=== PATIENT | female | born 1945 | race Caucasian/White ===

== ENCOUNTER 2016-11-28 14:50 | Observation (INO) | payer MEDICARE ==
[2016-11-28] MEDS ORDERED: NovoLOG Insulin SQ PRN (17:20)
[2016-11-28 17:33] LABS: Mean Cell Volume 87.2 fl (78-100); Mean Corpuscular Hemoglobin 27.1 pg (26-32); Mean Platelet Volume 11.1 fl (6-9.5); Platelet Count 237 K/mm3 (150-450); Red Blood Count 4.31 M/mm3 (4.1-5.4); Red Cell Distribution Width 14.8 % (11.5-14.0); White Blood Count 10.6 K/mm3 (4.0-10.5)
[2016-11-28 18:06] LABS: ALBUMIN 3.3 g/dL (3.4-5.0); ALKALINE PHOSPHATASE 119 U/L (46-116); ANION GAP 9.7 MEQ/L (5-15); BLOOD UREA NITROGEN 17 mg/dL (9-20); CHLORIDE 105 mEq/L (98-107); Carbon Dioxide 33.2 mEq/L (21-32); Glucose 281 MG/DL (70-110); Potassium 4.4 mEq/L (3.5-5.1); SGOT/AST 18 U/L (15-37); SGPT/ALT 32 U/L (12-78); SODIUM 144 mEq/L (136-145); TROPONIN 0.031 ng/ml (0.000-0.056); Total Protein 6.5 gm/dL (6.4-8.2)
[2016-11-28] MEDS ORDERED: ADVAIR HFA 45/21 COMMON CANISTER IH SCH (19:00)
--- NOTE | 2016-11-28 19:11 | XRAY ---
Exam: AP upright portable chest film from 1740 hrs. on 11/28/2016. Comparison: AP portable chest film from 09/02/2013. Indication: CHF. Findings: The heart appears slightly enlarged. There is mild nonspecific accentuation of the central perihilar vascular markings. The patient is noted be large. I see no air space infiltrates, pneumothorax, or pleural fluid. Some osteophyte formation is seen within the lower thoracic spine. No acute osseous process is seen. Impression: 1. Mild cardiomegaly without evidence of overt CHF or air space infiltrates.
[2016-11-28] MEDS: Apresoline 25 MG TABLET PO SCH (21:26)
[2016-11-28] MEDS: Pepcid 20 MG PO SCH (21:27)
[2016-11-28] MEDS ORDERED: COREG 12.5 MG PO SCH (22:00)
[2016-11-29] MEDS ORDERED: ADVAIR HFA 45/21 COMMON CANISTER IH SCH (07:00)
[2016-11-29] MEDS ORDERED: Advair Hfa 115/21 Common canister IH SCH (07:00)
--- NOTE | 2016-11-29 07:51 | CONS ---
CONSULT DATE: 11/28/2016 BRIEF HISTORY: This is a 71 year-old female who was seen because of shortness of breath. The patient was seen earlier at [facility] presenting with the same symptoms. She denies any chest pains. Apparently she was admitted this time because of hypoglycemic episode. She has never had myocardial infarction. CARDIAC RISK FACTORS: She has diabetes. Positive for hypertension. She does not smoke. She has hyperlipidemia. CURRENT MEDICATIONS: Albuterol, aspirin, atorvastatin, carvedilol, Cymbalta, famotidine, NovoLog, levothyroxine, Advair, fosinopril, hydralazine, loratadine, simvastatin, Nystatin, oxybutynin. 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 RESPIRATORY: She has occasional cough but no hemoptysis. GI: She has history of hiatal hernia. : Negative for dysuria or hematuria. PERIPHERAL VASCULAR: Negative for DVT or claudication. SKIN: No active dermatological problems. HEMATOLOGY: No history of blood dyscrasia. ENDOCRINE: The patient has history of hypothyroidism. PAST SURGICAL HISTORY: Colon resection and breast biopsy. SOCIAL HISTORY: She is . She denies any significant alcohol intake. PHYSICAL EXAMINATION: Her blood pressure is 180/70 with heart rate of 112, respirations about 14. GENERAL: The patient is an elderly female who is alert and oriented who is hard of hearing. HEENT: Unremarkable. NECK: No significant JVD or carotid bruit. CHEST: The breath sounds are diminished. CARDIAC: Heart tones are distant. The rhythm is regular. There is a grade 2/6 mid systolic murmur. ABDOMEN: Soft with normal bowel sounds. EXTREMITIES: There is trace edema. Palpable distal pulses. EKG - NSR with second degree AV block [place] IMPRESSION: 1) Shortness of breath is probably multifactorial. She has an element of left ventricular diastolic dysfunction. Her blood pressure is somewhat elevated. I hold her carvedilol due to the bradycardia probably induced by the beta josé miguel. continue with hydralazine and fosinopril. 2) Diabetes with hypoglycemic episode.
[2016-11-29] MEDS ORDERED: NON-FORMULARY ITEM (Atorvastatin Calcium 10 MG) PO SCH (10:00)
[2016-11-29] MEDS ORDERED: FLUCELVAX QUAD 2017-2018 SYR IM ONE ×2 (10:00→17:31)
[2016-11-29] MEDS ORDERED: NON-FORMULARY ITEM (Aspirin [Aspirin] 81 MG) PO SCH (10:00)
[2016-11-29] MEDS ORDERED: NON-FORMULARY ITEM (Nystatin/Tcn/Hc/Diphenhydram** [Mary's Magic Mouthwash***] 5 ML) PO SCH (10:00)
[2016-11-29] MEDS ORDERED: FOSINOPRIL SODIUM 40 MG PO SCH (10:00)
[2016-11-29] MEDS: Ditropan 5 MG PO SCH (10:40)
[2016-11-29] MEDS: Cymbalta 30 MG Capsule PO SCH (10:40)
[2016-11-29] MEDS: Pepcid 20 MG PO SCH ×2 (10:40→22:25)
[2016-11-29] MEDS: CLARITIN 10 MG PO SCH (10:40)
[2016-11-29] MEDS: monoPRIL 10 MG PO SCH (10:40)
[2016-11-29] MEDS: Apresoline 25 MG TABLET PO SCH ×3 (10:41→22:25)
[2016-11-29] MEDS: MARY'S MAGIC MOUTHWASH PO SCH ×3 (10:41→22:25)
[2016-11-29] MEDS: Zocor 10MG PO SCH (10:41)
[2016-11-29] MEDS: SYNTHROID 100 MCG PO SCH (10:41)
[2016-11-29] MEDS: ECOTRIN 81 MG PO SCH (10:41)
--- NOTE | 2016-11-29 13:06 | PCM.SSS ---
History of Present Illness - Chief Complaint Chief Complaint: shortness of breath for 1 week History of Present Illness: see history and Physical - Review of Systems Constitutional: No Fever, No Chills Eyes: No Symptoms Ears, Nose, & Throat: No Symptoms Respiratory: Orthopnea, Short Of Breath, Wheezing, No Cough Cardiac: Edema, No Chest Pain, No Syncope Abdominal/Gastrointestinal: No Abdominal Pain, No Nausea, No Vomiting, No Diarrhea Genitourinary Symptoms: No Dysuria Musculoskeletal: No Back Pain, No Neck Pain Skin: No Rash Neurological: No Dizziness, No Focal Weakness, No Sensory Changes Psychological: No Symptoms Endocrine: No Symptoms Hematologic/Lymphatic: No Symptoms Immunological/Allergic: No Symptoms Medications & Allergies Home Medications: Home Medication List Aspirin 81 mg PO DAILY 11/28/16 [History Confirmed 11/29/16] Atorvastatin Calcium [Lipitor] 10 mg PO DAILY 11/28/16 [History Confirmed ] Carvedilol 6.25 mg [Coreg 6.25 MG] 6.25 mg PO BID 11/28/16 [History Confirmed 11/29/16] Duloxetine HCl 30 mg [Cymbalta 30 MG Capsule] 60 mg PO DAILY 11/28/16 [ History Confirmed 11/29/16] Famotidine 20 mg [Pepcid 20 MG] 20 mg PO BID 11/28/16 [History Confirmed 11/29/16] Fluticasone/Salmeterol 45/21 [Advair Hfa 45-21 Mcg Inhaler] 8 gm IH BID [History Confirmed 11/29/16] Fosinopril Sodium 40 mg PO DAILY 11/28/16 [History Confirmed 11/29/16] HydrALAzine HCL 25 MG TAB [Apresoline 25 MG TABLET] 50 mg PO TID 11/28/16 [History Confirmed 11/29/16] Levothyroxine Sodium 100 Mcg [Synthroid 100 Mcg] 100 mcg PO DAILY 11/28/16 [History Confirmed 11/29/16] Loratadine 10 mg [Claritin 10 mg] 10 mg PO DAILY 11/28/16 [History Confirmed 11/29/16] Nystatin/TCN/Hc/Diphenhydram [Eugenia's Magic Mouthwash] 5 ml PO TID 11/28/16 [History Confirmed 11/29/16] Oxybutynin Chloride 5 mg PO DAILY 11/28/16 [History Confirmed 11/29/16] Insuln Asp Prt/Insulin Aspart* [NovoLOG 70/30 Mix] 100 unit SQ BID 11/29/16 [ History Confirmed 11/29/16] Allergies/Adverse Reactions: Allergies Allergy/AdvReac Type Severity Reaction Status Date / Time Sulfa (Sulfonamide Allergy Verified 11/28/16 17:49 Antibiotics) - Past Medical History Past Medical History: Yes Neurological History: No Pertinent History ENT History: Cataracts, Glaucoma Cardiac History: Congestive Heart Failure, Hypertension, Myocardial Infarction ( [place]) Respiratory History: Asthma, Sleep Apnea Endocrine Medical History: Diabetes Type II Musculoskelatal History: Arthritis GI Medical History: Diverticulitis, Diverticulosis, GERD, Hernia History: No Pertinent History Pyscho-Social History: Anxiety, Depression Reproductive Disorders: No Pertinent History - Past Surgical History Past Surgical History: Yes Neuro Surgical History: No Pertinent History Cardiac History: Cardiac Catheterization Respiratory Surgery: No Pertinent History GI Surgical History: No Pertinent History Genitourinary Surgical Hx: No Pertinent History Musculskeletal Surgical Hx: No Pertinent History Female Surgical History: No Pertinent History Other Surgical History: 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, CYST REMOVED FROM BREAST , - Social History Smoking Status: Former smoker Exposure to second hand smoke: No Alcohol: None Drug Use: none - Physical Exam Vital Signs: Vital Signs - 24 hr Temp Pulse Resp BP Pulse Ox 11/29/16 12:00 18 11/29/16 11:19 98.3 F 64 18 195/85 95 11/29/16 08:00 18 11/29/16 07:36 97.7 F 58 L 18 132/72 96 11/29/16 07:14 76 18 93 L 11/29/16 04:00 98.2 F 76 20 162/73 92 L 11/29/16 00:00 97.9 F 56 L 19 149/66 98 11/28/16 21:14 46 L 18 97 11/28/16 20:33 46 L 18 97 11/28/16 20:00 97.7 F 72 19 141/65 97 11/28/16 17:34 83 18 98 11/28/16 17:15 95 11/28/16 17:07 97.8 F 71 16 180/78 92 L 11/28/16 16:43 97.8 F 71 16 180/78 89 L Oxygen-Last 24 hours O2 Percentage 2 Liters = 28% O2 Percentage 2 Liters = 28% O2 Percentage 2 Liters = 28% O2 Percentage 2 Liters = 28% O2 Percentage 2 Liters = 28% O2 Percentage 2 Liters = 28% Oxygen Flowrate (L/min)-RT 2 General Appearance: mild distress, alert Neurologic Exam: alert, oriented x 3, cooperative, normal mood/affect, nml cerebellar function, nml station & gait, sensation nml, No motor deficits Eye Exam: PERRL/EOMI, eyes nml inspection Ears, Nose, Throat Exam: normal ENT inspection, TMs normal, pharynx normal, moist mucous membranes Neck Exam: normal inspection, non-tender, supple, full range of motion Respiratory Exam: normal breath sounds, lungs clear, No respiratory distress Cardiovascular Exam: regular rate/rhythm, normal heart sounds, normal peripheral pulses Gastrointestinal/Abdomen Exam: soft, normal bowel sounds, No tenderness, No mass Back Exam: normal inspection, normal range of motion, No CVA tenderness, No vertebral tenderness Extremity Exam: normal inspection, normal range of motion, pelvis stable Skin Exam: normal color, warm, dry, No rash Lymphatic Exam: No adenopathy Results - Labs Lab/Micro Results: Accuchecks Date 11/29/16 Date 11/29/16 Date 11/28/16 Time 11:30 Time 07:30 Time 21:00 Accucheck Value: 164 Accucheck Value: 108 Accucheck Value: 247 Lab Results-Last 24 Hours 11/28/16 11/28/16 11/28/16 Range/Units 17:25 17:25 17:30 WBC 10.6 H (4.0-10.5) K/mm3 RBC 4.31 (4.1-5.4) M/mm3 Hgb 11.7 L (12.0-16.0) gm/dl Hct 37.6 (35-47) % MCV 87.2 (78-100) fl MCH 27.1 (26-32) pg MCHC 31.1 L (32-36) g/dl RDW 14.8 H (11.5-14.0) % Plt Count 237 (150-450) K/mm3 MPV 11.1 H (6-9.5) fl Sodium 144 (136-145) mEq/L Potassium 4.4 (3.5-5.1) mEq/L Chloride 105 (98-107) mEq/L Carbon Dioxide 33.2 H (21-32) mEq/L Anion Gap 9.7 (5-15) MEQ/L BUN 17 (9-20) mg/dL Creatinine 0.86 (0.55-1.30) mg/dl Estimated GFR > 60 ML/MIN Glucose 281 H (70-110) MG/DL Hemoglobin A1c 8.1 H (4.5-6.2) Calcium 9.2 (8.5-10.1) mg/dL Total Bilirubin 0.40 (0.2-1.0) mg/dL AST 18 (15-37) U/L ALT 32 (12-78) U/L Alkaline Phosphatase 119 H (46-116) U/L Troponin I 0.031 (0.000-0.056) ng/ml NT-Pro-B Natriuret Pep 2323 H (0-125) pg/ml Serum Total Protein 6.5 (6.4-8.2) gm/dL Albumin 3.3 L (3.4-5.0) g/dL Accuchecks Date 11/29/16 Date 11/29/16 Date 11/28/16 Time 11:30 Time 07:30 Time 21:00 Accucheck Value: 164 Accucheck Value: 108 Accucheck Value: 247 - Radiology Impressions Radiology Exams & Impressions: Radiology Procedures Category Date Time Status CHEST 1 VIEW (PORTABLE) Routine Exams 11/28/16 17:30 Completed CHEST 2 VIEWS (PA AND LAT) Routine Exams 11/30/16 06:00 Ordered ECHO W/2D AND DOPPLER [US] Routine Exams 11/29/16 08:00 Taken - Other Procedures and Tests Respiratory Therapy 11/28/16 17:15 Oxygen NASAL CANNULA 2 lpm 11/28/16 21:08 Respiratory MDI BID 11/29/16 12:59 EKG ASORD Assessment/Plan (1) CHF (congestive heart failure), NYHA class III Current Visit: Yes Status: Acute Qualifiers: Congestive heart failure type: combined Congestive heart failure chronicity : chronic Qualified Code(s): I50.42 - Chronic combined systolic (congestive) and diastolic (congestive) heart failure Code(s): I50.9 - HEART FAILURE, UNSPECIFIED (2) Type 2 diabetes mellitus Current Visit: Yes Status: Acute Qualifiers: Diabetes mellitus complication status: with hyperglycemia Diabetes mellitus mcfp insulin use: with mcfp use Qualified Code(s): E11.65 - Type 2 diabetes mellitus with hyperglycemia; 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 (3) Sleep apnea in adult Current Visit: Yes Status: Chronic Code(s): G47.30 - SLEEP APNEA, UNSPECIFIED (4) COPD (chronic obstructive pulmonary disease) Current Visit: Yes Status: Chronic Qualifiers: COPD type: unspecified COPD Qualified Code(s): J44.9 - Chronic obstructive pulmonary disease, unspecified Hospital Summary - Hospital Course Hospital Course: Chief Complaint Diagnosis CHF Allergies Allergy/AdvReac Type Severity Reaction Status Date / Time Sulfa (Sulfonamide Allergy Verified 11/28/16 17:49 Antibiotics) Vital Signs (Last 24 hours) Temp Pulse Resp BP Pulse Ox 11/29/16 12:00 18 11/29/16 11:19 98.3 F 64 18 195/85 95 11/29/16 08:00 18 11/29/16 07:36 97.7 F 58 L 18 132/72 96 11/29/16 07:14 76 18 93 L 11/29/16 04:00 98.2 F 76 20 162/73 92 L 11/29/16 00:00 97.9 F 56 L 19 149/66 98 11/28/16 21:14 46 L 18 97 11/28/16 20:33 46 L 18 97 11/28/16 20:00 97.7 F 72 19 141/65 97 11/28/16 17:34 83 18 98 11/28/16 17:15 95 11/28/16 17:07 97.8 F 71 16 180/78 92 L 11/28/16 16:43 97.8 F 71 16 180/78 89 L Home Medications Medication Instructions Recorded Confirmed Last Taken Type Aspirin 81 mg PO DAILY 11/28/16 11/29/16 11/28/16 History Atorvastatin Calcium [Lipitor] 10 mg PO DAILY 11/28/16 11/29/16 11/28/16 History Carvedilol 6.25 mg [Coreg 6.25 6.25 mg PO BID 11/28/16 11/29/16 11/28/16 History MG] Duloxetine HCl 30 mg [Cymbalta 60 mg PO DAILY 11/28/16 11/29/16 11/28/16 History 30 MG Capsule] Famotidine 20 mg [Pepcid 20 20 mg PO BID 11/28/16 11/29/16 11/28/16 History MG] Fluticasone/Salmeterol 45/21 8 gm IH BID 11/28/16 11/29/16 11/28/16 History [Advair Hfa 45-21 Mcg Inhaler] Fosinopril Sodium 40 mg PO DAILY 11/28/16 11/29/16 11/28/16 History HydrALAzine HCL 25 MG TAB 25 mg PO QID 11/28/16 11/29/16 11/28/16 History [Apresoline 25 MG TABLET] Levothyroxine Sodium 100 Mcg 100 mcg PO DAILY 11/28/16 11/29/16 11/28/16 History [Synthroid 100 Mcg] Loratadine 10 mg [Claritin 10 10 mg PO DAILY 11/28/16 11/29/16 11/28/16 History mg] Nystatin/TCN/Hc/Diphenhydram 5 ml PO TID 11/28/16 11/29/16 11/28/16 History [Eugenia's Magic Mouthwash] Oxybutynin Chloride 5 mg PO DAILY 11/28/16 11/29/16 11/28/16 History Current Medications Generic Name Dose Route Start Last Admin Trade Name Freq PRN Reason Stop Dose Admin Aspirin 81 mg 11/29/16 10:00 11/29/16 10:41 Ecotrin 81 Mg PO 12/29/16 09:59 81 mg DAILY LILA Administration Duloxetine HCl 60 mg 11/29/16 10:00 11/29/16 10:40 Cymbalta 30 Mg Capsule PO 12/29/16 09:59 60 mg DAILY LILA Administration Famotidine 20 mg 11/28/16 22:00 11/29/16 10:40 Pepcid 20 Mg PO 12/28/16 21:59 20 mg BID LILA Administration Fosinopril Sodium 40 mg 11/29/16 10:00 11/29/16 10:40 Monopril 10 Mg PO 12/29/16 09:59 40 mg DAILY LILA Administration Hydralazine HCl 50 mg 11/29/16 15:00 Apresoline 25 Mg Tablet PO 12/29/16 14:59 TID LILA Insulin Aspart 0 unit 11/28/16 17:20 11/28/16 21:27 Novolog Insulin SQ 12/28/16 17:19 2 unit UD PRN Administration HYPERGLYCEMIA Levothyroxine Sodium 100 mcg 11/29/16 10:00 11/29/16 10:41 Synthroid 100 Mcg PO 12/29/16 09:59 100 mcg DAILY LILA Administration Loratadine 10 mg 11/29/16 10:00 11/29/16 10:40 Claritin 10 Mg PO 12/29/16 09:59 10 mg DAILY LILA Administration Oxybutynin Chloride 5 mg 11/29/16 10:00 11/29/16 10:40 Ditropan 5 Mg PO 12/29/16 09:59 5 mg DAILY LLIA Administration Fluticasone/Salmeterol 2 puff 11/29/16 07:00 11/29/16 06:45 Advair Hfa 45/21 Common Canister* IH 12/29/16 06:59 2 puff BIDRT LILA Administration Simvastatin 10 mg 11/29/16 10:00 11/29/16 10:41 Zocor 10mg PO 12/29/16 09:59 10 mg DAILY LILA Administration Discontinued Medications Generic Name Dose Route Start Last Admin Trade Name Freq PRN Reason Stop Dose Admin Carvedilol 12.5 mg 11/28/16 22:00 11/28/16 18:26 Coreg 12.5 Mg PO 12/28/16 21:59 Not Given BID LILA Hydralazine HCl 25 mg 11/28/16 22:00 11/29/16 12:23 Apresoline 25 Mg Tablet PO 12/28/16 21:59 25 mg QID LILA Administration Hydralazine HCl 50 mg 11/29/16 15:00 Apresoline 25 Mg Tablet PO 12/29/16 14:59 TID LILA Influenza Virus Vaccine Quadrival 60 mcg 11/29/16 10:00 Flucelvax Quad [id number] Syr IM 11/29/16 10:01 .ONCE ONE Fluticasone/Salmeterol 2 puff 11/28/16 19:00 11/28/16 22:33 Advair Hfa 45/21 Common Canister* IH 12/28/16 18:59 Not Given BIDRT LILA Fluticasone/Salmeterol 2 puff 11/29/16 07:00 11/28/16 21:10 Advair Hfa 115/21 Common Canister* IH 12/29/16 06:59 2 puff BIDRT LILA Administration Intake & Output (Last 24 hours) 11/27/16 11/28/16 11/29/16 11/30/16 11:59 11:59 11:59 11:59 Intake Total 1300 480 Output Total 302 2 Balance 998 478 Weight 88.025 kg Laboratory Results (Last 24 hours) 11/28/16 11/28/16 11/28/16 17:30 17:25 17:25 WBC 10.6 H RBC 4.31 Hgb 11.7 L Hct 37.6 MCV 87.2 MCH 27.1 MCHC 31.1 L RDW 14.8 H Plt Count 237 MPV 11.1 H Sodium 144 Potassium 4.4 Chloride 105 Carbon Dioxide 33.2 H Anion Gap 9.7 BUN 17 Creatinine 0.86 Estimated GFR > 60 Glucose 281 H Hemoglobin A1c 8.1 H Calcium 9.2 Total Bilirubin 0.40 AST 18 ALT 32 Alkaline Phosphatase 119 H Troponin I 0.031 NT-Pro-B Natriuret Pep 2323 H Serum Total Protein 6.5 Albumin 3.3 L Orders (Last 24 hours) Category Date Time Status Bedrest TOLERATED Activity 11/28/16 17:09 Active ACCUCHECK [Accucheck] ACHS Care 11/28/16 17:16 Active Admission/Status Order ROUTINE Care 11/28/16 16:29 Active IV Care Q6H Care 11/28/16 17:06 Active Implement CHF Pathway ROUTINE Care 11/28/16 17:06 Active Miscellaneous Nursing Order ROUTINE Care 11/28/16 17:20 Active Saline Lock ROUTINE Care 11/28/16 17:06 Active Telemetry CONTINUOUS Care 11/28/16 17:08 Active Weight,Daily 0600 Care 11/28/16 17:06 Active Consult Cardiology ROUTINE Cons 11/28/16 17:25 Active 1800 Calorie ADA Diet 11/29/16 Breakfast Active Low Sodium Diet 11/28/16 Dinner Active Nutritional Consult ROUTINE Diet 11/28/16 17:06 Active CHEST 1 VIEW (PORTABLE) Routine Exams 11/28/16 17:30 Completed CHEST 2 VIEWS (PA AND LAT) Routine Exams 11/30/16 06:00 Ordered ECHO W/2D AND DOPPLER [US] Routine Exams 11/29/16 08:00 Taken CBC Stat Lab 11/28/16 17:25 Completed CMP Stat Lab 11/28/16 17:25 Completed HEMOGLOBIN A1C Routine Lab 11/28/16 17:30 Completed NT PRO BNP Stat Lab 11/28/16 17:25 Completed TROPONIN Stat Lab 11/28/16 17:25 Completed Aspirin EC 81 mg [Ecotrin 81 mg] Med 11/29/16 10:00 Active 81 mg PO DAILY Carvedilol 12.5 mg [Coreg 12.5 mg] Med 11/28/16 22:00 Discontinued 12.5 mg PO BID Duloxetine HCl 30 mg [Cymbalta 30 MG Capsule] Med 11/29/16 10:00 Active 60 mg PO DAILY Famotidine 20 mg [Pepcid 20 MG] Med 11/28/16 22:00 Active 20 mg PO BID Flu Vac Qs 17-18(4Yr Up)Mia/Pf [Flucelvax Quad 2017- Med 11/29/16 10:00 Discontinued 2018 Syr] 60 mcg IM .ONCE ONE Fluticasone/Salmeterol 115/21 [Advair Hfa 115/21 Common Med 11/29/16 07:00 Discontinued canister*] 2 puff IH BIDRT Fluticasone/Salmeterol 45/21 [Advair Hfa 45/21 Common Med 11/28/16 19:00 Discontinued Canister*] 2 puff IH BIDRT Fluticasone/Salmeterol 45/21 [Advair Hfa 45/21 Common Med 11/29/16 07:00 Active Canister*] 2 puff IH BIDRT Fosinopril Sodium 10 mg [monoPRIL 10 MG] Med 11/29/16 10:00 Active 40 mg PO DAILY HydrALAzine HCL 25 MG TAB [Apresoline 25 MG TABLET Med 11/28/16 22:00 Discontinued *] 25 mg PO QID HydrALAzine HCL 25 MG TAB [Apresoline 25 MG TABLET Med 11/29/16 15:00 Active *] 50 mg PO TID HydrALAzine HCL 25 MG TAB [Apresoline 25 MG TABLET Med 11/29/16 15:00 Discontinued *] 50 mg PO TID Insulin Aspart [NovoLOG Insulin] Med 11/28/16 17:20 Active See Dose Instructions SQ UD PRN Levothyroxine Sodium 100 Mcg [Synthroid 100 Mcg] Med 11/29/16 10:00 Active 100 mcg PO DAILY Loratadine 10 mg [Claritin 10 mg] Med 11/29/16 10:00 Active 10 mg PO DAILY Nystatin/TCN/Hc/Diphenhydram [Eugenia's Magic Mouthwash* Med 11/29/16 10:00 Active ] 5 ml PO TID Oxybutynin Chloride 5 mg [Ditropan 5 MG] Med 11/29/16 10:00 Active 5 mg PO DAILY Simvastatin 10 mg [Zocor 10MG] Med 11/29/16 10:00 Active 10 mg PO DAILY EKG ASORD RT 11/29/16 12:59 Active EKG STAT RT 11/28/16 17:20 Completed Oxygen NASAL CANNULA 2 lpm RT 11/28/16 17:15 Active Pulse Oximetry OVERNIGHT RT 11/28/16 17:15 Completed Respiratory MDI BID RT 11/28/16 21:08 Active Respiratory Therapy Consult ROUTINE RT 11/28/16 17:19 Completed Patient Care Notes (Last 24 hours) 11/29/16 11:37 Nursing Note by Anne Penaloza dr office called for elevated BP of 184/90 taken manually. message take by tableau administrator. Initialized on 11/29/16 11:37 - END OF NOTE 11/29/16 10:15 (created 11/29/16 10:35) Case Management Note by Mouna Kern REFERRAL CALLED TO [facility] - SPOKE WITH JEREMY. Initialized on 11/29/16 10:35 - END OF NOTE 11/29/16 10:00 (created 11/29/16 10:32) Case Management Note by Mouna Kern CALL TO SON MILIND, LAY CAREGIVER, TO DISCUSS NEEDS ON DISCHARGE. REPORTS THAT HE AGREES WITH REHAB STAY AT [facility] ON DISCHARGE. REPORTS THAT HE DOESN'T FEEL THAT HIS MOTHER IS STRONG ENOUGH TO CARE FOR HERSELF INDEPENDENTLY AT PRESENT TIME - ESPECIALLY GIVEN THAT SHE HAS BEEN IN HOSPITAL SETTING TWICE WITHIN LAST MONTH. REPORTS THAT HE FEELS THAT PT/OT SHORT TERM STAY WILL BENEFIT HER. DISCUSSED THAT HIS MOTHER HAS PREFERENCE OF [facility] CHO[facility] - AND THAT SHE PREFERS TO STAY IN [place]. SON IS IN AGREEMENT. Initialized on 11/29/16 10:32 - END OF NOTE 11/29/16 09:45 (created 11/29/16 10:15) Case Management Note by Mouna Kern LONG DISCUSSION WITH PT REGARDING NEEDS AT DISCHARGE AND RECENT - HOSPITAL VISIT AT [facility] 10/29/16 - 11/06/16. REPORTS THAT SHE HAS BEEN ON 2L OXYGEN AT HOME SINCE SHE LEFT THERE AND THAT [facility] IS SUPPLYING HER OXYGEN AT HOME. ALSO, REPORTS THAT SHE IS SUPPOSED TO WEAR CPAP AT [facility], BUT THAT SHE HAS NOT BEEN WEARING FOR QUITE SOMETIME. REPORTS THAT DR. Matilda ZEPEDA HAS ORDERED IT FOR HER , AND REPORTS THAT DR. MEDINA IS AWARE SHE IS NOT WEARING AT HOME. REPORTS THAT SHE DOESN'T TOLERATE IT WELL. SHE NORMALLY USES CANE FOR AMBULATION PRN. LIVES ALONE WITH HER PET YARELI, HER DAUGHTER/GRANDDAUGHTER LIVES NEXT DOOR AND VISIT HER OFTEN. SON IS ACTIVELY INVOLVED IN PLAN OF CARE AND WILL TAKE HER TO ALL APPTS. SON HAS ALSO BEEN DESIGNATED LAY CAREGIVER. DISCUSSED REHAB STAY @ [facility] VS HOME WITH [facility] ON DISCHARGE. PT IS OPEN TO SHORT TERM REHAB STAY AT [facility] ON DISCHARGE. REPORTS THAT SHE REQUESTS REFERRAL TO [facility]. WILL CALL REFERRAL. Initialized on 11/29/16 10:15 - END OF NOTE 11/29/16 01:07 Nursing Note by Trina Heath Dr. called earlier in shift requested EKG be done and sent to his phone. called RT and EKG completed and sent to his phone @ [phone]. Initialized on 11/29/16 01:07 - END OF NOTE - Vitals & Intake/Output Vital Signs: Vital Signs Temperature 98.3 F 11/29/16 11:19 Pulse Rate 64 11/29/16 11:19 Respiratory Rate 18 11/29/16 12:00 Blood Pressure 195/85 11/29/16 11:19 O2 Sat by Pulse Oximetry 95 11/29/16 11:19 Oxygen-Last Documented O2 Percentage 2 Liters = 28% Intake & Output: Intake & Output 11/27/16 11/28/16 11/29/16 11/30/16 11:59 11:59 11:59 11:59 Intake Total 1300 480 Output Total 302 2 Balance 998 478 Weight 88.025 kg - Lab Result Diagrams: 11/28/16 17:25 11/28/16 17:25 Lab Results-Last 24 Hrs: Accuchecks Date 11/29/16 Date 11/29/16 Date 11/28/16 Time 11:30 Time 07:30 Time 21:00 Accucheck Value: 164 Accucheck Value: 108 Accucheck Value: 247 Lab Results-Last 24 Hours 11/28/16 11/28/16 11/28/16 Range/Units 17:25 17:25 17:30 WBC 10.6 H (4.0-10.5) K/mm3 RBC 4.31 (4.1-5.4) M/mm3 Hgb 11.7 L (12.0-16.0) gm/dl Hct 37.6 (35-47) % MCV 87.2 (78-100) fl MCH 27.1 (26-32) pg MCHC 31.1 L (32-36) g/dl RDW 14.8 H (11.5-14.0) % Plt Count 237 (150-450) K/mm3 MPV 11.1 H (6-9.5) fl Sodium 144 (136-145) mEq/L Potassium 4.4 (3.5-5.1) mEq/L Chloride 105 (98-107) mEq/L Carbon Dioxide 33.2 H (21-32) mEq/L Anion Gap 9.7 (5-15) MEQ/L BUN 17 (9-20) mg/dL Creatinine 0.86 (0.55-1.30) mg/dl Estimated GFR > 60 ML/MIN Glucose 281 H (70-110) MG/DL Hemoglobin A1c 8.1 H (4.5-6.2) Calcium 9.2 (8.5-10.1) mg/dL Total Bilirubin 0.40 (0.2-1.0) mg/dL AST 18 (15-37) U/L ALT 32 (12-78) U/L Alkaline Phosphatase 119 H (46-116) U/L Troponin I 0.031 (0.000-0.056) ng/ml NT-Pro-B Natriuret Pep 2323 H (0-125) pg/ml Serum Total Protein 6.5 (6.4-8.2) gm/dL Albumin 3.3 L (3.4-5.0) g/dL Micro Results-Entire Visit: Accuchecks Date 11/29/16 Date 11/29/16 Date 11/28/16 Time 11:30 Time 07:30 Time 21:00 Accucheck Value: 164 Accucheck Value: 108 Accucheck Value: 247 - Radiology Exams Ordered Rad Exams-Entire Visit: Radiology Procedures Category Date Time Status CHEST 1 VIEW (PORTABLE) Routine Exams 11/28/16 17:30 Completed CHEST 2 VIEWS (PA AND LAT) Routine Exams 11/30/16 06:00 Ordered ECHO W/2D AND DOPPLER [US] Routine Exams 11/29/16 08:00 Taken - Procedures and Test Procedures and Tests throughout Hospitalization: Therapy Orders & Screens 11/28/16 17:15 Oxygen NASAL CANNULA 2 lpm Comment: Diagnosis: CHF 11/28/16 17:19 Respiratory Therapy Consult ROUTINE Comment: Reason For Exam: Diagnosis: CHF 11/28/16 17:20 EKG STAT Comment: Diagnosis: CHF 11/28/16 21:08 Respiratory MDI BID Comment: ADV Diagnosis: CHF 11/29/16 12:59 EKG ASORD Comment: Diagnosis: CHF - Discharge Discharge Date: 11/29/16 Disposition: Skilled Care @ [facility] Condition: Stable Prescriptions: Continue HydrALAzine HCL 25 MG TAB [Apresoline 25 MG TABLET] 50 mg PO TID Aspirin 81 mg PO DAILY Fluticasone/Salmeterol 45/21 [Advair Hfa 45-21 Mcg Inhaler] 8 gm IH BID Oxybutynin Chloride 5 mg PO DAILY Levothyroxine Sodium 100 Mcg [Synthroid 100 Mcg] 100 mcg PO DAILY Fosinopril Sodium 40 mg PO DAILY Nystatin/TCN/Hc/Diphenhydram [Eugenia's Magic Mouthwash] 5 ml PO TID Famotidine 20 mg [Pepcid 20 MG] 20 mg PO BID Carvedilol 6.25 mg [Coreg 6.25 MG] 6.25 mg PO BID Atorvastatin Calcium [Lipitor] 10 mg PO DAILY Loratadine 10 mg [Claritin 10 mg] 10 mg PO DAILY Duloxetine HCl 30 mg [Cymbalta 30 MG Capsule] 60 mg PO DAILY Insuln Asp Prt/Insulin Aspart* [NovoLOG 70/30 Mix] 100 unit SQ BID Additional Inst[facility]: [facility]: PT/OT EVAL AND TREAT ACCU CHECKS AC/HS CPAP - SUPPOSED TO WEAR AT [facility], BUT HAS NOT BEEN WEARING IT 1800 V[address] ADA, LOW SODIUM DIET MONITOR WEIGHT AND I/O - HX CHF 2L OXYGEN TO KEEP SPO2 > 92% DR. MEDINA TO FOLLOW AT HALFWAY SEE ATTACHED MED LIST FOR CURRENT MED ORDERS Follow up with: MIKAEL MEDINA MD [Primary Care Provider] - 1 Week
[2016-11-29] MEDS ORDERED: Apresoline 25 MG TABLET PO SCH ×2 (15:00)
[2016-11-29] MEDS ORDERED: Apresoline 25 MG TABLET PO ONE (16:49)
[2016-11-29] MEDS ORDERED: Novolin 70/30 SQ SCH (17:15)
[2016-11-29] MEDS: NovoLOG 70/30 Mix SQ SCH (17:39)
[2016-11-30] MEDS ORDERED: Advair Hfa 115/21 Common canister IH SCH (07:00)
[2016-11-30] MEDS: NovoLOG 70/30 Mix SQ SCH (08:58)
[2016-11-30] MEDS: monoPRIL 10 MG PO SCH (10:57)
[2016-11-30] MEDS: Pepcid 20 MG PO SCH (10:57)
[2016-11-30] MEDS: MARY'S MAGIC MOUTHWASH PO SCH (10:57)
[2016-11-30] MEDS: Apresoline 25 MG TABLET PO SCH (10:57)
[2016-11-30] MEDS: Cymbalta 30 MG Capsule PO SCH (10:58)
[2016-11-30] MEDS: ECOTRIN 81 MG PO SCH (10:58)
[2016-11-30] MEDS: CLARITIN 10 MG PO SCH (10:58)
[2016-11-30] MEDS: Ditropan 5 MG PO SCH (10:58)
[2016-11-30] MEDS: Zocor 10MG PO SCH (10:58)
[2016-11-30] MEDS: SYNTHROID 100 MCG PO SCH (10:58)
[2016-11-30 11:28] VITALS: BP 157/67; PULSE 62; O2SAT 97
--- NOTE | 2016-11-30 20:18 | XRAY ---
Indication: CHF. Comparison: November 20, 2016. PA/lateral chest unchanged again demonstrating borderline cardiomegaly without focal infiltrate, consolidation, or large effusion. No new/acute findings. Comment: Preliminary interpretation was made by [facility]. No discrepancy.
--- NOTE | 2016-12-02 11:00 | ECHO ---
Transthoracic echocardiographic examination and color Doppler was done on 11/29/2016. INDICATION: Shortness of breath. IMPRESSION: 1) MILD LEFT VENTRICULAR HYPOKINESIA. EJECTION FRACTION 50%. 2) TRACE MITRAL REGURGITATION. 3) TRACE TRICUSPID REGURGITATION. RIGHT VENTRICULAR SYSTOLIC PRESSURE OF 20 MM OF MERCURY. 4) TRACE PULMONIC INSUFFICIENCY. The left ventricle is visualized and demonstrated mild left ventricular hypokinesia. Ejection fraction around 50%. The left ventricular thickness is normal. The mitral valve is seen and this opens adequately. There is trace mitral regurgitation. Left atrium is normal. The aortic valve opens adequately. The right side chambers are normal. There is trace tricuspid regurgitation. The right ventricular systolic pressure of 20 mm of [place].
== END 2016-11-30 13:25 ==
LOC: MED SURG 16:29
PROVIDERS: ADMIT General Practice; ATTEND General Practice
DX: I50.42 Chronic combined systolic (congestive) and diastolic (congestive) heart failure (principal); E11.65 Type 2 diabetes mellitus with hyperglycemia; Z79.4 Long term (current) use of insulin; G47.30 Sleep apnea, unspecified; J44.9 Chronic obstructive pulmonary disease, unspecified; I10 Essential (primary) hypertension; E78.5 Hyperlipidemia, unspecified; E03.9 Hypothyroidism, unspecified; E11.40 Type 2 diabetes mellitus with diabetic neuropathy, unspecified; E11.22 Type 2 diabetes mellitus with diabetic chronic kidney disease; Z23 Encounter for immunization; M19.90 Unspecified osteoarthritis, unspecified site; F41.8 Other specified anxiety disorders; K21.9 Gastro-esophageal reflux disease without esophagitis; Z79.899 Other long term (current) drug therapy; I25.2 Old myocardial infarction
CPT/HCPCS: 36415; 71010; 71020; 80053; 82962; 83036; 83880; 84484; 85027; 93005; 93268; 93306; 94640; 94760; G0008; G0378; 90682; A9270-GY

== ENCOUNTER 2016-12-01 13:18 | Emergency (ER) | payer MEDICARE ==
--- NOTE | 2016-12-01 13:42 | ERPHSYRPT ---
- History of Present Illness Time Seen by Provider: 12/01/16 13:19 Source: patient Exam Limitations: clinical condition Physician History: PATIENT WITH A HISTORY OF HYPERTENSION, HYPOTHYROIDISM AND TYPE 2 DIABETES WHILE A CARE HOME HAD ONSET OF CONFUSION, BLOOD GLUCOSE WAS 61, CARE HOME ADMINISTERED ORANGE JUICE WITH PEANUT BUTTER, EMS FOUND THE PATIENT ALERT AND APPROPRIATE WITH A BLOOD GLUCOSE OF 189. Timing/Duration: today Severity: moderate Modifying Factors: Improves With: other (CONFUSION) Associated Symptoms: other (CONFUSION) Allergies/Adverse Reactions: Sulfa (Sulfonamide Antibiotics) Allergy (Verified 12/01/16 13:52) Home Medications: Aspirin 81 mg PO DAILY 11/28/16 [History] Atorvastatin Calcium [Lipitor] 10 mg PO DAILY 11/28/16 [History] Carvedilol 6.25 mg [Coreg 6.25 MG] 6.25 mg PO BID 11/28/16 [History] Duloxetine HCl 30 mg [Cymbalta 30 MG Capsule] 60 mg PO DAILY 11/28/16 [ History] Famotidine 20 mg [Pepcid 20 MG] 20 mg PO BID 11/28/16 [History] Fluticasone/Salmeterol 45/21 [Advair Hfa 45-21 Mcg Inhaler] 8 gm IH BID [History] Fosinopril Sodium 40 mg PO DAILY 11/28/16 [History] HydrALAzine HCL 25 MG TAB [Apresoline 25 MG TABLET] 50 mg PO TID 11/28/16 [History] Levothyroxine Sodium 100 Mcg [Synthroid 100 Mcg] 100 mcg PO DAILY 11/28/16 [History] Loratadine 10 mg [Claritin 10 mg] 10 mg PO DAILY 11/28/16 [History] Nystatin/TCN/Hc/Diphenhydram [Eugenia's Magic Mouthwash] 5 ml PO TID 11/28/16 [History] Oxybutynin Chloride 5 mg PO DAILY 11/28/16 [History] Insuln Asp Prt/Insulin Aspart* [NovoLOG 70/30 Mix] 100 unit SQ BID 11/29/16 [ History] Hx Tetanus, Diphtheria Vaccination/Date Given: No Hx Influenza Vaccination/Date Given: No Hx Pneumococcal Vaccination/Date Given: No - Review of Systems Constitutional: No Fever, No Chills Eyes: No Symptoms Ears, Nose, & Throat: No Symptoms Respiratory: No Symptoms, No Cough, No Dyspnea Cardiac: No Symptoms, No Chest Pain, No Edema, No Syncope Abdominal/Gastrointestinal: No Abdominal Pain, No Nausea, No Vomiting, No Diarrhea Genitourinary Symptoms: No Symptoms, No Dysuria Musculoskeletal: No Symptoms, No Back Pain, No Neck Pain Skin: No Rash Neurological: Other (ALERT AND APPROPRIATE), No Dizziness, No Focal Weakness, No Sensory Changes Psychological: No Symptoms Endocrine: No Symptoms All Other Systems: Reviewed and Negative - Past Medical History Pertinent Past Medical History: Yes Neurological History: No Pertinent History ENT History: Cataracts, Glaucoma Cardiac History: Congestive Heart Failure, Hypertension, Myocardial Infarction ( [place]) Respiratory History: Asthma, Sleep Apnea Endocrine Medical History: Diabetes Type II Musculoskeletal History: Arthritis GI Medical History: Diverticulitis, Diverticulosis, GERD, Hernia History: No Pertinent History Psycho-Social History: Anxiety, Depression Female Reproductive Disorders: No Pertinent History - Past Surgical History Past Surgical History: Yes Neuro Surgical History: No Pertinent History Cardiac: Cardiac Catheterization Respiratory: No Pertinent History Gastrointestinal: No Pertinent History Genitourinary: No Pertinent History Musculoskeletal: No Pertinent History Female Surgical History: No Pertinent History Other Surgical History: 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, CYST REMOVED FROM BREAST , - Social History Smoking Status: Former smoker Exposure to second hand smoke: No Drug Use: none Patient Lives Alone: No - Nursing Vital Signs Nursing Vital Signs: Initial Vital Signs Temperature 98.3 F 12/01/16 13:20 Pulse Rate 77 12/01/16 13:20 Respiratory Rate 16 12/01/16 13:20 Blood Pressure 128/49 12/01/16 13:20 O2 Sat by Pulse Oximetry 100 12/01/16 13:20 Pain Scale Pain Intensity 0 - Physical Exam General Appearance: no apparent distress, alert Eye Exam: PERRL/EOMI, eyes nml inspection Ears, Nose, Throat Exam: normal ENT inspection, TMs normal, pharynx normal, moist mucous membranes Neck Exam: normal inspection, non-tender, supple, full range of motion Respiratory Exam: normal breath sounds, lungs clear, No respiratory distress Cardiovascular Exam: regular rate/rhythm, normal heart sounds, normal peripheral pulses Gastrointestinal/Abdomen Exam: soft, normal bowel sounds, No tenderness, No mass Back Exam: normal inspection, normal range of motion, No CVA tenderness, No vertebral tenderness Extremity Exam: normal inspection, normal range of motion, pelvis stable Neurologic Exam: alert, oriented x 3, cooperative, normal mood/affect, nml cerebellar function, nml station & gait, sensation nml, No motor deficits Skin Exam: normal color, warm, dry, No rash Lymphatic Exam: No adenopathy SpO2 Interpretation: normal SpO2: 97 Oxygen Delivery: Room Air - Course EKG Interpreted by Me: RATE, Sinus Rhythm, NORMAL AXIS, 1st degree AV Block Ordered Tests: Active Orders 24 hr Category Date Time Status EKG-ER Only STAT Care 12/01/16 13:32 Active IV Insertion STAT Care 12/01/16 13:32 Active CBC W DIFF Stat Lab 12/01/16 13:45 Completed CMP Stat Lab 12/01/16 13:45 Completed MAGNESIUM Stat Lab 12/01/16 13:45 Completed UA W/ MICROSCOPIC Stat Lab 12/01/16 15:40 Completed Medication Summary Generic Name Dose Route Start Last Admin Trade Name Freq PRN Reason Stop Dose Admin Sodium Chloride 1,000 mls @ 100 mls/hr 12/01/16 13:45 12/01/16 14:06 Sodium Chloride 0.9% 1000 Ml IV 12/31/16 13:44 100 mls/hr .Q10H LILA Administration Lab/Rad Data: Laboratory Result Diagrams 12/01/16 13:45 12/01/16 13:45 Laboratory Results 12/01/16 12/01/16 12/01/16 Range/Units 15:40 13:45 13:45 WBC 13.0 H (4.0-10.5) K/mm3 RBC 4.56 (4.1-5.4) M/mm3 Hgb 12.3 (12.0-16.0) gm/dl Hct 40.7 (35-47) % MCV 89.3 (78-100) fl MCH 27.0 (26-32) pg MCHC 30.2 L (32-36) g/dl RDW 15.1 H (11.5-14.0) % Plt Count 272 (150-450) K/mm3 MPV 11.5 H (6-9.5) fl Gran % 81.5 H (36.0-66.0) % Lymphocytes % 9.9 L (24.0-44.0) % Monocytes % 6.9 (0.0-12.0) % Eosinophils % 1.5 (0.00-5.0) % Basophils % 0.2 (0.0-0.4) % Basophils # 0.03 (0-0.4) Sodium 145 (136-145) mEq/L Potassium 4.5 (3.5-5.1) mEq/L Chloride 106 (98-107) mEq/L Carbon Dioxide 32.8 H (21-32) mEq/L Anion Gap 10.4 (5-15) MEQ/L BUN 18 (9-20) mg/dL Creatinine 1.08 (0.55-1.30) mg/dl Estimated GFR 53 ML/MIN Glucose 291 H (70-110) MG/DL Calcium 8.7 (8.5-10.1) mg/dL Magnesium 1.9 (1.8-2.4) mg/dL Total Bilirubin 0.40 (0.2-1.0) mg/dL AST 18 (15-37) U/L ALT 30 (12-78) U/L Alkaline Phosphatase 116 (46-116) U/L Serum Total Protein 6.4 (6.4-8.2) gm/dL Albumin 3.2 L (3.4-5.0) g/dL Ur Collection Type CATH Urine Color YELLOW (YELLOW) Urine Appearance CLOUDY (CLEAR) Urine pH 5.0 (5-6) Ur Specific [place] 1.020 (1.005-1.025) Urine Protein TRACE (Negative) Urine Ketones NEGATIVE (NEGATIVE) Urine Blood NEGATIVE (0-5) Elver/ul Urine Nitrite NEGATIVE (NEGATIVE) Urine Bilirubin NEGATIVE (NEGATIVE) Urine Urobilinogen NORMAL (0-1) mg/dL Ur Leukocyte Esterase TRACE (NEGATIVE) Urine Microscopic RBC 0-2 (0-2) /HPF Urine Microscopic WBC 0-2 (0-5) /HPF Ur Epithelial Cells MANY (FEW) /HPF Urine Bacteria FEW (NEGATIVE) /HPF Urine Glucose 250 (NEGATIVE) mg/dL Specimen Received 12/01/16 1540 - Progress Progress: improved Counseled pt/family regarding: lab results, diagnosis, need for follow-up - Departure Time of Disposition: 17:00 Departure Disposition: Home Clinical Impression: HYPOGLYCEMIA Condition: Stable Critical Care Time: No Referrals: MIKAEL MEDINA MD [Primary Care Provider] - Additional Instructions: CONTINUE ALL CURRENT MEDICATIONS. CHECK ACCUCHECKS BEFORE MEALS AND AT BEDTIME. CONSULT YOUR PRIMARY CARE PHYSICIAN FOR EVALUATION IN 4-5 DAYS.
[2016-12-01] MEDS ORDERED: Sodium Chloride 0.9% 1000 ML 1,000 ML IV SCH (13:45)
[2016-12-01 14:00] LABS: BASOPHIL % 0.2 % (0.0-0.4); Eosinophil % 1.5 % (0.00-5.0); Granulocytes % 81.5 % (36.0-66.0); Lymphocytes % 9.9 % (24.0-44.0); Mean Cell Volume 89.3 fl (78-100); Mean Platelet Volume 11.5 fl (6-9.5); Monocytes % 6.9 % (0.0-12.0); Platelet Count 272 K/mm3 (150-450); Red Blood Count 4.56 M/mm3 (4.1-5.4); Red Cell Distribution Width 15.1 % (11.5-14.0)
[2016-12-01] MEDS ORDERED: Sodium Chloride 0.9% 1000 ML 1,000 ML ONE (14:04)
[2016-12-01 14:13] LABS: ALBUMIN 3.2 g/dL (3.4-5.0); ANION GAP 10.4 MEQ/L (5-15); BILIRUBIN,TOTAL 0.4 mg/dL (0.2-1.0); Carbon Dioxide 32.8 mEq/L (21-32); MAGNESIUM 1.9 mg/dL (1.8-2.4); Potassium 4.5 mEq/L (3.5-5.1); Total Protein 6.4 gm/dL (6.4-8.2)
[2016-12-01 15:47] LABS: Bilirubin NEGATIVE (NEGATIVE); Blood NEGATIVE Ery/ul (0-5); COMPLETE URINE MICROSCOPIC? YES; Collection Type CATH; Glucose 250 mg/dL (NEGATIVE); Leukocyte Esterase TRACE (NEGATIVE)
[2016-12-01 16:02] LABS: WBC 0-2 /HPF (0-5)
[2016-12-01 16:03] LABS: ADD URINE CULTURE? NO (NO); Bacteria FEW /HPF (NEGATIVE); Epithelial Cells MANY /HPF (FEW)
[2016-12-01 17:37] VITALS: BP 152/66; PULSE 72; O2SAT 96
== END 2016-12-01 17:10 | disposition home or self-care (01) ==
LOC: ED 13:18
DX: E16.2 Hypoglycemia, unspecified (principal); I10 Essential (primary) hypertension; E03.9 Hypothyroidism, unspecified; E11.9 Type 2 diabetes mellitus without complications; R41.0 Disorientation, unspecified; Z79.899 Other long term (current) drug therapy
CPT/HCPCS: 99284; 36000; 96360; 93005; 81000; 36415; 83735; 85025; 80053; P9612

== ENCOUNTER 2016-12-20 07:56 | Emergency (ER) | payer MEDICARE ==
[2016-12-20 08:11] LABS: A-aADO2 41; ARTERIAL BLD GAS O2 SATURATION 98.4 % (95-100); ARTERIAL BLOOD GAS BASE EXCESS 14.1 (-2.0-2.0); ARTERIAL BLOOD GAS FIO2 50 %; ARTERIAL BLOOD GAS PO2 206 mmHg (75-100); ARTERIAL BLOOD GAS pH 7.31 (7.35-7.45)
[2016-12-20 08:12] LABS: ALLEN TEST OK? YES
[2016-12-20 08:28] LABS: Mean Cell Volume 94.9 fl (78-100); Mean Corpuscular Hemoglobin 27.3 pg (26-32); Mean Platelet Volume 11.6 fl (6-9.5); Platelet Count 221 K/mm3 (150-450); Red Blood Count 4.32 M/mm3 (4.1-5.4); Red Cell Distribution Width 14.9 % (11.5-14.0); White Blood Count 16.3 K/mm3 (4.0-10.5)
[2016-12-20 08:45] LABS: INR 1.1 (0.8-3.0); PROTIME 12.2 SECONDS (9.95-12.35)
[2016-12-20 08:48] LABS: PTT 32.7 SECONDS (25.3-37.0)
--- NOTE | 2016-12-20 08:48 | ERPHSYRPT ---
- History of Present Illness Time Seen by Provider: 12/20/16 07:58 Source: EMS (gave oxygen and duoneb en route), group home records Physician History: CC: talking out of her head Hx: 71 y/o patient of Dr Medina from [facility] with hx of DM, COPD. She was fine 2 days ago. Off yesterday. Today can not sit up straight, talking out of her head, not acting her normal. HR 100. BP some high. No fever. No vomiting. Pt unable to give hx. She usually walks in the halls and is alert. Timing/Duration: today, yesterday Severity: moderate Allergies/Adverse Reactions: Sulfa (Sulfonamide Antibiotics) Allergy (Verified 12/01/16 13:52) Home Medications: Aspirin 81 mg PO DAILY 11/28/16 [History] Atorvastatin Calcium [Lipitor] 10 mg PO DAILY 11/28/16 [History] Carvedilol 6.25 mg [Coreg 6.25 MG] 6.25 mg PO BID 11/28/16 [History] Duloxetine HCl 30 mg [Cymbalta 30 MG Capsule] 60 mg PO DAILY 11/28/16 [ History] Famotidine 20 mg [Pepcid 20 MG] 20 mg PO BID 11/28/16 [History] Fluticasone/Salmeterol 45/21 [Advair Hfa 45-21 Mcg Inhaler] 8 gm IH BID [History] Fosinopril Sodium 40 mg PO DAILY 11/28/16 [History] HydrALAzine HCL 25 MG TAB [Apresoline 25 MG TABLET] 50 mg PO TID 11/28/16 [History] Levothyroxine Sodium 100 Mcg [Synthroid 100 Mcg] 100 mcg PO DAILY 11/28/16 [History] Loratadine 10 mg [Claritin 10 mg] 10 mg PO DAILY 11/28/16 [History] Nystatin/TCN/Hc/Diphenhydram [Eugenia's Magic Mouthwash] 5 ml PO TID 11/28/16 [History] Oxybutynin Chloride 5 mg PO DAILY 11/28/16 [History] Insuln Asp Prt/Insulin Aspart* [NovoLOG 70/30 Mix] 100 unit SQ BID 11/29/16 [ History] Albuterol/Ipratropium 3ml Neb* [DUONEB 0.5-3 MG/3 ml Neb] 3 ml IH BID [History] Hx Tetanus, Diphtheria Vaccination/Date Given: No Hx Influenza Vaccination/Date Given: No Hx Pneumococcal Vaccination/Date Given: No - Review of Systems Constitutional: No Fever Abdominal/Gastrointestinal: No Vomiting All Other Systems: Unable due to condition - Past Medical History Pertinent Past Medical History: Yes Neurological History: No Pertinent History ENT History: Cataracts, Glaucoma Cardiac History: Congestive Heart Failure, Hypertension, Myocardial Infarction ( [place]) Respiratory History: Asthma, Sleep Apnea Endocrine Medical History: Diabetes Type II Musculoskeletal History: Arthritis GI Medical History: Diverticulitis, Diverticulosis, GERD, Hernia History: No Pertinent History Psycho-Social History: Anxiety, Depression Female Reproductive Disorders: No Pertinent History - Past Surgical History Past Surgical History: Yes Neuro Surgical History: No Pertinent History Cardiac: Cardiac Catheterization Respiratory: No Pertinent History Gastrointestinal: No Pertinent History Genitourinary: No Pertinent History Musculoskeletal: No Pertinent History Female Surgical History: No Pertinent History Other Surgical History: 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, CYST REMOVED FROM BREAST , - Social History Smoking Status: Former smoker Exposure to second hand smoke: No Drug Use: none Patient Lives Alone: No ([facility]) - Nursing Vital Signs Nursing Vital Signs: Initial Vital Signs Temperature 98.3 F 12/20/16 08:23 Pulse Rate 95 H 12/20/16 08:23 Respiratory Rate 22 12/20/16 08:23 Blood Pressure 176/76 12/20/16 08:23 O2 Sat by Pulse Oximetry 98 12/20/16 08:23 - Physical Exam General Appearance: alert, lethargy Eye Exam: other (PERRL midsized; periorbital edema) Ears, Nose, Throat Exam: moist mucous membranes Neck Exam: supple Respiratory Exam: diminished breath sounds (very) Cardiovascular Exam: regular rate/rhythm Gastrointestinal/Abdomen Exam: soft, distention (mild), No tenderness, No mass, No guarding Extremity Exam: pedal edema (trace) Neurologic Exam: alert, other (follows simple commands barely, responds to pain all 4 extr) Skin Exam: warm, dry SpO2 Interpretation: normal SpO2: 98 Oxygen Delivery: Aerosol Mask - Course Nursing assessment & vital signs reviewed: Yes EKG Interpreted by Me: RATE (94 regular rate with no discernible P waves, not different from prior tracing), NORMAL INTERVALS (QTc 438), Non-specific ST Changes (Poor R wave progression) - Radiology Exams cxr X-ray Interpretation: Teleradiologist Report (mild congestion) Ordered Tests: Active Orders 24 hr Category Date Time Status Inspector Set Up And Lay Out STAT Care 12/20/16 07:58 Active Catheter-Dewey Larson STAT Care 12/20/16 07:58 Active EKG-ER Only STAT Care 12/20/16 07:58 Active IV Insertion STAT Care 12/20/16 07:58 Active Pulse Oximetry (ED) STAT Care 12/20/16 07:58 Active CHEST 1 VIEW (PORTABLE) Stat Exams 12/20/16 07:58 Completed HEAD WITHOUT CONTRAST [CT] Stat Exams 12/20/16 07:59 Completed ARTERIAL BLOOD GASES Stat Lab 12/20/16 Completed BLOOD CULTURE Stat Lab 12/20/16 08:21 Received CBC W DIFF Stat Lab 12/20/16 08:22 Completed CMP Stat Lab 12/20/16 08:22 Completed CULTURE,URINE Stat Lab 12/20/16 07:58 Ordered Lactic Acid Stat Lab 12/20/16 07:58 Completed Manual Differential NC Stat Lab 12/20/16 08:22 Completed NT PRO BNP Stat Lab 12/20/16 08:22 Completed PROTIME WITH INR Stat Lab 12/20/16 08:22 Completed PTT Stat Lab 12/20/16 08:22 Completed TROPONIN Q3H Lab 12/20/16 08:22 Completed TROPONIN Q3H Lab 12/20/16 11:00 Ordered TROPONIN Q3H Lab 12/20/16 14:00 Ordered TROPONIN Q3H Lab 12/20/16 17:00 Ordered TROPONIN Q3H Lab 12/20/16 20:00 Ordered UA Stat Lab 12/20/16 07:58 Completed BiPap/CPAP Assessment STAT RT 12/20/16 08:10 Active Respiratory Nebulizer STAT RT 12/20/16 10:00 Completed Medication Summary Discontinued Medications Generic Name Dose Route Start Last Admin Trade Name Freq PRN Reason Stop Dose Admin Albuterol Sulfate 2.5 mg 12/20/16 10:00 12/20/16 10:11 Proventil 2.5 Mg/3 Ml Neb IH 12/20/16 10:01 2.5 mg STAT ONE Administration Albuterol Sulfate Confirm 12/20/16 10:09 Proventil 2.5 Mg/3 Ml Neb Administered 12/20/16 10:10 Dose 2.5 mg IH .STK-MED ONE Furosemide 40 mg 12/20/16 09:48 12/20/16 09:58 Lasix 40 Mg/4 Ml IV 12/20/16 09:49 40 mg STAT ONE Administration Furosemide Confirm 12/20/16 09:56 Lasix 40 Mg/4 Ml Administered 12/20/16 09:57 Dose 40 mg .ROUTE .STK-MED ONE Ceftriaxone Sodium/Dextrose 1 g in 50 mls @ 100 mls/hr 12/20/16 10:00 10:08 Rocephin 1 Gm-D5w 50 Ml Bag IV 12/20/16 10:29 100 mls/hr STAT STA Administration Ceftriaxone Sodium/Dextrose Confirm 12/20/16 10:05 Rocephin 1 Gm-D5w 50 Ml Bag Administered 12/20/16 10:06 Dose 1 g in 50 mls @ ud IV .STK-MED ONE Methylprednisolone Sodium Succinate 125 mg 12/20/16 10:00 12/20/16 10:08 Solu-Medrol 125 Mg IV 12/20/16 10:01 125 mg STAT ONE Administration Methylprednisolone Sodium Succinate Confirm 12/20/16 10:05 Solu-Medrol 125 Mg Administered 12/20/16 10:06 Dose 125 mg .ROUTE .STK-MED ONE Lab/Rad Data: Laboratory Result Diagrams 12/20/16 08:22 12/20/16 08:22 Laboratory Results 12/20/16 12/20/16 12/20/16 Range/Units Unknown 08:22 08:22 WBC (4.0-10.5) K/mm3 RBC (4.1-5.4) M/mm3 Hgb (12.0-16.0) gm/dl Hct (35-47) % MCV (78-100) fl MCH (26-32) pg MCHC (32-36) g/dl RDW (11.5-14.0) % Plt Count (150-450) K/mm3 MPV (6-9.5) fl Segmented Neutrophils (36.0-66.0) % Band Neutrophils (0.0-2.0) % Lymphocytes (Manual) (24-44) % Monocytes (Manual) (0.0-12.0) % Metamyelocytes % Differential Comment Platelet Estimate (NORMAL) Polychromasia Hypochromasia Anisocytosis INR (0.8-3.0) APTT (25.3-37.0) SECONDS Puncture Site RIGHT RADIAL pCO2 88 H* (35-45) mmHg pO2 206 H* (75-100) mmHg Base Excess 14.1 H (-2.0-2.0) O2 Saturation 95.8 (94-100) g/dF ABG pH 7.31 L (7.35-7.45) ABG HCO3 44.3 H* (22-28) ABG O2 Sat (Measured) 98.4 (95-100) % Matthias Test YES A-a Gradient 41 a/A Ratio 0.83 Hemoglobin 12.8 Carboxyhemoglobin 1.6 (0.0-6.9) % THgb Methemoglobin 1.1 L (1.4-1.5) % Temperature 37.0 C POC O2 Flow Rate 50 % Sodium (136-145) mEq/L Potassium 4.9 (3.5-5.1) mEq/L Chloride (98-107) mEq/L Carbon Dioxide (21-32) mEq/L Anion Gap (5-15) MEQ/L BUN (9-20) mg/dL Creatinine (0.55-1.30) mg/dl Estimated GFR ML/MIN Glucose (70-110) MG/DL Lactic Acid (0.4-2.0) Calcium (8.5-10.1) mg/dL Total Bilirubin (0.2-1.0) mg/dL AST (15-37) U/L ALT (12-78) U/L Alkaline Phosphatase (46-116) U/L Troponin I 0.026 (0.000-0.056) ng/ml NT-Pro-B Natriuret Pep 2515 H (0-125) pg/ml Serum Total Protein (6.4-8.2) gm/dL Albumin (3.4-5.0) g/dL Ur Collection Type Urine Color (YELLOW) Urine Appearance (CLEAR) Urine pH (5-6) Ur Specific [place] (1.005-1.025) Urine Protein (Negative) Urine Ketones (NEGATIVE) Urine Blood (0-5) Elver/ul Urine Nitrite (NEGATIVE) Urine Bilirubin (NEGATIVE) Urine Urobilinogen (0-1) mg/dL Ur Leukocyte Esterase (NEGATIVE) Urine Glucose (NEGATIVE) mg/dL Specimen Received 12/20/16 12/20/16 12/20/16 Range/Units 08:22 08:22 08:22 WBC 16.3 H (4.0-10.5) K/mm3 RBC 4.32 (4.1-5.4) M/mm3 Hgb 11.8 L (12.0-16.0) gm/dl Hct 41.0 (35-47) % MCV 94.9 (78-100) fl MCH 27.3 (26-32) pg MCHC 28.8 L (32-36) g/dl RDW 14.9 H (11.5-14.0) % Plt Count 221 (150-450) K/mm3 MPV 11.6 H (6-9.5) fl Segmented Neutrophils 85 H (36.0-66.0) % Band Neutrophils 2 (0.0-2.0) % Lymphocytes (Manual) 9 L (24-44) % Monocytes (Manual) 2 (0.0-12.0) % Metamyelocytes 2 % Differential Comment ABNORMAL Platelet Estimate NORMAL (NORMAL) Polychromasia 1+ Hypochromasia 1+ Anisocytosis 1+ INR 1.10 (0.8-3.0) APTT 32.7 (25.3-37.0) SECONDS Puncture Site pCO2 (35-45) mmHg pO2 (75-100) mmHg Base Excess (-2.0-2.0) O2 Saturation (94-100) g/dF ABG pH (7.35-7.45) ABG HCO3 (22-28) ABG O2 Sat (Measured) (95-100) % Matthias Test A-a Gradient a/A Ratio Hemoglobin Carboxyhemoglobin (0.0-6.9) % THgb Methemoglobin (1.4-1.5) % Temperature C POC O2 Flow Rate % Sodium 144 (136-145) mEq/L Potassium 4.8 (3.5-5.1) mEq/L Chloride 102 (98-107) mEq/L Carbon Dioxide 39.9 H (21-32) mEq/L Anion Gap 6.6 (5-15) MEQ/L BUN 18 (9-20) mg/dL Creatinine 0.84 (0.55-1.30) mg/dl Estimated GFR > 60 ML/MIN Glucose 144 H (70-110) MG/DL Lactic Acid (0.4-2.0) Calcium 9.4 (8.5-10.1) mg/dL Total Bilirubin 0.60 (0.2-1.0) mg/dL AST 16 (15-37) U/L ALT 17 (12-78) U/L Alkaline Phosphatase 110 (46-116) U/L Troponin I (0.000-0.056) ng/ml NT-Pro-B Natriuret Pep (0-125) pg/ml Serum Total Protein 7.5 (6.4-8.2) gm/dL Albumin 3.7 (3.4-5.0) g/dL Ur Collection Type Urine Color (YELLOW) Urine Appearance (CLEAR) Urine pH (5-6) Ur Specific [place] (1.005-1.025) Urine Protein (Negative) Urine Ketones (NEGATIVE) Urine Blood (0-5) Elver/ul Urine Nitrite (NEGATIVE) Urine Bilirubin (NEGATIVE) Urine Urobilinogen (0-1) mg/dL Ur Leukocyte Esterase (NEGATIVE) Urine Glucose (NEGATIVE) mg/dL Specimen Received 12/20/16 12/20/16 Range/Units 07:58 07:58 WBC (4.0-10.5) K/mm3 RBC (4.1-5.4) M/mm3 Hgb (12.0-16.0) gm/dl Hct (35-47) % MCV (78-100) fl MCH (26-32) pg MCHC (32-36) g/dl RDW (11.5-14.0) % Plt Count (150-450) K/mm3 MPV (6-9.5) fl Segmented Neutrophils (36.0-66.0) % Band Neutrophils (0.0-2.0) % Lymphocytes (Manual) (24-44) % Monocytes (Manual) (0.0-12.0) % Metamyelocytes % Differential Comment Platelet Estimate (NORMAL) Polychromasia Hypochromasia Anisocytosis INR (0.8-3.0) APTT (25.3-37.0) SECONDS Puncture Site pCO2 (35-45) mmHg pO2 (75-100) mmHg Base Excess (-2.0-2.0) O2 Saturation (94-100) g/dF ABG pH (7.35-7.45) ABG HCO3 (22-28) ABG O2 Sat (Measured) (95-100) % Matthias Test A-a Gradient a/A Ratio Hemoglobin Carboxyhemoglobin (0.0-6.9) % THgb Methemoglobin (1.4-1.5) % Temperature C POC O2 Flow Rate % Sodium (136-145) mEq/L Potassium (3.5-5.1) mEq/L Chloride (98-107) mEq/L Carbon Dioxide (21-32) mEq/L Anion Gap (5-15) MEQ/L BUN (9-20) mg/dL Creatinine (0.55-1.30) mg/dl Estimated GFR ML/MIN Glucose (70-110) MG/DL Lactic Acid 0.5 (0.4-2.0) Calcium (8.5-10.1) mg/dL Total Bilirubin (0.2-1.0) mg/dL AST (15-37) U/L ALT (12-78) U/L Alkaline Phosphatase (46-116) U/L Troponin I (0.000-0.056) ng/ml NT-Pro-B Natriuret Pep (0-125) pg/ml Serum Total Protein (6.4-8.2) gm/dL Albumin (3.4-5.0) g/dL Ur Collection Type CATH Urine Color CHAD (YELLOW) Urine Appearance CLEAR (CLEAR) Urine pH 5.0 (5-6) Ur Specific [place] 1.025 (1.005-1.025) Urine Protein 100 (Negative) Urine Ketones NEGATIVE (NEGATIVE) Urine Blood NEGATIVE (0-5) Elver/ul Urine Nitrite NEGATIVE (NEGATIVE) Urine Bilirubin NEGATIVE (NEGATIVE) Urine Urobilinogen NORMAL (0-1) mg/dL Ur Leukocyte Esterase NEGATIVE (NEGATIVE) Urine Glucose TRACE (NEGATIVE) mg/dL Specimen Received 12/20/16 0910 - Progress Progress Note: 12/20/16 08:52 Son apprised of condition and is here at bedside. Pt to CT scan. Placed on bipap for CO2 retention. 12/20/16 10:06 ABG a little worse pH after being on N/C for CT. Bipap replaced. Cultures sent. No sign of sepsis but appears to have respiratory failure. Called Dr Medina who advised transfer to [facility] under Dr Lior Garces. [facility] transfer center called to arrange transfer. She was given rocephin, lasix, nebs, and steroid. Condition gurarded. 12/20/16 10:31 Pt intermittently mumbling. [facility] accepted transfer. Await EMS. Counseled pt/family regarding: lab results, diagnosis, need for follow-up, rad results - Departure Time of Disposition: 10:32 Departure Disposition: Transfer ([facility]) Clinical Impression: CHF (congestive heart failure), NYHA class III Qualifiers: Congestive heart failure type: diastolic Congestive heart failure chronicity: acute on chronic Qualified Code(s): I50.33 - Acute on chronic diastolic ( congestive) heart failure Type 2 diabetes mellitus Qualifiers: Diabetic retinopathy severity: with unspecified retinopathy severity Diabetes mellitus macular edema: macular edema presence unspecified Diabetes mellitus snf insulin use: unspecified snf insulin use status Laterality: unspecified laterality COPD (chronic obstructive pulmonary disease) Qualifiers: COPD type: COPD with acute exacerbation Qualified Code(s): J44.1 - Chronic obstructive pulmonary disease with (acute) exacerbation Acute and chronic respiratory failure Qualifiers: Respiratory failure complication: hypercapnia Qualified Code(s): J96.22 - Acute and chronic respiratory failure with hypercapnia Condition: Serious Critical Care Time: No Referrals: MIKAEL MEDINA MD [Primary Care Provider] - Instructions: Heart Failure, Chronic Obstructive Pulmonary Disease
[2016-12-20 08:53] LABS: ALBUMIN 3.7 g/dL (3.4-5.0); ALKALINE PHOSPHATASE 110 U/L (46-116); ANION GAP 6.6 MEQ/L (5-15); BLOOD UREA NITROGEN 18 mg/dL (9-20); CHLORIDE 102 mEq/L (98-107); Carbon Dioxide 39.9 mEq/L (21-32); Glucose 144 MG/DL (70-110); Potassium 4.8 mEq/L (3.5-5.1); SGOT/AST 16 U/L (15-37); SGPT/ALT 17 U/L (12-78); SODIUM 144 mEq/L (136-145); Total Protein 7.5 gm/dL (6.4-8.2)
[2016-12-20 09:00] LABS: BAND 2 % (0.0-2.0); Metamyelocyte 2 %; Total Cells Counted 100
[2016-12-20 09:01] LABS: ANISOCYTOSIS 1+; Hypochromia 1+; Platelet Estimate NORMAL (NORMAL); Polychromasia 1+
[2016-12-20 09:12] LABS: Bilirubin NEGATIVE (NEGATIVE); Blood NEGATIVE Ery/ul (0-5); COMPLETE URINE MICROSCOPIC? NO; Collection Type CATH; Glucose TRACE mg/dL (NEGATIVE); Leukocyte Esterase NEGATIVE (NEGATIVE)
--- NOTE | 2016-12-20 09:30 | XRAY ---
Indication: Short of breath. Possible sepsis. Comparison: November 30, 2016. Portable chest again demonstrates cardiomegaly with now vascular congestion and mild bibasilar effusions favoring cardiac decompensation. Superimposed pneumonia not complete excluded.
[2016-12-20] MEDS ORDERED: Lasix 40 MG/4 ML IV ONE (09:48)
[2016-12-20] MEDS ORDERED: Lasix 40 MG/4 ML ONE (09:56)
[2016-12-20] MEDS ORDERED: ROCEPHIN 1 Gm-D5w 50 ml Bag** 1 G/50 ML IVPB IV STA (10:00)
[2016-12-20] MEDS ORDERED: solu-MEDROL 125 MG IV ONE (10:00)
[2016-12-20] MEDS ORDERED: PROVENTIL 2.5 MG/3 ML NEB IH ONE ×2 (10:00→10:09)
[2016-12-20] MEDS ORDERED: solu-MEDROL 125 MG ONE (10:05)
[2016-12-20] MEDS ORDERED: ROCEPHIN 1 Gm-D5w 50 ml Bag** 1 G/50 ML IVPB IV ONE (10:05)
--- NOTE | 2016-12-20 10:17 | XRAY ---
Indication: Altered mental status. Multiple contiguous axial images obtained through the head without contrast. Comparison: None Images through the base of the brain slightly degraded by motion artifact even with repeat CT. Ventriculosulcal pattern appears symmetric. No acute intracranial hemorrhage, abnormal extra-axial fluid collection, or mass effect. Fourth ventricle is midline without hydrocephalus. Ramirez-white matter differentiation preserved. Bony calvarium intact. Mild mucosal thickening of both ethmoid sinuses and tiny sphenoid sinus fluid leveling. Mastoid air cells clear. Impression: Motion artifact. No gross acute intracranial abnormalities. Incidental paranasal sinus disease. CT DI 61.67
[2016-12-20 11:20] VITALS: BP 166/76; PULSE 94; O2SAT 100
[2016-12-20 12:02] LABS: A-aADO2 49; ARTERIAL BLD GAS O2 SATURATION 97.6 % (95-100); ARTERIAL BLOOD GAS BASE EXCESS 14.7 (-2.0-2.0); ARTERIAL BLOOD GAS FIO2 36 %; ARTERIAL BLOOD GAS PO2 90 mmHg (75-100); ARTERIAL BLOOD GAS pH 7.29 (7.35-7.45)
[2016-12-20 12:09] LABS: A-aADO2 58; ALLEN TEST OK? YES; ARTERIAL BLD GAS O2 SATURATION 98.5 % (95-100); ARTERIAL BLOOD GAS BASE EXCESS 16.1 (-2.0-2.0); ARTERIAL BLOOD GAS FIO2 40 %; ARTERIAL BLOOD GAS PO2 150 mmHg (75-100); ARTERIAL BLOOD GAS pH 7.45 (7.35-7.45); BIPAP(E) 6; BIPAP(I) 14
== END 2016-12-20 12:00 | disposition short-term general hospital (02) ==
LOC: ED 07:56
DX: I50.33 Acute on chronic diastolic (congestive) heart failure (principal); E11.311 Type 2 diabetes mellitus with unspecified diabetic retinopathy with macular edema; Z79.4 Long term (current) use of insulin; J44.1 Chronic obstructive pulmonary disease with (acute) exacerbation; J96.22 Acute and chronic respiratory failure with hypercapnia
CPT/HCPCS: 93041; 96374; 96365; 99291; 36000; 51702; 99292; 96375; 93005; 87040; 81002; 85610; 85730; 36415; 83880; 85025; 80053; 84484; 87086; 71010; 70450; 94002; 82803; 82375; 36600; 94640; 83605; P9612; J0696; J1940; J2930; A9270-GY

== ENCOUNTER 2017-01-16 09:39 | Observation (INO) | payer MEDICARE ==
[2017-01-16] MEDS ORDERED: ANTIVERT 25 MG PO ONE (09:53)
[2017-01-16] MEDS ORDERED: Sodium Chloride 0.9% 1000 ML 1,000 ML IV STA (09:53)
--- NOTE | 2017-01-16 10:00 | ERPHSYRPT ---
- History of Present Illness Time Seen by Provider: 01/16/17 09:46 Source: patient Exam Limitations: no limitations Patient Subjective Stated Complaint: pt here for nausea and high blood sugar, pt has been having trouble with her sugars for a month or two. pt took insulin at home. 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, +dizzy, no loc, no headache, denies any pain, no hx cva or mi, +hx dm, htn, chf Timing/Duration: today, improved Associated Symptoms: nausea, weakness, No vomiting, No abdominal pain, No shortness of breath, No chest pain, No fever, No syncope Allergies/Adverse Reactions: Sulfa (Sulfonamide Antibiotics) Allergy (Verified 01/16/17 09:50) Home Medications: Aspirin 81 mg PO DAILY 11/28/16 [History] Atorvastatin Calcium [Lipitor] 10 mg PO DAILY 11/28/16 [History] Carvedilol 6.25 mg [Coreg 6.25 MG] 6.25 mg PO BID 11/28/16 [History] Duloxetine HCl 30 mg [Cymbalta 30 MG Capsule] 60 mg PO DAILY 11/28/16 [ History] Famotidine 20 mg [Pepcid 20 MG] 20 mg PO BID 11/28/16 [History] Fluticasone/Salmeterol 45/21 [Advair Hfa 45-21 Mcg Inhaler] 8 gm IH BID [History] Fosinopril Sodium 40 mg PO DAILY 11/28/16 [History] HydrALAzine HCL 25 MG TAB [Apresoline 25 MG TABLET] 50 mg PO TID 11/28/16 [History] Levothyroxine Sodium 100 Mcg [Synthroid 100 Mcg] 100 mcg PO DAILY 11/28/16 [History] Loratadine 10 mg [Claritin 10 mg] 10 mg PO DAILY 11/28/16 [History] Nystatin/TCN/Hc/Diphenhydram [Eugenia's Magic Mouthwash] 5 ml PO TID 11/28/16 [History] Oxybutynin Chloride 5 mg PO DAILY 11/28/16 [History] Insuln Asp Prt/Insulin Aspart* [NovoLOG 70/30 Mix] 100 unit SQ BID 11/29/16 [ History] Albuterol/Ipratropium 3ml Neb* [DUONEB 0.5-3 MG/3 ml Neb] 3 ml IH BID [History] Hx Tetanus, Diphtheria Vaccination/Date Given: No Hx Influenza Vaccination/Date Given: Yes Hx Pneumococcal Vaccination/Date Given: Yes Immunizations Up to Date: Yes - Review of Systems Constitutional: Fatigue, No Fever Eyes: No Symptoms Ears, Nose, & Throat: No Symptoms Respiratory: No Symptoms Cardiac: No Symptoms Abdominal/Gastrointestinal: Nausea, No Abdominal Pain, No Vomiting Genitourinary Symptoms: No Symptoms Musculoskeletal: No Back Pain, No Neck Pain Skin: No Skin Lesions Neurological: Dizziness, No Focal Weakness, No Headache, No Lethargy Psychological: No Symptoms - Past Medical History Pertinent Past Medical History: Yes Neurological History: No Pertinent History ENT History: Cataracts, Glaucoma Cardiac History: Congestive Heart Failure, Hypertension, Myocardial Infarction ( [place]) Respiratory History: Asthma, CHF, Sleep Apnea Endocrine Medical History: Diabetes Type II Musculoskeletal History: Arthritis GI Medical History: Diverticulitis, Diverticulosis, GERD, Hernia History: No Pertinent History Psycho-Social History: Anxiety, Depression Female Reproductive Disorders: No Pertinent History - Past Surgical History Past Surgical History: Yes Neuro Surgical History: No Pertinent History Cardiac: Cardiac Catheterization Respiratory: No Pertinent History Gastrointestinal: No Pertinent History Genitourinary: No Pertinent History Musculoskeletal: No Pertinent History Female Surgical History: No Pertinent History Other Surgical History: 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, CYST REMOVED FROM BREAST , - Social History Smoking Status: Former smoker Exposure to second hand smoke: No Drug Use: none Patient Lives Alone: No - Female History Hx Last Menstrual Period: post - Nursing Vital Signs Nursing Vital Signs: Initial Vital Signs Temperature 98.5 F 01/16/17 09:40 Pulse Rate 80 01/16/17 09:40 Respiratory Rate 22 01/16/17 09:40 Blood Pressure 151/70 01/16/17 09:40 O2 Sat by Pulse Oximetry 95 01/16/17 09:40 Pain Scale Pain Intensity 0 - Physical Exam General Appearance: no apparent distress Eye Exam: PERRL/EOMI Ears, Nose, Throat Exam: dry mucous membranes Neck Exam: normal inspection, non-tender, supple Respiratory Exam: normal breath sounds Cardiovascular Exam: regular rate/rhythm Gastrointestinal/Abdomen Exam: soft, No tenderness Back Exam: normal range of motion Extremity Exam: normal inspection, No pedal edema Neurologic Exam: alert, oriented x 3, cooperative Skin Exam: normal color, warm, dry SpO2 Interpretation: normal SpO2: 95 Oxygen Delivery: Nasal Cannula - Course Nursing assessment & vital signs reviewed: Yes EKG Interpreted by Me: Other (sinus 57, wenkebach, no stemi) - Radiology Exams Chest X-ray Interpretation: Discussed w/ radiologist, Negative - CT Exams Head CT Interpretation: Negative, Discussed w/radiologist Ordered Tests: Active Orders 24 hr Category Date Time Status EKG-ER Only STAT Care 01/16/17 09:53 Active IV Insertion STAT Care 01/16/17 09:53 Active CHEST 1 VIEW (PORTABLE) Stat Exams 01/16/17 09:54 Completed HEAD WITHOUT CONTRAST [CT] Stat Exams 01/16/17 09:54 Completed BNP [NT PRO BNP] Stat Lab 01/16/17 10:10 Completed CBC W DIFF Stat Lab 01/16/17 10:10 Completed CMP Stat Lab 01/16/17 10:10 Completed TROPONIN Q3H Lab 01/16/17 10:10 Completed TROPONIN Q3H Lab 01/16/17 13:00 Ordered TROPONIN Q3H Lab 01/16/17 16:00 Ordered TROPONIN Q3H Lab 01/16/17 19:00 Ordered TROPONIN Q3H Lab 01/16/17 22:00 Ordered UA W/ MICROSCOPIC Stat Lab 01/16/17 09:54 Completed Transfer Order Routine Transfer 01/16/17 Ordered Medication Summary Discontinued Medications Generic Name Dose Route Start Last Admin Trade Name Freq PRN Reason Stop Dose Admin Sodium Chloride 1,000 mls @ 999 mls/hr 01/16/17 09:53 01/16/17 10:10 Sodium Chloride 0.9% 1000 Ml IV 01/16/17 10:53 999 mls/hr .Q1H1M STA Administration Sodium Chloride Confirm 01/16/17 10:05 Sodium Chloride 0.9% 1000 Ml Administered 01/16/17 10:06 Dose 1,000 mls @ ud .ROUTE .STK-MED ONE Meclizine HCl 25 mg 01/16/17 09:53 01/16/17 10:10 Antivert 25 Mg PO 01/16/17 09:54 25 mg STAT ONE Administration Meclizine HCl Confirm 01/16/17 10:05 Antivert 25 Mg Administered 01/16/17 10:06 Dose 25 mg .ROUTE .[facility] Lab/Rad Data: Laboratory Result Diagrams 01/16/17 10:10 01/16/17 10:10 Laboratory Results 01/16/17 01/16/17 01/16/17 Range/Units 10:10 10:10 10:10 WBC (4.0-10.5) K/mm3 RBC (4.1-5.4) M/mm3 Hgb (12.0-16.0) gm/dl Hct (35-47) % MCV (78-100) fl MCH (26-32) pg MCHC (32-36) g/dl RDW (11.5-14.0) % Plt Count (150-450) K/mm3 MPV (6-9.5) fl Gran % (36.0-66.0) % Lymphocytes % (24.0-44.0) % Monocytes % (0.0-12.0) % Eosinophils % (0.00-5.0) % Basophils % (0.0-0.4) % Basophils # (0-0.4) Sodium 142 (136-145) mEq/L Potassium 3.8 (3.5-5.1) mEq/L Chloride 105 (98-107) mEq/L Carbon Dioxide 32.2 H (21-32) mEq/L Anion Gap 8.1 (5-15) MEQ/L BUN 11 (9-20) mg/dL Creatinine 0.83 (0.55-1.30) mg/dl Estimated GFR > 60 ML/MIN Glucose 308 H (70-110) MG/DL Calcium 9.1 (8.5-10.1) mg/dL Total Bilirubin 0.50 (0.2-1.0) mg/dL AST 13 L (15-37) U/L ALT 19 (12-78) U/L Alkaline Phosphatase 83 (46-116) U/L Troponin I 0.039 (0.000-0.056) ng/ml NT-Pro-B Natriuret Pep 1816 H (0-125) pg/ml Serum Total Protein 6.3 L (6.4-8.2) gm/dL Albumin 3.3 L (3.4-5.0) g/dL Ur Collection Type Urine Color (YELLOW) Urine Appearance (CLEAR) Urine pH (5-6) Ur Specific [place] (1.005-1.025) Urine Protein (Negative) Urine Ketones (NEGATIVE) Urine Blood (0-5) Elver/ul Urine Nitrite (NEGATIVE) Urine Bilirubin (NEGATIVE) Urine Urobilinogen (0-1) mg/dL Ur Leukocyte Esterase (NEGATIVE) Urine Microscopic RBC (0-2) /HPF Urine Microscopic WBC (0-5) /HPF Ur Epithelial Cells (FEW) /HPF Urine Bacteria (NEGATIVE) /HPF Urine Mucus (NEGATIVE) /HPF Urine Culture Reflexed (NO) Urine Glucose (NEGATIVE) mg/dL Specimen Received 01/16/17 01/16/17 Range/Units 10:10 09:54 WBC 8.5 (4.0-10.5) K/mm3 RBC 4.11 (4.1-5.4) M/mm3 Hgb 11.2 L (12.0-16.0) gm/dl Hct 36.6 (35-47) % MCV 89.1 (78-100) fl MCH 27.2 (26-32) pg MCHC 30.6 L (32-36) g/dl RDW 13.9 (11.5-14.0) % Plt Count 214 (150-450) K/mm3 MPV 11.9 H (6-9.5) fl Gran % 80.0 H (36.0-66.0) % Lymphocytes % 11.4 L (24.0-44.0) % Monocytes % 6.9 (0.0-12.0) % Eosinophils % 1.3 (0.00-5.0) % Basophils % 0.4 (0.0-0.4) % Basophils # 0.03 (0-0.4) Sodium (136-145) mEq/L Potassium (3.5-5.1) mEq/L Chloride (98-107) mEq/L Carbon Dioxide (21-32) mEq/L Anion Gap (5-15) MEQ/L BUN (9-20) mg/dL Creatinine (0.55-1.30) mg/dl Estimated GFR ML/MIN Glucose (70-110) MG/DL Calcium (8.5-10.1) mg/dL Total Bilirubin (0.2-1.0) mg/dL AST (15-37) U/L ALT (12-78) U/L Alkaline Phosphatase (46-116) U/L Troponin I (0.000-0.056) ng/ml NT-Pro-B Natriuret Pep (0-125) pg/ml Serum Total Protein (6.4-8.2) gm/dL Albumin (3.4-5.0) g/dL Ur Collection Type CATH Urine Color YELLOW (YELLOW) Urine Appearance HAZY (CLEAR) Urine pH 7.0 (5-6) Ur Specific [place] 1.010 (1.005-1.025) Urine Protein 100 (Negative) Urine Ketones NEGATIVE (NEGATIVE) Urine Blood NEGATIVE (0-5) Elver/ul Urine Nitrite NEGATIVE (NEGATIVE) Urine Bilirubin NEGATIVE (NEGATIVE) Urine Urobilinogen NORMAL (0-1) mg/dL Ur Leukocyte Esterase 1+ (NEGATIVE) Urine Microscopic RBC 0-2 (0-2) /HPF Urine Microscopic WBC 2-5 (0-5) /HPF Ur Epithelial Cells FEW (FEW) /HPF Urine Bacteria FEW (NEGATIVE) /HPF Urine Mucus SLIGHT (NEGATIVE) /HPF Urine Culture Reflexed NO (NO) Urine Glucose 500 (NEGATIVE) mg/dL Specimen Received 01-16 1000 - Progress Progress: unchanged Discussed with : Eden Will see patient in: hospital (observation) Counseled pt/family regarding: lab results, diagnosis, rad results - Departure Time of Disposition: 12:50 Departure Disposition: Observation Clinical Impression: Vertigo CHF (congestive heart failure), NYHA class III Qualifiers: Congestive heart failure type: unspecified congestive heart failure type Qualified Code(s): I50.9 - Heart failure, unspecified Type 2 diabetes mellitus Qualifiers: Diabetes mellitus complication status: without complication Diabetes mellitus fdc insulin use: without fdc use Qualified Code(s): E11.9 - Type 2 diabetes mellitus without complications Condition: Stable Critical Care Time: No Referrals: ERIKA BARON [LOCATION] - Instructions: Heart Failure
[2017-01-16] MEDS ORDERED: ANTIVERT 25 MG ONE (10:05)
[2017-01-16] MEDS ORDERED: Sodium Chloride 0.9% 1000 ML 1,000 ML ONE (10:05)
[2017-01-16 10:27] LABS: BASOPHIL % 0.4 % (0.0-0.4); Eosinophil % 1.3 % (0.00-5.0); Lymphocytes % 11.4 % (24.0-44.0); Mean Cell Volume 89.1 fl (78-100); Mean Platelet Volume 11.9 fl (6-9.5); Monocytes % 6.9 % (0.0-12.0); Platelet Count 214 K/mm3 (150-450); Red Blood Count 4.11 M/mm3 (4.1-5.4); Red Cell Distribution Width 13.9 % (11.5-14.0); White Blood Count 8.5 K/mm3 (4.0-10.5)
[2017-01-16 10:29] LABS: Mean Corpuscular Hemoglobin 27.2 pg (26-32)
[2017-01-16 10:38] LABS: ALBUMIN 3.3 g/dL (3.4-5.0); ALKALINE PHOSPHATASE 83 U/L (46-116); ANION GAP 8.1 MEQ/L (5-15); BLOOD UREA NITROGEN 11 mg/dL (9-20); CHLORIDE 105 mEq/L (98-107); Carbon Dioxide 32.2 mEq/L (21-32); Glucose 308 MG/DL (70-110); Potassium 3.8 mEq/L (3.5-5.1); SGOT/AST 13 U/L (15-37); SGPT/ALT 19 U/L (12-78); SODIUM 142 mEq/L (136-145); Total Protein 6.3 gm/dL (6.4-8.2)
--- NOTE | 2017-01-16 11:14 | XRAY ---
Indication: Nausea and dizziness. Multiple contiguous axial images obtained through the head without contrast. Comparison: December 20, 2016. Images through the base of the brain again slightly degraded by motion artifact less than before. Again no acute intracranial hemorrhage, abnormal extra-axial fluid collection, or mass effect. Fourth ventricle is midline without hydrocephalus. Ramirez-white matter differentiation preserved. Bony calvarium intact. Paranasal sinuses and mastoid air cells clear. Impression: Again minimal motion artifact. No gross new/acute intracranial abnormalities. CT DI 66.59
--- NOTE | 2017-01-16 11:18 | XRAY ---
Indication: Dizziness. Comparison: December 20, 2016. Portable chest demonstrates borderline cardiomegaly. Vascularity is normal. No focal infiltrate, consolidation, or large effusion. Bony thorax intact. Impression: Borderline cardiomegaly. Negative for acute pneumonic process or CHF.
[2017-01-16 11:38] LABS: Collection Type CATH
[2017-01-16 11:39] LABS: Bacteria FEW /HPF (NEGATIVE); Bilirubin NEGATIVE (NEGATIVE); Blood NEGATIVE Ery/ul (0-5); COMPLETE URINE MICROSCOPIC? YES; Epithelial Cells FEW /HPF (FEW); Glucose 500 mg/dL (NEGATIVE); Leukocyte Esterase 1+ (NEGATIVE); Mucus SLIGHT /HPF (NEGATIVE)
[2017-01-16 11:50] LABS: ADD URINE CULTURE? NO (NO)
[2017-01-16] MEDS ORDERED: ANTIVERT 25 MG PO PRN (13:52)
[2017-01-16] MEDS ORDERED: Zofran 4 MG/2 ML VIAL IV PRN (13:52)
[2017-01-16] MEDS ORDERED: NovoLIN R SQ PRN (13:52)
[2017-01-16] MEDS ORDERED: TYLENOL 325 MG PO PRN (13:52)
[2017-01-16] MEDS: Sodium Chloride 0.9% 1000 ML 1,000 ML IV SCH (15:38)
--- NOTE | 2017-01-16 16:44 | PCM.HP ---
History of Present Illness - Chief Complaint Chief Complaint: dizziness for 2 days History of Present Illness: is a 71 year old female. - Review of Systems Constitutional: No Fever, No Chills Eyes: No Symptoms Ears, Nose, & Throat: No Symptoms Respiratory: No Cough, No Short Of Breath Cardiac: No Chest Pain, No Edema, No Syncope Abdominal/Gastrointestinal: No Abdominal Pain, No Nausea, No Vomiting, No Diarrhea Genitourinary Symptoms: No Dysuria Musculoskeletal: No Back Pain, No Neck Pain Skin: No Rash Neurological: No Dizziness, No Focal Weakness, No Sensory Changes Psychological: No Symptoms Endocrine: No Symptoms Hematologic/Lymphatic: No Symptoms Immunological/Allergic: No Symptoms Medications & Allergies Home Medications: Home Medication List Aspirin 81 mg PO DAILY 11/28/16 [History Confirmed 01/16/17] Atorvastatin Calcium [Lipitor] 10 mg PO DAILY 11/28/16 [History Confirmed ] Carvedilol 6.25 mg [Coreg 6.25 MG] 6.25 mg PO BID 11/28/16 [History Confirmed 01/16/17] Duloxetine HCl 30 mg [Cymbalta 30 MG Capsule] 60 mg PO DAILY 11/28/16 [ History Confirmed 01/16/17] Famotidine 20 mg [Pepcid 20 MG] 20 mg PO BID 11/28/16 [History Confirmed 01/16/17] Fluticasone/Salmeterol 45/21 [Advair Hfa 45-21 Mcg Inhaler] 8 gm IH BID [History Confirmed 01/16/17] Fosinopril Sodium 40 mg PO DAILY 11/28/16 [History Confirmed 01/16/17] HydrALAzine HCL 25 MG TAB [Apresoline 25 MG TABLET] 50 mg PO TID 11/28/16 [History Confirmed 01/16/17] Levothyroxine Sodium 100 Mcg [Synthroid 100 Mcg] 100 mcg PO DAILY 11/28/16 [History Confirmed 01/16/17] Loratadine 10 mg [Claritin 10 mg] 10 mg PO DAILY 11/28/16 [History Confirmed 01/16/17] Nystatin/TCN/Hc/Diphenhydram [Eugenia's Magic Mouthwash] 5 ml PO TID 11/28/16 [History Confirmed 01/16/17] Oxybutynin Chloride 5 mg PO DAILY 11/28/16 [History Confirmed 01/16/17] Insuln Asp Prt/Insulin Aspart* [NovoLOG 70/30 Mix] 100 unit SQ BID 11/29/16 [ History Confirmed 01/16/17] Albuterol/Ipratropium 3ml Neb* [DUONEB 0.5-3 MG/3 ml Neb] 3 ml IH BID [History Confirmed 01/16/17] Insulin Detemir [Levemir Flextouch] 25 SQ BID 01/16/17 [History] Allergies/Adverse Reactions: Allergies Allergy/AdvReac Type Severity Reaction Status Date / Time Sulfa (Sulfonamide Allergy Verified 01/16/17 09:50 Antibiotics) - Past Medical History Past Medical History: Yes Neurological History: No Pertinent History ENT History: Cataracts, Glaucoma Cardiac History: Congestive Heart Failure, Hypertension Respiratory History: Asthma, CHF, Sleep Apnea Endocrine Medical History: Diabetes Type II Musculoskelatal History: Arthritis GI Medical History: Diverticulitis, Diverticulosis, GERD, Hernia History: No Pertinent History Pyscho-Social History: Anxiety, Depression Reproductive Disorders: No Pertinent History - Female History Hx Last Menstrual Period: post Are you now?: No - Past Surgical History Past Surgical History: Yes Neuro Surgical History: No Pertinent History Cardiac History: Cardiac Catheterization Respiratory Surgery: No Pertinent History GI Surgical History: No Pertinent History Genitourinary Surgical Hx: No Pertinent History Musculskeletal Surgical Hx: No Pertinent History Female Surgical History: No Pertinent History, Other Other Surgical History: 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 D and C - Social History Smoking Status: Former smoker Exposure to second hand smoke: No Alcohol: None Drug Use: none - Physical Exam Vital Signs: Vital Signs - 24 hr Temp Pulse Resp BP Pulse Ox 01/16/17 15:28 99 01/16/17 14:18 97.5 F 62 20 166/71 96 01/16/17 12:52 95 01/16/17 12:04 101 H 14 109/60 100 01/16/17 11:32 54 L 16 130/74 98 01/16/17 10:30 58 L 20 179/61 100 01/16/17 09:40 98.5 F 80 22 151/70 95 Oxygen-Last 24 hours O2 Percentage 3 Liters = 32% O2 Percentage 3 Liters = 32% General Appearance: no apparent distress, alert Neurologic Exam: alert, oriented x 3, cooperative, normal mood/affect, nml cerebellar function, nml station & gait, sensation nml, No motor deficits Eye Exam: PERRL/EOMI, eyes nml inspection Ears, Nose, Throat Exam: normal ENT inspection, TMs normal, pharynx normal, moist mucous membranes Neck Exam: normal inspection, non-tender, supple, full range of motion Respiratory Exam: normal breath sounds, lungs clear, No respiratory distress Cardiovascular Exam: regular rate/rhythm, normal heart sounds, normal peripheral pulses Gastrointestinal/Abdomen Exam: soft, normal bowel sounds, No tenderness, No mass Back Exam: normal inspection, normal range of motion, No CVA tenderness, No vertebral tenderness Extremity Exam: normal inspection, normal range of motion, pelvis stable Skin Exam: normal color, warm, dry, No rash Lymphatic Exam: No adenopathy Results - Labs Lab/Micro Results: Last Vital Signs Temp 97.5 F 01/16/17 14:18 Pulse 62 01/16/17 14:18 Resp 20 01/16/17 14:18 BP 166/71 01/16/17 14:18 Pulse Ox 99 01/16/17 15:28 Allergies Sulfa (Sulfonamide Antibiotics) Allergy (Verified 01/16/17 09:50) Active Medications Acetaminophen (Tylenol 325 Mg) 650 mg PO Q4H PRN PRN PRN Reason: PAIN AND/OR FEVER Stop: 02/15/17 13:51 Sodium Chloride (Sodium Chloride 0.9% 1000 Ml) 1,000 mls @ 100 mls/hr IV .Q10H LILA Stop: 02/15/17 13:51 Last Admin: 01/16/17 15:38 Dose: 100 mls/hr Insulin Human Regular (Novolin R) 0 unit SQ UD PRN PRN Reason: HYPERGLYCEMIA Stop: 02/15/17 13:51 Meclizine HCl (Antivert 25 Mg) 12.5 mg PO QID PRN PRN PRN Reason: DIZZINESS Stop: 02/15/17 13:51 Ondansetron HCl (Zofran 4 Mg/2 Ml Vial) 4 mg IV Q6H PRN PRN PRN Reason: NAUSEA/VOMITING Stop: 02/15/17 13:51 Intake & Output 01/16/17 01/17/17 11:59 11:59 Weight 86.183 kg 82.282 kg Orders 01/16/17 16:40 Miscellaneous Nursing Order ROUTINE Lab Tests 01/16/17 01/16/17 01/16/17 09:54 10:10 10:10 WBC 8.5 RBC 4.11 Hgb 11.2 L Hct 36.6 MCV 89.1 MCH 27.2 MCHC 30.6 L RDW 13.9 Plt Count 214 MPV 11.9 H Gran % 80.0 H Lymphocytes % 11.4 L Monocytes % 6.9 Eosinophils % 1.3 Basophils % 0.4 Basophils # 0.03 Sodium 142 Potassium 3.8 Chloride 105 Carbon Dioxide 32.2 H Anion Gap 8.1 BUN 11 Creatinine 0.83 Estimated GFR > 60 Glucose 308 H Calcium 9.1 Total Bilirubin 0.50 AST 13 L ALT 19 Alkaline Phosphatase 83 Troponin I NT-Pro-B Natriuret Pep Serum Total Protein 6.3 L Albumin 3.3 L Ur Collection Type CATH Urine Color YELLOW Urine Appearance HAZY Urine pH 7.0 Ur Specific [place] 1.010 Urine Protein 100 Urine Ketones NEGATIVE Urine Blood NEGATIVE Urine Nitrite NEGATIVE Urine Bilirubin NEGATIVE Urine Urobilinogen NORMAL Ur Leukocyte Esterase 1+ Urine Microscopic RBC 0-2 Urine Microscopic WBC 2-5 Ur Epithelial Cells FEW Urine Bacteria FEW Urine Mucus SLIGHT Urine Culture Reflexed NO Urine Glucose 500 Specimen Received 01-16 1000 01/16/17 01/16/17 01/16/17 10:10 10:10 12:55 WBC RBC Hgb Hct MCV MCH MCHC RDW Plt Count MPV Gran % Lymphocytes % Monocytes % Eosinophils % Basophils % Basophils # Sodium Potassium Chloride Carbon Dioxide Anion Gap BUN Creatinine Estimated GFR Glucose Calcium Total Bilirubin AST ALT Alkaline Phosphatase Troponin I 0.039 0.035 NT-Pro-B Natriuret Pep 1816 H Serum Total Protein Albumin Ur Collection Type Urine Color Urine Appearance Urine pH Ur Specific [place] Urine Protein Urine Ketones Urine Blood Urine Nitrite Urine Bilirubin Urine Urobilinogen Ur Leukocyte Esterase Urine Microscopic RBC Urine Microscopic WBC Ur Epithelial Cells Urine Bacteria Urine Mucus Urine Culture Reflexed Urine Glucose Specimen Received Assessment/Plan (1) CHF (congestive heart failure), NYHA class III Current Visit: Yes Status: Acute Qualifiers: Congestive heart failure type: unspecified congestive heart failure type Qualified Code(s): I50.9 - Heart failure, unspecified Code(s): I50.9 - HEART FAILURE, UNSPECIFIED (2) Type 2 diabetes mellitus Current Visit: Yes Status: Acute Qualifiers: Diabetes mellitus complication status: with unspecified complications Diabetes mellitus medical terminologist insulin use: without medical terminologist use Qualified Code( s): E11.8 - Type 2 diabetes mellitus with unspecified complications (3) COPD (chronic obstructive pulmonary disease) Current Visit: Yes Status: Chronic Qualifiers: COPD type: unspecified COPD
[2017-01-16] MEDS: Apresoline 25 MG TABLET PO SCH ×2 (18:38→21:48)
[2017-01-16] MEDS: MARY'S MAGIC MOUTHWASH PO SCH ×2 (18:38→21:46)
[2017-01-16] MEDS: NovoLOG 70/30 Mix SQ SCH (18:42)
[2017-01-16] MEDS ORDERED: ADVAIR HFA 45/21 COMMON CANISTER IH SCH (19:00)
[2017-01-16] MEDS: DUONEB 0.5-3 MG/3 ml Neb IH SCH (20:08)
[2017-01-16] MEDS: Pepcid 20 MG PO SCH (21:46)
[2017-01-16] MEDS: Lantus Insulin SQ SCH (21:50)
[2017-01-16] MEDS ORDERED: FLUTICASONE IH SCH (22:00)
[2017-01-16] MEDS ORDERED: NON-FORMULARY ITEM (Nystatin/Tcn/Hc/Diphenhydram** [Mary's Magic Mouthwash***] 5 ML) PO SCH (22:00)
[2017-01-16] MEDS ORDERED: NovoLOG 70/30 Mix SQ SCH (22:00)
[2017-01-16] MEDS ORDERED: SALMETEROL IH SCH (22:00)
[2017-01-17] MEDS: Sodium Chloride 0.9% 1000 ML 1,000 ML IV SCH ×2 (01:44→11:13)
[2017-01-17 05:36] LABS: BASOPHIL % 0.3 % (0.0-0.4); Eosinophil % 2.4 % (0.00-5.0); Granulocytes % 70.8 % (36.0-66.0); Lymphocytes % 18.7 % (24.0-44.0); Mean Cell Volume 90.5 fl (78-100); Mean Platelet Volume 11.6 fl (6-9.5); Monocytes % 7.8 % (0.0-12.0); Platelet Count 220 K/mm3 (150-450); Red Blood Count 4.09 M/mm3 (4.1-5.4); Red Cell Distribution Width 13.8 % (11.5-14.0); White Blood Count 7.5 K/mm3 (4.0-10.5)
[2017-01-17 05:40] LABS: Mean Corpuscular Hemoglobin 27.3 pg (26-32)
[2017-01-17 06:10] LABS: ANION GAP 7.7 MEQ/L (5-15); BLOOD UREA NITROGEN 9 mg/dL (9-20); CHLORIDE 111 mEq/L (98-107); Carbon Dioxide 32.4 mEq/L (21-32); Glucose 96 MG/DL (70-110); Potassium 3.5 mEq/L (3.5-5.1); SODIUM 148 mEq/L (136-145)
[2017-01-17] MEDS ORDERED: Advair Hfa 115/21 Common canister IH SCH (07:00)
[2017-01-17] MEDS: NovoLOG 70/30 Mix SQ SCH (07:27)
[2017-01-17] MEDS: DUONEB 0.5-3 MG/3 ml Neb IH SCH (07:28)
[2017-01-17] MEDS: Apresoline 25 MG TABLET PO SCH (08:53)
[2017-01-17] MEDS: MARY'S MAGIC MOUTHWASH PO SCH (08:54)
[2017-01-17] MEDS: Pepcid 20 MG PO SCH (08:54)
--- NOTE | 2017-01-17 08:56 | PCM.NOTE ---
Date and Time: 01/17/17 0853 Subjective Assessment: still having some dizzy spells, irregular heart rhythm - Review of Systems Constitutional: No Fever, No Chills Eyes: No Symptoms Ears, Nose, & Throat: No Symptoms Respiratory: No Cough, No Short Of Breath Cardiac: No Chest Pain, No Edema, No Syncope Abdominal/Gastrointestinal: No Abdominal Pain, No Nausea, No Vomiting, No Diarrhea Genitourinary Symptoms: No Dysuria Musculoskeletal: No Back Pain, No Neck Pain Skin: No Rash Neurological: No Dizziness, No Focal Weakness, No Sensory Changes Psychological: No Symptoms Endocrine: No Symptoms Hematologic/Lymphatic: No Symptoms Immunological/Allergic: No Symptoms Objective Exam General Appearance: no apparent distress, alert Neurologic Exam: alert, oriented x 3, cooperative, normal mood/affect, nml cerebellar function, sensation nml, No motor deficits Skin Exam: normal color, warm, dry Eye Exam: PERRL, EOMI, eyes nml inspection Ears, Nose, Throat Exam: normal ENT inspection, pharynx normal, moist mucous membranes Neck Exam: normal inspection, non-tender, supple, full range of motion Respiratory Exam: lungs clear, No respiratory distress Cardiovascular Exam: bradycardia Gastrointestinal/Abdomen Exam: soft, No tenderness, No mass Extremity Exam: normal inspection, normal range of motion Back Exam: normal inspection, normal range of motion, No CVA tenderness, No vertebral tenderness Pelvic Exam: deferred Rectal Exam: deferred OBJECTIVE DATA Vital Signs: Vital Signs - 24 hr Temp Pulse Resp BP Pulse Ox 01/17/17 07:30 71 16 98 01/17/17 07:05 98 F 86 20 170/82 98 01/17/17 04:00 98.5 F 51 L 22 138/64 97 01/16/17 23:54 98.5 F 57 L 20 170/80 99 01/16/17 20:32 98.2 F 86 24 168/73 95 01/16/17 20:27 98 01/16/17 20:14 59 L 20 98 01/16/17 17:56 66 20 96 01/16/17 16:00 98.6 F 61 20 162/70 97 01/16/17 15:28 99 01/16/17 14:18 97.5 F 62 20 166/71 96 01/16/17 12:52 95 01/16/17 12:04 101 H 14 109/60 100 01/16/17 11:32 54 L 16 130/74 98 01/16/17 10:30 58 L 20 179/61 100 01/16/17 09:40 98.5 F 80 22 151/70 95 Oxygen-Last 24 hours O2 Percentage 3 Liters = 32% O2 Percentage 3 Liters = 32% O2 Percentage 3 Liters = 32% O2 Percentage 3 Liters = 32% O2 Percentage 3 Liters = 32% O2 Percentage 3 Liters = 32% O2 Percentage 3 Liters = 32% Pain Assessment - Last Documented Pain Intensity 0 Pain Scale Used 0-10 Pain Scale Intake and Output: Intake & Output 01/14/17 01/15/17 01/16/17 01/17/17 11:59 11:59 11:59 11:59 Intake Total 2368 Output Total 1300 Balance 1068 Weight 82.282 kg Lab Results: Accuchecks Date 01/17/17 Date 01/16/17 Date 01/16/17 Time 07:15 Time 22:00 Time 16:30 Accucheck Value: 133 Accucheck Value: 106 Accucheck Value: 315 Lab Results-Last 24 Hours 01/16/17 01/16/17 01/16/17 Range/Units 16:00 19:11 22:06 WBC (4.0-10.5) K/mm3 RBC (4.1-5.4) M/mm3 Hgb (12.0-16.0) gm/dl Hct (35-47) % MCV (78-100) fl MCH (26-32) pg MCHC (32-36) g/dl RDW (11.5-14.0) % Plt Count (150-450) K/mm3 MPV (6-9.5) fl Gran % (36.0-66.0) % Lymphocytes % (24.0-44.0) % Monocytes % (0.0-12.0) % Eosinophils % (0.00-5.0) % Basophils % (0.0-0.4) % Basophils # (0-0.4) Sodium (136-145) mEq/L Potassium (3.5-5.1) mEq/L Chloride (98-107) mEq/L Carbon Dioxide (21-32) mEq/L Anion Gap (5-15) MEQ/L BUN (9-20) mg/dL Creatinine (0.55-1.30) mg/dl Estimated GFR ML/MIN Glucose (70-110) MG/DL Calcium (8.5-10.1) mg/dL Troponin I 0.037 0.030 0.027 (0.000-0.056) ng/ml 01/17/17 01/17/17 Range/Units 05:27 05:27 WBC 7.5 (4.0-10.5) K/mm3 RBC 4.09 L (4.1-5.4) M/mm3 Hgb 11.2 L (12.0-16.0) gm/dl Hct 37.0 (35-47) % MCV 90.5 (78-100) fl MCH 27.3 (26-32) pg MCHC 30.3 L (32-36) g/dl RDW 13.8 (11.5-14.0) % Plt Count 220 (150-450) K/mm3 MPV 11.6 H (6-9.5) fl Gran % 70.8 H (36.0-66.0) % Lymphocytes % 18.7 L (24.0-44.0) % Monocytes % 7.8 (0.0-12.0) % Eosinophils % 2.4 (0.00-5.0) % Basophils % 0.3 (0.0-0.4) % Basophils # 0.02 (0-0.4) Sodium 148 H (136-145) mEq/L Potassium 3.5 (3.5-5.1) mEq/L Chloride 111 H (98-107) mEq/L Carbon Dioxide 32.4 H (21-32) mEq/L Anion Gap 7.7 (5-15) MEQ/L BUN 9 (9-20) mg/dL Creatinine 0.67 (0.55-1.30) mg/dl Estimated GFR > 60 ML/MIN Glucose 96 (70-110) MG/DL Calcium 8.6 (8.5-10.1) mg/dL Troponin I (0.000-0.056) ng/ml Assessment/Plan (1) CHF (congestive heart failure), NYHA class III Current Visit: Yes Status: Acute Qualifiers: Congestive heart failure type: unspecified congestive heart failure type Qualified Code(s): I50.9 - Heart failure, unspecified Code(s): I50.9 - HEART FAILURE, UNSPECIFIED (2) Type 2 diabetes mellitus Current Visit: Yes Status: Acute Qualifiers: Diabetes mellitus complication status: with unspecified complications Diabetes mellitus longterm insulin use: without parts counterman use Qualified Code( s): E11.8 - Type 2 diabetes mellitus with unspecified complications (3) COPD (chronic obstructive pulmonary disease) Current Visit: Yes Status: Chronic Qualifiers: COPD type: unspecified COPD Qualified Code(s): J44.9 - Chronic obstructive pulmonary disease, unspecified (4) Arrhythmia, AV node Current Visit: Yes Status: Acute Assessment & Plan: plan to transfer to [facility] Code(s): I49.8 - OTHER SPECIFIED CARDIAC ARRHYTHMIAS
[2017-01-17] MEDS: Lantus Insulin SQ SCH (08:57)
--- NOTE | 2017-01-17 09:04 | PCM.DCORD ---
- Discharge Discharge Date: 01/17/17 [facility]position: [facility] Condition: Stable Prescriptions: No Action HydrALAzine HCL 25 MG TAB [Apresoline 25 MG TABLET] 50 mg PO TID Aspirin 81 mg PO DAILY Fluticasone/Salmeterol 45/21 [Advair Hfa 45-21 Mcg Inhaler] 8 gm IH BID Oxybutynin Chloride 5 mg PO DAILY Levothyroxine Sodium 100 Mcg [Synthroid 100 Mcg] 100 mcg PO DAILY Fosinopril Sodium 40 mg PO DAILY Nystatin/TCN/Hc/Diphenhydram [Eugenia's Magic Mouthwash] 5 ml PO TID Famotidine 20 mg [Pepcid 20 MG] 20 mg PO BID Carvedilol 6.25 mg [Coreg 6.25 MG] 6.25 mg PO BID Atorvastatin Calcium [Lipitor] 10 mg PO DAILY Loratadine 10 mg [Claritin 10 mg] 10 mg PO DAILY Duloxetine HCl 30 mg [Cymbalta 30 MG Capsule] 60 mg PO DAILY Insuln Asp Prt/Insulin Aspart* [NovoLOG 70/30 Mix] 100 unit SQ BID Albuterol/Ipratropium 3ml Neb* [DUONEB 0.5-3 MG/3 ml Neb] 3 ml IH BID Insulin Detemir [Levemir Flextouch] 25 unit SQ BID Instructions: Heart Failure Follow up with: ERIKA BARON [LOCATION] - MIKAEL MEDINA MD [ACTIVE STAFF] - 1 Week
[2017-01-17 09:57] VITALS: BP 180/75; PULSE 82; O2SAT 97
[2017-01-17] MEDS ORDERED: FOSINOPRIL SODIUM 40 MG PO SCH (10:00)
[2017-01-17] MEDS ORDERED: Zocor 10MG PO SCH (10:00)
[2017-01-17] MEDS ORDERED: monoPRIL 10 MG PO SCH (10:00)
[2017-01-17] MEDS ORDERED: Ditropan 5 MG PO SCH (10:00)
[2017-01-17] MEDS ORDERED: CLARITIN 10 MG PO SCH (10:00)
[2017-01-17] MEDS ORDERED: Cymbalta 30 MG Capsule PO SCH (10:00)
[2017-01-17] MEDS ORDERED: SYNTHROID 100 MCG PO SCH (10:00)
[2017-01-17] MEDS ORDERED: ECOTRIN 81 MG PO SCH (10:00)
[2017-01-17] MEDS ORDERED: INSULIN DETEMIR 25 UNIT SQ SCH (10:00)
[2017-01-17] MEDS ORDERED: NON-FORMULARY ITEM (Atorvastatin Calcium 10 MG) PO SCH (10:00)
[2017-01-17] MEDS ORDERED: NON-FORMULARY ITEM (Aspirin [Aspirin] 81 MG) PO SCH (10:00)
== END 2017-01-17 11:15 | disposition short-term general hospital (02) ==
LOC: ED 09:39 → MED SURG 13:15
PROVIDERS: ADMIT Family Medicine; ATTEND General Practice
DX: I50.9 Heart failure, unspecified (principal); E11.8 Type 2 diabetes mellitus with unspecified complications; Z79.4 Long term (current) use of insulin; J44.9 Chronic obstructive pulmonary disease, unspecified; I49.8 Other specified cardiac arrhythmias; I44.1 Atrioventricular block, second degree; R42 Dizziness and giddiness; Z79.899 Other long term (current) drug therapy
CPT/HCPCS: 36415; 70450; 71010; 80048; 80053; 81000; 82962; 83880; 84484; 85025; 93005; 93268; 94640; 94760; 96360; 96361; 99285; G0378; A9270-GY

== ENCOUNTER 2017-02-06 20:06 | Inpatient (IN) | payer MEDICARE ==
[2017-02-06] MEDS ORDERED: DUONEB 0.5-3 MG/3 ml Neb IH ONE ×2 (20:15→20:24)
--- NOTE | 2017-02-06 20:38 | ERPHSYRPT ---
- History of Present Illness Time Seen by Provider: 02/06/17 20:10 Source: patient Exam Limitations: no limitations Patient Subjective Stated Complaint: pt states she has had increasing weakness and has had shortness of breath with activity. denies sob at rest Triage Nursing Assessment: pt alert and oriented. answers questions approp. pt arrive per ambulance and transfer from ems cot to stretcher with assist of 3. skin pink warm and dry. respirations nonlabored. o2 on at 4l per nc, wears at home at all times. Physician History: Pt started c/o increasing SOB this afternoon, denies productive cough, vomiting , chest pain, severe headaches or otehr complaints. Her blood sugar was elevated at 250 this afternoon, denies recent medication changes, or antibiotics. She has been on O2 nasally all the time, and CPAP at night. Timing/Duration: today Activities at Onset: none Severity of Dyspnea-Max: moderate Severity of Dyspnea-Current: mild Possible Cause: frequent episodes Modifying Factors: Improves With: activity Associated Symptoms: cough, wheezing, No edema, No fever, No calf pain, No leg swelling International travel in last 2 weeks: No Allergies/Adverse Reactions: Sulfa (Sulfonamide Antibiotics) Allergy (Verified 02/06/17 20:31) Home Medications: Aspirin 81 mg PO DAILY 11/28/16 [History] Atorvastatin Calcium [Lipitor] 10 mg PO HS 11/28/16 [History] Carvedilol 6.25 mg [Coreg 6.25 MG] 6.25 mg PO BID 11/28/16 [History] Duloxetine HCl 30 mg [Cymbalta 30 MG Capsule] 60 mg PO HS 11/28/16 [ History] Famotidine 20 mg [Pepcid 20 MG] 20 mg PO BID 11/28/16 [History] Fluticasone/Salmeterol 45/21 [Advair Hfa 45-21 Mcg Inhaler] 8 gm IH BID [History] Fosinopril Sodium 40 mg PO DAILY 11/28/16 [History] HydrALAzine HCL 25 MG TAB [Apresoline 25 MG TABLET] 50 mg PO TID 11/28/16 [History] Levothyroxine Sodium 100 Mcg [Synthroid 100 Mcg] 100 mcg PO DAILY 11/28/16 [History] Loratadine 10 mg [Claritin 10 mg] 10 mg PO DAILY 11/28/16 [History] Nystatin/TCN/Hc/Diphenhydram [Eugenia's Magic Mouthwash] 5 ml PO TID 11/28/16 [History] Oxybutynin Chloride 5 mg PO HS 11/28/16 [History] Albuterol/Ipratropium 3ml Neb* [DUONEB 0.5-3 MG/3 ml Neb] 3 ml IH BID [History] Insulin Detemir [Levemir Flextouch] 25 unit SQ BID 01/16/17 [History] Amlodipine Besylate 10 mg [Norvasc 10 MG] 10 mg PO HS 02/06/17 [History] Docusate Sodium 100 mg [Colace 100 MG] 100 mg PO BID 02/06/17 [History] Furosemide 40 mg [Lasix 40 MG] 40 mg PO DAILY 02/06/17 [History] Insulin Lispro [Humalog] 10 unit SQ TID 02/06/17 [History] Latanoprost [Xalatan] 1 ml OP BID 02/06/17 [History] Hx Tetanus, Diphtheria Vaccination/Date Given: No Hx Influenza Vaccination/Date Given: Yes (2016) Hx Pneumococcal Vaccination/Date Given: Yes (2016) Immunizations Up to Date: Yes - Review of Systems Constitutional: No Symptoms, No Fever Respiratory: Cough, Dyspnea Cardiac: No Symptoms Abdominal/Gastrointestinal: No Symptoms All Other Systems: Reviewed and Negative - Past Medical History Pertinent Past Medical History: Yes Neurological History: No Pertinent History ENT History: Cataracts, Glaucoma Cardiac History: Congestive Heart Failure, Hypertension Respiratory History: Asthma, CHF, Sleep Apnea Endocrine Medical History: Diabetes Type II Musculoskeletal History: Arthritis GI Medical History: Diverticulitis, Diverticulosis, GERD, Hernia History: No Pertinent History Psycho-Social History: Anxiety, Depression Female Reproductive Disorders: No Pertinent History - Past Surgical History Past Surgical History: Yes Neuro Surgical History: No Pertinent History Cardiac: Cardiac Catheterization Respiratory: No Pertinent History Gastrointestinal: No Pertinent History Genitourinary: No Pertinent History Musculoskeletal: No Pertinent History Female Surgical History: No Pertinent History, Other Other Surgical History: 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 D and C - Social History Smoking Status: Never smoker Exposure to second hand smoke: No Drug Use: none Patient Lives Alone: Yes - Nursing Vital Signs Nursing Vital Signs: Initial Vital Signs Temperature 97.8 F 02/06/17 20:08 Pulse Rate 80 02/06/17 20:08 Respiratory Rate 20 02/06/17 20:08 Blood Pressure 178/98 02/06/17 20:08 O2 Sat by Pulse Oximetry 98 02/06/17 20:08 Pain Scale Pain Intensity 0 - Physical Exam General Appearance: no apparent distress Eye Exam: eyes nml inspection Ears, Nose, Throat Exam: normal ENT inspection, normal pharynx Neck Exam: normal inspection, non-tender, supple, No carotid bruit, No JVD Respiratory Exam: crackles/rales (diffuse , over both base), rhonchi (diffuse), No chest tenderness Cardiovascular/Chest Exam: normal heart sounds, irregular, No murmur, No edema, No JVD Abdominal/Gastrointestinal Exam: soft, normal bowel sounds, No tenderness Extremity Exam: non-tender, No no calf tenderness, No no pedal edema Peripheral Pulses Exam: carotid (R): 3+, carotid (L): 3+ Neurologic Exam: alert, oriented x 3, cooperative, doctor of nurse anesthesia II-XII nml as tested, normal mood/affect Skin Exam: normal color, warm, dry, No rash Lymphatic Exam: No adenopathy SpO2 Interpretation: normal SpO2: 98 Oxygen Delivery: Nasal Cannula - Course Nursing assessment & vital signs reviewed: Yes EKG Interpreted by Me: RATE, A-fib, NORMAL AXIS, Non-specific ST Changes - Radiology Exams Chest X-ray Interpretation: Interpreted by me, Other (bilateral pleural effusions, CHF ) Ordered Tests: Active Orders 24 hr Category Date Time Status Seasonal Driver STAT Care 02/06/17 20:17 Active Catheter-Strabane Larson STAT Care 02/06/17 22:22 Active EKG-ER Only STAT Care 02/06/17 20:15 Active IV Insertion STAT Care 02/06/17 20:15 Active Oxygen-ED Only NASAL CANNULA 2 lpm Care 02/06/17 20:15 Active CHEST 1 VIEW (PORTABLE) Stat Exams 02/06/17 20:16 Taken BLOOD CULTURE Stat Lab 02/06/17 20:55 Received CBC W DIFF Stat Lab 02/06/17 20:55 Completed CMP Stat Lab 02/06/17 20:55 Completed Lactic Acid Stat Lab 02/06/17 20:40 Completed MAGNESIUM Stat Lab 02/06/17 20:55 Completed NT PRO BNP Stat Lab 02/06/17 20:55 Completed PROTIME WITH INR Stat Lab 02/06/17 20:55 Completed PTT Stat Lab 02/06/17 20:55 Completed TROPONIN Q3H Lab 02/06/17 20:55 Completed TROPONIN Q3H Lab 02/06/17 23:30 Ordered TROPONIN Q3H Lab 02/07/17 02:30 Ordered TROPONIN Q3H Lab 02/07/17 05:30 Ordered TROPONIN Q3H Lab 02/07/17 08:30 Ordered UA W/RFX UR CULTURE Stat Lab 02/06/17 22:22 Ordered Respiratory Nebulizer STAT RT 02/06/17 20:17 Active Transfer Order Routine Transfer 02/06/17 Ordered Medication Summary Discontinued Medications Generic Name Dose Route Start Last Admin Trade Name Freq PRN Reason Stop Dose Admin Albuterol/Ipratropium 3 ml 02/06/17 20:15 02/06/17 20:26 Duoneb 0.5-3 Mg/3 Ml Neb IH 02/06/17 20:16 3 ml STAT ONE Administration Albuterol/Ipratropium Confirm 02/06/17 20:24 Duoneb 0.5-3 Mg/3 Ml Neb Administered 02/06/17 20:25 Dose 3 ml IH .STK-MED ONE Furosemide 40 mg 02/06/17 21:35 02/06/17 21:42 Lasix 40 Mg/4 Ml IV 02/06/17 21:36 40 mg STAT ONE Administration Furosemide Confirm 02/06/17 21:38 Lasix 40 Mg/4 Ml Administered 02/06/17 21:39 Dose 40 mg .ROUTE .STK-MED ONE Nitroglycerin 1 gm 02/06/17 21:35 02/06/17 21:42 Nitro-Bid 2% Ud Packets TOP 02/06/17 21:36 1 gm STAT ONE Administration Nitroglycerin Confirm 02/06/17 21:38 Nitro-Bid 2% Ud Packets Administered 02/06/17 21:39 Dose 1 gm .ROUTE .STK-MED ONE Lab/Rad Data: Laboratory Result Diagrams 02/06/17 20:55 02/06/17 20:55 Laboratory Results 02/06/17 02/06/17 02/06/17 Range/Units 20:55 20:55 20:55 WBC (4.0-10.5) K/mm3 RBC (4.1-5.4) M/mm3 Hgb (12.0-16.0) gm/dl Hct (35-47) % MCV (78-100) fl MCH (26-32) pg MCHC (32-36) g/dl RDW (11.5-14.0) % Plt Count (150-450) K/mm3 MPV (6-9.5) fl Gran % (36.0-66.0) % Lymphocytes % (24.0-44.0) % Monocytes % (0.0-12.0) % Eosinophils % (0.00-5.0) % Basophils % (0.0-0.4) % Basophils # (0-0.4) INR 1.11 (0.8-3.0) APTT 36.3 (25.3-37.0) SECONDS Sodium 143 (136-145) mEq/L Potassium 4.5 (3.5-5.1) mEq/L Chloride 103 (98-107) mEq/L Carbon Dioxide 35.5 H (21-32) mEq/L Anion Gap 8.6 (5-15) MEQ/L BUN 13 (9-20) mg/dL Creatinine 0.77 (0.55-1.30) mg/dl Estimated GFR > 60 ML/MIN Glucose 266 H (70-110) MG/DL Lactic Acid (0.4-2.0) Calcium 8.9 (8.5-10.1) mg/dL Magnesium 2.1 (1.8-2.4) mg/dL Total Bilirubin 0.40 (0.2-1.0) mg/dL AST 25 (15-37) U/L ALT 29 (12-78) U/L Alkaline Phosphatase 131 H (46-116) U/L Troponin I 0.028 (0.000-0.056) ng/ml NT-Pro-B Natriuret Pep 1782 H (0-125) pg/ml Serum Total Protein 7.1 (6.4-8.2) gm/dL Albumin 3.2 L (3.4-5.0) g/dL 02/06/17 02/06/17 Range/Units 20:55 20:40 WBC 13.8 H (4.0-10.5) K/mm3 RBC 4.11 (4.1-5.4) M/mm3 Hgb 11.1 L (12.0-16.0) gm/dl Hct 37.7 (35-47) % MCV 91.7 (78-100) fl MCH 27.0 (26-32) pg MCHC 29.4 L (32-36) g/dl RDW 13.8 (11.5-14.0) % Plt Count 224 (150-450) K/mm3 MPV 10.7 H (6-9.5) fl Gran % 85.2 H (36.0-66.0) % Lymphocytes % 8.1 L (24.0-44.0) % Monocytes % 5.9 (0.0-12.0) % Eosinophils % 0.7 (0.00-5.0) % Basophils % 0.1 (0.0-0.4) % Basophils # 0.02 (0-0.4) INR (0.8-3.0) APTT (25.3-37.0) SECONDS Sodium (136-145) mEq/L Potassium (3.5-5.1) mEq/L Chloride (98-107) mEq/L Carbon Dioxide (21-32) mEq/L Anion Gap (5-15) MEQ/L BUN (9-20) mg/dL Creatinine (0.55-1.30) mg/dl Estimated GFR ML/MIN Glucose (70-110) MG/DL Lactic Acid 1.3 (0.4-2.0) Calcium (8.5-10.1) mg/dL Magnesium (1.8-2.4) mg/dL Total Bilirubin (0.2-1.0) mg/dL AST (15-37) U/L ALT (12-78) U/L Alkaline Phosphatase (46-116) U/L Troponin I (0.000-0.056) ng/ml NT-Pro-B Natriuret Pep (0-125) pg/ml Serum Total Protein (6.4-8.2) gm/dL Albumin (3.4-5.0) g/dL - Progress Progress: improved Air Movement: fair Progress Note: 02/06/17 22:33 Pt improved, active, not lethargic, able to speak in sentences, afebrile, no distress, or chest pain, comfortable. I called DR Spivey, discussed our findings, he agreed to admit her for observation, informed patient, she agreed. Discussed with .: Ulises Will see patient in: hospital (observation) Counseled pt/family regarding: lab results, diagnosis, rad results - Departure Time of Disposition: 22:34 Departure Disposition: Observation Clinical Impression: CHF (congestive heart failure), NYHA class III Qualifiers: Congestive heart failure type: combined Congestive heart failure chronicity: acute on chronic Qualified Code(s): I50.43 - Acute on chronic combined systolic (congestive) and diastolic (congestive) heart failure Condition: Stable Critical Care Time: Yes Critical Care Time(excluding separately billable procedures): 30-74 minutes Referrals: ZOFIA SPIVEY MD [Primary Care Provider] - Instructions: Heart Failure
[2017-02-06 20:59] LABS: BASOPHIL % 0.1 % (0.0-0.4); Eosinophil % 0.7 % (0.00-5.0); Granulocytes % 85.2 % (36.0-66.0); Lymphocytes % 8.1 % (24.0-44.0); Mean Cell Volume 91.7 fl (78-100); Mean Platelet Volume 10.7 fl (6-9.5); Monocytes % 5.9 % (0.0-12.0); Platelet Count 224 K/mm3 (150-450); Red Blood Count 4.11 M/mm3 (4.1-5.4); Red Cell Distribution Width 13.8 % (11.5-14.0); White Blood Count 13.8 K/mm3 (4.0-10.5)
[2017-02-06 21:28] LABS: INR 1.11 (0.8-3.0); PROTIME 12.4 SECONDS (9.95-12.35)
[2017-02-06 21:31] LABS: PTT 36.3 SECONDS (25.3-37.0)
[2017-02-06] MEDS ORDERED: NITRO-BID 2% UD PACKETS TOP ONE (21:35)
[2017-02-06] MEDS ORDERED: Lasix 40 MG/4 ML IV ONE (21:35)
[2017-02-06] MEDS ORDERED: Lasix 40 MG/4 ML ONE (21:38)
[2017-02-06] MEDS ORDERED: NITRO-BID 2% UD PACKETS ONE (21:38)
[2017-02-06 22:11] LABS: ALBUMIN 3.2 g/dL (3.4-5.0); ALKALINE PHOSPHATASE 131 U/L (46-116); ANION GAP 8.6 MEQ/L (5-15); BLOOD UREA NITROGEN 13 mg/dL (9-20); CHLORIDE 103 mEq/L (98-107); Carbon Dioxide 35.5 mEq/L (21-32); Glucose 266 MG/DL (70-110); MAGNESIUM 2.1 mg/dL (1.8-2.4); Potassium 4.5 mEq/L (3.5-5.1); SGOT/AST 25 U/L (15-37); SGPT/ALT 29 U/L (12-78); SODIUM 143 mEq/L (136-145); Total Protein 7.1 gm/dL (6.4-8.2)
[2017-02-06 22:39] LABS: Bilirubin NEGATIVE (NEGATIVE); Blood 250 Ery/ul (0-5); COMPLETE URINE MICROSCOPIC? YES; Collection Type VOID; Glucose TRACE mg/dL (NEGATIVE); Leukocyte Esterase NEGATIVE (NEGATIVE); WBC 0-2 /HPF (0-5)
[2017-02-06 22:40] LABS: ADD URINE CULTURE? NO (NO); Bacteria FEW /HPF (NEGATIVE); Epithelial Cells MODERATE /HPF (FEW)
[2017-02-07] MEDS: Pepcid 20 MG PO SCH ×3 (02:00→21:08)
[2017-02-07] MEDS: Apresoline 25 MG TABLET PO SCH ×4 (02:00→21:06)
[2017-02-07] MEDS: NORVASC 5 MG PO SCH ×2 (02:01→21:07)
[2017-02-07] MEDS: Coreg 6.25 MG PO SCH ×2 (02:01→09:46)
[2017-02-07] MEDS: Ditropan 5 MG PO SCH ×2 (02:01→21:07)
[2017-02-07] MEDS: Cymbalta 30 MG Capsule PO SCH ×2 (02:01→21:06)
[2017-02-07] MEDS: Colace 100 MG PO SCH ×3 (02:01→21:06)
[2017-02-07] MEDS: Zocor 10MG PO SCH ×2 (02:02→21:08)
[2017-02-07 05:59] LABS: Mean Cell Volume 92.5 fl (78-100); Mean Corpuscular Hemoglobin 26.9 pg (26-32); Mean Platelet Volume 11.5 fl (6-9.5); Platelet Count 230 K/mm3 (150-450); Red Blood Count 3.86 M/mm3 (4.1-5.4); Red Cell Distribution Width 13.7 % (11.5-14.0); White Blood Count 11.9 K/mm3 (4.0-10.5)
[2017-02-07 07:02] LABS: ANION GAP 4.6 MEQ/L (5-15); BLOOD UREA NITROGEN 13 mg/dL (9-20); CHLORIDE 104 mEq/L (98-107); Carbon Dioxide 38.9 mEq/L (21-32); Glucose 233 MG/DL (70-110); Potassium 4.3 mEq/L (3.5-5.1); SODIUM 143 mEq/L (136-145)
--- NOTE | 2017-02-07 09:03 | XRAY ---
Indication: Dyspnea. Comparison: January 16, at 2017. Portable chest again demonstrates borderline cardiomegaly with new small bibasilar atelectasis/effusions favoring cardiac decompensation. Superimposed pneumonia not completely excluded.
[2017-02-07] MEDS ORDERED: Lasix 40 MG/4 ML IV SCH (10:00)
[2017-02-07] MEDS: NovoLOG Insulin SQ PRN ×2 (11:33→21:09)
[2017-02-07] MEDS: ENOXAPARIN SODIUM SQ SCH (15:07)
[2017-02-07] MEDS: ROCEPHIN 1 Gm-D5w 50 ml Bag** 1 G/50 ML IVPB IV SCH (15:07)
[2017-02-07] MEDS: ECOTRIN 81 MG PO SCH (15:08)
[2017-02-07] MEDS: monoPRIL 10 MG PO SCH (15:08)
[2017-02-07] MEDS: SYNTHROID 100 MCG PO SCH (15:08)
[2017-02-07] MEDS: CLARITIN 10 MG PO SCH (15:08)
[2017-02-07] MEDS ORDERED: NON-FORMULARY ITEM (Insulin Lispro 10 UNIT) SQ SCH (16:30)
[2017-02-07] MEDS: NovoLOG Insulin SQ SCH (18:16)
[2017-02-07] MEDS: DUONEB 0.5-3 MG/3 ml Neb IH SCH (19:07)
[2017-02-07] MEDS: Advair Hfa 115/21 Common canister IH SCH (19:08)
[2017-02-07] MEDS: Lantus Insulin SQ SCH (21:07)
[2017-02-07] MEDS: Xalatan OP SCH (21:08)
[2017-02-07] MEDS ORDERED: INSULIN DETEMIR 25 UNIT SQ SCH (22:00)
[2017-02-07] MEDS ORDERED: Zocor 10MG PO SCH (22:00)
[2017-02-08 06:26] LABS: Mean Cell Volume 91.9 fl (78-100); Mean Platelet Volume 11.2 fl (6-9.5); Platelet Count 245 K/mm3 (150-450); Red Blood Count 4.06 M/mm3 (4.1-5.4); Red Cell Distribution Width 13.6 % (11.5-14.0); White Blood Count 12.8 K/mm3 (4.0-10.5)
[2017-02-08 06:42] LABS: ANION GAP 6.6 MEQ/L (5-15); BLOOD UREA NITROGEN 15 mg/dL (9-20); CHLORIDE 101 mEq/L (98-107); Carbon Dioxide 38.9 mEq/L (21-32); Glucose 139 MG/DL (70-110); Potassium 3.9 mEq/L (3.5-5.1); SODIUM 143 mEq/L (136-145)
[2017-02-08] MEDS: DUONEB 0.5-3 MG/3 ml Neb IH SCH ×2 (07:27→19:40)
[2017-02-08] MEDS: Advair Hfa 115/21 Common canister IH SCH ×2 (07:28→19:41)
[2017-02-08] MEDS: NovoLOG Insulin SQ SCH ×3 (08:40→17:05)
[2017-02-08] MEDS ORDERED: NON-FORMULARY ITEM (Aspirin [Aspirin] 81 MG) PO SCH (10:00)
[2017-02-08] MEDS ORDERED: FOSINOPRIL SODIUM 40 MG PO SCH (10:00)
[2017-02-08] MEDS: ECOTRIN 81 MG PO SCH (10:50)
[2017-02-08] MEDS: monoPRIL 10 MG PO SCH (10:50)
[2017-02-08] MEDS: Pepcid 20 MG PO SCH ×2 (10:50→21:58)
[2017-02-08] MEDS: Colace 100 MG PO SCH ×2 (10:50→21:56)
[2017-02-08] MEDS: Lasix 40 MG/4 ML IV SCH (10:50)
[2017-02-08] MEDS: Apresoline 25 MG TABLET PO SCH ×3 (10:50→21:56)
[2017-02-08] MEDS: SYNTHROID 100 MCG PO SCH (10:50)
[2017-02-08] MEDS: CLARITIN 10 MG PO SCH (10:50)
[2017-02-08] MEDS: ROCEPHIN 1 Gm-D5w 50 ml Bag** 1 G/50 ML IVPB IV SCH (10:51)
[2017-02-08] MEDS: Xalatan OP SCH ×2 (10:51→22:36)
[2017-02-08] MEDS: ENOXAPARIN SODIUM SQ SCH (10:51)
[2017-02-08] MEDS: Lantus Insulin SQ SCH ×2 (10:51→22:00)
[2017-02-08] MEDS: NovoLOG Insulin SQ PRN ×2 (12:09→17:05)
[2017-02-08] MEDS: NORVASC 5 MG PO SCH (21:56)
[2017-02-08] MEDS: Zocor 10MG PO SCH (21:57)
[2017-02-08] MEDS: Ditropan 5 MG PO SCH (21:58)
[2017-02-08] MEDS: Cymbalta 30 MG Capsule PO SCH (21:58)
[2017-02-09 05:48] LABS: Mean Cell Volume 91.7 fl (78-100); Mean Corpuscular Hemoglobin 27.2 pg (26-32); Mean Platelet Volume 11.1 fl (6-9.5); Platelet Count 235 K/mm3 (150-450); Red Blood Count 4.08 M/mm3 (4.1-5.4); Red Cell Distribution Width 13.6 % (11.5-14.0); White Blood Count 11.9 K/mm3 (4.0-10.5)
[2017-02-09 06:07] LABS: ALKALINE PHOSPHATASE 108 U/L (46-116); ANION GAP 4.4 MEQ/L (5-15); BLOOD UREA NITROGEN 15 mg/dL (9-20); CHLORIDE 100 mEq/L (98-107); Carbon Dioxide 39.9 mEq/L (21-32); Glucose 246 MG/DL (70-110); Potassium 3.9 mEq/L (3.5-5.1); SGOT/AST 13 U/L (15-37); SGPT/ALT 13 U/L (12-78); SODIUM 140 mEq/L (136-145); Total Protein 6.8 gm/dL (6.4-8.2)
[2017-02-09] MEDS: DUONEB 0.5-3 MG/3 ml Neb IH SCH ×2 (07:27→19:30)
[2017-02-09] MEDS: Advair Hfa 115/21 Common canister IH SCH ×2 (07:28→19:35)
[2017-02-09] MEDS: SYNTHROID 100 MCG PO SCH (08:00)
[2017-02-09] MEDS: Colace 100 MG PO SCH ×2 (08:00→21:59)
[2017-02-09] MEDS: monoPRIL 10 MG PO SCH (08:00)
[2017-02-09] MEDS: ENOXAPARIN SODIUM SQ SCH (08:00)
[2017-02-09] MEDS: ECOTRIN 81 MG PO SCH (08:02)
[2017-02-09] MEDS: Pepcid 20 MG PO SCH ×2 (08:02→22:00)
[2017-02-09] MEDS: Lasix 40 MG/4 ML IV SCH (08:02)
[2017-02-09] MEDS: Apresoline 25 MG TABLET PO SCH ×3 (08:02→21:59)
[2017-02-09] MEDS: CLARITIN 10 MG PO SCH (08:02)
[2017-02-09] MEDS: ROCEPHIN 1 Gm-D5w 50 ml Bag** 1 G/50 ML IVPB IV SCH (08:03)
[2017-02-09] MEDS: Lantus Insulin SQ SCH ×2 (08:03→22:01)
[2017-02-09] MEDS: NovoLOG Insulin SQ SCH ×3 (08:03→16:30)
[2017-02-09] MEDS: NovoLOG Insulin SQ PRN ×2 (08:03→11:11)
[2017-02-09] MEDS: Xalatan OP SCH ×2 (08:04→22:01)
[2017-02-09] MEDS: Cymbalta 30 MG Capsule PO SCH (21:58)
[2017-02-09] MEDS: Ditropan 5 MG PO SCH (22:00)
[2017-02-09] MEDS: NORVASC 5 MG PO SCH (22:00)
[2017-02-09] MEDS: Zocor 10MG PO SCH (22:01)
[2017-02-10 06:19] LABS: Carbon Dioxide 41.6 mEq/L (21-32); Potassium 4.2 mEq/L (3.5-5.1)
[2017-02-10 06:52] LABS: Mean Cell Volume 91.5 fl (78-100); Mean Corpuscular Hemoglobin 26.8 pg (26-32); Mean Platelet Volume 11.3 fl (6-9.5); Platelet Count 255 K/mm3 (150-450); Red Cell Distribution Width 13.7 % (11.5-14.0); White Blood Count 11.5 K/mm3 (4.0-10.5)
[2017-02-10] MEDS: DUONEB 0.5-3 MG/3 ml Neb IH SCH ×2 (07:22→19:25)
[2017-02-10] MEDS: Advair Hfa 115/21 Common canister IH SCH (07:22)
[2017-02-10] MEDS: NovoLOG Insulin SQ PRN ×2 (08:03→16:46)
[2017-02-10] MEDS: NovoLOG Insulin SQ SCH ×3 (08:03→16:46)
--- NOTE | 2017-02-10 09:26 | HP ---
HISTORY OF PRESENT ILLNESS: The patient was initially admitted to Dr. Montgomery' service and then changed over to Dr. Harmon's service this afternoon. Sierra Elizabeth is a 71 year old woman with past medical history of hypertension, congestive heart failure, asthma, diabetes mellitus, gastroesophageal reflux disease, sleep apnea, anxiety/depression and obesity. She presented to the emergency room on 02/06/2017 with increasing weakness and shortness of breath with minimal activity. There was no reported history of fever, productive cough. No reported history of allergy. She did have some dry cough. As per patient she has been compliant with her medications. Initial vitals in the emergency room were blood pressure 178/98, heart rate 80, respiratory rate 20 and temperature 97.8F. Labs were notable for elevated BNP, mildly elevated white blood cell count. She was treated with nebulization, Lasix 40 mg IV x1, Nitro-Two times a day 2% topically x1. Subsequently she was admitted to medical floor for further monitoring and management. Since admission she was continued on routine medications and nebulization. At the time of this evaluation earlier this afternoon, the patient was alert, awake, complained of generalized weakness, complained of shortness of breath, complained of cough, occasional chest tightness. The patient was also noted to be somewhat bradycardic with heart rate in 50's at rest, although she remained asymptomatic from that. PAST MEDICAL HISTORY: As noted above. Glaucoma, prior history of diverticulitis. PAST SURGICAL HISTORY: Cataract surgery. History of removal of tumor from left breast. History of cyst removal from bilateral breast. History of tumor removal from cervix, D&C. ALLERGIES: SULFA. CURRENT MEDICATIONS: Reviewed. FAMILY HISTORY: Noncontributory. SOCIAL HISTORY: The patient lives at home, denies history of smoking or illicit drug use. REVIEW OF SYSTEMS: Complains of fatigue, generalized weakness. Denies headache or dizziness. Complains of shortness of breath with activity. Complains of cough. Denies chest pain. Denies abdominal pain, nausea or vomiting. Denies constipation or diarrhea. Denies urinary complaints. PHYSICAL EXAMINATION: An elderly, obese woman lying comfortably in bed, not in acute distress. VITAL SIGNS: Blood pressure 159/65, heart rate 56, respiratory rate 20, temperature 98.6F. Oxygen saturation 96% on 4 liters. HEENT: Pallor is present. No icterus is noted. NECK: No JVD is present. CVS: S1, S2 present. RESPIRATORY: Breath sounds are bilaterally diminished, occasional wheezing present. ABDOMEN: Obese, soft, nontender. NEURO: She is alert, awake, answers simple questions. Evaluation of motor strength in bilateral upper and lower extremities reveals 4+ to 5/5 motor strength. EXTREMITIES: No edema on bilateral lower extremities. LABORATORY DATA AND TESTS: Labs from admission were reviewed and were notable for white blood cell 13.8, hemoglobin 11.1. Today's CBC showed white blood cell of 11.9, hemoglobin 10.4, hematocrit 35.7. Initial CMP was notable for glucose of 266, bicarbonate 35.5, alkaline phosphatase 131. Today's BMP is notable for bicarbonate 39, BUN 13, creatinine 0.8, glucose 233, lactic acid 1.3. Initial NT-BNP was 1782 and 1951 today. Troponin was 0.030 and then 0.028 and then 0.039 and then 0.019 and then 0.020. Chest x-ray showed borderline cardiomegaly with small bibasilar atelectasis/effusion favoring cardiac decompensation question with superimposed pneumonia. EKG showed atrial fibrillation, nonspecific ST-T changes. ASSESSMENT: A 71 year old woman with impression: 1) Congestive heart failure with decompensation. 2) Acute bronchopneumonia. 3) Generalized weakness. 4) Asthma with exacerbation. 5) History of hypertension/coronary artery disease. 6) Bradycardia (the patient is symptomatic). 7) Anxiety/depression. 8) History of diabetes mellitus. 9) Obesity. PLAN: The patient is admitted for further monitoring and management. Will continue inhalation, IV diuretics were added, addition of IV antibiotics, will add IV steroids. Fall precautions. 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 Blount. I was informed by patient's nurse that cardiology is in agreement of holding Coreg. Continue to monitor hemodynamic status. The patient states that at this time she is considering going back again to [facility]. This was discussed with the director of casework services and the patient will likely be discharged there once she improved. The plan was discussed with the patient. She seems to be in understanding and agreement. Discussed with patient's nurse, Jayce.
[2017-02-10] MEDS: monoPRIL 10 MG PO SCH (09:29)
[2017-02-10] MEDS: SYNTHROID 100 MCG PO SCH (09:29)
[2017-02-10] MEDS: ECOTRIN 81 MG PO SCH (09:29)
[2017-02-10] MEDS: Lantus Insulin SQ SCH (09:30)
[2017-02-10] MEDS: Apresoline 25 MG TABLET PO SCH ×2 (09:30→16:13)
[2017-02-10] MEDS: Colace 100 MG PO SCH (09:30)
[2017-02-10] MEDS: Pepcid 20 MG PO SCH (09:30)
[2017-02-10] MEDS: Lasix 40 MG/4 ML IV SCH (09:30)
[2017-02-10] MEDS: ROCEPHIN 1 Gm-D5w 50 ml Bag** 1 G/50 ML IVPB IV SCH (09:30)
[2017-02-10] MEDS: CLARITIN 10 MG PO SCH (09:30)
[2017-02-10] MEDS: ENOXAPARIN SODIUM SQ SCH (09:31)
[2017-02-10] MEDS: Xalatan OP SCH (09:31)
[2017-02-10 16:08] VITALS: BP 156/97; PULSE 70; O2SAT 98
--- NOTE | 2017-02-11 08:19 | DS ---
DISCHARGE DIAGNOSES: 1) CONGESTIVE HEART FAILURE WITH DECOMPENSATION, CLINICALLY IMPROVED. 2) ACUTE BRONCHOPNEUMONIA, CLINICALLY RESOLVED. 3) GENERALIZED WEAKNESS. 4) ASTHMA WITH EXACERBATION, CLINICALLY IMPROVED. 5) HISTORY OF HYPERTENSION/CORONARY ARTERY DISEASE. 6) BRADYCARDIA, ASYMPTOMATIC, NOW RESOLVED. 7) ANXIETY/DEPRESSION. 8) DIABETES MELLITUS. 9) OBESITY. HOSPITAL COURSE: Sierra Elizabeth is a 71 year-old woman with past medical history of hypertension, congestive heart failure, asthma, diabetes mellitus, gastroesophageal reflux disease, sleep apnea, anxiety/depression, obesity. She was admitted on 02/06/2017 with increasing shortness of breath with minimal activity, generalized weakness. There was no reported history of fever. She was initially admitted to Dr. Montgomery' service and then changed over to Dr. Harmon's service on 02/07/2017. The patient did also report some dry cough. Lab work up was notable for elevated BNP, mildly elevated white blood cell count. She was placed on supplemental oxygen nebulization and was treated with addition of IV diuretics. Labs also showed lactic acid of 1.3. Subsequent BMP had shown mild worsening with serial troponins had remained negative. Chest x-ray showed borderline cardiomegaly with small bibasilar atelectasis/effusion and cardiac decompensation, questionable superimposed pneumonia. EKG showed atrial fibrillation, nonspecific ST-T changes. During her further course she was continued on IV diuretics, additional medications of steroids/antibiotics. Please refer to H&P for details. Further course was notable for some bradycardia with heart rate in 40's and 50's. However the patient had remained asymptomatic from those. After discussion with cardiology the Coreg was placed on hold and her bradycardia had resolved. During her further course she improved clinically, remained hemodynamically stable, extremely deconditioned. The patient and family had expressed that the patient would like to be discharged to a intermediate for additional days of rehab. After clinical improvement, the patient was discharged to [facility] in stable condition earlier today. PHYSICAL EXAMINATION: At the time of my evaluation of the patient this afternoon prior to discharge the patient was alert and awake. She stated her shortness of breath had improved, complained of fatigue. Denied chest pain. Denied any other new complaints. Appeared comfortable. VITAL SIGNS: Blood pressure 158/73, heart rate 84, respiratory rate 2, temperature 97.6F. Oxygen saturation 96% on 4 liters. HEENT: Pallor is present. NECK: No JVD is present. CVS: S1, S2 present. RESPIRATORY: Breath sounds are bilaterally diminished and clear to auscultation. ABDOMEN: Obese, soft, nontender. NEURO: She was alert, awake, answered simple questions EXTREMITIES: No edema on bilateral lower extremities. LABORATORY DATA AND TESTS: Labs from today showed CBC with white blood cell 11.5, hemoglobin 11, hematocrit 37.5, PLT 255,000. BMP was notable for bicarbonate of 41.3, glucose 171. Blood cultures from 02/06/2017 had shown no growth. Urine cultures from 02/07/2017 showed no growth. Medications were reviewed. ASSESSMENT: As outlined in discharge diagnoses. PLAN: A patient with multiple medical problems was admitted with congestive heart failure with decompensation, generalized weakness and possible acute bronchopneumonia. She underwent work up/treatment as noted above. She improved clinically however remained deconditioned. It was discussed with the patient and family regarding possible intermediate stay for continued rehab. The patient and family were agreeable with that. The patient was discharged to [facility] in stable condition. Please refer to discharge medication list from 02/10/2017 for details of medications on discharge. Please refer to the patient's chart, labs, diagnostic work up results and consult notes for details. Plan of care was discussed with the patient. The patient's clinical condition, available work-up results and plan of management including discharge plan was discussed with the patient. She seems to be in understanding and agreement. Discussed with warehouse puller, Kristin, and with upper caser, Mouna Kern.
[2017-02-11] MEDS ORDERED: Lasix 40 MG PO SCH (10:00)
== END 2017-02-10 19:00 | DRG 291 ==
LOC: ED 20:06 → MED SURG 23:50 → UNDOADMOB 23:50 → INTOOBSV 02-07 02:15 → OBSVTOIN 02-07 02:15 → MED SURG 02-07 14:15 → OBSVTOIN 02-07 14:15
PROVIDERS: ADMIT General Practice; ATTEND General Practice
DX: I50.43 Acute on chronic combined systolic (congestive) and diastolic (congestive) heart failure (principal); J18.0 Bronchopneumonia, unspecified organism; J45.901 Unspecified asthma with (acute) exacerbation; I50.84 End stage heart failure; I50.9 Heart failure, unspecified; R53.1 Weakness; I10 Essential (primary) hypertension; I25.10 Atherosclerotic heart disease of native coronary artery without angina pectoris; F41.8 Other specified anxiety disorders; J44.9 Chronic obstructive pulmonary disease, unspecified; E11.9 Type 2 diabetes mellitus without complications; Z79.4 Long term (current) use of insulin; E66.9 Obesity, unspecified; I51.7 Cardiomegaly; K21.9 Gastro-esophageal reflux disease without esophagitis; I48.91 Unspecified atrial fibrillation; G47.30 Sleep apnea, unspecified; Z79.899 Other long term (current) drug therapy; R06.02 Shortness of breath
CPT/HCPCS: 36000; 36415; 51702; 71010; 80048; 80053; 81000; 82962; 83605; 83735; 83880; 84484; 85025; 85027; 85610; 85730; 87040; 87086; 87631; 93005; 93041; 93268; 94640; 94760; 96374; 99285; J0696; J1650; J1940; A9270-GY

== ENCOUNTER 2017-04-12 22:00 | Inpatient (IN) | payer MEDICARE ==
[2017-04-12] MEDS ORDERED: Xopenex 1.25 MG/0.5 ML UD NEBULE IH ONE ×2 (22:08→22:43)
[2017-04-12] MEDS ORDERED: Sodium Chloride 0.9% 1000 ML 1,000 ML IV SCH (22:15)
--- NOTE | 2017-04-12 22:15 | ERPHSYRPT ---
- History of Present Illness Time Seen by Provider: 04/12/17 22:00 Source: patient, EMS Exam Limitations: no limitations Physician History: FOR THE PAST 2 DAYS PT HAS HAD NASAL CONGESTION AND HAS INSERTED Q-TIPS UP HER NOSE TO TRY TO ALLEVIATE HER SX. TONIGHT HER NOSE STARTED TO BLEED AFTER Q-TIP APPLICATION SO PT DID NOT WANT TO PUT HER NASAL CANNULA BACK IN AND HER OXYGEN SATURATION DROPPED TO 80 % WITH ASSOCIATED SHORTNESS OF AIR. PT DENIES CHEST PAIN, NAUSEA, VOMITING, FEVER, COUGH, ABDOMINAL PAIN, DYSURIA; ADMITS TO CONSTIPATION WITH LAST BM 2 DAYS AGO. Allergies/Adverse Reactions: Sulfa (Sulfonamide Antibiotics) Allergy (Verified 04/12/17 22:37) Home Medications: Aspirin 81 mg PO DAILY 11/28/16 [History] Atorvastatin Calcium [Lipitor] 10 mg PO HS 11/28/16 [History] Carvedilol 6.25 mg [Coreg 6.25 MG] 6.25 mg PO BID 11/28/16 [History] Duloxetine HCl 30 mg [Cymbalta 30 MG Capsule] 60 mg PO HS 11/28/16 [ History] Famotidine 20 mg [Pepcid 20 MG] 20 mg PO BID 11/28/16 [History] Fluticasone/Salmeterol 45/21 [Advair Hfa 45-21 Mcg Inhaler] 8 gm IH BID [History] Fosinopril Sodium 40 mg PO DAILY 11/28/16 [History] HydrALAzine HCL 25 MG TAB [Apresoline 25 MG TABLET] 50 mg PO TID 11/28/16 [History] Levothyroxine Sodium 100 Mcg [Synthroid 100 Mcg] 100 mcg PO DAILY 11/28/16 [History] Loratadine 10 mg [Claritin 10 mg] 10 mg PO DAILY 11/28/16 [History] Oxybutynin Chloride 5 mg PO HS 11/28/16 [History] Albuterol/Ipratropium 3ml Neb* [DUONEB 0.5-3 MG/3 ml Neb] 3 ml IH BID [History] Insulin Detemir [Levemir Flextouch] 25 unit SQ BID 01/16/17 [History] Amlodipine Besylate 10 mg [Norvasc 10 MG] 2.5 mg PO HS 02/06/17 [History] Docusate Sodium 100 mg [Colace 100 MG] 100 mg PO BID 02/06/17 [History] Furosemide 40 mg [Lasix 40 MG] 40 mg PO DAILY 02/06/17 [History] Insulin Lispro [Humalog] 10 unit SQ AC 02/06/17 [History] Latanoprost [Xalatan] 1 ml OP BID 02/06/17 [History] Hx Tetanus, Diphtheria Vaccination/Date Given: No Hx Influenza Vaccination/Date Given: Yes (2016) Hx Pneumococcal Vaccination/Date Given: Yes (2016) - Review of Systems Constitutional: No Fever Respiratory: Dyspnea, No Cough Cardiac: No Chest Pain Abdominal/Gastrointestinal: Constipation, No Abdominal Pain, No Nausea, No Vomiting Genitourinary Symptoms: No Dysuria Endocrine: No Excessive Sweating All Other Systems: Reviewed and Negative - Past Medical History Pertinent Past Medical History: Yes Neurological History: No Pertinent History ENT History: Cataracts, Glaucoma Cardiac History: Congestive Heart Failure, Hypertension Respiratory History: Asthma, CHF, Sleep Apnea Endocrine Medical History: Diabetes Type II Musculoskeletal History: Arthritis GI Medical History: Diverticulitis, Diverticulosis, GERD, Hernia History: No Pertinent History Psycho-Social History: Anxiety, Depression Female Reproductive Disorders: No Pertinent History - Past Surgical History Past Surgical History: Yes Neuro Surgical History: No Pertinent History Cardiac: Cardiac Catheterization Respiratory: No Pertinent History Gastrointestinal: No Pertinent History Genitourinary: No Pertinent History Musculoskeletal: No Pertinent History Female Surgical History: No Pertinent History, Other Other Surgical History: 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 D and C - Social History Smoking Status: Never smoker Exposure to second hand smoke: No Drug Use: none Patient Lives Alone: Yes - Nursing Vital Signs Nursing Vital Signs: Initial Vital Signs Temperature 98.1 F 04/12/17 22:14 Pulse Rate 86 04/12/17 22:14 Respiratory Rate 22 04/12/17 22:14 Blood Pressure 241/125 04/12/17 22:14 O2 Sat by Pulse Oximetry 100 04/12/17 22:14 Pain Scale Pain Intensity 0 - Physical Exam General Appearance: alert Eye Exam: PERRL/EOMI Ears, Nose, Throat Exam: TMs normal, moist mucous membranes, pharyngeal erythema (MILD) Neck Exam: normal inspection Respiratory Exam: respiratory distress (MOPDERATE), diminished breath sounds ( BILATERALLY), wheezing (MINIMAL EXPIRATORY WHEEZING AT BASES) Cardiovascular Exam: normal heart sounds Gastrointestinal/Abdomen Exam: soft, normal bowel sounds Back Exam: normal inspection Extremity Exam: normal inspection, No pedal edema Neurologic Exam: alert, cooperative SpO2 Interpretation: normal SpO2: 100 Oxygen Delivery: Non-rebreather - Course Nursing assessment & vital signs reviewed: Yes Ordered Tests: Active Orders 24 hr Category Date Time Status Engine Wiper STAT Care 04/12/17 22:08 Active EKG-ER Only STAT Care 04/12/17 22:06 Active IV Insertion STAT Care 04/12/17 22:06 Active Oxygen-ED Only NASAL CANNULA 4 lpm Care 04/12/17 22:06 Active Pulse Oximetry (ED) STAT Care 04/12/17 22:06 Active CHEST 1 VIEW (PORTABLE) Stat Exams 04/12/17 22:07 Taken AMYLASE Stat Lab 04/12/17 22:28 Completed ARTERIAL BLOOD GASES Stat Lab 04/12/17 23:25 Completed ARTERIAL BLOOD GASES Urgent Lab 04/12/17 22:23 Completed BLOOD CULTURE Stat Lab 04/12/17 23:05 Received CBC W DIFF Stat Lab 04/12/17 22:28 Completed CMP Stat Lab 04/12/17 22:28 Completed CULTURE, THROAT Stat Lab 04/12/17 22:39 Received CULTURE,SPUTUM Stat Lab 04/12/17 23:00 Uncollected LIPASE Stat Lab 04/12/17 22:28 Completed Lactic Acid Stat Lab 04/12/17 22:24 Completed MAGNESIUM Stat Lab 04/12/17 22:28 Completed Manual Differential NC Stat Lab 04/12/17 22:28 Completed NT PRO BNP Stat Lab 04/12/17 22:28 Completed PROTIME WITH INR Stat Lab 04/12/17 22:28 Completed PTT Stat Lab 04/12/17 22:28 Completed STREP SCREEN-BETA A Stat Lab 04/12/17 22:39 Completed TROPONIN Q3H Lab 04/12/17 22:28 Completed TROPONIN Q3H Lab 04/13/17 01:15 Ordered TROPONIN Q3H Lab 04/13/17 04:15 Ordered TROPONIN Q3H Lab 04/13/17 07:15 Ordered TROPONIN Q3H Lab 04/13/17 10:15 Ordered UA W/RFX UR CULTURE Stat Lab 04/12/17 22:07 Ordered BiPap/CPAP Assessment STAT RT 04/12/17 22:32 Completed Respiratory Nebulizer UD RT 04/12/17 22:45 Completed Medication Summary Generic Name Dose Route Start Last Admin Trade Name Freq PRN Reason Stop Dose Admin Sodium Chloride 1,000 mls @ 100 mls/hr 04/12/17 22:15 04/12/17 22:31 Sodium Chloride 0.9% 1000 Ml IV 05/12/17 22:14 100 mls/hr .Q10H LILA Administration Discontinued Medications Generic Name Dose Route Start Last Admin Trade Name Freq PRN Reason Stop Dose Admin Dextrose 50 ml 04/12/17 23:21 04/12/17 23:39 D50w 50 Ml Abboject IV 04/12/17 23:22 50 ml STAT ONE Administration Dextrose Confirm 04/12/17 23:37 D50w 50 Ml Abboject Administered 04/12/17 23:38 Dose 50 ml IV .STK-MED ONE Furosemide 20 mg 04/13/17 00:00 04/13/17 00:15 Lasix 40 Mg/4 Ml IV 04/13/17 00:01 Not Given STAT ONE Ceftriaxone Sodium/Dextrose 1 g in 50 mls @ 100 mls/hr 04/12/17 23:00 23:16 Rocephin 1 Gm-D5w 50 Ml Bag IV 04/12/17 23:29 100 mls/hr STAT STA Administration Azithromycin 500 mg in 250 mls @ 250 mls/hr 04/12/17 23:00 04/12/17 23:38 Zithromax 500 Mg/ 250 Ml Nacl Premix IV 04/12/17 23:59 250 mls/hr STAT STA Administration Ceftriaxone Sodium/Dextrose Confirm 04/12/17 23:13 Rocephin 1 Gm-D5w 50 Ml Bag Administered 04/12/17 23:14 Dose 1 g in 50 mls @ ud IV .STK-MED ONE Azithromycin Confirm 04/12/17 23:14 Zithromax 500 Mg/ 250 Ml Nacl Premix Administered 04/12/17 23:15 Dose 500 mg in 250 mls @ ud IV .STK-MED ONE Insulin Human Regular 10 unit 04/12/17 23:21 04/12/17 23:39 Novolin R IV 04/12/17 23:22 10 unit STAT ONE Administration Insulin Human Regular Confirm 04/12/17 23:37 Novolin R Administered 04/12/17 23:38 Dose 10 unit .ROUTE .STK-MED ONE Levalbuterol HCl 1.25 mg 04/12/17 22:08 04/12/17 22:47 Xopenex 1.25 Mg/0.5 Ml Ud Nebule IH 04/12/17 22:09 1.25 mg STAT ONE Administration Levalbuterol HCl Confirm 04/12/17 22:43 Xopenex 1.25 Mg/0.5 Ml Ud Nebule Administered 04/12/17 22:44 Dose 1.25 mg IH .STK-MED ONE Sodium Chloride Confirm 04/12/17 22:43 Sodium Chloride 3 Ml Ud Nebules Administered 04/12/17 22:44 Dose 3 ml IH .STK-MED ONE Lab/Rad Data: Laboratory Result Diagrams 04/12/17 22:28 04/12/17 22:28 Laboratory Results 04/13/17 04/12/17 04/12/17 Range/Units 00:18 22:39 22:39 WBC (4.0-10.5) K/mm3 RBC (4.1-5.4) M/mm3 Hgb (12.0-16.0) gm/dl Hct (35-47) % MCV (78-100) fl MCH (26-32) pg MCHC (32-36) g/dl RDW (11.5-14.0) % Plt Count (150-450) K/mm3 MPV (6-9.5) fl Segmented Neutrophils (36.0-66.0) % Band Neutrophils (0.0-2.0) % Lymphocytes (Manual) (24-44) % Monocytes (Manual) (0.0-12.0) % Differential Comment Platelet Estimate (NORMAL) INR (0.8-3.0) APTT (25.3-37.0) SECONDS Puncture Site LEFT RADIAL pCO2 66 H* (35-45) mmHg pO2 56 L (75-100) mmHg Base Excess 8.0 H (-2.0-2.0) O2 Saturation 88.7 L (94-100) g/dF ABG pH 7.34 L (7.35-7.45) ABG HCO3 35.6 H* (22-28) ABG O2 Sat (Measured) 92.7 L (95-100) % Matthias Test YES A-a Gradient 218 a/A Ratio 0.20 Hemoglobin 10.8 Carboxyhemoglobin 3.5 (0.0-6.9) % THgb Methemoglobin 0.9 L (1.4-1.5) % Potassium 5.1 (3.5-5.1) Temperature 37.0 C POC O2 Flow Rate 50 % Inspiratory BiPAP 12 Expiratory BiPAP 6 Sodium (136-145) mEq/L Chloride (98-107) mEq/L Carbon Dioxide (21-32) mEq/L Anion Gap (5-15) MEQ/L BUN (9-20) mg/dL Creatinine (0.55-1.30) mg/dl Estimated GFR ML/MIN Glucose (70-110) MG/DL Lactic Acid (0.4-2.0) Calcium (8.5-10.1) mg/dL Magnesium (1.8-2.4) mg/dL Total Bilirubin (0.2-1.0) mg/dL AST (15-37) U/L ALT (12-78) U/L Alkaline Phosphatase (46-116) U/L Troponin I (0.000-0.056) ng/ml NT-Pro-B Natriuret Pep (0-125) pg/ml Serum Total Protein (6.4-8.2) gm/dL Albumin (3.4-5.0) g/dL Amylase (25-115) U/L Lipase (73-393) U/L Influenza Type A Ag NEGATIVE (NEGATIVE) Influenza Type B Ag NEGATIVE (NEGATIVE) RSV (PCR) NEGATIVE (Negative) Streptococcus Screen NEGATIVE (Negative) 04/12/17 04/12/17 04/12/17 Range/Units 22:28 22:28 22:28 WBC (4.0-10.5) K/mm3 RBC (4.1-5.4) M/mm3 Hgb (12.0-16.0) gm/dl Hct (35-47) % MCV (78-100) fl MCH (26-32) pg MCHC (32-36) g/dl RDW (11.5-14.0) % Plt Count (150-450) K/mm3 MPV (6-9.5) fl Segmented Neutrophils (36.0-66.0) % Band Neutrophils (0.0-2.0) % Lymphocytes (Manual) (24-44) % Monocytes (Manual) (0.0-12.0) % Differential Comment Platelet Estimate (NORMAL) INR 1.12 (0.8-3.0) APTT 34.6 (25.3-37.0) SECONDS Puncture Site pCO2 (35-45) mmHg pO2 (75-100) mmHg Base Excess (-2.0-2.0) O2 Saturation (94-100) g/dF ABG pH (7.35-7.45) ABG HCO3 (22-28) ABG O2 Sat (Measured) (95-100) % Matthias Test A-a Gradient a/A Ratio Hemoglobin Carboxyhemoglobin (0.0-6.9) % THgb Methemoglobin (1.4-1.5) % Potassium 5.4 H (3.5-5.1) Temperature C POC O2 Flow Rate % Inspiratory BiPAP Expiratory BiPAP Sodium 140 (136-145) mEq/L Chloride 102 (98-107) mEq/L Carbon Dioxide 36.2 H (21-32) mEq/L Anion Gap 7.2 (5-15) MEQ/L BUN 19 (9-20) mg/dL Creatinine 1.03 (0.55-1.30) mg/dl Estimated GFR 56 ML/MIN Glucose 351 H (70-110) MG/DL Lactic Acid (0.4-2.0) Calcium 9.4 (8.5-10.1) mg/dL Magnesium 2.2 (1.8-2.4) mg/dL Total Bilirubin 0.40 (0.2-1.0) mg/dL AST 24 (15-37) U/L ALT 23 (12-78) U/L Alkaline Phosphatase 132 H (46-116) U/L Troponin I 0.024 (0.000-0.056) ng/ml NT-Pro-B Natriuret Pep 2761 H (0-125) pg/ml Serum Total Protein 7.8 (6.4-8.2) gm/dL Albumin 3.8 (3.4-5.0) g/dL Amylase 18 L (25-115) U/L Lipase 144 (73-393) U/L Influenza Type A Ag (NEGATIVE) Influenza Type B Ag (NEGATIVE) RSV (PCR) (Negative) Streptococcus Screen (Negative) 04/12/17 04/12/17 04/12/17 Range/Units 22:28 22:24 22:23 WBC 17.0 H (4.0-10.5) K/mm3 RBC 4.23 (4.1-5.4) M/mm3 Hgb 11.1 L (12.0-16.0) gm/dl Hct 38.2 (35-47) % MCV 90.3 (78-100) fl MCH 26.2 (26-32) pg MCHC 29.1 L (32-36) g/dl RDW 14.0 (11.5-14.0) % Plt Count 257 (150-450) K/mm3 MPV 11.7 H (6-9.5) fl Segmented Neutrophils 83 H (36.0-66.0) % Band Neutrophils 2 (0.0-2.0) % Lymphocytes (Manual) 9 L (24-44) % Monocytes (Manual) 6 (0.0-12.0) % Differential Comment NORMAL Platelet Estimate NORMAL (NORMAL) INR (0.8-3.0) APTT (25.3-37.0) SECONDS Puncture Site LEFT RADIAL pCO2 77 H* (35-45) mmHg pO2 235 H* (75-100) mmHg Base Excess 10.0 H (-2.0-2.0) O2 Saturation 95.1 (94-100) g/dF ABG pH 7.31 L (7.35-7.45) ABG HCO3 38.8 H* (22-28) ABG O2 Sat (Measured) 99.2 (95-100) % Matthias Test YES A-a Gradient 382 a/A Ratio 0.38 Hemoglobin 11.3 Carboxyhemoglobin 3.1 (0.0-6.9) % THgb Methemoglobin 1.0 L (1.4-1.5) % Potassium 5.3 H (3.5-5.1) Temperature 37.0 C POC O2 Flow Rate 100 % Inspiratory BiPAP Expiratory BiPAP Sodium (136-145) mEq/L Chloride (98-107) mEq/L Carbon Dioxide (21-32) mEq/L Anion Gap (5-15) MEQ/L BUN (9-20) mg/dL Creatinine (0.55-1.30) mg/dl Estimated GFR ML/MIN Glucose (70-110) MG/DL Lactic Acid 0.6 (0.4-2.0) Calcium (8.5-10.1) mg/dL Magnesium (1.8-2.4) mg/dL Total Bilirubin (0.2-1.0) mg/dL AST (15-37) U/L ALT (12-78) U/L Alkaline Phosphatase (46-116) U/L Troponin I (0.000-0.056) ng/ml NT-Pro-B Natriuret Pep (0-125) pg/ml Serum Total Protein (6.4-8.2) gm/dL Albumin (3.4-5.0) g/dL Amylase (25-115) U/L Lipase (73-393) U/L Influenza Type A Ag (NEGATIVE) Influenza Type B Ag (NEGATIVE) RSV (PCR) (Negative) Streptococcus Screen (Negative) - Progress Discussed with : Eden (OBS - [id number]) - Departure Time of Disposition: 00:40 Departure Disposition: Observation Clinical Impression: RESPIRATORY DISTRESS, PNEUMONIA, HYPERKALEMIA, HTN, ASTHMA, DM, ARTHRITIS, GERD , ANXIETY, DEPRESSION Condition: Stable Critical Care Time: Yes Critical Care Time(excluding separately billable procedures): 30-74 minutes Referrals: TAMELA DONOVAN [Primary Care Provider] -
[2017-04-12 22:31] LABS: Granulocyte Absolute (ANC) 14.61 (1.4-6.9); Hematocrit 38.2 % (35-47); Hemoglobin 11.1 gm/dl (12.0-16.0); Mean Cell Volume 90.3 fl (78-100); Mean Corpuscular Hemoglobin 26.2 pg (26-32); Mean Corpuscular Hgb Concent. 29.1 g/dl (32-36); Mean Platelet Volume 11.7 fl (6-9.5); Platelet Count 257 K/mm3 (150-450); Red Blood Count 4.23 M/mm3 (4.1-5.4)
[2017-04-12 22:31] LABS: A-aADO2 382; ABG HEMOGLOBIN 11.3; ABG POTASSIUM 5.3 (3.5-5.1); ARTERIAL BLD GAS O2 SATURATION 99.2 % (95-100); ARTERIAL BLOOD GAS FIO2 100 %; ARTERIAL BLOOD GAS PCO2 77 mmHg (35-45); ARTERIAL BLOOD GAS PO2 235 mmHg (75-100); ARTERIAL BLOOD GAS pH 7.31 (7.35-7.45); CARBOXYHEMOGLOBIN 3.1 % THgb (0.0-6.9); HCO3- 38.8 (22-28); HGB O2 SAT 95.1 g/dF (94-100); paO2 pAO1 0.38
[2017-04-12] MEDS ORDERED: Sodium Chloride 0.9% 1000 ML 1,000 ML ONE (22:31)
[2017-04-12 22:32] LABS: ABG SITE LEFT RADIAL; ALLEN TEST OK? YES
[2017-04-12] MEDS ORDERED: Sodium Chloride 3 ML UD NEBULES IH ONE (22:43)
[2017-04-12 22:46] LABS: INR 1.12 (0.8-3.0)
[2017-04-12 22:49] LABS: PTT 34.6 SECONDS (25.3-37.0)
[2017-04-12] MEDS ORDERED: ROCEPHIN 1 Gm-D5w 50 ml Bag** 1 G/50 ML IVPB IV STA (23:00)
[2017-04-12] MEDS ORDERED: Zithromax 500 MG/ 250 ML NaCl Premix 500 MG/250 ML IVPB IV STA (23:00)
[2017-04-12 23:02] LABS: ALBUMIN 3.8 g/dL (3.4-5.0); ANION GAP 7.2 MEQ/L (5-15); BILIRUBIN,TOTAL 0.4 mg/dL (0.2-1.0); Calcium 9.4 mg/dL (8.5-10.1); Carbon Dioxide 36.2 mEq/L (21-32); Creatinine 1 1.03 mg/dl (0.55-1.30); MAGNESIUM 2.2 mg/dL (1.8-2.4); Potassium 5.4 mEq/L (3.5-5.1); Total Protein 7.8 gm/dL (6.4-8.2)
[2017-04-12] MEDS ORDERED: ROCEPHIN 1 Gm-D5w 50 ml Bag** 1 G/50 ML IVPB IV ONE (23:13)
[2017-04-12] MEDS ORDERED: Zithromax 500 MG/ 250 ML NaCl Premix 500 MG/250 ML IVPB IV ONE (23:14)
[2017-04-12 23:18] LABS: BAND 2 % (0.0-2.0); Lymphocytes 9 % (24-44); Monocyte 6 % (0.0-12.0); Neutrophils 83 % (36.0-66.0); Total Cells Counted 100
[2017-04-12 23:19] LABS: Platelet Estimate NORMAL (NORMAL)
[2017-04-12] MEDS ORDERED: NovoLIN R IV ONE (23:21)
[2017-04-12] MEDS ORDERED: D50W 50 ml Abboject IV ONE ×2 (23:21→23:37)
[2017-04-12 23:24] LABS: INFLUENZA A NEGATIVE (NEGATIVE); INFLUENZA B NEGATIVE (NEGATIVE); RESPIRATORY SYNCTIAL VIRUS NEGATIVE (Negative)
[2017-04-12] MEDS ORDERED: NovoLIN R ONE (23:37)
[2017-04-13] MEDS ORDERED: Lasix 40 MG/4 ML IV ONE
[2017-04-13 00:25] LABS: A-aADO2 218; ABG HEMOGLOBIN 10.8; ABG POTASSIUM 5.1 (3.5-5.1); ARTERIAL BLD GAS O2 SATURATION 92.7 % (95-100); ARTERIAL BLOOD GAS FIO2 50 %; ARTERIAL BLOOD GAS PO2 56 mmHg (75-100); ARTERIAL BLOOD GAS pH 7.34 (7.35-7.45); CARBOXYHEMOGLOBIN 3.5 % THgb (0.0-6.9); HCO3- 35.6 (22-28); HGB O2 SAT 88.7 g/dF (94-100); Methhemoglobin 0.9 % (1.4-1.5)
[2017-04-13 00:26] LABS: ABG SITE LEFT RADIAL; ALLEN TEST OK? YES; ARTERIAL BLOOD GAS PCO2 66 mmHg (35-45)
[2017-04-13 00:59] LABS: Appearance CLEAR (CLEAR); Bilirubin NEGATIVE (NEGATIVE); Blood NEGATIVE Ery/ul (0-5); Glucose 1000 mg/dL (NEGATIVE); Ketones NEGATIVE (NEGATIVE); Leukocyte Esterase NEGATIVE (NEGATIVE); Nitrite NEGATIVE (NEGATIVE); Protein,Urine Dip 100 (Negative); Urobilinogen NORMAL mg/dL (0-1)
[2017-04-13 01:00] LABS: Bacteria FEW /HPF (NEGATIVE); Epithelial Cells MODERATE /HPF (FEW); Hyaline Casts 0-2 /LPF (0-2); Mucus SLIGHT /HPF (NEGATIVE)
[2017-04-13] MEDS: DUONEB 0.5-3 MG/3 ml Neb IH SCH ×6 (02:50→22:54)
[2017-04-13] MEDS ORDERED: PROVENTIL 2.5 MG/3 ML NEB IH PRN (03:23)
[2017-04-13] MEDS ORDERED: Zofran 4 MG/2 ML VIAL IV PRN (03:23)
[2017-04-13] MEDS ORDERED: SUBLIMAZE 100 MCG/2 ML IV PRN (03:23)
[2017-04-13] MEDS ORDERED: TYLENOL 325 MG PO PRN (03:23)
[2017-04-13] MEDS: NovoLOG Insulin SQ PRN (03:57)
[2017-04-13] MEDS ORDERED: APRESOLINE 20 MG/ML INJ ONE (04:09)
[2017-04-13] MEDS: APRESOLINE 20 MG/ML INJ IV PRN ×2 (04:15→20:15)
[2017-04-13 06:07] LABS: A-aADO2 147; ABG HEMOGLOBIN 10.5; ARTERIAL BLD GAS O2 SATURATION 98.8 % (95-100); ARTERIAL BLD GAS TIDAL VOLUME 400 cc; ARTERIAL BLOOD GAS BASE EXCESS 10.1 (-2.0-2.0); ARTERIAL BLOOD GAS FIO2 60 %; ARTERIAL BLOOD GAS PCO2 79 mmHg (35-45); ARTERIAL BLOOD GAS PO2 182 mmHg (75-100); CARBOXYHEMOGLOBIN 2.1 % THgb (0.0-6.9); HCO3- 38.9 (22-28); HGB O2 SAT 95.7 g/dF (94-100); Methhemoglobin 1.1 % (1.4-1.5); paO2 pAO1 0.55
[2017-04-13 06:09] LABS: ABG SITE LEFT RADIAL
[2017-04-13 06:10] LABS: ALLEN TEST OK? YES
[2017-04-13] MEDS: Advair Hfa 115/21 Common canister IH SCH ×2 (07:13→19:17)
[2017-04-13 07:44] LABS: ALBUMIN 3.2 g/dL (3.4-5.0); ALKALINE PHOSPHATASE 114 U/L (46-116); ANION GAP 6.2 MEQ/L (5-15); BLOOD UREA NITROGEN 16 mg/dL (9-20); CHLORIDE 105 mEq/L (98-107); Calcium 8.8 mg/dL (8.5-10.1); Carbon Dioxide 34.5 mEq/L (21-32); Creatinine 1 0.86 mg/dl (0.55-1.30); EST GLOMERULAR FILTRATION RATE > 60 ML/MIN; Glucose 240 MG/DL (70-110); SGOT/AST 18 U/L (15-37); SGPT/ALT 18 U/L (12-78); SODIUM 141 mEq/L (136-145); Total Protein 6.8 gm/dL (6.4-8.2)
[2017-04-13] MEDS ORDERED: Ativan 2 MG/1 ML VIAL IV ONE ×2 (07:49→12:48)
[2017-04-13 08:03] LABS: Granulocyte Absolute (ANC) 12.13 (1.4-6.9); Hematocrit 34.6 % (35-47); Mean Cell Volume 91.1 fl (78-100); Mean Corpuscular Hemoglobin 26.3 pg (26-32); Mean Corpuscular Hgb Concent. 28.9 g/dl (32-36); Mean Platelet Volume 11.9 fl (6-9.5); Platelet Count 209 K/mm3 (150-450); White Blood Count 14.2 K/mm3 (4.0-10.5)
[2017-04-13] MEDS ORDERED: xanAX 0.25 MG PO PRN (08:07)
--- NOTE | 2017-04-13 08:37 | XRAY ---
Indication: Short of breath. Comparison: February 06, 2017. Portable chest again demonstrates cardiomegaly, central vascular prominence, and bibasilar effusions/atelectasis, increased on the left and decreased on the right again favoring cardiac decompensation. Superimposed pneumonia not completely excluded.
[2017-04-13] MEDS ORDERED: FOSINOPRIL SODIUM 40 MG PO SCH (10:00)
[2017-04-13] MEDS ORDERED: NON-FORMULARY ITEM (Aspirin [Aspirin] 81 MG) PO SCH (10:00)
[2017-04-13] MEDS ORDERED: INSULIN DETEMIR 25 UNIT SQ SCH (10:00)
[2017-04-13] MEDS ORDERED: DUONEB 0.5-3 MG/3 ml Neb IH SCH (10:00)
[2017-04-13 10:21] LABS: ANISOCYTOSIS 1+; BAND 1 % (0.0-2.0); Hypochromia 1+; Lymphocytes 4 % (24-44); Monocyte 1 % (0.0-12.0); Neutrophils 94 % (36.0-66.0); Platelet Estimate NORMAL (NORMAL); Total Cells Counted 100
[2017-04-13 10:27] LABS: A-aADO2 162; ABG HEMOGLOBIN 10.5; ABG POTASSIUM 4.6 (3.5-5.1); ARTERIAL BLD GAS O2 SATURATION 98.6 % (95-100); ARTERIAL BLD GAS TIDAL VOLUME 600 cc; ARTERIAL BLOOD GAS FIO2 60 %; ARTERIAL BLOOD GAS PCO2 68 mmHg (35-45); ARTERIAL BLOOD GAS PO2 181 mmHg (75-100); ARTERIAL BLOOD GAS VENT MODE BiPAP; ARTERIAL BLOOD GAS pH 7.34 (7.35-7.45); CARBOXYHEMOGLOBIN 3.1 % THgb (0.0-6.9); HCO3- 36.7 (22-28); HGB O2 SAT 94.3 g/dF (94-100); Methhemoglobin 1.4 % (1.4-1.5); paO2 pAO1 0.53
[2017-04-13 10:28] LABS: ABG SITE LEFT RADIAL; ALLEN TEST OK? YES
[2017-04-13] MEDS: Apresoline 25 MG TABLET PO SCH ×3 (10:42→22:30)
[2017-04-13] MEDS: CLARITIN 10 MG PO SCH (10:42)
[2017-04-13] MEDS: Coreg 6.25 MG PO SCH ×2 (10:43→22:31)
[2017-04-13] MEDS: ECOTRIN 81 MG PO SCH (10:43)
[2017-04-13] MEDS: Colace 100 MG PO SCH ×2 (10:43→22:31)
[2017-04-13] MEDS: Lantus Insulin SQ SCH ×2 (10:44→23:17)
[2017-04-13] MEDS: SYNTHROID 100 MCG PO SCH (10:44)
[2017-04-13] MEDS: Xalatan OP SCH ×2 (10:44→22:32)
[2017-04-13] MEDS: monoPRIL 10 MG PO SCH (10:44)
[2017-04-13] MEDS: Lasix 40 MG PO SCH (10:44)
[2017-04-13] MEDS: Pepcid 20 MG PO SCH ×2 (10:44→22:32)
[2017-04-13] MEDS: NovoLOG Insulin SQ SCH ×2 (11:30→16:23)
[2017-04-13] MEDS ORDERED: NON-FORMULARY ITEM (Insulin Lispro 10 UNIT) SQ SCH (11:30)
--- NOTE | 2017-04-13 12:17 | PCM.HP ---
History of Present Illness - Chief Complaint Chief Complaint: Respiratory distress, for 1-2 days History of Present Illness: is a 71 year old female.wanting to the emergency room via ambulance with complaining of shortness of breath for last 1-2 days. Patient had nosebleed. 2 incessant acute dates so patient stopped using oxygen through nasal cannula because she thought it was causing her nosebleed. She was becoming more and more short of breath and also having cough. She was evaluated in the emergency room where she was very hypoxic and further evaluation was suggestive of pneumonia patient was admitted for further management. - Review of Systems Constitutional: No Fever, No Chills Eyes: No Symptoms Ears, Nose, & Throat: No Symptoms Respiratory: Cough, Orthopnea, Short Of Breath Cardiac: No Chest Pain, No Edema, No Syncope Abdominal/Gastrointestinal: No Abdominal Pain, No Nausea, No Vomiting, No Diarrhea Genitourinary Symptoms: No Dysuria Musculoskeletal: No Back Pain, No Neck Pain Skin: No Rash Neurological: No Dizziness, No Focal Weakness, No Sensory Changes Psychological: No Symptoms Endocrine: No Symptoms Hematologic/Lymphatic: No Symptoms Immunological/Allergic: No Symptoms Medications & Allergies Home Medications: Home Medication List Aspirin 81 mg PO DAILY 11/28/16 [History Confirmed 02/06/17] Atorvastatin Calcium [Lipitor] 10 mg PO HS 11/28/16 [History Confirmed 02/06/17] Carvedilol 6.25 mg [Coreg 6.25 MG] 6.25 mg PO BID 11/28/16 [History Confirmed 02/06/17] Duloxetine HCl 30 mg [Cymbalta 30 MG Capsule] 60 mg PO HS 11/28/16 [ History Confirmed 02/06/17] Famotidine 20 mg [Pepcid 20 MG] 20 mg PO BID 11/28/16 [History Confirmed 02/06/17] Fluticasone/Salmeterol 45/21 [Advair Hfa 45-21 Mcg Inhaler] 8 gm IH BID [History Confirmed 02/06/17] Fosinopril Sodium 40 mg PO DAILY 11/28/16 [History Confirmed 02/06/17] HydrALAzine HCL 25 MG TAB [Apresoline 25 MG TABLET] 50 mg PO TID 11/28/16 [History Confirmed 02/06/17] Levothyroxine Sodium 100 Mcg [Synthroid 100 Mcg] 100 mcg PO DAILY 11/28/16 [History Confirmed 02/06/17] Loratadine 10 mg [Claritin 10 mg] 10 mg PO DAILY 11/28/16 [History Confirmed 02/06/17] Oxybutynin Chloride 5 mg PO HS 11/28/16 [History Confirmed 02/06/17] Albuterol/Ipratropium 3ml Neb* [DUONEB 0.5-3 MG/3 ml Neb] 3 ml IH BID [History Confirmed 02/06/17] Insulin Detemir [Levemir Flextouch] 25 unit SQ BID 01/16/17 [History Confirmed 02/06/17] Amlodipine Besylate 10 mg [Norvasc 10 MG] 2.5 mg PO HS 02/06/17 [History Confirmed 02/07/17] Docusate Sodium 100 mg [Colace 100 MG] 100 mg PO BID 02/06/17 [History Confirmed 02/06/17] Furosemide 40 mg [Lasix 40 MG] 40 mg PO DAILY 02/06/17 [History Confirmed 02/06/17] Insulin Lispro [Humalog] 10 unit SQ AC 02/06/17 [History Confirmed 02/07/17] Latanoprost [Xalatan] 1 ml OP BID 02/06/17 [History Confirmed 02/06/17] Allergies/Adverse Reactions: Allergies Allergy/AdvReac Type Severity Reaction Status Date / Time Sulfa (Sulfonamide Allergy Verified 04/12/17 22:37 Antibiotics) - Past Medical History Past Medical History: Yes Neurological History: No Pertinent History ENT History: Cataracts, Glaucoma Cardiac History: Congestive Heart Failure, Hypertension Respiratory History: Asthma, CHF, Sleep Apnea Endocrine Medical History: Diabetes Type II Musculoskelatal History: Arthritis GI Medical History: Diverticulitis, Diverticulosis, GERD, Hernia History: No Pertinent History Pyscho-Social History: Anxiety, Depression Reproductive Disorders: No Pertinent History - Past Surgical History Past Surgical History: Yes Neuro Surgical History: No Pertinent History Cardiac History: Cardiac Catheterization Respiratory Surgery: No Pertinent History GI Surgical History: No Pertinent History Genitourinary Surgical Hx: No Pertinent History Musculskeletal Surgical Hx: No Pertinent History Female Surgical History: No Pertinent History, Other Other Surgical History: 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 D and C - Social History Smoking Status: Never smoker Exposure to second hand smoke: No Alcohol: None Drug Use: none - Physical Exam Vital Signs: Vital Signs - 24 hr Temp Pulse Resp BP BP Pulse Ox 04/13/17 10:48 65 14 98 04/13/17 08:00 20 04/13/17 07:21 98.6 F 67 20 188/79 99 04/13/17 07:00 58 L 16 98 04/13/17 05:20 173/71 04/13/17 04:00 218/91 04/13/17 03:23 98 04/13/17 02:50 75 24 98 04/13/17 02:20 97.5 F 73 24 205/93 96 04/13/17 01:00 68 18 156/80 99 04/13/17 00:40 100 04/13/17 00:08 79 24 170/62 04/12/17 22:56 79 24 145/81 100 04/12/17 22:47 83 23 100 04/12/17 22:22 100 04/12/17 22:14 98.1 F 86 22 241/125 100 Oxygen-Last 24 hours O2 Percentage 60% O2 Percentage 4 Liters = 36% O2 Percentage 100% O2 Percentage 100% General Appearance: moderate distress, alert Neurologic Exam: alert, oriented x 3, cooperative, normal mood/affect, nml cerebellar function, nml station & gait, sensation nml, No motor deficits Eye Exam: PERRL/EOMI, eyes nml inspection Ears, Nose, Throat Exam: normal ENT inspection, TMs normal, pharynx normal, moist mucous membranes Neck Exam: normal inspection, non-tender, supple, full range of motion Respiratory Exam: respiratory distress, diminished breath sounds, crackles/rales , rhonchi, wheezing Cardiovascular Exam: regular rate/rhythm, normal heart sounds, normal peripheral pulses Gastrointestinal/Abdomen Exam: soft, normal bowel sounds, No tenderness, No mass Back Exam: normal inspection, normal range of motion, No CVA tenderness, No vertebral tenderness Extremity Exam: normal inspection, normal range of motion, pelvis stable Skin Exam: normal color, warm, dry, No rash Lymphatic Exam: No adenopathy Results - Labs Lab/Micro Results: Accuchecks Date 04/13/17 Date 04/13/17 Time 07:00 Accucheck Value: 226 Accucheck Value: 265 Lab Results-Last 24 Hours 04/13/17 04/13/17 04/13/17 Range/Units 04:30 05:45 07:18 WBC (4.0-10.5) K/mm3 RBC (4.1-5.4) M/mm3 Hgb (12.0-16.0) gm/dl Hct (35-47) % MCV (78-100) fl MCH (26-32) pg MCHC (32-36) g/dl RDW (11.5-14.0) % Plt Count (150-450) K/mm3 MPV (6-9.5) fl Segmented Neutrophils (36.0-66.0) % Band Neutrophils (0.0-2.0) % Lymphocytes (Manual) (24-44) % Monocytes (Manual) (0.0-12.0) % Differential Comment Platelet Estimate (NORMAL) Hypochromasia Anisocytosis Puncture Site LEFT RADIAL pCO2 79 H* (35-45) mmHg pO2 182 H* (75-100) mmHg Base Excess 10.1 H (-2.0-2.0) O2 Saturation 95.7 (94-100) g/dF ABG pH 7.30 L (7.35-7.45) ABG HCO3 38.9 H* (22-28) ABG O2 Sat (Measured) 98.8 (95-100) % Matthias Test YES A-a Gradient 147 a/A Ratio 0.55 Hemoglobin 10.5 Carboxyhemoglobin 2.1 (0.0-6.9) % THgb Methemoglobin 1.1 L (1.4-1.5) % Potassium 5.0 (3.5-5.1) Temperature 37.0 C POC O2 Flow Rate 60 % Vent Mode Tidal Volume 400 cc Expiratory BiPAP 6 Sodium (136-145) mEq/L Chloride (98-107) mEq/L Carbon Dioxide (21-32) mEq/L Anion Gap (5-15) MEQ/L BUN (9-20) mg/dL Creatinine (0.55-1.30) mg/dl Estimated GFR ML/MIN Glucose (70-110) MG/DL Hemoglobin A1c (4.5-6.2) Calcium (8.5-10.1) mg/dL Total Bilirubin (0.2-1.0) mg/dL AST (15-37) U/L ALT (12-78) U/L Alkaline Phosphatase (46-116) U/L Troponin I 0.029 0.027 (0.000-0.056) ng/ml Serum Total Protein (6.4-8.2) gm/dL Albumin (3.4-5.0) g/dL 04/13/17 04/13/17 04/13/17 Range/Units 07:18 07:18 07:18 WBC 14.2 H (4.0-10.5) K/mm3 RBC 3.80 L (4.1-5.4) M/mm3 Hgb 10.0 L (12.0-16.0) gm/dl Hct 34.6 L (35-47) % MCV 91.1 (78-100) fl MCH 26.3 (26-32) pg MCHC 28.9 L (32-36) g/dl RDW 14.0 (11.5-14.0) % Plt Count 209 (150-450) K/mm3 MPV 11.9 H (6-9.5) fl Segmented Neutrophils 94 H (36.0-66.0) % Band Neutrophils 1 (0.0-2.0) % Lymphocytes (Manual) 4 L (24-44) % Monocytes (Manual) 1 (0.0-12.0) % Differential Comment ABNORMAL Platelet Estimate NORMAL (NORMAL) Hypochromasia 1+ Anisocytosis 1+ Puncture Site pCO2 (35-45) mmHg pO2 (75-100) mmHg Base Excess (-2.0-2.0) O2 Saturation (94-100) g/dF ABG pH (7.35-7.45) ABG HCO3 (22-28) ABG O2 Sat (Measured) (95-100) % Matthias Test A-a Gradient a/A Ratio Hemoglobin Carboxyhemoglobin (0.0-6.9) % THgb Methemoglobin (1.4-1.5) % Potassium 5.0 (3.5-5.1) Temperature C POC O2 Flow Rate % Vent Mode Tidal Volume cc Expiratory BiPAP Sodium 141 (136-145) mEq/L Chloride 105 (98-107) mEq/L Carbon Dioxide 34.5 H (21-32) mEq/L Anion Gap 6.2 (5-15) MEQ/L BUN 16 (9-20) mg/dL Creatinine 0.86 (0.55-1.30) mg/dl Estimated GFR > 60 ML/MIN Glucose 240 H (70-110) MG/DL Hemoglobin A1c 8.5 H (4.5-6.2) Calcium 8.8 (8.5-10.1) mg/dL Total Bilirubin 0.40 (0.2-1.0) mg/dL AST 18 (15-37) U/L ALT 18 (12-78) U/L Alkaline Phosphatase 114 (46-116) U/L Troponin I (0.000-0.056) ng/ml Serum Total Protein 6.8 (6.4-8.2) gm/dL Albumin 3.2 L (3.4-5.0) g/dL 04/13/17 04/13/17 Range/Units 10:00 10:22 WBC (4.0-10.5) K/mm3 RBC (4.1-5.4) M/mm3 Hgb (12.0-16.0) gm/dl Hct (35-47) % MCV (78-100) fl MCH (26-32) pg MCHC (32-36) g/dl RDW (11.5-14.0) % Plt Count (150-450) K/mm3 MPV (6-9.5) fl Segmented Neutrophils (36.0-66.0) % Band Neutrophils (0.0-2.0) % Lymphocytes (Manual) (24-44) % Monocytes (Manual) (0.0-12.0) % Differential Comment Platelet Estimate (NORMAL) Hypochromasia Anisocytosis Puncture Site LEFT RADIAL pCO2 68 H* (35-45) mmHg pO2 181 H* (75-100) mmHg Base Excess 9.0 H (-2.0-2.0) O2 Saturation 94.3 (94-100) g/dF ABG pH 7.34 L (7.35-7.45) ABG HCO3 36.7 H* (22-28) ABG O2 Sat (Measured) 98.6 (95-100) % Matthias Test YES A-a Gradient 162 a/A Ratio 0.53 Hemoglobin 10.5 Carboxyhemoglobin 3.1 (0.0-6.9) % THgb Methemoglobin 1.4 (1.4-1.5) % Potassium 4.6 (3.5-5.1) Temperature 37.0 C POC O2 Flow Rate 60 % Vent Mode BiPAP Tidal Volume 600 cc Expiratory BiPAP Sodium (136-145) mEq/L Chloride (98-107) mEq/L Carbon Dioxide (21-32) mEq/L Anion Gap (5-15) MEQ/L BUN (9-20) mg/dL Creatinine (0.55-1.30) mg/dl Estimated GFR ML/MIN Glucose (70-110) MG/DL Hemoglobin A1c (4.5-6.2) Calcium (8.5-10.1) mg/dL Total Bilirubin (0.2-1.0) mg/dL AST (15-37) U/L ALT (12-78) U/L Alkaline Phosphatase (46-116) U/L Troponin I 0.019 (0.000-0.056) ng/ml Serum Total Protein (6.4-8.2) gm/dL Albumin (3.4-5.0) g/dL Accuchecks Date 04/13/17 Date 04/13/17 Time 07:00 Accucheck Value: 226 Accucheck Value: 265 - Other Procedures and Tests Respiratory Therapy 04/13/17 03:00 Respiratory Nebulizer Q4H 04/13/17 03:49 Respiratory Nebulizer PRN 04/13/17 07:00 Respiratory MDI BID Assessment/Plan (1) Hypoxia Current Visit: Yes Status: Acute Code(s): R09.02 - HYPOXEMIA (2) Pneumonia Current Visit: Yes Status: Acute Qualifiers: Pneumonia type: due to unspecified organism Laterality: bilateral Lung location: lower lobe of lung Qualified Code(s): J18.9 - Pneumonia, unspecified organism Assessment & Plan: we will admit the patient was started on pneumonia pathway including dual antibiotic coverage with Rocephin and Zithromax. We will keep her on BiPAP. We will continue bronchodilator tretment, We will continue other home medications. Code(s): J18.9 - PNEUMONIA, UNSPECIFIED ORGANISM (3) CHF (congestive heart failure), NYHA class III Current Visit: No Status: Chronic Qualifiers: Congestive heart failure type: combined Congestive heart failure chronicity : chronic Qualified Code(s): I50.42 - Chronic combined systolic (congestive) and diastolic (congestive) heart failure Code(s): I50.9 - HEART FAILURE, UNSPECIFIED (4) COPD (chronic obstructive pulmonary disease) Current Visit: No Status: Chronic Qualifiers: COPD type: unspecified COPD (5) Type 2 diabetes mellitus Current Visit: No Status: Chronic Qualifiers: Diabetes mellitus complication detail: with polyneuropathy Diabetes mellitus custodial insulin use: with custodial use
[2017-04-13] MEDS: Sodium Chloride 0.9% 1000 ML 1,000 ML IV SCH (12:35)
[2017-04-13 15:51] LABS: A-aADO2 221; ABG HEMOGLOBIN 9.7; ABG POTASSIUM 4.8 (3.5-5.1); ARTERIAL BLD GAS O2 SATURATION 99.4 % (95-100); ARTERIAL BLD GAS TIDAL VOLUME 600 cc; ARTERIAL BLOOD GAS FIO2 60 %; ARTERIAL BLOOD GAS PCO2 68 mmHg (35-45); ARTERIAL BLOOD GAS PO2 122 mmHg (75-100); ARTERIAL BLOOD GAS VENT MODE BiPAP; ARTERIAL BLOOD GAS pH 7.36 (7.35-7.45); CARBOXYHEMOGLOBIN 2.3 % THgb (0.0-6.9); HCO3- 38.4 (22-28); HGB O2 SAT 96.4 g/dF (94-100); Methhemoglobin 0.8 % (1.4-1.5); paO2 pAO1 0.36
[2017-04-13 15:52] LABS: ABG SITE LEFT BRACHIAL
[2017-04-13] MEDS: Ativan 2 MG/1 ML VIAL IV PRN (18:59)
[2017-04-13] MEDS: ROCEPHIN 1 Gm-D5w 50 ml Bag** 1 G/50 ML IVPB IV SCH (21:56)
[2017-04-13] MEDS ORDERED: AMLODIPINE BESYLATE PO SCH (22:00)
[2017-04-13] MEDS ORDERED: NON-FORMULARY ITEM (Atorvastatin Calcium 10 MG) PO SCH (22:00)
[2017-04-13] MEDS: Cymbalta 30 MG Capsule PO SCH (22:31)
[2017-04-13] MEDS: NORVASC 5 MG PO SCH (22:31)
[2017-04-13] MEDS: Ditropan 5 MG PO SCH (22:31)
[2017-04-13] MEDS: Zocor 10MG PO SCH (22:33)
[2017-04-13] MEDS: Zithromax 500 MG/ 250 ML NaCl Premix 500 MG/250 ML IVPB IV SCH (22:36)
[2017-04-14] MEDS: DUONEB 0.5-3 MG/3 ml Neb IH SCH ×6 (02:59→23:33)
[2017-04-14 05:41] LABS: A-aADO2 132; ABG HEMOGLOBIN 9.9; ARTERIAL BLD GAS O2 SATURATION 99.4 % (95-100); ARTERIAL BLD GAS TIDAL VOLUME 600 cc; ARTERIAL BLOOD GAS BASE EXCESS 9.1 (-2.0-2.0); ARTERIAL BLOOD GAS FIO2 50 %; ARTERIAL BLOOD GAS PO2 145 mmHg (75-100); ARTERIAL BLOOD GAS pH 7.36 (7.35-7.45); HCO3- 36.2 (22-28); HGB O2 SAT 95.4 g/dF (94-100); Methhemoglobin 0.9 % (1.4-1.5); paO2 pAO1 0.52
[2017-04-14 05:42] LABS: ABG SITE LEFT RADIAL; ALLEN TEST OK? YES; ARTERIAL BLOOD GAS PCO2 64 mmHg (35-45)
[2017-04-14] MEDS: Advair Hfa 115/21 Common canister IH SCH ×2 (06:39→20:01)
[2017-04-14] MEDS: NovoLOG Insulin SQ SCH ×3 (08:34→20:24)
[2017-04-14] MEDS: Ativan 2 MG/1 ML VIAL IV PRN (09:40)
[2017-04-14] MEDS: Sodium Chloride 0.9% 1000 ML 1,000 ML IV SCH (11:10)
--- NOTE | 2017-04-14 12:17 | PCM.NOTE ---
Date and Time: 04/14/17 1215 Subjective Assessment: still hyoxic, on bipap - Review of Systems Constitutional: No Fever, No Chills Eyes: No Symptoms Ears, Nose, & Throat: No Symptoms Respiratory: Orthopnea, Short Of Breath, No Cough Cardiac: No Chest Pain, No Edema, No Syncope Abdominal/Gastrointestinal: No Abdominal Pain, No Nausea, No Vomiting, No Diarrhea Genitourinary Symptoms: No Dysuria Musculoskeletal: No Back Pain, No Neck Pain Skin: No Rash Neurological: No Dizziness, No Focal Weakness, No Sensory Changes Psychological: No Symptoms Endocrine: No Symptoms Hematologic/Lymphatic: No Symptoms Immunological/Allergic: No Symptoms Objective Exam General Appearance: moderate distress, alert Neurologic Exam: alert, sensation nml, No motor deficits Skin Exam: normal color, warm, dry Eye Exam: PERRL, EOMI, eyes nml inspection Ears, Nose, Throat Exam: normal ENT inspection, pharynx normal, moist mucous membranes Neck Exam: normal inspection, non-tender, supple, full range of motion Respiratory Exam: respiratory distress, crackles/rales, rhonchi, wheezing Cardiovascular Exam: regular rate/rhythm, normal heart sounds Gastrointestinal/Abdomen Exam: soft, No tenderness, No mass Extremity Exam: normal inspection, normal range of motion Back Exam: normal inspection, normal range of motion, No CVA tenderness, No vertebral tenderness Pelvic Exam: deferred Rectal Exam: deferred OBJECTIVE DATA Vital Signs: Vital Signs - 24 hr Temp Pulse Resp BP BP Pulse Ox 04/14/17 11:22 97.6 F 84 24 150/62 96 04/14/17 11:00 84 17 98 04/14/17 07:42 97.5 F 83 20 148/69 100 04/14/17 06:39 74 16 100 04/14/17 04:00 97.9 F 96 H 18 149/69 99 04/14/17 03:23 99 04/14/17 02:59 95 H 16 99 04/13/17 23:55 97.7 F 84 19 132/63 95 04/13/17 22:54 86 19 98 04/13/17 20:00 97.4 F 59 L 17 170/72 99 04/13/17 19:10 86 19 99 04/13/17 16:00 98.6 F 58 L 14 173/71 188/79 98 04/13/17 14:55 58 L 14 98 Oxygen-Last 24 hours O2 Percentage 50% O2 Percentage 50% O2 Percentage 50% Pain Assessment - Last Documented Pain Intensity 0 Pain Scale Used 0-10 Pain Scale Intake and Output: Intake & Output 04/12/17 04/13/17 04/14/17 04/15/17 11:59 11:59 11:59 11:59 Intake Total 1664 Output Total 1000 Balance 664 Weight 83 kg Lab Results: Accuchecks Date 04/14/17 Date 04/13/17 Date 04/13/17 Date 04/13/17 Time 23:13 Time 16:30 Accucheck Value: 68 Accucheck Value: 193 Accucheck Value: 181 Accucheck Value: 180 Accucheck Value: 190 Lab Results-Last 24 Hours 04/13/17 04/14/17 Range/Units 15:35 05:35 Puncture Site LEFT BRACHIAL LEFT RADIAL pCO2 68 H* 64 H* (35-45) mmHg pO2 122 H* 145 H* (75-100) mmHg Base Excess 11.0 H 9.1 H (-2.0-2.0) O2 Saturation 96.4 95.4 (94-100) g/dF ABG pH 7.36 7.36 (7.35-7.45) ABG HCO3 38.4 H* 36.2 H* (22-28) ABG O2 Sat (Measured) 99.4 99.4 (95-100) % Matthias Test NOT APPLICABLE YES A-a Gradient 221 132 a/A Ratio 0.36 0.52 Hemoglobin 9.7 9.9 Carboxyhemoglobin 2.3 3.0 (0.0-6.9) % THgb Methemoglobin 0.8 L 0.9 L (1.4-1.5) % Potassium 4.8 5.0 (3.5-5.1) Temperature 37.0 37.0 C POC O2 Flow Rate 60 50 % Vent Mode BiPAP Tidal Volume 600 600 cc Expiratory BiPAP 6 6 Multi-Disciplinary Progress Notes: Multi-Disciplinary Progress Notes 04/14/17 10:15 (created 04/14/17 10:24) Case Management Note by Mouna Kern CALL TO JEREMY AT [facility], REPORTS THAT THEY WILL HAVE A BED ON DISCHARGE. REPORTS THAT PT HAS 9 SKILLED DAYS LEFT. DISCUSSED THAT SON IS THINKING THAT THIS TRANSITION WOULD LIKELY NEED TO BE [facility]. JEREMY REPORTS THAT SHE WILL CALL SON, MILIND, AND DISCUSS. Initialized on 04/14/17 10:24 - END OF NOTE 04/14/17 10:00 (created 04/14/17 10:09) Case Management Note by Mouna Kern DISCHARGE PLAN REVIEWED WITH PT'S SON, REPORTS THAT HIS MOTHER JUST RELEASED FROM REHAB LAST WEEK. REPORTS THAT EVERY TIME SHE COMES HOME SHE ENDS UP WITH PNEUMONIA. REPORTS THAT HE IS THINKING THAT SHE NEEDS TO GO BACK TO [facility], AND THEN LIKELY TRANSITION TO [facility]. REPORTS THAT SHE LIVES NEXT DOOR TO HIM, BUT HE FEELS THAT SHE IS NEEDING MORE ASSISTANCE THAN HE CAN PROVIDE. ALSO, DISCUSSED HHC SERVICES, BUT SON ALSO REPORTS THAT HE DOES NOT FEEL THAT HHC SERVICES WOULD BE ENOUGH SUPPORT EITHER. REQUESTS REFERRAL TO [facility]. DECLINED ADDNL NEEDS AT PRESENT. REPORTS THAT WHEN HIS MOTHER "WAKES UP" THAT HE WILL DISCUSS THE ABOVE WITH HER. Initialized on 04/14/17 10:09 - END OF NOTE Assessment/Plan (1) Pneumonia Current Visit: Yes Status: Acute Qualifiers: Pneumonia type: due to unspecified organism Laterality: bilateral Lung location: lower lobe of lung Qualified Code(s): J18.9 - Pneumonia, unspecified organism Code(s): J18.9 - PNEUMONIA, UNSPECIFIED ORGANISM (2) Hypoxia Current Visit: Yes Status: Acute Code(s): R09.02 - HYPOXEMIA (3) CHF (congestive heart failure), NYHA class III Current Visit: Yes Status: Chronic Qualifiers: Congestive heart failure type: combined Congestive heart failure chronicity : chronic Qualified Code(s): I50.42 - Chronic combined systolic (congestive) and diastolic (congestive) heart failure Code(s): I50.9 - HEART FAILURE, UNSPECIFIED (4) COPD (chronic obstructive pulmonary disease) Current Visit: Yes Status: Chronic Qualifiers: COPD type: unspecified COPD (5) Type 2 diabetes mellitus Current Visit: Yes Status: Chronic Qualifiers: Diabetes mellitus complication status: with neurologic complications Diabetes mellitus complication detail: with polyneuropathy Diabetes mellitus correction insulin use: with correction use Qualified Code(s): E11.42 - Type 2 diabetes mellitus with diabetic polyneuropathy; Z79.4 - [facility] (current) use of insulin; Z79.4 - [facility] (current) use of insulin; 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
[2017-04-14] MEDS: Colace 100 MG PO SCH ×2 (13:30→21:22)
[2017-04-14] MEDS: ECOTRIN 81 MG PO SCH ×2 (13:30→15:10)
[2017-04-14] MEDS: Coreg 6.25 MG PO SCH ×3 (13:30→21:36)
[2017-04-14] MEDS: Apresoline 25 MG TABLET PO SCH ×3 (13:30→21:22)
[2017-04-14] MEDS: CLARITIN 10 MG PO SCH ×2 (13:30→15:10)
[2017-04-14] MEDS: Xalatan OP SCH ×2 (13:31→21:33)
[2017-04-14] MEDS: SYNTHROID 100 MCG PO SCH ×2 (13:31→15:10)
[2017-04-14] MEDS: monoPRIL 10 MG PO SCH ×2 (13:31→15:10)
[2017-04-14] MEDS: Lasix 40 MG PO SCH ×2 (13:31→15:09)
[2017-04-14] MEDS: Pepcid 20 MG PO SCH ×3 (13:31→21:35)
[2017-04-14] MEDS: Lantus Insulin SQ SCH ×2 (13:32→21:31)
[2017-04-14] MEDS: MORPHINE SULFATE 2 MG INJ IV PRN (14:30)
--- NOTE | 2017-04-14 15:02 | XRAY ---
Indication: Respiratory distress. Comparison: April 12, 2017. Portable chest slightly rotated today with increasing large left effusion and near complete hemithorax opacification. Stable small right base effusion/atelectasis. Heart remains borderline enlarged. Remaining chest unremarkable.
[2017-04-14] MEDS: D50W 50ML Vial IV ONE ×2 (16:50→20:24)
[2017-04-14] MEDS: APRESOLINE 20 MG/ML INJ IV PRN (16:55)
[2017-04-14] MEDS: Dextrose 5%-NS IV Solution 1000 ML 1,000 ML IV SCH (16:56)
[2017-04-14] MEDS: ROCEPHIN 1 Gm-D5w 50 ml Bag** 1 G/50 ML IVPB IV SCH (21:20)
[2017-04-14] MEDS: NORVASC 5 MG PO SCH (21:22)
[2017-04-14] MEDS: Ditropan 5 MG PO SCH (21:22)
[2017-04-14] MEDS: Cymbalta 30 MG Capsule PO SCH (21:31)
[2017-04-14] MEDS: Zocor 10MG PO SCH (21:31)
[2017-04-14] MEDS: Zithromax 500 MG/ 250 ML NaCl Premix 500 MG/250 ML IVPB IV SCH (22:49)
[2017-04-15] MEDS: NovoLOG Insulin SQ PRN (00:08)
[2017-04-15] MEDS: DUONEB 0.5-3 MG/3 ml Neb IH SCH ×3 (03:08→10:29)
[2017-04-15] MEDS: MORPHINE SULFATE 2 MG INJ IV PRN (05:01)
[2017-04-15] MEDS: Advair Hfa 115/21 Common canister IH SCH (07:10)
[2017-04-15] MEDS: Dextrose 5%-NS IV Solution 1000 ML 1,000 ML IV SCH (08:02)
[2017-04-15 09:19] LABS: BASOPHIL % 0.2 % (0.0-0.4); Basophil (Absolute #) 0.03 (0-0.4); Eosinophil % 1.7 % (0.00-5.0); Eosinophil (Absolute #) 0.27 (0-0.5); Granulocyte Absolute (ANC) 13.19 (1.4-6.9); Granulocytes % 85.4 % (36.0-66.0); Hematocrit 35.3 % (35-47); Hemoglobin 10.2 gm/dl (12.0-16.0); Lymphocyte (Absolute #) 1.17 (1.0-4.6); Lymphocytes % 7.6 % (24.0-44.0); Mean Cell Volume 90.5 fl (78-100); Mean Corpuscular Hgb Concent. 28.9 g/dl (32-36); Mean Platelet Volume 11.3 fl (6-9.5); Monocyte (Absolute #) 0.78 (0.0-1.3); Monocytes % 5.1 % (0.0-12.0); Platelet Count 278 K/mm3 (150-450); Red Cell Distribution Width 13.9 % (11.5-14.0); White Blood Count 15.4 K/mm3 (4.0-10.5)
[2017-04-15 09:22] LABS: Mean Corpuscular Hemoglobin 26.1 pg (26-32)
[2017-04-15] MEDS ORDERED: Lasix 40 MG/4 ML IV ONE (09:33)
[2017-04-15] MEDS: NovoLOG Insulin SQ SCH (09:41)
[2017-04-15 09:45] LABS: ALKALINE PHOSPHATASE 97 U/L (46-116); ANION GAP 8.3 MEQ/L (5-15); BLOOD UREA NITROGEN 17 mg/dL (9-20); CHLORIDE 105 mEq/L (98-107); Calcium 8.7 mg/dL (8.5-10.1); Carbon Dioxide 35.3 mEq/L (21-32); Creatinine 1 0.94 mg/dl (0.55-1.30); EST GLOMERULAR FILTRATION RATE > 60 ML/MIN; Glucose 187 MG/DL (70-110); Potassium 4.3 mEq/L (3.5-5.1); SGOT/AST 13 U/L (15-37); SGPT/ALT 14 U/L (12-78); SODIUM 144 mEq/L (136-145); Total Protein 6.7 gm/dL (6.4-8.2)
[2017-04-15] MEDS ORDERED: Lasix 40 MG/4 ML ONE (09:47)
[2017-04-15 10:11] LABS: Slide Review 1 YES
--- NOTE | 2017-04-15 10:47 | XRAY ---
Indication: CHF. Pneumonia. Multiple contiguous axial images obtained through the chest without contrast as ordered. Comparison: September 02, 2013. There are now large bilateral pleural effusions with compressive atelectasis. Greatest extent on the left occupying at least 75% of the hemithorax. A few left lung calcified granulomas. Heart is not enlarged. Aorta is normal in course and caliber. No pathologic mediastinal lymphadenopathy. Bony thorax intact with mild degenerative changes throughout the spine. Limited upper abdomen demonstrates new tiny gallstones/gravel and new noncalcified 1.5 cm left adrenal gland mass. Impression: 1. Large effusions with compressive atelectasis, left greater than right without cardiomegaly. Diagnostic thoracentesis may yield further information if clinically warranted. 2. Incidental new tiny gallstones/gravel and noncalcified left adrenal gland mass. CT DI 21.11
[2017-04-15 11:39] VITALS: BP 147/65; PULSE 76; O2SAT 99
== END 2017-04-15 11:59 | disposition short-term general hospital (02) | DRG 194 ==
LOC: ED 22:00 → MED SURG 04-13 03:21 → OBSVTOIN 04-13 13:25
PROVIDERS: ADMIT General Practice; ATTEND General Practice
DX: R06.03 Acute respiratory distress (principal); J18.9 Pneumonia, unspecified organism; E87.5 Hyperkalemia; I10 Essential (primary) hypertension; J45.909 Unspecified asthma, uncomplicated; E11.9 Type 2 diabetes mellitus without complications; I50.42 Chronic combined systolic (congestive) and diastolic (congestive) heart failure; M19.90 Unspecified osteoarthritis, unspecified site; K21.9 Gastro-esophageal reflux disease without esophagitis; F41.8 Other specified anxiety disorders; I50.9 Heart failure, unspecified; G47.30 Sleep apnea, unspecified; Z79.899 Other long term (current) drug therapy; R09.02 Hypoxemia; J44.9 Chronic obstructive pulmonary disease, unspecified; E11.42 Type 2 diabetes mellitus with diabetic polyneuropathy; Z79.4 Long term (current) use of insulin
CPT/HCPCS: 36000; 36415; 36600; 71045; 71250; 80053; 81000; 82150; 82375; 82803; 82947; 82962; 83036; 83605; 83690; 83735; 83880; 84484; 85025; 85610; 85730; 87040; 87070; 87430; 87631; 93005; 93041; 93268; 94002; 94003; 94640; 94760; 96360; 96361; 96365; 96367; 99285; J0360; J0456; J0696; J1940; J2060; J2270; A9270-GY

== ENCOUNTER 2017-06-20 11:25 | Emergency (ER) | payer MEDICARE ==
[2017-06-20] MEDS ORDERED: NITRO-BID 2% UD PACKETS TOP ONE (11:51)
[2017-06-20] MEDS ORDERED: NITRO-BID 2% UD PACKETS ONE (11:56)
--- NOTE | 2017-06-20 11:59 | ERPHSYRPT ---
- History of Present Illness Time Seen by Provider: 06/20/17 11:43 Source: patient Exam Limitations: no limitations Patient Subjective Stated Complaint: pt her for increase sob today. productive cough, no fever Triage Nursing Assessment: pt arrived per ambulance, alert, taking neb treatment , congested cough, diminished breath sounds, no edema Physician History: Pt states, she developed severe SOB this morning, she has been coughing up clear phlegm for few days, denies fever, chills, chest pain, vomiting, leg swelling or other complaints. She was given duoneb and Solumedrol iv by EMS. She is not in severe distress. Timing/Duration: today Activities at Onset: none Severity of Dyspnea-Max: severe Severity of Dyspnea-Current: severe Possible Cause: frequent episodes Modifying Factors: Improves With: nothing Associated Symptoms: constant, anxiety, cough, wheezing International travel in last 2 weeks: No Allergies/Adverse Reactions: Sulfa (Sulfonamide Antibiotics) Allergy (Verified 06/20/17 11:33) Home Medications: Aspirin 81 mg PO DAILY 11/28/16 [History] Atorvastatin Calcium [Lipitor] 10 mg PO HS 11/28/16 [History] Duloxetine HCl 30 mg [Cymbalta 30 MG Capsule] 60 mg PO HS 11/28/16 [ History] Fluticasone/Salmeterol 45/21 [Advair Hfa 45-21 Mcg Inhaler] 8 gm IH BID [History] Fosinopril Sodium 40 mg PO DAILY 11/28/16 [History] HydrALAzine HCL 25 MG TAB [Apresoline 25 MG TABLET] 50 mg PO TID 11/28/16 [History] Levothyroxine Sodium 100 Mcg [Synthroid 100 Mcg] 100 mcg PO DAILY 11/28/16 [History] Loratadine 10 mg [Claritin 10 mg] 10 mg PO DAILY 11/28/16 [History] Oxybutynin Chloride 5 mg PO HS 11/28/16 [History] Albuterol/Ipratropium 3ml Neb* [DUONEB 0.5-3 MG/3 ml Neb] 3 ml IH QID [History] Insulin Detemir [Levemir Flextouch] 21 unit SQ DAILY 01/16/17 [History] Amlodipine Besylate 10 mg [Norvasc 10 MG] 2.5 mg PO HS 02/06/17 [History] Furosemide 40 mg [Lasix 40 MG] 40 mg PO DAILY 02/06/17 [History] Insulin Lispro [Humalog] 10 unit SQ DAILY 02/06/17 [History] Latanoprost [Xalatan] 1 ml OP HS 02/06/17 [History] Magnesium Hydroxide 30 ml [Milk of Magnesia 30 ml] 30 ml PO HS 04/15/17 [ History] Nitroglycerin 0.4 mg Tablet [Nitrostat 0.4 MG Tablet] 0.4 mg SL Q5MIN PRN MR X 3 PRN 04/15/17 [History] ALPRAZolam [Alprazolam] 2.5 mg DAILY 06/20/17 [History] Fluticasone/Salmeterol 45/21 [Advair Hfa 45/21 Mcg Common Canister] 1 puff DAILY 06/20/17 [History] Hx Tetanus, Diphtheria Vaccination/Date Given: No Hx Influenza Vaccination/Date Given: Yes Hx Pneumococcal Vaccination/Date Given: Yes Immunizations Up to Date: Yes - Review of Systems Constitutional: No Symptoms Respiratory: Cough, Dyspnea Cardiac: No Chest Pain, No Edema, No Syncope All Other Systems: Reviewed and Negative - Past Medical History Pertinent Past Medical History: Yes Neurological History: No Pertinent History ENT History: Cataracts, Glaucoma Cardiac History: Congestive Heart Failure, Hypertension Respiratory History: Asthma, CHF, Sleep Apnea Endocrine Medical History: Diabetes Type II Musculoskeletal History: Arthritis GI Medical History: Diverticulitis, Diverticulosis, GERD, Hernia History: No Pertinent History Psycho-Social History: Anxiety, Depression Female Reproductive Disorders: No Pertinent History - Past Surgical History Past Surgical History: Yes Neuro Surgical History: No Pertinent History Cardiac: Cardiac Catheterization Respiratory: No Pertinent History Gastrointestinal: No Pertinent History Genitourinary: No Pertinent History Musculoskeletal: No Pertinent History Female Surgical History: No Pertinent History, Other Other Surgical History: 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 D and C - Social History Smoking Status: Former smoker Exposure to second hand smoke: No Drug Use: none Patient Lives Alone: No - Female History Hx Last Menstrual Period: psot Hx Now: No - Nursing Vital Signs Nursing Vital Signs: Initial Vital Signs Temperature 97.8 F 06/20/17 11:26 Pulse Rate 57 L 06/20/17 11:26 Respiratory Rate 24 06/20/17 11:26 Blood Pressure 173/72 06/20/17 11:26 O2 Sat by Pulse Oximetry 97 06/20/17 11:26 Pain Scale Pain Intensity 0 - Physical Exam General Appearance: no apparent distress Eye Exam: eyes nml inspection Ears, Nose, Throat Exam: normal ENT inspection Neck Exam: normal inspection, non-tender, supple, No JVD Respiratory Exam: airway intact, rhonchi, wheezing (mild, diffuse, over both lower lobes), No chest tenderness, No respiratory distress Cardiovascular/Chest Exam: normal heart sounds, regular rate/rhythm, normal peripheral pulses, No murmur, No edema, No JVD Abdominal/Gastrointestinal Exam: soft, normal bowel sounds, No tenderness, No distention, No mass Extremity Exam: non-tender, normal inspection, No no calf tenderness, No no pedal edema, No minor's sign Neurologic Exam: alert, oriented x 3, cooperative, normal mood/affect Skin Exam: normal color, warm, dry Lymphatic Exam: No adenopathy SpO2 Interpretation: normal SpO2: 97 Oxygen Delivery: Nasal Cannula - Course EKG Interpreted by Me: RATE, Sinus Rogerio, NORMAL AXIS, Non-specific ST Changes, Other (repeat Ekg : 14:35 PM; unchanged, except few PVC-s) - Radiology Exams Chest X-ray Interpretation: Reviewed by me, Other (interval left effusion, atelectasis improvement) - CT Exams Chest CT Interpretation: Tele-radiologist Report, No PE (improved bilateral pleural effusions) Ordered Tests: Active Orders 24 hr Category Date Time Status Fishing Guide STAT Care 06/20/17 11:53 Active EKG-ER Only STAT Care 06/20/17 11:51 Active EKG-ER Only STAT Care 06/20/17 15:10 Active IV Insertion STAT Care 06/20/17 11:51 Active NPO (ED) STAT Care 06/20/17 11:51 Active Oxygen-ED Only NASAL CANNULA 2 lpm Care 06/20/17 11:51 Active CHEST 1 VIEW (PORTABLE) Stat Exams 06/20/17 11:52 Completed CHEST WITH CONTRAST [CT] Stat Exams 06/20/17 13:55 Completed CBC W DIFF Stat Lab 06/20/17 12:10 Completed CMP Stat Lab 06/20/17 12:10 Completed D-DIMER QUANTITATION Stat Lab 06/20/17 13:18 Completed Lactic Acid Stat Lab 06/20/17 12:10 Completed MAGNESIUM Stat Lab 06/20/17 12:10 Completed NT PRO BNP Stat Lab 06/20/17 12:10 Completed PROTIME WITH INR Stat Lab 06/20/17 12:10 Completed PTT Stat Lab 06/20/17 12:10 Completed TROPONIN Q3H Lab 06/20/17 12:10 Completed TROPONIN Q3H Lab 06/20/17 14:55 Completed TROPONIN Q3H Lab 06/20/17 18:00 Ordered TROPONIN Q3H Lab 06/20/17 21:00 Ordered TROPONIN Q3H Lab 06/21/17 00:00 Ordered Medication Summary Discontinued Medications Generic Name Dose Route Start Last Admin Trade Name Freq PRN Reason Stop Dose Admin Nitroglycerin 1 gm 06/20/17 11:51 06/20/17 11:57 Nitro-Bid 2% Ud Packets TOP 06/20/17 11:52 1 gm STAT ONE Administration Nitroglycerin Confirm 06/20/17 11:56 Nitro-Bid 2% Ud Packets Administered 06/20/17 11:57 Dose 1 gm .ROUTE .STK-MED ONE Lab/Rad Data: Laboratory Result Diagrams 06/20/17 12:10 06/20/17 12:10 Laboratory Results 06/20/17 06/20/17 06/20/17 Range/Units 14:55 13:18 12:10 WBC (4.0-10.5) K/mm3 RBC (4.1-5.4) M/mm3 Hgb (12.0-16.0) gm/dl Hct (35-47) % MCV (78-100) fl MCH (26-32) pg MCHC (32-36) g/dl RDW (11.5-14.0) % Plt Count (150-450) K/mm3 MPV (6-9.5) fl Gran % (36.0-66.0) % Eos # (Auto) (0-0.5) Absolute Lymphs (auto) (1.0-4.6) Absolute Monos (auto) (0.0-1.3) Lymphocytes % (24.0-44.0) % Monocytes % (0.0-12.0) % Eosinophils % (0.00-5.0) % Basophils % (0.0-0.4) % Absolute Granulocytes (1.4-6.9) Basophils # (0-0.4) PT (9.95-12.35) SECONDS INR (0.8-3.0) APTT (25.3-37.0) SECONDS D-Dimer 1044.44 H* (215-500) ng/mL Sodium (137-145) mmol/L Potassium (3.5-5.1) mmol/L Chloride (98-107) mmol/L Carbon Dioxide (22-30) mmol/L Anion Gap (5-15) MEQ/L BUN (7-17) mg/dL Creatinine (0.52-1.04) mg/dL Estimated GFR ML/MIN Glucose (74-106) mg/dL Lactic Acid 1.0 (0.4-2.0) Calcium (8.4-10.2) mg/dL Magnesium (1.6-2.3) mg/dL Total Bilirubin (0.2-1.3) mg/dL AST (14-36) U/L ALT (0-35) U/L Alkaline Phosphatase (38-126) U/L Troponin I 0.017 (0.000-0.034) ng/mL NT-Pro-B Natriuret Pep (0-900) pg/mL Serum Total Protein (6.3-8.2) g/dL Albumin (3.5-5.0) g/dL 06/20/17 06/20/17 06/20/17 Range/Units 12:10 12:10 12:10 WBC (4.0-10.5) K/mm3 RBC (4.1-5.4) M/mm3 Hgb (12.0-16.0) gm/dl Hct (35-47) % MCV (78-100) fl MCH (26-32) pg MCHC (32-36) g/dl RDW (11.5-14.0) % Plt Count (150-450) K/mm3 MPV (6-9.5) fl Gran % (36.0-66.0) % Eos # (Auto) (0-0.5) Absolute Lymphs (auto) (1.0-4.6) Absolute Monos (auto) (0.0-1.3) Lymphocytes % (24.0-44.0) % Monocytes % (0.0-12.0) % Eosinophils % (0.00-5.0) % Basophils % (0.0-0.4) % Absolute Granulocytes (1.4-6.9) Basophils # (0-0.4) PT 12.2 (9.95-12.35) SECONDS INR 1.10 (0.8-3.0) APTT 33.8 (25.3-37.0) SECONDS D-Dimer (215-500) ng/mL Sodium 140 (137-145) mmol/L Potassium 3.6 (3.5-5.1) mmol/L Chloride 97 L (98-107) mmol/L Carbon Dioxide 36 H (22-30) mmol/L Anion Gap 10.7 (5-15) MEQ/L BUN 10 (7-17) mg/dL Creatinine 0.55 (0.52-1.04) mg/dL Estimated GFR > 60.0 ML/MIN Glucose 292 H (74-106) mg/dL Lactic Acid (0.4-2.0) Calcium 9.4 (8.4-10.2) mg/dL Magnesium 1.7 (1.6-2.3) mg/dL Total Bilirubin 0.40 (0.2-1.3) mg/dL AST 19 (14-36) U/L ALT 14 (0-35) U/L Alkaline Phosphatase 105 (38-126) U/L Troponin I 0.023 (0.000-0.034) ng/mL NT-Pro-B Natriuret Pep 1940 H (0-900) pg/mL Serum Total Protein 6.8 (6.3-8.2) g/dL Albumin 3.7 (3.5-5.0) g/dL 06/20/17 Range/Units 12:10 WBC 8.8 (4.0-10.5) K/mm3 RBC 4.62 (4.1-5.4) M/mm3 Hgb 11.6 L (12.0-16.0) gm/dl Hct 37.1 (35-47) % MCV 80.3 (78-100) fl MCH 25.1 L (26-32) pg MCHC 31.3 L (32-36) g/dl RDW 14.2 H (11.5-14.0) % Plt Count 319 (150-450) K/mm3 MPV 11.5 H (6-9.5) fl Gran % 83.2 H (36.0-66.0) % Eos # (Auto) 0.09 (0-0.5) Absolute Lymphs (auto) 0.98 L (1.0-4.6) Absolute Monos (auto) 0.40 (0.0-1.3) Lymphocytes % 11.1 L (24.0-44.0) % Monocytes % 4.5 (0.0-12.0) % Eosinophils % 1.0 (0.00-5.0) % Basophils % 0.2 (0.0-0.4) % Absolute Granulocytes 7.32 H (1.4-6.9) Basophils # 0.02 (0-0.4) PT (9.95-12.35) SECONDS INR (0.8-3.0) APTT (25.3-37.0) SECONDS D-Dimer (215-500) ng/mL Sodium (137-145) mmol/L Potassium (3.5-5.1) mmol/L Chloride (98-107) mmol/L Carbon Dioxide (22-30) mmol/L Anion Gap (5-15) MEQ/L BUN (7-17) mg/dL Creatinine (0.52-1.04) mg/dL Estimated GFR ML/MIN Glucose (74-106) mg/dL Lactic Acid (0.4-2.0) Calcium (8.4-10.2) mg/dL Magnesium (1.6-2.3) mg/dL Total Bilirubin (0.2-1.3) mg/dL AST (14-36) U/L ALT (0-35) U/L Alkaline Phosphatase (38-126) U/L Troponin I (0.000-0.034) ng/mL NT-Pro-B Natriuret Pep (0-900) pg/mL Serum Total Protein (6.3-8.2) g/dL Albumin (3.5-5.0) g/dL - Progress Progress: improved Air Movement: good Progress Note: 06/20/17 15:44 Pt has been afebrile, denies chest pain, states, feels better: O 2 sat: 98 % on 2 liter/min NC, stable. repeat troponin negative. She will be discharged home on PO Levaquin, ( she completed Z-azra last week), and Medrol dosepak, to follow up with her PCP in 3-4 days, return if severe dyspnea, chest pain or vomiting, fever> 102 F. Blood Culture(s) Obtained: No Antibiotics given: No - Departure Time of Disposition: 15:46 Departure Disposition: Home Clinical Impression: COPD exacerbation COPD (chronic obstructive pulmonary disease) Qualifiers: COPD type: chronic bronchitis Chronic bronchitis type: unspecified Qualified Code(s): J42 - Unspecified chronic bronchitis Condition: Stable Critical Care Time: No Referrals: [facility]RI[facility] ABRON [LOCATION] - Instructions: Chronic Obstructive Pulmonary Disease Additional Instructions: Rest x 2-3 days, follow up with your doctor next week, in 3-4 days, return if severe shortness of breath, chest pain, vomiting, fever> 102 F! Prescriptions: Levofloxacin [Levaquin] 500 mg PO DAILY 7 Days #7 tablet Methylprednisolone Packet [Medrol Dosepack] 4 mg PO UD 5 Days #1 packet
--- NOTE | 2017-06-20 12:09 | XRAY ---
Indication: Short of breath. Comparison: April 14, 2017. Portable chest demonstrates interval left effusion/atelectasis improvement now occupying 50% of the hemithorax. Right lung is clear and heart is not enlarged. No new cardiopulmonary abnormalities.
[2017-06-20 12:17] LABS: BASOPHIL % 0.2 % (0.0-0.4); Basophil (Absolute #) 0.02 (0-0.4); Eosinophil (Absolute #) 0.09 (0-0.5); Granulocyte Absolute (ANC) 7.32 (1.4-6.9); Granulocytes % 83.2 % (36.0-66.0); Hematocrit 37.1 % (35-47); Hemoglobin 11.6 gm/dl (12.0-16.0); Lymphocyte (Absolute #) 0.98 (1.0-4.6); Lymphocytes % 11.1 % (24.0-44.0); Mean Cell Volume 80.3 fl (78-100); Mean Corpuscular Hemoglobin 25.1 pg (26-32); Mean Corpuscular Hgb Concent. 31.3 g/dl (32-36); Mean Platelet Volume 11.5 fl (6-9.5); Monocytes % 4.5 % (0.0-12.0); Platelet Count 319 K/mm3 (150-450); Red Blood Count 4.62 M/mm3 (4.1-5.4); Red Cell Distribution Width 14.2 % (11.5-14.0); White Blood Count 8.8 K/mm3 (4.0-10.5)
[2017-06-20 12:39] LABS: ALBUMIN 3.7 g/dL (3.5-5.0); ALKALINE PHOSPHATASE 105 U/L (38-126); ANION GAP 10.7 MEQ/L (5-15); BLOOD UREA NITROGEN 10 mg/dL (7-17); CHLORIDE 97 mmol/L (98-107); Calcium 9.4 mg/dL (8.4-10.2); Carbon Dioxide 36 mmol/L (22-30); Creatinine 1 0.55 mg/dL (0.52-1.04); Glucose 292 mg/dL (74-106); Potassium 3.6 mmol/L (3.5-5.1); SGOT/AST 19 U/L (14-36); SGPT/ALT 14 U/L (0-35); SODIUM 140 mmol/L (137-145); Total Protein 6.8 g/dL (6.3-8.2)
[2017-06-20 12:47] LABS: NT PRO BNP 1940 pg/mL (0-900)
[2017-06-20 13:05] LABS: INR 1.1 (0.8-3.0)
[2017-06-20 13:08] LABS: PTT 33.8 SECONDS (25.3-37.0)
--- NOTE | 2017-06-20 14:52 | XRAY ---
Indication: Short of breath. Elevated d-dimer. Multiple contiguous axial images obtained through the chest using 80 cc Isovue 370 contrast and PE protocol. Comparison: CT chest without contrast April 15, 2017. There is satisfactory opacification of the pulmonary arteries to include the lobar and segmental branches. No filling defect or pulmonary embolus. Heart is not enlarged. Aorta is normal in course and caliber. No pathologic mediastinal/hilar lymphadenopathy. Examination of the lung parenchyma again demonstrates large left effusion with lingular and left lower lobe compressive atelectasis occupying approximately 50% of the hemithorax,, previously 75%. Right effusion has also improved with small residual and minimal right lower lobe compressive atelectasis. Remaining lungs clear. Bony thorax intact again with mild degenerative changes throughout the spine. Right breast demonstrates 3-4 noncalcified nodules, largest 8 x 13 mm in the 9:00. These were previously not included in the [id number]. Limited upper abdomen demonstrates stable 1.5 cm left adrenal adenoma. Impression: 1. Negative pulmonary embolus. 2. Previous bilateral pleural effusions/atelectasis improved as detail above. 3. No new cardiopulmonary abnormalities. 4. Stable left adrenal adenoma. 5. Right breast nodules. Diagnostic mammography is recommended. CT DI 28.14
[2017-06-20 15:47] VITALS: O2SAT 97
[2017-06-20 16:05] VITALS: BP 172/71; PULSE 56
== END 2017-06-20 16:18 | disposition home or self-care (01) ==
LOC: ED 11:25
DX: J44.1 Chronic obstructive pulmonary disease with (acute) exacerbation (principal); J42 Unspecified chronic bronchitis; I10 Essential (primary) hypertension; I50.9 Heart failure, unspecified; E11.9 Type 2 diabetes mellitus without complications; G47.30 Sleep apnea, unspecified; Z87.891 Personal history of nicotine dependence; Z79.899 Other long term (current) drug therapy; M19.90 Unspecified osteoarthritis, unspecified site; K21.9 Gastro-esophageal reflux disease without esophagitis; F41.8 Other specified anxiety disorders
CPT/HCPCS: 36000; 36415; 71045; 71260; 80053; 83605; 83735; 83880; 84484; 85025; 85379; 85610; 85730; 93005; 93041; 99284; A9270-GY

== ENCOUNTER 2018-08-05 12:10 | Inpatient (IN) | payer MEDICARE ==
[2018-08-05] MEDS ORDERED: Colace 100 MG PO PRN (13:00)
[2018-08-05] MEDS ORDERED: NovoLOG Insulin SQ PRN (13:00)
[2018-08-05] MEDS ORDERED: FEVERALL 650 MG PR PRN (13:00)
[2018-08-05] MEDS: DUONEB 0.5-3 MG/3 ml Neb IH SCH ×2 (13:17→19:37)
[2018-08-05] MEDS: Sodium Chloride 0.9% 1000 ML 1,000 ML IV SCH (13:35)
[2018-08-05] MEDS: Zithromax 500 MG/ 250 ML NaCl Premix 500 MG/250 ML IVPB IV SCH (13:36)
--- NOTE | 2018-08-05 13:49 | XRAY ---
Indication: Short of breath. Comparison: June 20, 2017. PA/lateral chest demonstrates presumed recurrent large left effusion/atelectasis occupying 75% of the hemithorax and tiny right effusion. Remaining heart and lungs unremarkable. Bony thorax intact again with osteopenia and degenerative changes.
[2018-08-05] MEDS: ROCEPHIN 2 Gm-D5w 50ML BAG** 2 G/50 ML IVPB IV SCH (14:43)
[2018-08-05 14:59] LABS: A-aADO2 123; ABG HEMOGLOBIN 10.1; ARTERIAL BLD GAS O2 SATURATION 97.5 % (95-100); ARTERIAL BLOOD GAS BASE EXCESS 10.4 (-2.0-2.0); ARTERIAL BLOOD GAS FIO2 40 %; ARTERIAL BLOOD GAS PO2 81 mmHg (75-100); ARTERIAL BLOOD GAS pH 7.37 (7.35-7.45); CARBOXYHEMOGLOBIN 2.7 % THgb (0.0-6.9); HCO3- 37.6 (22-28); HGB O2 SAT 93.7 g/dF (94-100); Methhemoglobin 1.1 % (1.4-1.5)
[2018-08-05 15:00] LABS: ABG SITE RIGHT RADIAL; ALLEN TEST OK? YES; ARTERIAL BLOOD GAS PCO2 65 mmHg (35-45)
[2018-08-05 15:05] LABS: BASOPHIL % 0.2 % (0.0-0.4); Basophil (Absolute #) 0.03 (0-0.4); Eosinophil % 0.7 % (0.00-5.0); Granulocyte Absolute (ANC) 13.39 (1.4-6.9); Granulocytes % 89.9 % (36.0-66.0); Lymphocyte (Absolute #) 0.54 (1.0-4.6); Lymphocytes % 3.6 % (24.0-44.0); Mean Cell Volume 87.2 fl (78-100); Mean Corpuscular Hemoglobin 25.6 pg (26-32); Mean Corpuscular Hgb Concent. 29.4 g/dl (32-36); Mean Platelet Volume 10.5 fl (6-9.5); Monocyte (Absolute #) 0.83 (0.0-1.3); Monocytes % 5.6 % (0.0-12.0); Platelet Count 232 K/mm3 (150-450); Red Cell Distribution Width 14.9 % (11.5-14.0); White Blood Count 14.9 K/mm3 (4.0-10.5)
[2018-08-05 15:11] LABS: Appearance SLIGHTLY CLOUDY (CLEAR); Bilirubin NEGATIVE (NEGATIVE); Blood NEGATIVE Ery/ul (0-5); Glucose NEGATIVE (NEGATIVE); Ketones NEGATIVE (NEGATIVE); Leukocyte Esterase NEGATIVE (NEGATIVE); Mucus SLIGHT /HPF (NEGATIVE); Nitrite NEGATIVE (NEGATIVE); Protein,Urine Dip 30 (Negative); RBC 0-2 /HPF (0-2); Specific Gravity 1.018 (1.005-1.025); Urobilinogen NEGATIVE mg/dL (0-1); WBC 0-2 /HPF (0-5)
[2018-08-05] MEDS: NYSTOP 30 GM CREAM TOP SCH ×2 (15:19→22:21)
[2018-08-05 15:21] LABS: ALBUMIN 3.3 g/dL (3.5-5.0); ALKALINE PHOSPHATASE 123 U/L (38-126); ANION GAP 14.8 MEQ/L (5-15); BLOOD UREA NITROGEN 37 mg/dL (7-17); CHLORIDE 100 mmol/L (98-107); Calcium 8.7 mg/dL (8.4-10.2); Carbon Dioxide 35 mmol/L (22-30); Creatinine 1 0.85 mg/dL (0.52-1.04); Glucose 99 mg/dL (74-106); NT PRO BNP 3590 pg/mL (0-900); Potassium 5.1 mmol/L (3.5-5.1); SGOT/AST 27 U/L (14-36); SGPT/ALT 25 U/L (0-35); SODIUM 146 mmol/L (137-145); Total Protein 6.4 g/dL (6.3-8.2)
[2018-08-05] MEDS: Lasix 40 MG/4 ML IV SCH (16:09)
[2018-08-05] MEDS: Apresoline 25 MG TABLET PO SCH ×2 (16:12→22:21)
[2018-08-05 16:28] LABS: Slide Review 1 YES
--- NOTE | 2018-08-05 17:03 | XRAY ---
Indication: Left effusion on same-day chest radiograph. Left lateral decubitus chest radiograph demonstrates layering of the large left effusion. Remaining heart and right lung unremarkable.
[2018-08-05] MEDS: Novolin 70/30 SQ SCH (21:55)
[2018-08-05] MEDS: Cymbalta 30 MG Capsule PO SCH (22:21)
[2018-08-05] MEDS: Zocor 10MG PO SCH (22:21)
[2018-08-06] MEDS: DUONEB 0.5-3 MG/3 ml Neb IH SCH ×4 (01:22→19:38)
[2018-08-06] MEDS: Lasix 40 MG/4 ML IV SCH ×2 (03:17→15:39)
[2018-08-06] MEDS: Sodium Chloride 0.9% 1000 ML 1,000 ML IV SCH ×2 (09:31→22:45)
[2018-08-06] MEDS: ROCEPHIN 2 Gm-D5w 50ML BAG** 2 G/50 ML IVPB IV SCH (09:31)
[2018-08-06] MEDS: Novolin 70/30 SQ SCH ×2 (09:34→16:15)
[2018-08-06] MEDS: Pepcid 20 MG PO SCH (09:34)
[2018-08-06] MEDS: Apresoline 25 MG TABLET PO SCH ×4 (09:34→22:45)
[2018-08-06] MEDS: SYNTHROID 100 MCG PO SCH (09:34)
[2018-08-06] MEDS: NORVASC 5 MG PO SCH (09:34)
[2018-08-06] MEDS: ENOXAPARIN SODIUM SQ SCH (09:34)
[2018-08-06] MEDS: ECOTRIN 81 MG PO SCH (09:34)
[2018-08-06] MEDS: monoPRIL 10 MG PO SCH (09:34)
[2018-08-06] MEDS: NYSTOP 30 GM CREAM TOP SCH ×2 (09:35→22:46)
[2018-08-06] MEDS: Zithromax 500 MG/ 250 ML NaCl Premix 500 MG/250 ML IVPB IV SCH (09:35)
[2018-08-06] MEDS ORDERED: NON-FORMULARY ITEM (Aspirin [Aspirin] 81 MG) PO SCH (10:00)
[2018-08-06] MEDS ORDERED: RANITIDINE HCL 150 MG PO SCH (10:00)
[2018-08-06] MEDS ORDERED: NON-FORMULARY ITEM (Atorvastatin Calcium [Atorvastatin Calcium] 10 MG) PO SCH (10:00)
[2018-08-06] MEDS ORDERED: NON-FORMULARY ITEM (Amlodipine Besylate [Amlodipine Besylate] 2.5 MG) PO SCH (10:00)
[2018-08-06] MEDS ORDERED: Ativan 1 MG PO PRN (10:20)
--- NOTE | 2018-08-06 13:07 | PCM.NOTE ---
Date and Time: 08/06/18 1303 Subjective Assessment: still very short of breath - Review of Systems Constitutional: No Fever, No Chills Eyes: No Symptoms Ears, Nose, & Throat: No Symptoms Respiratory: Cough, Orthopnea, Short Of Breath, Wheezing Cardiac: No Chest Pain, No Edema, No Syncope Abdominal/Gastrointestinal: No Abdominal Pain, No Nausea, No Vomiting, No Diarrhea Genitourinary Symptoms: No Dysuria Musculoskeletal: No Back Pain, No Neck Pain Skin: No Rash Neurological: No Dizziness, No Focal Weakness, No Sensory Changes Psychological: No Symptoms Endocrine: No Symptoms Hematologic/Lymphatic: No Symptoms Immunological/Allergic: No Symptoms Objective Exam General Appearance: moderate distress Neurologic Exam: alert Skin Exam: cyanosis Eye Exam: PERRL, EOMI Neck Exam: JVD Respiratory Exam: diminished breath sounds, crackles/rales, rhonchi, wheezing OBJECTIVE DATA Vital Signs: Vital Signs - 24 hr Temp Pulse Resp BP Pulse Ox 08/06/18 12:51 78 26 H 94 L 08/06/18 12:08 98.4 F 74 20 140/63 96 08/06/18 07:13 97 08/06/18 07:08 98 F 73 24 168/70 98 08/06/18 06:40 73 24 99 08/06/18 03:57 98.3 F 73 17 170/72 96 08/06/18 01:25 72 18 97 08/05/18 23:55 97.8 F 77 20 134/61 96 08/05/18 20:00 98.3 F 72 14 162/67 96 08/05/18 19:41 76 14 94 L 08/05/18 16:00 98.6 F 67 18 117/70 95 08/05/18 13:22 75 24 98 Oxygen-Last 24 hours O2 Percentage 4 Liters = 36% O2 Percentage 4 Liters = 36% O2 Percentage 5 Liters = 40% O2 Percentage 5 Liters = 40% O2 Percentage 5 Liters = 40% Pain Assessment - Last Documented Pain Intensity 0 Pain Scale Used 0-10 Pain Scale,FLACC Intake and Output: Intake & Output 08/04/18 08/05/18 08/06/18 08/07/18 11:59 11:59 11:59 11:59 Intake Total 1666 0 Output Total 1050 Balance 616 0 Weight 159 kg Lab Results: Accuchecks Date 08/06/18 Date 08/06/18 Date 08/05/18 Date 08/05/18 Time 11:30 Time 07:30 Time 22:00 Time 17:08 Accucheck Value: 146 Accucheck Value: 159 Accucheck Value: 141 Accucheck Value: 85 Lab Results-Last 24 Hours 08/05/18 08/05/18 08/05/18 Range/Units 14:55 14:55 14:55 WBC 14.9 H (4.0-10.5) K/mm3 RBC 3.90 L (4.1-5.4) M/mm3 Hgb 10.0 L (12.0-16.0) gm/dl Hct 34.0 L (35-47) % MCV 87.2 (78-100) fl MCH 25.6 L (26-32) pg MCHC 29.4 L (32-36) g/dl RDW 14.9 H (11.5-14.0) % Plt Count 232 (150-450) K/mm3 MPV 10.5 H (6-9.5) fl Gran % 89.9 H (36.0-66.0) % Eos # (Auto) 0.10 (0-0.5) Absolute Lymphs (auto) 0.54 L (1.0-4.6) Absolute Monos (auto) 0.83 (0.0-1.3) Lymphocytes % 3.6 L (24.0-44.0) % Monocytes % 5.6 (0.0-12.0) % Eosinophils % 0.7 (0.00-5.0) % Basophils % 0.2 (0.0-0.4) % Absolute Granulocytes 13.39 H (1.4-6.9) Basophils # 0.03 (0-0.4) Puncture Site RIGHT RADIAL pCO2 65 H* (35-45) mmHg pO2 81 (75-100) mmHg Base Excess 10.4 H (-2.0-2.0) O2 Saturation 93.7 L (94-100) g/dF ABG pH 7.37 (7.35-7.45) ABG HCO3 37.6 H* (22-28) ABG O2 Sat (Measured) 97.5 (95-100) % Matthias Test YES A-a Gradient 123 a/A Ratio 0.40 Hemoglobin 10.1 Carboxyhemoglobin 2.7 (0.0-6.9) % THgb Methemoglobin 1.1 L (1.4-1.5) % Potassium 5.0 5.1 (3.5-5.1) Temperature 37.0 C POC O2 Flow Rate 40 % Sodium 146 H (137-145) mmol/L Chloride 100 (98-107) mmol/L Carbon Dioxide 35 H (22-30) mmol/L Anion Gap 14.8 (5-15) MEQ/L BUN 37 H (7-17) mg/dL Creatinine 0.85 (0.52-1.04) mg/dL Estimated GFR > 60.0 ML/MIN Glucose 99 (74-106) mg/dL Hemoglobin A1c (4.5-6.0) % Calcium 8.7 (8.4-10.2) mg/dL Total Bilirubin 0.30 (0.2-1.3) mg/dL AST 27 (14-36) U/L ALT 25 (0-35) U/L Alkaline Phosphatase 123 (38-126) U/L NT-Pro-B Natriuret Pep 3590 H (0-900) pg/mL Serum Total Protein 6.4 (6.3-8.2) g/dL Albumin 3.3 L (3.5-5.0) g/dL Prealbumin (17.6-36.0) mg/dL Urine Color (YELLOW) Urine Appearance (CLEAR) Urine pH (5-6) Ur Specific [place] (1.005-1.025) Urine Protein (Negative) Urine Ketones (NEGATIVE) Urine Blood (0-5) Elver/ul Urine Nitrite (NEGATIVE) Urine Bilirubin (NEGATIVE) Urine Urobilinogen (0-1) mg/dL Ur Leukocyte Esterase (NEGATIVE) Urine WBC (Auto) (0-5) /HPF Urine RBC (Auto) (0-2) /HPF U Epithel Cells (Auto) (FEW) /HPF Urine Bacteria (Auto) (NEGATIVE) /HPF Urine Mucus (Auto) (NEGATIVE) /HPF Urine Glucose (NEGATIVE) mg/dL Slides for Path Review YES 08/05/18 08/05/18 08/05/18 Range/Units 14:55 14:55 15:03 WBC (4.0-10.5) K/mm3 RBC (4.1-5.4) M/mm3 Hgb (12.0-16.0) gm/dl Hct (35-47) % MCV (78-100) fl MCH (26-32) pg MCHC (32-36) g/dl RDW (11.5-14.0) % Plt Count (150-450) K/mm3 MPV (6-9.5) fl Gran % (36.0-66.0) % Eos # (Auto) (0-0.5) Absolute Lymphs (auto) (1.0-4.6) Absolute Monos (auto) (0.0-1.3) Lymphocytes % (24.0-44.0) % Monocytes % (0.0-12.0) % Eosinophils % (0.00-5.0) % Basophils % (0.0-0.4) % Absolute Granulocytes (1.4-6.9) Basophils # (0-0.4) Puncture Site pCO2 (35-45) mmHg pO2 (75-100) mmHg Base Excess (-2.0-2.0) O2 Saturation (94-100) g/dF ABG pH (7.35-7.45) ABG HCO3 (22-28) ABG O2 Sat (Measured) (95-100) % Matthias Test A-a Gradient a/A Ratio Hemoglobin Carboxyhemoglobin (0.0-6.9) % THgb Methemoglobin (1.4-1.5) % Potassium (3.5-5.1) Temperature C POC O2 Flow Rate % Sodium (137-145) mmol/L Chloride (98-107) mmol/L Carbon Dioxide (22-30) mmol/L Anion Gap (5-15) MEQ/L BUN (7-17) mg/dL Creatinine (0.52-1.04) mg/dL Estimated GFR ML/MIN Glucose (74-106) mg/dL Hemoglobin A1c 6.12 H (4.5-6.0) % Calcium (8.4-10.2) mg/dL Total Bilirubin (0.2-1.3) mg/dL AST (14-36) U/L ALT (0-35) U/L Alkaline Phosphatase (38-126) U/L NT-Pro-B Natriuret Pep (0-900) pg/mL Serum Total Protein (6.3-8.2) g/dL Albumin (3.5-5.0) g/dL Prealbumin 8.95 L (17.6-36.0) mg/dL Urine Color YELLOW (YELLOW) Urine Appearance SLIGHTLY CLOUDY (CLEAR) Urine pH 5.0 (5-6) Ur Specific [place] 1.018 (1.005-1.025) Urine Protein 30 (Negative) Urine Ketones NEGATIVE (NEGATIVE) Urine Blood NEGATIVE (0-5) Elver/ul Urine Nitrite NEGATIVE (NEGATIVE) Urine Bilirubin NEGATIVE (NEGATIVE) Urine Urobilinogen NEGATIVE (0-1) mg/dL Ur Leukocyte Esterase NEGATIVE (NEGATIVE) Urine WBC (Auto) 0-2 (0-5) /HPF Urine RBC (Auto) 0-2 (0-2) /HPF U Epithel Cells (Auto) NONE (FEW) /HPF Urine Bacteria (Auto) NONE (NEGATIVE) /HPF Urine Mucus (Auto) SLIGHT (NEGATIVE) /HPF Urine Glucose NEGATIVE (NEGATIVE) mg/dL Slides for Path Review Radiology Exams: Radiology Procedures Category Date Time Status CHEST 2 VIEWS (PA AND LAT) Stat Exams 08/05/18 13:40 Completed CHEST SPL VIEW DECUB,LORD,ETC Routine Exams 08/05/18 16:51 Completed ECHO W/2D AND DOPPLER [US] Routine Exams 08/05/18 13:03 Taken Assessment/Plan (1) Pleural cavity effusion Current Visit: Yes Status: Acute Assessment & Plan: Last Vital Signs Temp 98.4 F 08/06/18 12:08 Pulse 78 08/06/18 12:51 Resp 26 H 08/06/18 12:51 BP 140/63 08/06/18 12:08 Pulse Ox 94 L 08/06/18 12:51 Allergies Sulfa (Sulfonamide Antibiotics) Allergy (Verified 06/20/17 11:33) Active Medications Acetaminophen (Feverall 650 Mg) 650 mg OR Q4H PRN PRN PRN Reason: PAIN AND/OR FEVER Stop: 09/04/18 12:59 Albuterol/Ipratropium (Duoneb 0.5-3 Mg/3 Ml Neb) 3 ml IH Q6HRT LILA Stop: 09/04/18 12:59 Last Admin: 08/06/18 12:50 Dose: 3 ml Amlodipine Besylate (Norvasc 5 Mg) 2.5 mg PO DAILY LILA Stop: 09/05/18 09:59 Last Admin: 08/06/18 09:34 Dose: 2.5 mg Aspirin (Ecotrin 81 Mg) 81 mg PO DAILY LILA Stop: 09/05/18 09:59 Last Admin: 08/06/18 09:34 Dose: 81 mg Docusate Sodium (Colace 100 Mg) 100 mg PO BIDPRN PRN PRN Reason: CONSTIPATION Stop: 09/04/18 12:59 Duloxetine HCl (Cymbalta 30 Mg Capsule) 60 mg PO HS LILA Stop: 09/04/18 21:59 Last Admin: 08/05/18 22:21 Dose: 60 mg Enoxaparin Sodium (Enoxaparin Sodium) 40 mg SQ DAILY [facility] Stop: 09/05/18 09:59 Last Admin: 08/06/18 09:34 Dose: 40 mg Famotidine (Pepcid 20 Mg) 20 mg PO DAILY LILA Stop: 09/05/18 09:59 Last Admin: 08/06/18 09:34 Dose: 20 mg Fosinopril Sodium (Monopril 10 Mg) 10 mg PO DAILY [facility] Stop: 09/05/18 09:59 Last Admin: 08/06/18 09:34 Dose: 10 mg Furosemide (Lasix 40 Mg/4 Ml) 40 mg IV Q12H [facility] Stop: 09/04/18 15:59 Last Admin: 08/06/18 03:17 Dose: 40 mg Hydralazine HCl (Apresoline 25 Mg Tablet) 25 mg PO QID [facility] Stop: 09/04/18 16:59 Last Admin: 08/06/18 09:34 Dose: 25 mg Azithromycin (Zithromax 500 Mg/ 250 Ml Nacl Premix) 500 mg in 250 mls @ 250 mls /hr IV Q24H10 [facility] Stop: 09/04/18 13:29 Last Admin: 08/06/18 09:35 Dose: 250 mls/hr Ceftriaxone Sodium/Dextrose (Rocephin 2 Gm-D5w 50ml Bag) 2 g in 50 mls @ 100 mls/hr IV Q24H10 [facility] Stop: 09/04/18 13:29 Last Admin: 08/06/18 09:31 Dose: 100 mls/hr Sodium Chloride (Sodium Chloride 0.9% 1000 Ml) 1,000 mls @ 50 mls/hr IV .Q20H [facility] Stop: 09/04/18 12:59 Last Admin: 08/06/18 09:31 Dose: 50 mls/hr Insulin Aspart (Novolog Insulin) 0 unit SQ UD PRN PRN Reason: Accuchek Stop: 09/04/18 12:59 Insulin Human Isoph/Insulin Regular (Novolin 70/30) 50 unit SQ BIDAC [facility]ILA Stop: 09/04/18 21:59 Last Admin: 08/06/18 09:34 Dose: Not Given Levothyroxine Sodium (Synthroid 100 Mcg) 100 mcg PO DAILY [facility] Stop: 09/05/18 09:59 Last Admin: 08/06/18 09:34 Dose: 100 mcg Lorazepam (Ativan 1 Mg) 1 mg PO UD PRN PRN Reason: CIWA SCORE Stop: 09/05/18 10:19 Nystatin (Nystop 30 Gm Cream) 1 gm TOP BID [facility] Stop: 09/04/18 14:59 Last Admin: 08/06/18 09:35 Dose: 1 gm Simvastatin (Zocor 10mg) 10 mg PO HS [facility] Stop: 09/04/18 21:59 Last Admin: 08/05/18 22:21 Dose: 10 mg Intake & Output 08/06/18 08/07/18 11:59 11:59 Intake Total 1666 0 Output Total 1050 Balance 616 0 Weight 159 kg Orders 08/05/18 13:00 Place in Observation ROUTINE Acetaminophen 650 mg [Feverall 650 mg] 650 mg OR Q4H PRN PRN Albuterol/Ipratropium 3ml Neb* [DUONEB 0.5-3 MG/3 ml Neb] 3 ml IH Q6HRT Docusate Sodium 100 mg [Colace 100 MG] 100 mg PO BIDPRN PRN Insulin Aspart [NovoLOG Insulin] See Dose Instructions SQ UD PRN NaCl 0.9% 1000 ml [Sodium Chloride 0.9% 1000 ML] 1,000 ml IV 50 mls/hr OT Eval and Treat ( Order) ROUTINE Oxygen Nasal Cannula 3 lpm 08/05/18 13:01 Up Ad Karen TOLERATED Accucheck ACHS Catheter-[place] ROUTINE 08/05/18 13:03 ECHO W/2D AND DOPPLER [US] Routine 08/05/18 13:22 Respiratory Therapy Assessment DAILY 08/05/18 13:23 Pulse Oximetry .continuos 08/05/18 13:30 Azithromycin 500 mg/250 ml [Zithromax 500 MG/ 250 ML NaCl Premix] 500 mg in 250 ml IV Q24H10 Ceftriaxone 2 GM/50 ML PREMIX* [ROCEPHIN 2 Gm-D5w 50ML BAG] 2 g in 50 ml IV Q24H10 08/05/18 14:37 CULTURE,URINE Routine 08/05/18 14:55 BLOOD CULTURE Stat 08/05/18 15:00 Nystatin Cream 30 gm [Nystop 30 gm Cream] 1 gm TOP BID 08/05/18 16:00 Furosemide 40 mg/4 ml [Lasix 40 MG/4 ML] 40 mg IV Q12H 08/05/18 17:00 HydrALAzine HCL 25 MG TAB [Apresoline 25 MG TABLET] 25 mg PO QID 08/05/18 18:00 Admission Status Change [Change to Full Admit] ROUTINE 08/05/18 22:00 Duloxetine HCl 30 mg [Cymbalta 30 MG Capsule] 60 mg PO HS Insulin NPH/Reg 70/30 [Novolin 70/30] 50 unit SQ BIDAC Simvastatin 10 mg [Zocor 10MG] 10 mg PO HS 08/06/18 06:44 Peak Expiratory Flow Rate ONCE 08/06/18 10:00 Amlodipine Besylate 5 mg [Norvasc 5 mg] 2.5 mg PO DAILY Aspirin EC 81 mg [Ecotrin 81 mg] 81 mg PO DAILY Enoxaparin Sodium [Enoxaparin Sodium] 40 mg SQ DAILY Famotidine 20 mg [Pepcid 20 MG] 20 mg PO DAILY Fosinopril Sodium 10 mg [monoPRIL 10 MG] 10 mg PO DAILY Levothyroxine Sodium 100 Mcg [Synthroid 100 Mcg] 100 mcg PO DAILY 08/06/18 10:20 Lorazepam 1 mg [Ativan 1 MG] 1 mg PO UD PRN Lab Tests 08/05/18 08/05/18 08/05/18 14:55 14:55 14:55 WBC 14.9 H RBC 3.90 L Hgb 10.0 L Hct 34.0 L MCV 87.2 MCH 25.6 L MCHC 29.4 L RDW 14.9 H Plt Count 232 MPV 10.5 H Gran % 89.9 H Eos # (Auto) 0.10 Absolute Lymphs (auto) 0.54 L Absolute Monos (auto) 0.83 Lymphocytes % 3.6 L Monocytes % 5.6 Eosinophils % 0.7 Basophils % 0.2 Absolute Granulocytes 13.39 H Basophils # 0.03 Puncture Site RIGHT RADIAL pCO2 65 H* pO2 81 Base Excess 10.4 H O2 Saturation 93.7 L ABG pH 7.37 ABG HCO3 37.6 H* ABG O2 Sat (Measured) 97.5 Matthias Test YES A-a Gradient 123 a/A Ratio 0.40 Hemoglobin 10.1 Carboxyhemoglobin 2.7 Methemoglobin 1.1 L Potassium 5.0 5.1 Temperature 37.0 POC O2 Flow Rate 40 Sodium 146 H Chloride 100 Carbon Dioxide 35 H Anion Gap 14.8 BUN 37 H Creatinine 0.85 Estimated GFR > 60.0 Glucose 99 Hemoglobin A1c Calcium 8.7 Total Bilirubin 0.30 AST 27 ALT 25 Alkaline Phosphatase 123 NT-Pro-B Natriuret Pep 3590 H Serum Total Protein 6.4 Albumin 3.3 L Prealbumin Urine Color Urine Appearance Urine pH Ur Specific [place] Urine Protein Urine Ketones Urine Blood Urine Nitrite Urine Bilirubin Urine Urobilinogen Ur Leukocyte Esterase Urine WBC (Auto) Urine RBC (Auto) U Epithel Cells (Auto) Urine Bacteria (Auto) Urine Mucus (Auto) Urine Glucose Slides for Path Review YES 08/05/18 08/05/18 08/05/18 14:55 14:55 15:03 WBC RBC Hgb Hct MCV MCH MCHC RDW Plt Count MPV Gran % Eos # (Auto) Absolute Lymphs (auto) Absolute Monos (auto) Lymphocytes % Monocytes % Eosinophils % Basophils % Absolute Granulocytes Basophils # Puncture Site pCO2 pO2 Base Excess O2 Saturation ABG pH ABG HCO3 ABG O2 Sat (Measured) Matthias Test A-a Gradient a/A Ratio Hemoglobin Carboxyhemoglobin Methemoglobin Potassium Temperature POC O2 Flow Rate Sodium Chloride Carbon Dioxide Anion Gap BUN Creatinine Estimated GFR Glucose Hemoglobin A1c 6.12 H Calcium Total Bilirubin AST ALT Alkaline Phosphatase NT-Pro-B Natriuret Pep Serum Total Protein Albumin Prealbumin 8.95 L Urine Color YELLOW Urine Appearance SLIGHTLY CLOUDY Urine pH 5.0 Ur Specific [place] 1.018 Urine Protein 30 Urine Ketones NEGATIVE Urine Blood NEGATIVE Urine Nitrite NEGATIVE Urine Bilirubin NEGATIVE Urine Urobilinogen NEGATIVE Ur Leukocyte Esterase NEGATIVE Urine WBC (Auto) 0-2 Urine RBC (Auto) 0-2 U Epithel Cells (Auto) NONE Urine Bacteria (Auto) NONE Urine Mucus (Auto) SLIGHT Urine Glucose NEGATIVE Slides for Path Review Microbiology 08/05/18 14:37 Urine, Indwelling Catheter Urine Culture - Preliminary NO GROWTH TO DATE Code(s): J90 - PLEURAL EFFUSION, NOT ELSEWHERE CLASSIFIED (2) CHF (congestive heart failure), NYHA class III Current Visit: Yes Status: Acute Qualifiers: Code(s): I50.9 - HEART FAILURE, UNSPECIFIED (3) COPD exacerbation Current Visit: Yes Status: Acute Code(s): J44.1 - CHRONIC OBSTRUCTIVE PULMONARY DISEASE W (ACUTE) EXACERBATION
[2018-08-06] MEDS ORDERED: XYLOCAINE 1% HCL 20 ML MDV ONE (15:04)
[2018-08-06] MEDS ORDERED: XYLOCAINE 1%/Epi 1:100000 MDV 20 ML ONE (15:04)
[2018-08-06] MEDS ORDERED: DIPRIVAN 200 MG/20 ML IV ONE (16:05)
[2018-08-06] MEDS ORDERED: KEFZOL 1 GM ONE (18:06)
[2018-08-06] MEDS ORDERED: MORPHINE SULFATE 4 MG INJ IV PRN (20:25)
[2018-08-06] MEDS: Zocor 10MG PO SCH (22:45)
[2018-08-06] MEDS: Cymbalta 30 MG Capsule PO SCH (22:45)
[2018-08-07] MEDS: DUONEB 0.5-3 MG/3 ml Neb IH SCH ×4 (01:14→19:48)
[2018-08-07] MEDS: Lasix 40 MG/4 ML IV SCH ×2 (04:12→16:12)
[2018-08-07 06:21] LABS: BASOPHIL % 0.2 % (0.0-0.4); Basophil (Absolute #) 0.03 (0-0.4); Eosinophil % 0.6 % (0.00-5.0); Granulocyte Absolute (ANC) 13.53 (1.4-6.9); Granulocytes % 87.3 % (36.0-66.0); Hematocrit 36.2 % (35-47); Hemoglobin 10.7 gm/dl (12.0-16.0); Lymphocyte (Absolute #) 0.76 (1.0-4.6); Lymphocytes % 4.9 % (24.0-44.0); Mean Cell Volume 85.6 fl (78-100); Mean Corpuscular Hgb Concent. 29.6 g/dl (32-36); Monocyte (Absolute #) 1.09 (0.0-1.3); Platelet Count 251 K/mm3 (150-450); Red Blood Count 4.23 M/mm3 (4.1-5.4); Red Cell Distribution Width 14.9 % (11.5-14.0); White Blood Count 15.5 K/mm3 (4.0-10.5)
[2018-08-07 06:23] LABS: Mean Corpuscular Hemoglobin 25.2 pg (26-32)
[2018-08-07 06:55] LABS: ALBUMIN 3.4 g/dL (3.5-5.0); ALKALINE PHOSPHATASE 114 U/L (38-126); BLOOD UREA NITROGEN 29 mg/dL (7-17); CHLORIDE 98 mmol/L (98-107); Calcium 8.7 mg/dL (8.4-10.2); Carbon Dioxide 37 mmol/L (22-30); Creatinine 1 0.92 mg/dL (0.52-1.04); Glucose 127 mg/dL (74-106); Potassium 4.7 mmol/L (3.5-5.1); SGOT/AST 20 U/L (14-36); SGPT/ALT 18 U/L (0-35); SODIUM 140 mmol/L (137-145); Total Protein 6.3 g/dL (6.3-8.2)
--- NOTE | 2018-08-07 07:44 | CONS ---
CONSULT DATE: 08/06/2018 HISTORY: The patient presents with worsening shortness of breath. She has been found to have a large left pleural effusion. History is obtained from the chart and her son as she is a poor historian. Her son does not think she has ever had any pleural fluid taken off of her lung and has been admitted for fluid on her lung before but was just treated with Lasix and other diuresis. She is currently still short of breath and on oxygen. She is on home oxygen. PAST MEDICAL HISTORY: Includes congestive heart failure and chronic obstructive pulmonary disease. MEDICATIONS: See MAR. ALLERGIES: SULFA. PHYSICAL EXAMINATION: GENERAL: Mild distress. HEENT: Sclera nonicteric. Extraocular movements intact. NECK: Supple. No JVD. CHEST: Decreased breath sounds on the left. ABDOMEN: Soft, nontender. EXTREMITIES: No peripheral edema. NEURO: Awake, alert, poor historian to answer some questions. LAB DATA AND TESTS: Chest x-ray with large left pleural effusion. Chest CT scan from a couple months ago showed a large left pleural effusion as well. ASSESSMENT: Large left pleural effusion. PLAN: Left chest tube placement under MAC anesthesia.
[2018-08-07] MEDS: Novolin 70/30 SQ SCH ×2 (07:47→16:12)
--- NOTE | 2018-08-07 08:03 | OP ---
SURGERY DATE/TIME: 08/06/2018 1750 PREOPERATIVE DIAGNOSIS: Large left pleural effusion. POSTOPERATIVE DIAGNOSES: Large left pleural effusion. PROCEDURES: Left chest tube thoracostomy. SURGEON: Lars Bonilla M.D. ANESTHESIA: MAC. ESTIMATED BLOOD LOSS: Minimal. COMPLICATIONS: None. SPECIMEN: Left pleural fluid for cytology. FINDINGS: 800 cc of clear yellow fluid from the left chest. PATIENT PRESENTATION: This patient presents with shortness of breath and found to have a large left pleural effusion. Discussed the risks and benefits of left chest tube thoracostomy with the patient's son who is the decision maker. The son and patient wished to proceed. DESCRIPTION OF PROCEDURE: The patient was brought to the operating room and placed patient semi-supine on the patient chart. The patient cannot lay flat and was somewhat sitting up in the chart. The left chest was prepped and draped in sterile fashion. 1% lidocaine with epinephrine was injected into the fifth intercostal space in the anterior axillary line in inframammary crease. Scalpel was used to incise the skin. Clamp was used to dissect down to the chest wall. Clamp inserted above the rib and the chest entered. Cannula was inserted. There was fluid coming out of the chest. No palpable abnormalities. A 24 [place] chest tube was inserted and secured at 19 cm with 2-0 PDS suture x2 and this was connected to suction. 800 cc of clear yellow fluid was suctioned out of the tube into the atrium and dressing was applied. The patient was recovered in PACU in stable condition.
--- NOTE | 2018-08-07 08:40 | XRAY ---
Indication: Chest tube placement. Comparison: One day earlier. Portable chest obtained in inspiration and expiration demonstrates lungs to be less inflated with new left chest tube with tip near the apex. No pneumothorax. Large left effusion/atelectasis has improved with minimal residual. Right lung prominent lung markings and borderline cardiomegaly both probably from underinflation.
[2018-08-07] MEDS: ROCEPHIN 2 Gm-D5w 50ML BAG** 2 G/50 ML IVPB IV SCH (09:44)
[2018-08-07] MEDS: NORVASC 5 MG PO SCH (09:45)
[2018-08-07] MEDS: monoPRIL 10 MG PO SCH (09:45)
[2018-08-07] MEDS: SYNTHROID 100 MCG PO SCH (09:45)
[2018-08-07] MEDS: ENOXAPARIN SODIUM SQ SCH (09:45)
[2018-08-07] MEDS: ECOTRIN 81 MG PO SCH (09:46)
[2018-08-07] MEDS: NYSTOP 30 GM CREAM TOP SCH ×2 (09:46→22:55)
[2018-08-07] MEDS: Pepcid 20 MG PO SCH (09:46)
[2018-08-07] MEDS: Apresoline 25 MG TABLET PO SCH ×4 (09:46→22:53)
--- NOTE | 2018-08-07 10:02 | XRAY ---
Indication: Follow-up chest tube placement. Comparison: One day earlier. Portable chest better inflated with stable left chest tube and no pneumothorax. Minimally worsening left base atelectasis/effusion. Remaining right lung and heart unremarkable.
[2018-08-07] MEDS: Zithromax 500 MG/ 250 ML NaCl Premix 500 MG/250 ML IVPB IV SCH (10:30)
[2018-08-07] MEDS: Cymbalta 30 MG Capsule PO SCH (22:53)
[2018-08-07] MEDS: Zocor 10MG PO SCH (22:54)
[2018-08-08] MEDS: Sodium Chloride 0.9% 1000 ML 1,000 ML IV SCH (00:31)
[2018-08-08] MEDS ORDERED: D50W 50ML Vial IV ONE ×3 (04:05→06:00)
[2018-08-08] MEDS ORDERED: D50W 50 ml Abboject IV ONE ×2 (04:06→06:03)
[2018-08-08] MEDS: DUONEB 0.5-3 MG/3 ml Neb IH SCH ×4 (06:10→20:53)
[2018-08-08 06:27] LABS: Hematocrit 36.1 % (35-47); Hemoglobin 10.5 gm/dl (12.0-16.0); Mean Cell Volume 86.6 fl (78-100); Mean Corpuscular Hgb Concent. 29.1 g/dl (32-36); Mean Platelet Volume 10.3 fl (6-9.5); Platelet Count 219 K/mm3 (150-450); Red Blood Count 4.17 M/mm3 (4.1-5.4); Red Cell Distribution Width 14.9 % (11.5-14.0); White Blood Count 12.9 K/mm3 (4.0-10.5)
[2018-08-08 06:34] LABS: Mean Corpuscular Hemoglobin 25.1 pg (26-32)
[2018-08-08 06:36] LABS: ALKALINE PHOSPHATASE 95 U/L (38-126); ANION GAP 11.7 MEQ/L (5-15); BLOOD UREA NITROGEN 23 mg/dL (7-17); CHLORIDE 96 mmol/L (98-107); Calcium 8.4 mg/dL (8.4-10.2); Carbon Dioxide 37 mmol/L (22-30); Creatinine 1 0.85 mg/dL (0.52-1.04); Glucose 226 mg/dL (74-106); Potassium 4.2 mmol/L (3.5-5.1); SGOT/AST 18 U/L (14-36); SGPT/ALT 14 U/L (0-35); SODIUM 141 mmol/L (137-145); Total Protein 6.1 g/dL (6.3-8.2)
[2018-08-08] MEDS: Novolin 70/30 SQ SCH ×2 (10:06→18:39)
[2018-08-08 10:07] LABS: A-aADO2 50; ABG HEMOGLOBIN 10.9; ABG POTASSIUM 4.3 (3.5-5.1); ARTERIAL BLOOD GAS BASE EXCESS 15.6 (-2.0-2.0); ARTERIAL BLOOD GAS FIO2 36 %; ARTERIAL BLOOD GAS PO2 109 mmHg (75-100); ARTERIAL BLOOD GAS pH 7.36 (7.35-7.45); CARBOXYHEMOGLOBIN 1.8 % THgb (0.0-6.9); HCO3- 44.1 (22-28); HGB O2 SAT 96.3 g/dF (94-100); Methhemoglobin 0.9 % (1.4-1.5); paO2 pAO1 0.69
[2018-08-08 10:08] LABS: ABG SITE LEFT BRACHIAL; ARTERIAL BLOOD GAS PCO2 78 mmHg (35-45)
[2018-08-08] MEDS: NORVASC 5 MG PO SCH (10:16)
[2018-08-08] MEDS: ECOTRIN 81 MG PO SCH (10:16)
[2018-08-08] MEDS: Pepcid 20 MG PO SCH (10:18)
[2018-08-08] MEDS: monoPRIL 10 MG PO SCH (10:18)
[2018-08-08] MEDS: Lasix 40 MG/4 ML IV SCH ×2 (10:18→21:23)
[2018-08-08] MEDS: Apresoline 25 MG TABLET PO SCH ×4 (10:18→21:22)
[2018-08-08] MEDS: SYNTHROID 100 MCG PO SCH (10:18)
[2018-08-08] MEDS: NYSTOP 30 GM CREAM TOP SCH ×2 (10:19→21:23)
[2018-08-08] MEDS: ENOXAPARIN SODIUM SQ SCH (10:28)
[2018-08-08] MEDS: ROCEPHIN 2 Gm-D5w 50ML BAG** 2 G/50 ML IVPB IV SCH (10:29)
[2018-08-08] MEDS: Zithromax 500 MG/ 250 ML NaCl Premix 500 MG/250 ML IVPB IV SCH (12:24)
[2018-08-08 13:11] LABS: A-aADO2 71; ABG HEMOGLOBIN 10.8; ABG POTASSIUM 3.9 (3.5-5.1); ARTERIAL BLD GAS O2 SATURATION 98.4 % (95-100); ARTERIAL BLOOD GAS BASE EXCESS 16.8 (-2.0-2.0); ARTERIAL BLOOD GAS FIO2 36 %; ARTERIAL BLOOD GAS PO2 93 mmHg (75-100); ARTERIAL BLOOD GAS VENT MODE BiPAP; ARTERIAL BLOOD GAS pH 7.39 (7.35-7.45); CARBOXYHEMOGLOBIN 1.8 % THgb (0.0-6.9); HCO3- 44.8 (22-28); HGB O2 SAT 95.5 g/dF (94-100); Methhemoglobin 1.2 % (1.4-1.5); paO2 pAO1 0.57
[2018-08-08 13:12] LABS: ABG SITE LEFT BRACHIAL; ARTERIAL BLOOD GAS PCO2 74 mmHg (35-45)
--- NOTE | 2018-08-08 14:43 | PCM.NOTE ---
Date and Time: 08/07/18 1441 Subjective Assessment: doing ok, chest tube draining - Review of Systems Constitutional: No Fever, No Chills Eyes: No Symptoms Ears, Nose, & Throat: No Symptoms Respiratory: Orthopnea, Short Of Breath, No Cough Cardiac: No Chest Pain, No Edema, No Syncope Abdominal/Gastrointestinal: No Abdominal Pain, No Nausea, No Vomiting, No Diarrhea Genitourinary Symptoms: No Dysuria Musculoskeletal: No Back Pain, No Neck Pain Skin: No Rash Neurological: No Dizziness, No Focal Weakness, No Sensory Changes Psychological: No Symptoms Endocrine: No Symptoms Hematologic/Lymphatic: No Symptoms Immunological/Allergic: No Symptoms Objective Exam General Appearance: no apparent distress, alert Neurologic Exam: alert, oriented x 3, cooperative, normal mood/affect, nml cerebellar function, sensation nml, No motor deficits Skin Exam: normal color, warm, dry Wound Assessment: Skin/Wound Assessment Wound/Incision Assessment Start: 08/06/18 19: 13 Text: Status: Active Freq: Q4H Protocol: Document 08/08/18 12[facility]00 [facility] (Rec: 08/08/18 12:28 [facility] [id number]) Wound/Incision Assessment Left Chest Wound Assessment Shift Assessment Wound Type Incision Wound Stage Non Pressure Wound Dressing Status Dry & Intact Drainage Amount None Drainage Description Serosanguineous Drainage Odor None/Absent General Appearance Sutures Intact Surrounding Tissue [place] Primary Dressing Gauze Pads Comment dressing in place slight serosanguineous drainage around site. Wound Photo Photo Taken No Eye Exam: PERRL, EOMI, eyes nml inspection Ears, Nose, Throat Exam: normal ENT inspection, pharynx normal, moist mucous membranes Neck Exam: normal inspection, non-tender, supple, full range of motion Respiratory Exam: normal breath sounds, lungs clear, No respiratory distress Cardiovascular Exam: regular rate/rhythm, normal heart sounds Gastrointestinal/Abdomen Exam: soft, No tenderness, No mass Extremity Exam: normal inspection, normal range of motion Back Exam: normal inspection, normal range of motion, No CVA tenderness, No vertebral tenderness Pelvic Exam: deferred Rectal Exam: deferred OBJECTIVE DATA Vital Signs: Vital Signs - 24 hr Temp Pulse Resp BP Pulse Ox 08/08/18 11:14 97.6 F 79 20 166/70 98 08/08/18 09:43 78 18 99 08/08/18 07:13 98.1 F 80 22 185/74 96 08/08/18 04:00 99.1 F 80 20 195/73 95 08/08/18 00:00 20 08/07/18 23:59 99.3 F 79 20 136/71 97 08/07/18 20:15 99.1 F 75 22 149/60 98 08/07/18 20:00 22 08/07/18 19:53 75 22 98 08/07/18 16:00 98.9 F 72 24 144/64 96 Oxygen-Last 24 hours O2 Percentage 4 Liters = 36% O2 Percentage 4 Liters = 36% O2 Percentage 4 Liters = 36% O2 Percentage 4 Liters = 36% O2 Percentage 4 Liters = 36% Pain Assessment - Last Documented Pain Intensity 0 Pain Scale Used 0-10 Pain Scale Intake and Output: Intake & Output 08/06/18 08/07/18 08/08/18 08/09/18 11:59 11:59 11:59 11:59 Intake Total 1666 1685 2556 120 Output Total 1050 3030 2480 Balance 616 -1345 76 120 Weight 87.5 kg 87.5 kg 83.5 kg Lab Results: Accuchecks Date 08/07/18 Date 08/07/18 Time 21:00 Time 16:30 Accucheck Value: 127 Accucheck Value: 164 Accucheck Value: 103 Accucheck Value: 190 Lab Results-Last 24 Hours 08/08/18 08/08/18 08/08/18 Range/Units 04:12 04:55 06:22 WBC 12.9 H (4.0-10.5) K/mm3 RBC 4.17 (4.1-5.4) M/mm3 Hgb 10.5 L (12.0-16.0) gm/dl Hct 36.1 (35-47) % MCV 86.6 (78-100) fl MCH 25.1 L (26-32) pg MCHC 29.1 L (32-36) g/dl RDW 14.9 H (11.5-14.0) % Plt Count 219 (150-450) K/mm3 MPV 10.3 H (6-9.5) fl Puncture Site pCO2 (35-45) mmHg pO2 (75-100) mmHg Base Excess (-2.0-2.0) O2 Saturation (94-100) g/dF ABG pH (7.35-7.45) ABG HCO3 (22-28) ABG O2 Sat (Measured) (95-100) % Matthias Test A-a Gradient a/A Ratio Hemoglobin Carboxyhemoglobin (0.0-6.9) % THgb Methemoglobin (1.4-1.5) % Temperature C POC O2 Flow Rate % Vent Mode Inspiratory BiPAP Expiratory BiPAP Sodium (137-145) mmol/L Potassium (3.5-5.1) mmol/L Chloride (98-107) mmol/L Carbon Dioxide (22-30) mmol/L Anion Gap (5-15) MEQ/L BUN (7-17) mg/dL Creatinine (0.52-1.04) mg/dL Estimated GFR ML/MIN Glucose 324 H 69 L (74-106) mg/dL Calcium (8.4-10.2) mg/dL Total Bilirubin (0.2-1.3) mg/dL AST (14-36) U/L ALT (0-35) U/L Alkaline Phosphatase (38-126) U/L Serum Total Protein (6.3-8.2) g/dL Albumin (3.5-5.0) g/dL 08/08/18 08/08/18 08/08/18 Range/Units 06:22 10:06 12:40 WBC (4.0-10.5) K/mm3 RBC (4.1-5.4) M/mm3 Hgb (12.0-16.0) gm/dl Hct (35-47) % MCV (78-100) fl MCH (26-32) pg MCHC (32-36) g/dl RDW (11.5-14.0) % Plt Count (150-450) K/mm3 MPV (6-9.5) fl Puncture Site LEFT BRACHIAL LEFT BRACHIAL pCO2 78 H* 74 H* (35-45) mmHg pO2 109 H 93 (75-100) mmHg Base Excess 15.6 H 16.8 H (-2.0-2.0) O2 Saturation 96.3 95.5 (94-100) g/dF ABG pH 7.36 7.39 (7.35-7.45) ABG HCO3 44.1 H* 44.8 H* (22-28) ABG O2 Sat (Measured) 99.0 98.4 (95-100) % Matthias Test NOT APPLICABLE NOT APPLICABLE A-a Gradient 50 71 a/A Ratio 0.69 0.57 Hemoglobin 10.9 10.8 Carboxyhemoglobin 1.8 1.8 (0.0-6.9) % THgb Methemoglobin 0.9 L 1.2 L (1.4-1.5) % Temperature 37.0 37.0 C POC O2 Flow Rate 36 36 % Vent Mode BiPAP Inspiratory BiPAP 12 Expiratory BiPAP 6 Sodium 141 (137-145) mmol/L Potassium 4.2 4.3 3.9 (3.5-5.1) mmol/L Chloride 96 L (98-107) mmol/L Carbon Dioxide 37 H (22-30) mmol/L Anion Gap 11.7 (5-15) MEQ/L BUN 23 H (7-17) mg/dL Creatinine 0.85 (0.52-1.04) mg/dL Estimated GFR > 60.0 ML/MIN Glucose 226 H (74-106) mg/dL Calcium 8.4 (8.4-10.2) mg/dL Total Bilirubin 0.40 (0.2-1.3) mg/dL AST 18 (14-36) U/L ALT 14 (0-35) U/L Alkaline Phosphatase 95 (38-126) U/L Serum Total Protein 6.1 L (6.3-8.2) g/dL Albumin 3.0 L (3.5-5.0) g/dL Radiology Exams: Radiology Procedures Category Date Time Status CHEST 1 VIEW (PORTABLE) DAILY Exams 08/08/18 05:00 Taken CHEST 1 VIEW (PORTABLE) DAILY Exams 08/09/18 05:00 Ordered CHEST 1 VIEW (PORTABLE) DAILY Exams 08/10/18 05:00 Ordered CHEST 1 VIEW (PORTABLE) Routine Exams 08/07/18 09:31 Completed Portable Chest [CHEST 1 VIEW (PORTABLE)] Stat Exams 08/06/18 19:05 Completed Assessment/Plan (1) Pleural cavity effusion Current Visit: Yes Status: Acute Code(s): J90 - PLEURAL EFFUSION, NOT ELSEWHERE CLASSIFIED (2) CHF (congestive heart failure), NYHA class III Current Visit: Yes Status: Acute Qualifiers: Congestive heart failure type: combined Congestive heart failure chronicity : acute on chronic Qualified Code(s): I50.43 - Acute on chronic combined systolic (congestive) and diastolic (congestive) heart failure Code(s): I50.9 - HEART FAILURE, UNSPECIFIED (3) COPD exacerbation Current Visit: Yes Status: Acute Code(s): J44.1 - CHRONIC OBSTRUCTIVE PULMONARY DISEASE W (ACUTE) EXACERBATION
[2018-08-08] MEDS: Cymbalta 30 MG Capsule PO SCH (21:22)
[2018-08-08] MEDS: Zocor 10MG PO SCH (21:23)
--- NOTE | 2018-08-08 21:40 | XRAY ---
Indication: Follow-up chest tube. Comparison: One day earlier. Portable chest demonstrates left chest tube slightly withdrawn with the tip still projecting left upper lobe without pneumothorax. Stable left base atelectasis/effusion. Right lung demonstrates new hazy opacities without consolidation. Heart is borderline enlarged. Comment: Preliminary interpretation was made by [facility]. No critical discrepancy.
[2018-08-09] MEDS: Sodium Chloride 0.9% 1000 ML 1,000 ML IV SCH ×2 (00:23→23:31)
[2018-08-09] MEDS: DUONEB 0.5-3 MG/3 ml Neb IH SCH ×4 (01:13→19:20)
[2018-08-09 05:06] LABS: A-aADO2 96; ABG HEMOGLOBIN 10.6; ABG POTASSIUM 4.3 (3.5-5.1); ARTERIAL BLD GAS O2 SATURATION 97.7 % (95-100); ARTERIAL BLOOD GAS BASE EXCESS 17.2 (-2.0-2.0); ARTERIAL BLOOD GAS FIO2 36 %; ARTERIAL BLOOD GAS PO2 79 mmHg (75-100); ARTERIAL BLOOD GAS VENT MODE BiPAP; ARTERIAL BLOOD GAS pH 7.44 (7.35-7.45); CARBOXYHEMOGLOBIN 2.1 % THgb (0.0-6.9); HCO3- 44.1 (22-28); HGB O2 SAT 94.9 g/dF (94-100); Methhemoglobin 0.8 % (1.4-1.5); paO2 pAO1 0.45
[2018-08-09 05:07] LABS: ABG SITE LEFT RADIAL; ALLEN TEST OK? YES; ARTERIAL BLOOD GAS PCO2 65 mmHg (35-45)
--- NOTE | 2018-08-09 07:30 | XRAY ---
Indication: Follow-up chest tube. Comparison: One day earlier. Portable chest demonstrates stable left chest tube without pneumothorax. Mild clearing of previous left base atelectasis/effusion and right lung hazy opacities. Heart remains borderline enlarged. No new cardiopulmonary abnormalities.
[2018-08-09] MEDS: NYSTOP 30 GM CREAM TOP SCH ×2 (08:48→22:13)
[2018-08-09] MEDS: NORVASC 5 MG PO SCH (08:49)
[2018-08-09] MEDS: Lasix 40 MG/4 ML IV SCH ×2 (08:49→21:51)
[2018-08-09] MEDS: ENOXAPARIN SODIUM SQ SCH (08:49)
[2018-08-09] MEDS: monoPRIL 10 MG PO SCH (08:49)
[2018-08-09] MEDS: ROCEPHIN 2 Gm-D5w 50ML BAG** 2 G/50 ML IVPB IV SCH (08:49)
[2018-08-09] MEDS: Pepcid 20 MG PO SCH (08:51)
[2018-08-09] MEDS: Apresoline 25 MG TABLET PO SCH ×4 (08:51→21:57)
[2018-08-09] MEDS: ECOTRIN 81 MG PO SCH (08:51)
[2018-08-09] MEDS: Novolin 70/30 SQ SCH ×2 (08:51→17:08)
[2018-08-09] MEDS: SYNTHROID 100 MCG PO SCH (08:57)
[2018-08-09] MEDS: Zithromax 500 MG/ 250 ML NaCl Premix 500 MG/250 ML IVPB IV SCH (09:45)
--- NOTE | 2018-08-09 15:49 | PCM.NOTE ---
Date and Time: 08/09/18 1548 Subjective Assessment: doing ok - Review of Systems Constitutional: No Fever, No Chills Eyes: No Symptoms Ears, Nose, & Throat: No Symptoms Respiratory: No Cough, No Short Of Breath Cardiac: No Chest Pain, No Edema, No Syncope Abdominal/Gastrointestinal: No Abdominal Pain, No Nausea, No Vomiting, No Diarrhea Genitourinary Symptoms: No Dysuria Musculoskeletal: No Back Pain, No Neck Pain Skin: No Rash Neurological: No Dizziness, No Focal Weakness, No Sensory Changes Psychological: No Symptoms Endocrine: No Symptoms Hematologic/Lymphatic: No Symptoms Immunological/Allergic: No Symptoms Objective Exam General Appearance: no apparent distress, alert Neurologic Exam: alert, oriented x 3, cooperative, normal mood/affect, nml cerebellar function, sensation nml, No motor deficits Skin Exam: normal color, warm, dry Wound Assessment: Skin/Wound Assessment Wound/Incision Assessment Start: 08/06/18 19: 13 Text: Status: Active Freq: Q4H Protocol: Document 08/09/18 12:00 [facility] (Rec: 08/09/18 12:57 [facility] [id number]) Wound/Incision Assessment Left Chest Wound Assessment Shift Assessment Wound Type Incision Wound Stage Non Pressure Wound Dressing Status Dry & Intact Drainage Amount Minimal Drainage Description Serosanguineous Drainage Odor None/Absent General Appearance Clean/Dry Surrounding Tissue [place] Primary Dressing Gauze Pads Secondary Dressing hallie tape Comment dressing changed this AM. dressing clean dry and intact. Wound Photo Photo Taken No Eye Exam: PERRL, EOMI, eyes nml inspection Ears, Nose, Throat Exam: normal ENT inspection, pharynx normal, moist mucous membranes Neck Exam: normal inspection, non-tender, supple, full range of motion Respiratory Exam: diminished breath sounds, crackles/rales, rhonchi, wheezing, No respiratory distress Cardiovascular Exam: regular rate/rhythm, normal heart sounds Gastrointestinal/Abdomen Exam: soft, No tenderness, No mass Extremity Exam: normal inspection, normal range of motion Back Exam: normal inspection, normal range of motion, No CVA tenderness, No vertebral tenderness Pelvic Exam: deferred Rectal Exam: deferred OBJECTIVE DATA Vital Signs: Vital Signs - 24 hr Temp Pulse Resp BP Pulse Ox 08/09/18 13:31 78 18 98 08/09/18 12:19 98 F 80 22 162/88 95 08/09/18 12:00 22 08/09/18 07:41 89 20 97 08/09/18 07:21 22 08/09/18 07:20 97.8 F 82 22 147/65 94 L 08/09/18 04:10 98.9 F 87 22 137/64 95 08/09/18 01:14 88 22 96 08/09/18 00:00 98.2 F 86 23 160/68 96 08/08/18 20:54 85 16 97 08/08/18 20:00 99.4 F 73 20 137/64 95 08/08/18 16:25 75 20 98 08/08/18 16:06 97.8 F 96 H 20 158/80 98 Oxygen-Last 24 hours O2 Percentage 2 Liters = 28% O2 Percentage 2 Liters = 28% O2 Percentage 35% O2 Percentage 35% O2 Percentage 35% Pain Assessment - Last Documented Pain Intensity 0 Pain Scale Used FLACC Intake and Output: Intake & Output 08/07/18 08/08/18 08/09/18 08/10/18 11:59 11:59 11:59 11:59 Intake Total 1685 2556 2731 360 Output Total 3030 2480 2570 Balance -1345 76 161 360 Weight 87.5 kg 83.5 kg 83.8 kg Lab Results: Accuchecks Date 08/09/18 Date 08/09/18 Time 10:58 Time 06:22 Accucheck Value: 256 Accucheck Value: 208 Accucheck Value: 78 Accucheck Value: 94 Lab Results-Last 24 Hours 08/09/18 Range/Units 04:58 Puncture Site LEFT RADIAL pCO2 65 H* (35-45) mmHg pO2 79 (75-100) mmHg Base Excess 17.2 H (-2.0-2.0) O2 Saturation 94.9 (94-100) g/dF ABG pH 7.44 (7.35-7.45) ABG HCO3 44.1 H* (22-28) ABG O2 Sat (Measured) 97.7 (95-100) % Matthias Test YES A-a Gradient 96 a/A Ratio 0.45 Hemoglobin 10.6 Carboxyhemoglobin 2.1 (0.0-6.9) % THgb Methemoglobin 0.8 L (1.4-1.5) % Potassium 4.3 (3.5-5.1) Temperature 37.0 C POC O2 Flow Rate 36 % Vent Mode BiPAP Radiology Exams: Radiology Procedures Category Date Time Status CHEST 1 VIEW (PORTABLE) DAILY Exams 08/08/18 05:00 Completed CHEST 1 VIEW (PORTABLE) DAILY Exams 08/09/18 05:00 Completed CHEST 1 VIEW (PORTABLE) DAILY Exams 08/10/18 05:00 Ordered Assessment/Plan (1) Pleural cavity effusion Current Visit: Yes Status: Acute Assessment & Plan: Last Vital Signs Temp 98 F 08/09/18 12:19 Pulse 78 08/09/18 13:31 Resp 18 08/09/18 13:31 BP 162/88 08/09/18 12:19 Pulse Ox 98 08/09/18 13:31 Allergies Sulfa (Sulfonamide Antibiotics) Allergy (Verified 06/20/17 11:33) Active Medications Acetaminophen (Feverall 650 Mg) 650 mg ME Q4H PRN PRN PRN Reason: PAIN AND/OR FEVER Stop: 09/04/18 12:59 Albuterol/Ipratropium (Duoneb 0.5-3 Mg/3 Ml Neb) 3 ml IH Q6HRT [facility]AL Stop: 09/04/18 12:59 Last Admin: 08/09/18 13:29 Dose: 3 ml Amlodipine Besylate (Norvasc 5 Mg) 2.5 mg PO DAILY [facility] Stop: 09/05/18 09:59 Last Admin: 08/09/18 08:49 Dose: 2.5 mg Aspirin (Ecotrin 81 Mg) 81 mg PO DAILY [facility] Stop: 09/05/18 09:59 Last Admin: 08/09/18 08:51 Dose: 81 mg Docusate Sodium (Colace 100 Mg) 100 mg PO BIDPRN PRN PRN Reason: CONSTIPATION Stop: 09/04/18 12:59 Duloxetine HCl (Cymbalta 30 Mg Capsule) 60 mg PO HS [facility] Stop: 09/04/18 21:59 Last Admin: 08/08/18 21:22 Dose: 60 mg Enoxaparin Sodium (Enoxaparin Sodium) 40 mg SQ DAILY [facility] Stop: 09/05/18 09:59 Last Admin: 08/09/18 08:49 Dose: 40 mg Famotidine (Pepcid 20 Mg) 20 mg PO DAILY [facility] Stop: 09/05/18 09:59 Last Admin: 08/09/18 08:51 Dose: 20 mg Fosinopril Sodium (Monopril 10 Mg) 10 mg PO DAILY [facility] Stop: 09/05/18 09:59 Last Admin: 08/09/18 08:49 Dose: 10 mg Furosemide (Lasix 40 Mg/4 Ml) 40 mg IV Q12HT [facility] Stop: 09/07/18 09:59 Last Admin: 08/09/18 08:49 Dose: 40 mg Hydralazine HCl (Apresoline 25 Mg Tablet) 25 mg PO QID [facility] Stop: 09/04/18 16:59 Last Admin: 08/09/18 12:49 Dose: 25 mg Azithromycin (Zithromax 500 Mg/ 250 Ml Nacl Premix) 500 mg in 250 mls @ 250 mls /hr IV Q24H10 [facility] Stop: 09/04/18 13:29 Last Admin: 08/09/18 09:45 Dose: 250 mls/hr Ceftriaxone Sodium/Dextrose (Rocephin 2 Gm-D5w 50ml Bag) 2 g in 50 mls @ 100 mls/hr IV Q24H10 [facility] Stop: 09/04/18 13:29 Last Admin: 08/09/18 08:49 Dose: 100 mls/hr Sodium Chloride (Sodium Chloride 0.9% 1000 Ml) 1,000 mls @ 50 mls/hr IV .Q20H [facility] Stop: 09/04/18 12:59 Last Admin: 08/09/18 00:23 Dose: 50 mls/hr Insulin Aspart (Novolog Insulin) 0 unit SQ UD PRN PRN Reason: Accuchek Stop: 09/04/18 12:59 Last Admin: 08/09/18 10:58 Dose: 4 unit Insulin Human Isoph/Insulin Regular (Novolin 70/30) 50 unit SQ BIDAC [facility] Stop: 09/04/18 21:59 Last Admin: 08/09/18 08:51 Dose: 50 unit Levothyroxine Sodium (Synthroid 100 Mcg) 100 mcg PO DAILY [facility] Stop: 09/05/18 09:59 Last Admin: 08/09/18 08:57 Dose: 100 mcg Morphine Sulfate (Morphine Sulfate 4 Mg Inj) 3 mg IV Q2H PRN PRN PRN Reason: PAIN Stop: 08/11/18 20:24 Nystatin (Nystop 30 Gm Cream) 1 gm TOP BID [facility] Stop: 09/04/18 14:59 Last Admin: 08/09/18 08:48 Dose: 1 gm Simvastatin (Zocor 10mg) 10 mg PO HS [facility] Stop: 09/04/18 21:59 Last Admin: 08/08/18 21:23 Dose: 10 mg Intake & Output 08/09/18 08/10/18 11:59 11:59 Intake Total 2731 360 Output Total 2570 Balance 161 360 Weight 83.8 kg Orders 08/10/18 04:00 CBC W DIFF AM.LAB CMP AM.LAB 08/10/18 05:00 CHEST 1 VIEW (PORTABLE) DAILY 08/10/18 10:00 PT Eval & Treat (MD Order) ROUTINE 08/11/18 04:00 CMP AM.LAB Lab Tests 08/09/18 04:58 Puncture Site LEFT RADIAL pCO2 65 H* pO2 79 Base Excess 17.2 H O2 Saturation 94.9 ABG pH 7.44 ABG HCO3 44.1 H* ABG O2 Sat (Measured) 97.7 Matthias Test YES A-a Gradient 96 a/A Ratio 0.45 Hemoglobin 10.6 Carboxyhemoglobin 2.1 Methemoglobin 0.8 L Potassium 4.3 Temperature 37.0 POC O2 Flow Rate 36 Vent Mode BiPAP Code(s): J90 - PLEURAL EFFUSION, NOT ELSEWHERE CLASSIFIED (2) CHF (congestive heart failure), NYHA class III Current Visit: Yes Status: Acute Qualifiers: Congestive heart failure type: combined Congestive heart failure chronicity : acute on chronic Qualified Code(s): I50.43 - Acute on chronic combined systolic (congestive) and diastolic (congestive) heart failure Code(s): I50.9 - HEART FAILURE, UNSPECIFIED (3) COPD exacerbation Current Visit: Yes Status: Acute Code(s): J44.1 - CHRONIC OBSTRUCTIVE PULMONARY DISEASE W (ACUTE) EXACERBATION
[2018-08-09] MEDS: Cymbalta 30 MG Capsule PO SCH (21:51)
[2018-08-09] MEDS: Zocor 10MG PO SCH (21:52)
[2018-08-10] MEDS: DUONEB 0.5-3 MG/3 ml Neb IH SCH ×3 (01:09→13:10)
[2018-08-10 05:26] LABS: BASOPHIL % 0.2 % (0.0-0.4); Basophil (Absolute #) 0.03 (0-0.4); Eosinophil % 3.8 % (0.00-5.0); Eosinophil (Absolute #) 0.51 (0-0.5); Granulocyte Absolute (ANC) 10.71 (1.4-6.9); Granulocytes % 80.1 % (36.0-66.0); Hematocrit 37.2 % (35-47); Hemoglobin 11.1 gm/dl (12.0-16.0); Lymphocyte (Absolute #) 0.97 (1.0-4.6); Lymphocytes % 7.3 % (24.0-44.0); Mean Cell Volume 84.9 fl (78-100); Mean Corpuscular Hemoglobin 25.3 pg (26-32); Mean Corpuscular Hgb Concent. 29.8 g/dl (32-36); Mean Platelet Volume 10.8 fl (6-9.5); Monocyte (Absolute #) 1.15 (0.0-1.3); Monocytes % 8.6 % (0.0-12.0); Platelet Count 237 K/mm3 (150-450); Red Blood Count 4.38 M/mm3 (4.1-5.4); Red Cell Distribution Width 14.7 % (11.5-14.0); White Blood Count 13.4 K/mm3 (4.0-10.5)
[2018-08-10 05:51] LABS: ALBUMIN 3.2 g/dL (3.5-5.0); ALKALINE PHOSPHATASE 89 U/L (38-126); ANION GAP 13.3 MEQ/L (5-15); BLOOD UREA NITROGEN 19 mg/dL (7-17); CHLORIDE 96 mmol/L (98-107); Calcium 8.6 mg/dL (8.4-10.2); Carbon Dioxide 40 mmol/L (22-30); Creatinine 1 0.88 mg/dL (0.52-1.04); Glucose 77 mg/dL (74-106); Potassium 3.9 mmol/L (3.5-5.1); SGOT/AST 25 U/L (14-36); SGPT/ALT 18 U/L (0-35); SODIUM 145 mmol/L (137-145); Total Protein 6.6 g/dL (6.3-8.2)
--- NOTE | 2018-08-10 08:40 | XRAY ---
Indication: Follow-up chest tube. Comparison: One day earlier. Portable chest demonstrates stable left chest tube without pneumothorax and minimal right base hazy infiltrate/atelectasis. Minimally increasing left base atelectasis/effusion. Remaining heart and upper lungs unremarkable.
[2018-08-10] MEDS: monoPRIL 10 MG PO SCH (09:55)
[2018-08-10] MEDS: ROCEPHIN 2 Gm-D5w 50ML BAG** 2 G/50 ML IVPB IV SCH (09:55)
[2018-08-10] MEDS: ECOTRIN 81 MG PO SCH (09:56)
[2018-08-10] MEDS: NORVASC 5 MG PO SCH (09:56)
[2018-08-10] MEDS: ENOXAPARIN SODIUM SQ SCH (09:57)
[2018-08-10] MEDS: Pepcid 20 MG PO SCH (09:57)
[2018-08-10] MEDS: Apresoline 25 MG TABLET PO SCH (09:57)
[2018-08-10] MEDS: SYNTHROID 100 MCG PO SCH (09:57)
[2018-08-10] MEDS: Lasix 40 MG/4 ML IV SCH (09:58)
[2018-08-10] MEDS: NYSTOP 30 GM CREAM TOP SCH (10:01)
--- NOTE | 2018-08-10 10:23 | ECHO ---
Transthoracic echocardiographic examination and color Doppler was done on 08/05/2018. INDICATION: Shortness of breath, history of congestive heart failure. IMPRESSION: 1) NO REGIONAL WALL MOTION ABNORMALITY. ESTIMATED GLOBAL LEFT VENTRICULAR EJECTION FRACTION OF AROUND 60%. 2) TRACE TRICUSPID REGURGITATION WITH RIGHT VENTRICULAR SYSTOLIC PRESSURE OF 61 MM OF MERCURY (?). 3) LEFT VENTRICULAR HYPERTROPHY. 4) TRACE PULMONIC INSUFFICIENCY. The left ventricle was not well visualized. Estimated global left ventricular ejection fraction around 60%. There appears to be some mild left ventricular hypertrophy. The mitral valve is seen and opens adequately. The tissue Doppler study of the lateral mitral annulus showed some early signs of left ventricular diastolic dysfunction. Left atrium is normal. The aortic valve appears to open adequately. The right side chambers are not well visualized. There is trace tricuspid regurgitation. The right ventricular systolic pressure measured 61 mm of Mercury but this needs to be re-evaluated for accuracy.
[2018-08-10] MEDS: Zithromax 500 MG/ 250 ML NaCl Premix 500 MG/250 ML IVPB IV SCH (11:25)
--- NOTE | 2018-08-10 12:38 | PCM.DS ---
Discharge Summary Date of Admission: 08/05/18 18:00 Admitting Physician: MIKAEL MEDINA Consults: Consults on Case 08/05/18 18:07 Consult Surgery ROUTINE Primary Care Provider: MIKAEL MEDINA Allergies Allergies Sulfa (Sulfonamide Antibiotics) Allergy (Verified 06/20/17 11:33) Hospital Summary - Hospital Course Hospital Course: Chief Complaint Diagnosis LARGE PLEURAL EFFUSION, CHF, COPD Allergies Allergy/AdvReac Type Severity Reaction Status Date / Time Sulfa (Sulfonamide Allergy Verified 06/20/17 11:33 Antibiotics) Vital Signs (Last 24 hours) Temp Pulse Resp BP Pulse Ox 08/10/18 12:00 19 08/10/18 08:00 98.9 F 79 19 149/67 97 08/10/18 06:36 77 22 97 08/10/18 04:20 98.3 F 78 18 154/64 97 08/10/18 01:12 74 18 98 08/10/18 00:29 98.9 F 79 18 143/57 96 08/09/18 20:15 98.5 F 92 H 18 178/80 93 L 08/09/18 19:27 72 20 98 08/09/18 16:16 98 F 87 20 164/82 96 08/09/18 16:00 20 08/09/18 13:31 78 18 98 Home Medications Medication Instructions Recorded Confirmed Last Taken Type Albuterol 2.5 mg/3 ml Neb 1 unit NEB Q4HPRN PRN 08/05/18 08/05/18 08/05/18 History [Proventil 2.5 mg/3 ml Neb] Amlodipine Besylate 2.5 mg PO DAILY 08/05/18 08/05/18 08/05/18 History Aspirin 81 mg PO DAILY 08/05/18 08/05/18 08/05/18 History Atorvastatin Calcium 10 mg PO DAILY 08/05/18 08/05/18 08/05/18 History Duloxetine HCl 30 mg [Cymbalta 60 mg PO HS 08/05/18 08/05/18 08/05/18 History 30 MG Capsule] Fosinopril Sodium 10 mg 10 mg PO DAILY 08/05/18 08/05/18 08/05/18 History [monoPRIL 10 MG] HydrALAzine HCL 25 MG TAB 25 mg PO QID 08/05/18 08/05/18 08/05/18 History [Apresoline 25 MG TABLET] Insulin NPH/Reg 70/30 [Novolin 50 unit SQ BID 08/05/18 08/05/18 08/04/18 History 70/30] Levothyroxine Sodium 100 Mcg 100 mcg PO DAILY 08/05/18 08/05/18 08/05/18 History [Synthroid 100 Mcg] Ranitidine HCl [Taladine] 150 mg PO DAILY 08/05/18 08/05/18 08/05/18 History Current Medications Generic Name Dose Route Start Last Admin Trade Name Freq PRN Reason Stop Dose Admin Acetaminophen 650 mg 08/05/18 13:00 Feverall 650 Mg NV 09/04/18 12:59 Q4H PRN PRN PAIN AND/OR FEVER Albuterol/Ipratropium 3 ml 08/05/18 13:00 08/10/18 06:33 Duoneb 0.5-3 Mg/3 Ml Neb IH 09/04/18 12:59 3 ml Q6HRT LILA Administration Amlodipine Besylate 2.5 mg 08/06/18 10:00 08/10/18 09:56 Norvasc 5 Mg PO 09/05/18 09:59 2.5 mg DAILY LILA Administration Aspirin 81 mg 08/06/18 10:00 08/10/18 09:56 Ecotrin 81 Mg PO 09/05/18 09:59 81 mg DAILY LILA Administration Docusate Sodium 100 mg 08/05/18 13:00 Colace 100 Mg PO 09/04/18 12:59 BIDPRN PRN CONSTIPATION Duloxetine HCl 60 mg 08/05/18 22:00 08/09/18 21:51 Cymbalta 30 Mg Capsule PO 09/04/18 21:59 60 mg HS LILA Administration Enoxaparin Sodium 40 mg 08/06/18 10:00 08/10/18 09:57 Enoxaparin Sodium SQ 09/05/18 09:59 40 mg DAILY ILLA Administration Famotidine 20 mg 08/06/18 10:00 08/10/18 09:57 Pepcid 20 Mg PO 09/05/18 09:59 20 mg DAILY LILA Administration Fosinopril Sodium 10 mg 08/06/18 10:00 08/10/18 09:55 Monopril 10 Mg PO 09/05/18 09:59 10 mg DAILY LILA Administration Furosemide 40 mg 08/08/18 10:00 08/10/18 09:58 Lasix 40 Mg/4 Ml IV 09/07/18 09:59 40 mg Q12HT LILA Administration Hydralazine HCl 25 mg 08/05/18 17:00 08/10/18 09:57 Apresoline 25 Mg Tablet PO 09/04/18 16:59 25 mg QID LILA Administration Azithromycin 500 mg in 250 mls @ 250 mls/hr 08/05/18 13:30 08/10/18 11:25 Zithromax 500 Mg/ 250 Ml Nacl Premix IV 09/04/18 13:29 250 mls/hr Q24H10 LILA Administration Ceftriaxone Sodium/Dextrose 2 g in 50 mls @ 100 mls/hr 08/05/18 13:30 09:55 Rocephin 2 Gm-D5w 50ml Bag IV 09/04/18 13:29 100 mls/hr Q24H10 LILA Administration Sodium Chloride 1,000 mls @ 50 mls/hr 08/05/18 13:00 08/09/18 23:31 Sodium Chloride 0.9% 1000 Ml IV 09/04/18 12:59 50 mls/hr .Q20H LILA Administration Insulin Aspart 0 unit 08/05/18 13:00 08/09/18 10:58 Novolog Insulin SQ 09/04/18 12:59 4 unit UD PRN Administration Accuchek Insulin Human Isoph/Insulin Regular 50 unit 08/05/18 22:00 08/09/18 17:08 Novolin 70/30 SQ 09/04/18 21:59 50 unit BIDAC LILA Administration Levothyroxine Sodium 100 mcg 08/06/18 10:00 08/10/18 09:57 Synthroid 100 Mcg PO 09/05/18 09:59 100 mcg DAILY LILA Administration Morphine Sulfate 3 mg 08/06/18 20:25 Morphine Sulfate 4 Mg Inj IV 08/11/18 20:24 Q2H PRN PRN PAIN Nystatin 1 gm 08/05/18 15:00 08/10/18 10:01 Nystop 30 Gm Cream TOP 09/04/18 14:59 1 gm BID LILA Administration Simvastatin 10 mg 08/05/18 22:00 08/09/18 21:52 Zocor 10mg PO 09/04/18 21:59 10 mg HS LILA Administration Discontinued Medications Generic Name Dose Route Start Last Admin Trade Name Freq PRN Reason Stop Dose Admin Cefazolin Sodium Confirm 08/06/18 18:06 Kefzol 1 Gm Administered 08/06/18 18:07 Dose 1 g .ROUTE .STK-MED ONE Dextrose Confirm 08/08/18 04:06 D50w 50 Ml Abboject Administered 08/08/18 04:07 Dose 50 ml IV .STK-MED ONE Dextrose 25 ml 08/08/18 04:05 08/08/18 04:10 D50w 50ml Vial IV 08/08/18 04:06 25 ml STAT ONE Administration Dextrose 25 ml 08/08/18 05:05 08/08/18 05:05 D50w 50ml Vial IV 08/08/18 05:06 25 ml STAT ONE Administration Dextrose 50 ml 08/08/18 06:00 08/08/18 06:07 D50w 50ml Vial IV 08/08/18 06:01 50 ml STAT ONE Administration Dextrose Confirm 08/08/18 06:03 D50w 50 Ml Abboject Administered 08/08/18 06:04 Dose 50 ml IV .STK-MED ONE Furosemide 40 mg 08/05/18 16:00 08/07/18 16:12 Lasix 40 Mg/4 Ml IV 09/04/18 15:59 40 mg Q12H LILA Administration Lidocaine HCl Confirm 08/06/18 15:04 Xylocaine 1% Hcl 20 Ml Mdv Administered 08/06/18 15:05 Dose 20 ml .ROUTE .STK-MED ONE Lidocaine/Epinephrine Confirm 08/06/18 15:04 Xylocaine 1%/Epi [id number] Mdv 20 Ml Administered 08/06/18 15:05 Dose 20 ml .ROUTE .STK-MED ONE Lorazepam 1 mg 08/06/18 10:20 Ativan 1 Mg PO 09/05/18 10:19 UD PRN CIWA SCORE Propofol 200 mg 08/06/18 16:05 Diprivan 200 Mg/20 Ml IV 08/06/18 16:06 .STK-MED ONE Intake & Output (Last 24 hours) 08/08/18 08/09/18 08/10/18 08/11/18 11:59 11:59 11:59 11:59 Intake Total 2556 2731 3325 Output Total 2480 2570 1580 Balance 76 161 1745 Weight 83.5 kg 83.8 kg Microbiology Results (Last 24 hours) 08/05/18 14:55 Blood Blood Culture Gram Stain - Final Not Reportable 08/05/18 14:55 Blood Blood Culture - Final NO GROWTH 08/05/18 14:55 Blood Blood Culture Gram Stain - Final Not Reportable 08/05/18 14:55 Blood Blood Culture - Final NO GROWTH Laboratory Results (Last 24 hours) 08/10/18 08/10/18 05:22 05:22 WBC 13.4 H RBC 4.38 Hgb 11.1 L Hct 37.2 MCV 84.9 MCH 25.3 L MCHC 29.8 L RDW 14.7 H Plt Count 237 MPV 10.8 H Gran % 80.1 H Eos # (Auto) 0.51 H Absolute Lymphs (auto) 0.97 L Absolute Monos (auto) 1.15 Lymphocytes % 7.3 L Monocytes % 8.6 Eosinophils % 3.8 Basophils % 0.2 Absolute Granulocytes 10.71 H Basophils # 0.03 Sodium 145 Potassium 3.9 Chloride 96 L Carbon Dioxide 40 H Anion Gap 13.3 BUN 19 H Creatinine 0.88 Estimated GFR > 60.0 Glucose 77 Calcium 8.6 Total Bilirubin 0.30 AST 25 ALT 18 Alkaline Phosphatase 89 Serum Total Protein 6.6 Albumin 3.2 L Orders (Last 24 hours) Category Date Time Status Miscellaneous Nursing Order ROUTINE Care 08/10/18 07:39 Active CHEST 1 VIEW (PORTABLE) DAILY Exams 08/10/18 05:00 Completed CHEST 1 VIEW (PORTABLE) Routine Exams 08/11/18 06:00 Ordered CBC W DIFF AM.LAB Lab 08/10/18 05:22 Completed CMP AM.LAB Lab 08/10/18 05:22 Completed CMP AM.LAB Lab 08/11/18 04:00 Ordered PT Eval & Treat ( Order) ROUTINE PT 08/10/18 10:00 Active Patient Care Notes (Last 24 hours) 08/10/18 10:32 Nursing Note by Kristen Sena called Dr. Montenegro to clarify orders. The chest tube should be unhooked from suction and the valve is to be in the open position. Patient will need chest xray in the morning as well Initialized on 08/10/18 10:32 - END OF NOTE 08/10/18 09:43 Nutrition Note by Chula Ortega F/u Note: 1800 ADA diet con't with 100% po intake. Labs 08/10= BUN 19, alb 3.2, glu wnl. Adm weight 87.5kg; current weight 83.8 kg.- note weight loss 3.7 kg/5 days. goals met and ongoing. Will con't to monitor and f/u prn. T.CHANA Ortega Initialized on 08/10/18 09:43 - END OF NOTE 08/10/18 07:35 Nursing Note by Anaid Galarza ROUNDED WITH DR LOVELL. DR LOVELL WANTS PT TO SEE PEDIATRIST FOR FOOT WOUND PREFERRABLY DR KENYON. WILL CALL AND MAKE PT APPT. Initialized on 08/10/18 07:35 - END OF NOTE 08/10/18 05:06 Nursing Note by Yariel Vernon Pt felt she needed to have BM, assisted to bedside commode. No BM but passed a small amount of blood. Initialized on 08/10/18 05:06 - END OF NOTE - Vitals & Intake/Output Vital Signs: Vital Signs Temperature 98.9 F 08/10/18 08:00 Pulse Rate 79 08/10/18 08:00 Respiratory Rate 08/10/18 12:00 Blood Pressure 149/67 08/10/18 08:00 O2 Sat by Pulse Oximetry 97 08/10/18 08:00 Oxygen-Last Documented O2 Percentage 4 Liters = 36% Intake & Output: Intake & Output 08/08/18 08/09/18 08/10/18 08/11/18 11:59 11:59 11:59 11:59 Intake Total 2556 2731 3325 Output Total 2480 2570 1580 Balance 76 161 1745 Weight 83.5 kg 83.8 kg - Lab Result Diagrams: 08/10/18 05:22 08/10/18 05:22 Lab Results-Last 24 Hrs: Accuchecks Date 08/10/18 Date 08/09/18 Time 07:00 Time 16:30 Accucheck Value: 77 Accucheck Value: 103 Accucheck Value: 228 Lab Results-Last 24 Hours 08/10/18 08/10/18 Range/Units 05:22 05:22 WBC 13.4 H (4.0-10.5) K/mm3 RBC 4.38 (4.1-5.4) M/mm3 Hgb 11.1 L (12.0-16.0) gm/dl Hct 37.2 (35-47) % MCV 84.9 (78-100) fl MCH 25.3 L (26-32) pg MCHC 29.8 L (32-36) g/dl RDW 14.7 H (11.5-14.0) % Plt Count 237 (150-450) K/mm3 MPV 10.8 H (6-9.5) fl Gran % 80.1 H (36.0-66.0) % Eos # (Auto) 0.51 H (0-0.5) Absolute Lymphs (auto) 0.97 L (1.0-4.6) Absolute Monos (auto) 1.15 (0.0-1.3) Lymphocytes % 7.3 L (24.0-44.0) % Monocytes % 8.6 (0.0-12.0) % Eosinophils % 3.8 (0.00-5.0) % Basophils % 0.2 (0.0-0.4) % Absolute Granulocytes 10.71 H (1.4-6.9) Basophils # 0.03 (0-0.4) Sodium 145 (137-145) mmol/L Potassium 3.9 (3.5-5.1) mmol/L Chloride 96 L (98-107) mmol/L Carbon Dioxide 40 H (22-30) mmol/L Anion Gap 13.3 (5-15) MEQ/L BUN 19 H (7-17) mg/dL Creatinine 0.88 (0.52-1.04) mg/dL Estimated GFR > 60.0 ML/MIN Glucose 77 (74-106) mg/dL Calcium 8.6 (8.4-10.2) mg/dL Total Bilirubin 0.30 (0.2-1.3) mg/dL AST 25 (14-36) U/L ALT 18 (0-35) U/L Alkaline Phosphatase 89 (38-126) U/L Serum Total Protein 6.6 (6.3-8.2) g/dL Albumin 3.2 L (3.5-5.0) g/dL Micro Results-Entire Visit: Microbiology 08/05/18 14:55 Blood Culture Gram Stain - Final Blood Not Reportable Blood Culture - Final NO GROWTH 08/05/18 14:55 Blood Culture Gram Stain - Final Blood Not Reportable Blood Culture - Final NO GROWTH 08/05/18 14:37 Urine Culture - Final Urine, Indwelling Catheter No growth. Accuchecks Date 08/10/18 Date 08/09/18 Time 07:00 Time 16:30 Accucheck Value: 77 Accucheck Value: 103 Accucheck Value: 228 - Radiology Exams Ordered Rad Exams-Entire Visit: Radiology Procedures Category Date Time Status CHEST 1 VIEW (PORTABLE) DAILY Exams 08/09/18 05:00 Completed CHEST 1 VIEW (PORTABLE) DAILY Exams 08/10/18 05:00 Completed CHEST 1 VIEW (PORTABLE) Routine Exams 08/11/18 06:00 Ordered - Procedures and Test Procedures and Tests throughout Hospitalization: Therapy Orders & Screens 08/05/18 13:00 OT Eval and Treat ( Order) ROUTINE Comment: Consulting Provider: Physician Instructions: Reason For Exam: Oxygen Nasal Cannula 3 lpm Comment: Respiratory Therapy Consult ROUTINE Comment: Reason For Exam: 08/05/18 13:22 Respiratory Therapy Assessment DAILY Comment: Diagnosis: chf, copd, hypoglycemia 08/06/18 06:44 Peak Expiratory Flow Rate ONCE Comment: Reason For Exam: Diagnosis: chf, copd, hypoglycemia 08/07/18 13:05 Flutter Therapy UD Comment: Diagnosis: LARGE PLEURAL EFFUSION, CHF, COPD 08/08/18 11:10 BiPap/CPAP STAT Comment: Diagnosis: LARGE PLEURAL EFFUSION, CHF, COPD 08/10/18 10:00 PT Eval & Treat ( Order) ROUTINE Reason for Eval:: deconditioning d/t chest tube Diagnosis: LARGE PLEURAL EFFUSION, CHF, COPD Discharge Exam General Appearance: no apparent distress, alert Neurologic Exam: alert, oriented x 3, cooperative, normal mood/affect, nml cerebellar function, sensation nml, No motor deficits Eye Exam: PERRL, EOMI, eyes nml inspection Ears, Nose, Throat Exam: normal ENT inspection, pharynx normal, moist mucous membranes Neck Exam: normal inspection, non-tender, supple, full range of motion Respiratory Exam: normal breath sounds, lungs clear, No respiratory distress Cardiovascular Exam: regular rate/rhythm, normal heart sounds Gastrointestinal/Abdomen Exam: soft, No tenderness, No mass Pelvic Exam: deferred Rectal Exam: deferred Back Exam: normal inspection, normal range of motion, No CVA tenderness, No vertebral tenderness Extremity Exam: normal inspection, normal range of motion Skin Exam: normal color, warm, dry Wound Assessment: Skin/Wound Assessment Wound/Incision Assessment Start: 08/06/18 19: 13 Text: Status: Active Freq: Q4H Protocol: Document 08/10/18 08:00 BE (Rec: 08/10/18 12:11 BE [id number]) Wound/Incision Assessment Left Chest Wound Assessment Shift Assessment Wound Type Incision Wound Stage Non Pressure Wound Dressing Status Dry & Intact Drainage Amount None Drainage Odor None/Absent General Appearance Clean/Dry Surrounding Tissue [place] Primary Dressing Gauze Pads Secondary Dressing hallie tape Comment Dressing CDI Wound Photo Photo Taken No Final Diagnosis/Problem List - Final Discharge Diagnosis/Problem (1) Pleural cavity effusion Current Visit: Yes Status: Resolved Code(s): J90 - PLEURAL EFFUSION, NOT ELSEWHERE CLASSIFIED (2) CHF (congestive heart failure), NYHA class III Current Visit: Yes Status: Acute Code(s): I50.9 - HEART FAILURE, UNSPECIFIED (3) COPD exacerbation Current Visit: Yes Status: Acute Code(s): J44.1 - CHRONIC OBSTRUCTIVE PULMONARY DISEASE W (ACUTE) EXACERBATION - Discharge Discharge Date: 08/10/18 Disposition: Swing Bed @ [facility] Condition: Stable Prescriptions: Continue Albuterol 2.5 mg/3 ml Neb [Proventil 2.5 mg/3 ml Neb] 1 unit NEB Q4HPRN PRN PRN Reason: COPD Fosinopril Sodium 10 mg [monoPRIL 10 MG] 10 mg PO DAILY Ranitidine HCl [Taladine] 150 mg PO DAILY Atorvastatin Calcium 10 mg PO DAILY Amlodipine Besylate 2.5 mg PO DAILY Duloxetine HCl 30 mg [Cymbalta 30 MG Capsule] 60 mg PO HS Aspirin 81 mg PO DAILY Levothyroxine Sodium 100 Mcg [Synthroid 100 Mcg] 100 mcg PO DAILY HydrALAzine HCL 25 MG TAB [Apresoline 25 MG TABLET] 25 mg PO QID Insulin NPH/Reg 70/30 [Novolin 70/30] 50 unit SQ BID Follow up with: MIKAEL MEDINA MD [Primary Care Provider] - 1 Week
[2018-08-10 12:42] VITALS: BP 147/67
[2018-08-10 13:17] VITALS: PULSE 79; O2SAT 97
== END 2018-08-10 13:37 | disposition swing bed (61) | DRG 187 ==
LOC: MED SURG 12:32 → OBSVTOIN 18:00 → MED SURG 20:55
PROVIDERS: ADMIT General Practice; ATTEND General Practice
PROC: 0W9B30Z Drainage of Left Pleural Cavity with Drainage Device, Percutaneous Approach (ICD-10-PCS; principal; 2018-08-06)
DX: J90 Pleural effusion, not elsewhere classified (principal); J44.1 Chronic obstructive pulmonary disease with (acute) exacerbation; J96.11 Chronic respiratory failure with hypoxia; I50.9 Heart failure, unspecified; I10 Essential (primary) hypertension; E11.65 Type 2 diabetes mellitus with hyperglycemia; Z99.81 Dependence on supplemental oxygen; Z79.899 Other long term (current) drug therapy
CPT/HCPCS: 00540; 36415; 36600; 71045; 71046; 71047; 80053; 81001; 82375; 82803; 82947; 82962; 83036; 83880; 84134; 85025; 85027; 87040; 87086; 88305; 88309; 93306; 94002; 94003; 94150; 94640; 94667; 94762; 99100; J0456; J0690; J0696; J1650; J1815; J1940; J2704; L0625; A9270-GY

== ENCOUNTER 2018-08-10 13:38 | Inpatient (IN) | payer MEDICARE ==
[2018-08-10] MEDS ORDERED: Aplisol ID ONE (13:40)
[2018-08-10] MEDS ORDERED: FEVERALL 650 MG PR PRN (13:40)
[2018-08-10] MEDS ORDERED: MORPHINE SULFATE 4 MG INJ IV PRN (13:40)
[2018-08-10] MEDS: Novolin 70/30 SQ SCH (17:21)
[2018-08-10] MEDS: Apresoline 25 MG TABLET PO SCH ×2 (17:21→21:57)
[2018-08-10] MEDS: DUONEB 0.5-3 MG/3 ml Neb IH SCH (19:02)
[2018-08-10] MEDS: Sodium Chloride 0.9% 1000 ML 1,000 ML IV SCH (19:52)
[2018-08-10] MEDS: Zocor 10MG PO SCH (21:57)
[2018-08-10] MEDS: Lasix 40 MG/4 ML IV SCH (21:57)
[2018-08-10] MEDS: Cymbalta 30 MG Capsule PO SCH (21:57)
[2018-08-10] MEDS: NYSTOP 30 GM CREAM TOP SCH (21:58)
[2018-08-10] MEDS: NovoLOG Insulin SQ PRN (22:19)
[2018-08-11] MEDS: DUONEB 0.5-3 MG/3 ml Neb IH SCH ×3 (01:09→19:47)
[2018-08-11 06:17] LABS: ALBUMIN 2.9 g/dL (3.5-5.0); ALKALINE PHOSPHATASE 77 U/L (38-126); BLOOD UREA NITROGEN 16 mg/dL (7-17); CHLORIDE 96 mmol/L (98-107); Calcium 8.4 mg/dL (8.4-10.2); Creatinine 1 0.77 mg/dL (0.52-1.04); Potassium 3.5 mmol/L (3.5-5.1); SGOT/AST 34 U/L (14-36); SGPT/ALT 25 U/L (0-35); SODIUM 143 mmol/L (137-145)
[2018-08-11 06:25] LABS: Carbon Dioxide 42 mmol/L (22-30); Glucose 42 mg/dL (74-106)
[2018-08-11 06:26] LABS: ANION GAP 4.5 MEQ/L (5-15)
[2018-08-11] MEDS ORDERED: D50W 50 ml Abboject IV ONE (06:26)
[2018-08-11] MEDS: Novolin 70/30 SQ SCH ×2 (07:55→17:18)
--- NOTE | 2018-08-11 08:50 | XRAY ---
Indication: Follow-up chest tube. Comparison: One day earlier. Portable chest unchanged again with left chest tube, left base atelectasis/effusion, and hazy right base opacity. Heart is not enlarged for AP portable technique. No new cardiopulmonary abnormalities.
[2018-08-11] MEDS: monoPRIL 10 MG PO SCH (11:06)
[2018-08-11] MEDS: ECOTRIN 81 MG PO SCH (11:06)
[2018-08-11] MEDS: SYNTHROID 100 MCG PO SCH (11:06)
[2018-08-11] MEDS: NORVASC 5 MG PO SCH (11:07)
[2018-08-11] MEDS: Apresoline 25 MG TABLET PO SCH ×4 (11:07→22:54)
[2018-08-11] MEDS: Pepcid 20 MG PO SCH (11:08)
[2018-08-11] MEDS: NYSTOP 30 GM CREAM TOP SCH ×2 (11:08→23:05)
[2018-08-11] MEDS: Lasix 40 MG/4 ML IV SCH ×2 (11:08→22:55)
[2018-08-11] MEDS: ROCEPHIN 2 Gm-D5w 50ML BAG** 2 G/50 ML IVPB IV SCH (11:09)
[2018-08-11] MEDS: ENOXAPARIN SODIUM SQ SCH (11:11)
--- NOTE | 2018-08-11 12:00 | PCM.NOTE ---
Date and Time: 08/11/18 1159 Subjective Assessment: doing ok - Review of Systems Constitutional: No Fever, No Chills Eyes: No Symptoms Ears, Nose, & Throat: No Symptoms Respiratory: No Cough, No Short Of Breath Cardiac: No Chest Pain, No Edema, No Syncope Abdominal/Gastrointestinal: No Abdominal Pain, No Nausea, No Vomiting, No Diarrhea Genitourinary Symptoms: No Dysuria Musculoskeletal: No Back Pain, No Neck Pain Skin: No Rash Neurological: No Dizziness, No Focal Weakness, No Sensory Changes Psychological: No Symptoms Endocrine: No Symptoms Hematologic/Lymphatic: No Symptoms Immunological/Allergic: No Symptoms Objective Exam General Appearance: no apparent distress, alert Neurologic Exam: alert, oriented x 3, cooperative, normal mood/affect, nml cerebellar function, sensation nml, No motor deficits Skin Exam: normal color, warm, dry Eye Exam: PERRL, EOMI, eyes nml inspection Ears, Nose, Throat Exam: normal ENT inspection, pharynx normal, moist mucous membranes Neck Exam: normal inspection, non-tender, supple, full range of motion Respiratory Exam: diminished breath sounds, crackles/rales, rhonchi, No respiratory distress Cardiovascular Exam: regular rate/rhythm, normal heart sounds Gastrointestinal/Abdomen Exam: soft, No tenderness, No mass Extremity Exam: normal inspection, normal range of motion Back Exam: normal inspection, normal range of motion, No CVA tenderness, No vertebral tenderness Pelvic Exam: deferred Rectal Exam: deferred OBJECTIVE DATA Vital Signs: Vital Signs - 24 hr Temp Pulse Resp BP Pulse Ox 08/11/18 07:48 72 18 98 08/11/18 07:21 98.1 F 86 20 146/80 96 08/11/18 01:12 70 22 98 08/10/18 20:00 99 F 74 24 139/60 98 08/10/18 19:06 72 18 98 08/10/18 13:51 98.2 F 86 19 147/67 95 08/10/18 13:40 97 Oxygen-Last 24 hours O2 Percentage 4 Liters = 36% O2 Percentage 4 Liters = 36% Oxygen Flowrate (L/min)-RT 4 Pain Assessment - Last Documented Pain Intensity 0 Pain Scale Used 0-10 Pain Scale Intake and Output: Intake & Output 08/08/18 08/09/18 08/10/18 08/11/18 11:59 11:59 11:59 11:59 Intake Total 2261 Output Total 725 2200 Balance -725 61 Weight 86.1 kg Lab Results: Accuchecks Date 08/10/18 Date 08/10/18 Time 03:15 Time 16:30 Accucheck Value: 137 Accucheck Value: 361 Lab Results-Last 24 Hours 08/11/18 Range/Units 05:30 Sodium 143 (137-145) mmol/L Potassium 3.5 (3.5-5.1) mmol/L Chloride 96 L (98-107) mmol/L Carbon Dioxide 42 H (22-30) mmol/L Anion Gap 4.5 L (5-15) MEQ/L BUN 16 (7-17) mg/dL Creatinine 0.77 (0.52-1.04) mg/dL Estimated GFR > 60.0 ML/MIN Glucose 42 L* (74-106) mg/dL Calcium 8.4 (8.4-10.2) mg/dL Total Bilirubin 0.20 (0.2-1.3) mg/dL AST 34 (14-36) U/L ALT 25 (0-35) U/L Alkaline Phosphatase 77 (38-126) U/L Serum Total Protein 6.0 L (6.3-8.2) g/dL Albumin 2.9 L (3.5-5.0) g/dL Radiology Exams: Radiology Procedures Category Date Time Status CHEST 1 VIEW (PORTABLE) Routine Exams 08/11/18 06:00 Completed Assessment/Plan (1) CHF (congestive heart failure), NYHA class III Current Visit: Yes Status: Acute Qualifiers: Congestive heart failure type: combined Congestive heart failure chronicity : acute on chronic Qualified Code(s): I50.43 - Acute on chronic combined systolic (congestive) and diastolic (congestive) heart failure Code(s): I50.9 - HEART FAILURE, UNSPECIFIED (2) COPD exacerbation Current Visit: Yes Status: Resolved Code(s): J44.1 - CHRONIC OBSTRUCTIVE PULMONARY DISEASE W (ACUTE) EXACERBATION (3) Type 2 diabetes mellitus Current Visit: No Status: Chronic Qualifiers:
[2018-08-11] MEDS: NovoLOG Insulin SQ PRN ×2 (12:02→17:19)
[2018-08-11] MEDS: Zithromax 500 MG/ 250 ML NaCl Premix 500 MG/250 ML IVPB IV SCH (12:02)
[2018-08-11] MEDS: Sodium Chloride 0.9% 1000 ML 1,000 ML IV SCH (22:30)
[2018-08-11] MEDS: Cymbalta 30 MG Capsule PO SCH (22:54)
[2018-08-11] MEDS: BACIGUENT 30 GM TP SCH (22:54)
[2018-08-11] MEDS: Zocor 10MG PO SCH (22:54)
[2018-08-12] MEDS: DUONEB 0.5-3 MG/3 ml Neb IH SCH ×4 (01:55→19:37)
--- NOTE | 2018-08-12 08:56 | XRAY ---
Indication: Follow-up chest tube. Comparison: One day earlier. Portable chest demonstrates interval advancement of left chest tube with tip projecting medial apex again without pneumothorax. Continued waxing and waning of left base effusion/atelectasis. Worsening diffuse right lung and new left lung hazy airspace opacity with small right effusion. Heart is not enlarged.
[2018-08-12] MEDS: monoPRIL 10 MG PO SCH (09:02)
[2018-08-12] MEDS: NORVASC 5 MG PO SCH (09:02)
[2018-08-12] MEDS: Pepcid 20 MG PO SCH (09:02)
[2018-08-12] MEDS: Apresoline 25 MG TABLET PO SCH ×4 (09:02→21:46)
[2018-08-12] MEDS: ECOTRIN 81 MG PO SCH (09:02)
[2018-08-12] MEDS: ROCEPHIN 2 Gm-D5w 50ML BAG** 2 G/50 ML IVPB IV SCH (09:04)
[2018-08-12] MEDS: Lasix 40 MG/4 ML IV SCH ×2 (09:04→21:46)
[2018-08-12] MEDS: ENOXAPARIN SODIUM SQ SCH (09:08)
[2018-08-12] MEDS: Zithromax 500 MG/ 250 ML NaCl Premix 500 MG/250 ML IVPB IV SCH (09:09)
[2018-08-12] MEDS: Novolin 70/30 SQ SCH ×2 (09:09→17:41)
[2018-08-12] MEDS: BACIGUENT 30 GM TP SCH (09:10)
[2018-08-12] MEDS: NYSTOP 30 GM CREAM TOP SCH ×2 (09:11→21:50)
[2018-08-12] MEDS: SYNTHROID 100 MCG PO SCH (09:18)
[2018-08-12] MEDS ORDERED: DUONEB 0.5-3 MG/3 ml Neb IH ONE (10:34)
--- NOTE | 2018-08-12 12:56 | PCM.NOTE ---
Date and Time: 08/12/18 1256 Subjective Assessment: doing ok - Review of Systems Constitutional: No Fever, No Chills Eyes: No Symptoms Ears, Nose, & Throat: No Symptoms Respiratory: No Cough, No Short Of Breath Cardiac: No Chest Pain, No Edema, No Syncope Abdominal/Gastrointestinal: No Abdominal Pain, No Nausea, No Vomiting, No Diarrhea Genitourinary Symptoms: No Dysuria Musculoskeletal: No Back Pain, No Neck Pain Skin: No Rash Neurological: No Dizziness, No Focal Weakness, No Sensory Changes Psychological: No Symptoms Endocrine: No Symptoms Hematologic/Lymphatic: No Symptoms Immunological/Allergic: No Symptoms Objective Exam General Appearance: no apparent distress, alert Neurologic Exam: alert, oriented x 3, cooperative, normal mood/affect, nml cerebellar function, sensation nml, No motor deficits Skin Exam: normal color, warm, dry Eye Exam: PERRL, EOMI, eyes nml inspection Ears, Nose, Throat Exam: normal ENT inspection, pharynx normal, moist mucous membranes Neck Exam: normal inspection, non-tender, supple, full range of motion Respiratory Exam: normal breath sounds, lungs clear, No respiratory distress Cardiovascular Exam: regular rate/rhythm, normal heart sounds Gastrointestinal/Abdomen Exam: soft, No tenderness, No mass Extremity Exam: normal inspection, normal range of motion Back Exam: normal inspection, normal range of motion, No CVA tenderness, No vertebral tenderness Pelvic Exam: deferred Rectal Exam: deferred OBJECTIVE DATA Vital Signs: Vital Signs - 24 hr Temp Pulse Resp BP Pulse Ox 08/12/18 08:00 98.1 F 75 20 149/64 98 08/12/18 07:20 72 22 98 08/12/18 01:55 73 20 98 08/11/18 20:00 98.7 F 83 20 138/63 100 08/11/18 19:50 70 18 98 Oxygen-Last 24 hours O2 Percentage 4 Liters = 36% O2 Percentage 4 Liters = 36% Pain Assessment - Last Documented Pain Intensity 0 Pain Scale Used 0-10 Pain Scale Intake and Output: Intake & Output 08/10/18 08/11/18 08/12/18 08/13/18 11:59 11:59 11:59 11:59 Intake Total 9988 3827 Output Total 902 1610 6885 Balance -725 61 -478 Weight 86.1 kg 88.3 kg Lab Results: Accuchecks Date 08/12/18 Date 08/12/18 Date 08/11/18 Time 11:30 Time 07:30 Time 16:15 Accucheck Value: 151 Accucheck Value: 121 Accucheck Value: 311 Accucheck Value: 227 Radiology Exams: Radiology Procedures Category Date Time Status CHEST 1 VIEW (PORTABLE) Routine Exams 08/11/18 06:00 Completed CHEST 1 VIEW (PORTABLE) Routine Exams 08/12/18 06:00 Completed Assessment/Plan (1) CHF (congestive heart failure), NYHA class III Current Visit: Yes Status: Acute Qualifiers: Congestive heart failure type: combined Congestive heart failure chronicity : acute on chronic Qualified Code(s): I50.43 - Acute on chronic combined systolic (congestive) and diastolic (congestive) heart failure Code(s): I50.9 - HEART FAILURE, UNSPECIFIED (2) COPD exacerbation Current Visit: Yes Status: Resolved Code(s): J44.1 - CHRONIC OBSTRUCTIVE PULMONARY DISEASE W (ACUTE) EXACERBATION (3) Type 2 diabetes mellitus Current Visit: No Status: Chronic Qualifiers:
[2018-08-12] MEDS: Sodium Chloride 0.9% 1000 ML 1,000 ML IV SCH (21:13)
[2018-08-12] MEDS: Cymbalta 30 MG Capsule PO SCH (21:46)
[2018-08-12] MEDS: Zocor 10MG PO SCH (21:46)
[2018-08-13] MEDS: DUONEB 0.5-3 MG/3 ml Neb IH SCH ×4 (01:31→19:50)
[2018-08-13] MEDS: ENOXAPARIN SODIUM SQ SCH (08:09)
[2018-08-13] MEDS: Novolin 70/30 SQ SCH ×2 (08:10→16:40)
[2018-08-13] MEDS: BACIGUENT 30 GM TP SCH ×2 (08:11→09:59)
[2018-08-13] MEDS: NYSTOP 30 GM CREAM TOP SCH ×2 (08:11→21:33)
[2018-08-13] MEDS: ROCEPHIN 2 Gm-D5w 50ML BAG** 2 G/50 ML IVPB IV SCH (08:12)
[2018-08-13] MEDS: NORVASC 5 MG PO SCH (09:25)
[2018-08-13] MEDS: SYNTHROID 100 MCG PO SCH (09:25)
[2018-08-13] MEDS: Apresoline 25 MG TABLET PO SCH ×4 (09:25→21:25)
[2018-08-13] MEDS: Pepcid 20 MG PO SCH (09:25)
[2018-08-13] MEDS: ECOTRIN 81 MG PO SCH (09:25)
[2018-08-13] MEDS: Lasix 40 MG/4 ML IV SCH ×2 (09:26→21:26)
[2018-08-13] MEDS: Zithromax 500 MG/ 250 ML NaCl Premix 500 MG/250 ML IVPB IV SCH (09:26)
[2018-08-13] MEDS: Colace 100 MG PO PRN (09:31)
[2018-08-13] MEDS: monoPRIL 10 MG PO SCH (09:42)
--- NOTE | 2018-08-13 12:19 | PCM.NOTE ---
Date and Time: 08/13/18 1218 Subjective Assessment: doing ok - Review of Systems Constitutional: No Fever, No Chills Eyes: No Symptoms Ears, Nose, & Throat: No Symptoms Respiratory: No Cough, No Short Of Breath Cardiac: No Chest Pain, No Edema, No Syncope Abdominal/Gastrointestinal: No Abdominal Pain, No Nausea, No Vomiting, No Diarrhea Genitourinary Symptoms: No Dysuria Musculoskeletal: No Back Pain, No Neck Pain Skin: No Rash Neurological: No Dizziness, No Focal Weakness, No Sensory Changes Psychological: No Symptoms Endocrine: No Symptoms Hematologic/Lymphatic: No Symptoms Immunological/Allergic: No Symptoms Objective Exam General Appearance: no apparent distress, alert Neurologic Exam: alert, oriented x 3, cooperative, normal mood/affect, nml cerebellar function, sensation nml, No motor deficits Skin Exam: normal color, warm, dry Eye Exam: PERRL, EOMI, eyes nml inspection Ears, Nose, Throat Exam: normal ENT inspection, pharynx normal, moist mucous membranes Neck Exam: normal inspection, non-tender, supple, full range of motion Respiratory Exam: normal breath sounds, lungs clear, No respiratory distress Cardiovascular Exam: regular rate/rhythm, normal heart sounds Gastrointestinal/Abdomen Exam: soft, No tenderness, No mass Extremity Exam: normal inspection, normal range of motion Back Exam: normal inspection, normal range of motion, No CVA tenderness, No vertebral tenderness Pelvic Exam: deferred Rectal Exam: deferred OBJECTIVE DATA Vital Signs: Vital Signs - 24 hr Temp Pulse Resp BP Pulse Ox 08/13/18 07:31 98.1 F 78 20 157/72 96 08/13/18 06:37 76 22 97 08/13/18 01:31 69 20 98 08/12/18 19:38 98.1 F 70 18 132/58 96 08/12/18 13:17 72 24 96 Oxygen-Last 24 hours O2 Percentage 4 Liters = 36% O2 Percentage 4 Liters = 36% Pain Assessment - Last Documented Pain Intensity 0 Pain Scale Used 0-10 Pain Scale Intake and Output: Intake & Output 08/11/18 08/12/18 08/13/18 08/14/18 11:59 11:59 11:59 11:59 Intake Total 2261 6527 6018 Output Total 2207 7955 9130 Balance 67 -645 -774 Weight 86.1 kg 88.3 kg 88.4 kg Lab Results: Accuchecks Date 08/13/18 Date 08/13/18 Date 08/12/18 Time 11:22 Time 07:30 Time 16:30 Accucheck Value: 195 Accucheck Value: 100 Accucheck Value: 157 Accucheck Value: 194 Radiology Exams: Radiology Procedures Category Date Time Status CHEST 1 VIEW (PORTABLE) Routine Exams 08/12/18 06:00 Completed Assessment/Plan (1) CHF (congestive heart failure), NYHA class III Current Visit: Yes Status: Resolved Qualifiers: Congestive heart failure type: combined Congestive heart failure chronicity : acute on chronic Qualified Code(s): I50.43 - Acute on chronic combined systolic (congestive) and diastolic (congestive) heart failure Code(s): I50.9 - HEART FAILURE, UNSPECIFIED (2) COPD exacerbation Current Visit: Yes Status: Resolved Code(s): J44.1 - CHRONIC OBSTRUCTIVE PULMONARY DISEASE W (ACUTE) EXACERBATION (3) Type 2 diabetes mellitus Current Visit: No Status: Chronic Qualifiers:
[2018-08-13] MEDS: NovoLOG Insulin SQ PRN (16:40)
[2018-08-13] MEDS: Zocor 10MG PO SCH (21:26)
[2018-08-13] MEDS: Cymbalta 30 MG Capsule PO SCH (21:26)
[2018-08-14] MEDS: DUONEB 0.5-3 MG/3 ml Neb IH SCH ×4 (01:54→18:48)
[2018-08-14] MEDS: Novolin 70/30 SQ SCH ×2 (08:05→16:16)
[2018-08-14] MEDS: ROCEPHIN 2 Gm-D5w 50ML BAG** 2 G/50 ML IVPB IV SCH (09:35)
[2018-08-14] MEDS: monoPRIL 10 MG PO SCH (09:41)
[2018-08-14] MEDS: SYNTHROID 100 MCG PO SCH (09:41)
[2018-08-14] MEDS: ENOXAPARIN SODIUM SQ SCH (09:41)
[2018-08-14] MEDS: ECOTRIN 81 MG PO SCH (09:41)
[2018-08-14] MEDS: NORVASC 5 MG PO SCH (09:41)
--- NOTE | 2018-08-14 09:41 | XRAY ---
Indication: Increasing short of breath. Left chest tube. Comparison: August 12, 2018. Portable chest demonstrates left chest tube slightly withdrawn with tip now adjacent to the aortic knob again without pneumothorax. Interval mild clearing of left base effusion/atelectasis with stable diffuse bilateral hazy interstitial opacities and tiny right effusion. Heart is not enlarged. No new cardiopulmonary abnormalities. Comment: Preliminary interpretation was made by [facility]. No discrepancy.
[2018-08-14] MEDS: Apresoline 25 MG TABLET PO SCH ×4 (09:43→21:08)
[2018-08-14] MEDS: Pepcid 20 MG PO SCH (09:46)
[2018-08-14] MEDS: Lasix 40 MG/4 ML IV SCH ×2 (09:46→21:08)
[2018-08-14] MEDS: BACIGUENT 30 GM TP SCH (09:47)
[2018-08-14] MEDS: NYSTOP 30 GM CREAM TOP SCH (10:12)
[2018-08-14] MEDS: Zithromax 500 MG/ 250 ML NaCl Premix 500 MG/250 ML IVPB IV SCH (10:44)
[2018-08-14] MEDS: Cymbalta 30 MG Capsule PO SCH (21:08)
[2018-08-14] MEDS: Zocor 10MG PO SCH (21:09)
[2018-08-14] MEDS: Sodium Chloride 0.9% 10 ML FLUSH Syringe IV SCH (21:11)
[2018-08-15] MEDS: NYSTOP 30 GM CREAM TOP SCH ×3 (00:29→23:45)
[2018-08-15] MEDS: DUONEB 0.5-3 MG/3 ml Neb IH SCH ×4 (00:32→19:03)
[2018-08-15] MEDS: Novolin 70/30 SQ SCH ×2 (08:00→16:29)
[2018-08-15] MEDS: ENOXAPARIN SODIUM SQ SCH (10:12)
[2018-08-15] MEDS: ROCEPHIN 2 Gm-D5w 50ML BAG** 2 G/50 ML IVPB IV SCH (10:12)
[2018-08-15] MEDS: Lasix 40 MG/4 ML IV SCH ×2 (10:13→22:02)
[2018-08-15] MEDS: Pepcid 20 MG PO SCH (10:14)
[2018-08-15] MEDS: monoPRIL 10 MG PO SCH (10:14)
[2018-08-15] MEDS: OCEAN Nasal Spray NS PRN ×2 (10:14→19:50)
[2018-08-15] MEDS: Apresoline 25 MG TABLET PO SCH ×4 (10:14→22:01)
[2018-08-15] MEDS: NORVASC 5 MG PO SCH (10:15)
[2018-08-15] MEDS: SYNTHROID 100 MCG PO SCH (10:16)
[2018-08-15] MEDS: ECOTRIN 81 MG PO SCH (10:16)
[2018-08-15] MEDS: Zithromax 500 MG/ 250 ML NaCl Premix 500 MG/250 ML IVPB IV SCH (10:21)
[2018-08-15] MEDS: BACIGUENT 30 GM TP SCH (10:52)
[2018-08-15] MEDS: NovoLOG Insulin SQ PRN (11:44)
--- NOTE | 2018-08-15 15:13 | XRAY ---
Indication: Left chest tube. Comparison: One day earlier. Portable chest again demonstrates left chest tube without pneumothorax, small left effusion/atelectasis, bilateral hazy residual opacities, and tiny right effusion grossly unchanged. Heart is not enlarged for AP portable technique. No new cardiopulmonary abnormalities. Comment: Preliminary interpretation was made by [facility]. No critical discrepancy.
[2018-08-15] MEDS: Sodium Chloride 0.9% 10 ML FLUSH Syringe IV SCH ×3 (16:28→22:04)
[2018-08-15] MEDS: Cymbalta 30 MG Capsule PO SCH (22:02)
[2018-08-15] MEDS: Zocor 10MG PO SCH (22:04)
[2018-08-16] MEDS: DUONEB 0.5-3 MG/3 ml Neb IH SCH ×4 (01:49→19:06)
[2018-08-16] MEDS: OCEAN Nasal Spray NS PRN ×2 (03:57→21:14)
[2018-08-16] MEDS: Sodium Chloride 0.9% 10 ML FLUSH Syringe IV SCH ×3 (06:52→21:11)
--- NOTE | 2018-08-16 08:45 | PCM.NOTE ---
Date and Time: 08/16/18 0844 Subjective Assessment: doing better - Review of Systems Constitutional: No Fever, No Chills Eyes: No Symptoms Ears, Nose, & Throat: No Symptoms Respiratory: No Cough, No Short Of Breath Cardiac: No Chest Pain, No Edema, No Syncope Abdominal/Gastrointestinal: No Abdominal Pain, No Nausea, No Vomiting, No Diarrhea Genitourinary Symptoms: No Dysuria Musculoskeletal: No Back Pain, No Neck Pain Skin: No Rash Neurological: No Dizziness, No Focal Weakness, No Sensory Changes Psychological: No Symptoms Endocrine: No Symptoms Hematologic/Lymphatic: No Symptoms Immunological/Allergic: No Symptoms Objective Exam General Appearance: no apparent distress, alert Neurologic Exam: alert, oriented x 3, cooperative, normal mood/affect, nml cerebellar function, sensation nml, No motor deficits Skin Exam: normal color, warm, dry Eye Exam: PERRL, EOMI, eyes nml inspection Ears, Nose, Throat Exam: normal ENT inspection, pharynx normal, moist mucous membranes Neck Exam: normal inspection, non-tender, supple, full range of motion Respiratory Exam: normal breath sounds, lungs clear, No respiratory distress Cardiovascular Exam: regular rate/rhythm, normal heart sounds Gastrointestinal/Abdomen Exam: soft, No tenderness, No mass Extremity Exam: normal inspection, normal range of motion Back Exam: normal inspection, normal range of motion, No CVA tenderness, No vertebral tenderness Pelvic Exam: deferred Rectal Exam: deferred OBJECTIVE DATA Vital Signs: Vital Signs - 24 hr Temp Pulse Resp BP Pulse Ox 08/16/18 07:43 97.5 F 71 18 158/67 100 08/16/18 06:49 76 20 99 08/16/18 01:52 76 18 98 08/15/18 20:02 98.3 F 65 18 147/64 100 08/15/18 19:07 71 18 98 08/15/18 13:00 76 20 99 Oxygen-Last 24 hours O2 Percentage 4 Liters = 36% O2 Percentage 4 Liters = 36% Pain Assessment - Last Documented Pain Intensity 0 Pain Scale Used [facility] Intake and Output: Intake & Output 08/13/18 08/14/18 08/15/18 08/16/18 11:59 11:59 11:59 11:59 Intake Total 1748 1100 1000 640 Output Total 2720 2805 1800 1260 Balance -972 -1705 -800 -620 Weight 88.4 kg 87 kg 83.7 kg Lab Results: Accuchecks Date 08/15/18 Date 08/15/18 Date 08/15/18 Time 21:30 Time 11:30 Time 11:30 Accucheck Value: 181 Accucheck Value: 218 Accucheck Value: 214 Radiology Exams: Radiology Procedures Category Date Time Status Portable Chest [CHEST 1 VIEW (PORTABLE)] DAILY Exams 08/15/18 07:00 Completed Portable Chest [CHEST 1 VIEW (PORTABLE)] DAILY Exams 08/16/18 07:00 Taken Assessment/Plan (1) CHF (congestive heart failure), NYHA class III Current Visit: Yes Status: Resolved Qualifiers: Congestive heart failure type: combined Congestive heart failure chronicity : acute on chronic Qualified Code(s): I50.43 - Acute on chronic combined systolic (congestive) and diastolic (congestive) heart failure Code(s): I50.9 - HEART FAILURE, UNSPECIFIED (2) COPD exacerbation Current Visit: Yes Status: Resolved Code(s): J44.1 - CHRONIC OBSTRUCTIVE PULMONARY DISEASE W (ACUTE) EXACERBATION (3) Type 2 diabetes mellitus Current Visit: No Status: Chronic Qualifiers:
[2018-08-16] MEDS: NYSTOP 30 GM CREAM TOP SCH (08:54)
[2018-08-16] MEDS: NovoLOG Insulin SQ PRN ×2 (08:55→12:08)
[2018-08-16] MEDS: Novolin 70/30 SQ SCH ×2 (08:55→17:37)
--- NOTE | 2018-08-16 08:59 | XRAY ---
Indication: Follow-up left chest tube. Comparison: One day earlier. Portable chest unchanged again demonstrating left chest tube without pneumothorax, left base effusion/atelectasis, bilateral hazy interstitial opacities, and tiny right effusion. Heart is not enlarged. No new cardiopulmonary abnormalities.
[2018-08-16] MEDS: ENOXAPARIN SODIUM SQ SCH (09:04)
[2018-08-16] MEDS: Lasix 40 MG/4 ML IV SCH ×2 (09:04→21:11)
[2018-08-16] MEDS: ROCEPHIN 2 Gm-D5w 50ML BAG** 2 G/50 ML IVPB IV SCH (09:04)
[2018-08-16] MEDS: monoPRIL 10 MG PO SCH (09:10)
[2018-08-16] MEDS: NORVASC 5 MG PO SCH (09:10)
[2018-08-16] MEDS: SYNTHROID 100 MCG PO SCH (09:11)
[2018-08-16] MEDS: Pepcid 20 MG PO SCH (09:11)
[2018-08-16] MEDS: ECOTRIN 81 MG PO SCH (09:11)
[2018-08-16] MEDS: Apresoline 25 MG TABLET PO SCH ×4 (09:11→21:09)
[2018-08-16] MEDS: Zithromax 500 MG/ 250 ML NaCl Premix 500 MG/250 ML IVPB IV SCH (09:41)
[2018-08-16] MEDS: BACIGUENT 30 GM TP SCH (12:08)
[2018-08-16] MEDS: Cymbalta 30 MG Capsule PO SCH (21:09)
[2018-08-16] MEDS: Zocor 10MG PO SCH (21:11)
[2018-08-17] MEDS ORDERED: NYSTOP 30 GM CREAM TOP PRN (00:06)
[2018-08-17] MEDS: NYSTOP 30 GM CREAM TOP SCH (00:08)
[2018-08-17] MEDS: DUONEB 0.5-3 MG/3 ml Neb IH SCH ×4 (01:35→18:57)
[2018-08-17] MEDS: Sodium Chloride 0.9% 10 ML FLUSH Syringe IV SCH ×3 (06:29→22:13)
[2018-08-17] MEDS: Novolin 70/30 SQ SCH ×2 (08:33→16:57)
[2018-08-17] MEDS: SYNTHROID 100 MCG PO SCH (10:09)
[2018-08-17] MEDS: Pepcid 20 MG PO SCH (10:09)
[2018-08-17] MEDS: ENOXAPARIN SODIUM SQ SCH (10:09)
[2018-08-17] MEDS: ECOTRIN 81 MG PO SCH (10:09)
[2018-08-17] MEDS: Lasix 40 MG/4 ML IV SCH ×2 (10:09→22:12)
[2018-08-17] MEDS: Apresoline 25 MG TABLET PO SCH ×4 (10:09→22:12)
[2018-08-17] MEDS: monoPRIL 10 MG PO SCH (10:09)
[2018-08-17] MEDS: NORVASC 5 MG PO SCH (10:09)
[2018-08-17] MEDS: BACIGUENT 30 GM TP SCH (10:10)
[2018-08-17] MEDS: ROCEPHIN 2 Gm-D5w 50ML BAG** 2 G/50 ML IVPB IV SCH (10:11)
[2018-08-17] MEDS: Colace 100 MG PO PRN (10:21)
[2018-08-17] MEDS: Zithromax 500 MG/ 250 ML NaCl Premix 500 MG/250 ML IVPB IV SCH (11:01)
--- NOTE | 2018-08-17 11:08 | PROG NOTE ---
DATE: 08/13/2018 SUBJECTIVE: The patient is breathing quite well. Her chest tube is still putting out about 500 cc per 24 hours of serous fluid. She denies any significant pain. PHYSICAL EXAMINATION: GENERAL: No acute distress. On oxygen. CHEST: Chest tube in place with serosanguinous fluid on the left. No air leak. ASSESSMENT: Left pleural effusion. PLAN: Continue chest tube due to high output. The patient may benefit from more aggressive diuresis if medically possible, will keep chest tube for now. If after several more days still putting out significantly, we may just have to try and remove it and she may need a more snf tube down the road.
--- NOTE | 2018-08-17 11:43 | PCM.NOTE ---
Date and Time: 08/17/18 1142 Subjective Assessment: doing ok - Review of Systems Constitutional: No Fever, No Chills Eyes: No Symptoms Ears, Nose, & Throat: No Symptoms Respiratory: No Cough, No Short Of Breath Cardiac: No Chest Pain, No Edema, No Syncope Abdominal/Gastrointestinal: No Abdominal Pain, No Nausea, No Vomiting, No Diarrhea Genitourinary Symptoms: No Dysuria Musculoskeletal: No Back Pain, No Neck Pain Skin: No Rash Neurological: No Dizziness, No Focal Weakness, No Sensory Changes Psychological: No Symptoms Endocrine: No Symptoms Hematologic/Lymphatic: No Symptoms Immunological/Allergic: No Symptoms Objective Exam General Appearance: no apparent distress, alert Neurologic Exam: alert, oriented x 3, cooperative, normal mood/affect, nml cerebellar function, sensation nml, No motor deficits Skin Exam: normal color, warm, dry Eye Exam: PERRL, EOMI, eyes nml inspection Ears, Nose, Throat Exam: normal ENT inspection, pharynx normal, moist mucous membranes Neck Exam: normal inspection, non-tender, supple, full range of motion Respiratory Exam: normal breath sounds, lungs clear, No respiratory distress Cardiovascular Exam: regular rate/rhythm, normal heart sounds Gastrointestinal/Abdomen Exam: soft, No tenderness, No mass Extremity Exam: normal inspection, normal range of motion Back Exam: normal inspection, normal range of motion, No CVA tenderness, No vertebral tenderness Pelvic Exam: deferred Rectal Exam: deferred OBJECTIVE DATA Vital Signs: Vital Signs - 24 hr Temp Pulse Resp BP Pulse Ox 08/17/18 07:29 98.4 F 74 18 128/60 99 08/17/18 06:53 81 22 94 L 08/17/18 01:37 69 20 96 08/16/18 19:38 98.1 F 72 20 147/60 98 08/16/18 19:09 71 18 98 08/16/18 13:11 94 H 20 99 Oxygen-Last 24 hours O2 Percentage 4 Liters = 36% Pain Assessment - Last Documented Pain Intensity 0 Pain Scale Used 0-10 Pain Scale Intake and Output: Intake & Output 08/14/18 08/15/18 08/16/18 08/17/18 11:59 11:59 11:59 11:59 Intake Total 1100 1000 940 Output Total 2805 1800 1260 2925 Balance -6125 -495 -446 -1708 Weight 87 kg 83.7 kg 83 kg Lab Results: Accuchecks Date 08/16/18 Date 08/16/18 Time 21:30 Time 16:30 Accucheck Value: 144 Accucheck Value: 171 Accucheck Value: 197 Radiology Exams: Radiology Procedures Category Date Time Status Portable Chest [CHEST 1 VIEW (PORTABLE)] DAILY Exams 08/16/18 07:00 Completed Assessment/Plan (1) CHF (congestive heart failure), NYHA class III Current Visit: Yes Status: Resolved Qualifiers: Congestive heart failure type: combined Congestive heart failure chronicity : acute on chronic Qualified Code(s): I50.43 - Acute on chronic combined systolic (congestive) and diastolic (congestive) heart failure Code(s): I50.9 - HEART FAILURE, UNSPECIFIED (2) COPD exacerbation Current Visit: Yes Status: Resolved Code(s): J44.1 - CHRONIC OBSTRUCTIVE PULMONARY DISEASE W (ACUTE) EXACERBATION (3) Type 2 diabetes mellitus Current Visit: No Status: Chronic Qualifiers:
[2018-08-17] MEDS: NovoLOG Insulin SQ PRN ×2 (12:26→22:24)
[2018-08-17] MEDS: Zocor 10MG PO SCH (22:12)
[2018-08-17] MEDS: Cymbalta 30 MG Capsule PO SCH (22:13)
[2018-08-18] MEDS: DUONEB 0.5-3 MG/3 ml Neb IH SCH ×3 (00:30→19:36)
[2018-08-18] MEDS: Sodium Chloride 0.9% 10 ML FLUSH Syringe IV SCH ×3 (05:18→21:43)
[2018-08-18] MEDS: Novolin 70/30 SQ SCH ×2 (08:27→16:56)
--- NOTE | 2018-08-18 08:43 | PCM.NOTE ---
Date and Time: 08/18/18840 Subjective Assessment: doing ok - Review of Systems Constitutional: No Fever, No Chills Eyes: No Symptoms Ears, Nose, & Throat: No Symptoms Respiratory: No Cough, No Short Of Breath Cardiac: No Chest Pain, No Edema, No Syncope Abdominal/Gastrointestinal: No Abdominal Pain, No Nausea, No Vomiting, No Diarrhea Genitourinary Symptoms: No Dysuria Musculoskeletal: No Back Pain, No Neck Pain Skin: No Rash Neurological: No Dizziness, No Focal Weakness, No Sensory Changes Psychological: No Symptoms Endocrine: No Symptoms Hematologic/Lymphatic: No Symptoms Immunological/Allergic: No Symptoms Objective Exam General Appearance: no apparent distress, alert Neurologic Exam: alert, oriented x 3, cooperative, normal mood/affect, nml cerebellar function, sensation nml, No motor deficits Skin Exam: normal color, warm, dry Eye Exam: PERRL, EOMI, eyes nml inspection Ears, Nose, Throat Exam: normal ENT inspection, pharynx normal, moist mucous membranes Neck Exam: normal inspection, non-tender, supple, full range of motion Respiratory Exam: normal breath sounds, lungs clear, No respiratory distress Cardiovascular Exam: regular rate/rhythm, normal heart sounds Gastrointestinal/Abdomen Exam: soft, No tenderness, No mass Extremity Exam: normal inspection, normal range of motion Back Exam: normal inspection, normal range of motion, No CVA tenderness, No vertebral tenderness Pelvic Exam: deferred Rectal Exam: deferred OBJECTIVE DATA Vital Signs: Vital Signs - 24 hr Temp Pulse Resp BP Pulse Ox 08/18/18 08:00 98.4 F 83 18 184/74 97 08/18/18 07:22 83 18 97 08/18/18 00:30 61 18 96 08/17/18 20:00 98.7 F 63 20 151/64 95 08/17/18 19:02 60 18 98 08/17/18 13:12 63 18 95 Oxygen-Last 24 hours O2 Percentage 4 Liters = 36% O2 Percentage 4 Liters = 36% Pain Assessment - Last Documented Pain Intensity 0 Pain Scale Used 0-10 Pain Scale Intake and Output: Intake & Output 08/15/18 08/16/18 08/17/18 08/18/18 11:59 11:59 11:59 11:59 Intake Total 1000 940 120 Output Total 1800 1260 1115 700 Balance -877 -193 -2455 -580 Weight 83.7 kg 83 kg Lab Results: Accuchecks Accucheck Value: 92 Accucheck Value: 222 Accucheck Value: 142 Accucheck Value: 226 Assessment/Plan (1) CHF (congestive heart failure), NYHA class III Current Visit: Yes Status: Resolved Qualifiers: Congestive heart failure type: combined Congestive heart failure chronicity : acute on chronic Qualified Code(s): I50.43 - Acute on chronic combined systolic (congestive) and diastolic (congestive) heart failure Code(s): I50.9 - HEART FAILURE, UNSPECIFIED (2) COPD exacerbation Current Visit: Yes Status: Resolved Code(s): J44.1 - CHRONIC OBSTRUCTIVE PULMONARY DISEASE W (ACUTE) EXACERBATION (3) Type 2 diabetes mellitus Current Visit: No Status: Chronic Qualifiers: Diabetes mellitus mcc insulin use: with mcc use Diabetes mellitus complication status: with other specified complication Qualified Code (s): E11.69 - Type 2 diabetes mellitus with other specified complication; 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
[2018-08-18] MEDS: Lasix 40 MG/4 ML IV SCH ×2 (10:06→21:40)
[2018-08-18] MEDS: Apresoline 25 MG TABLET PO SCH ×4 (10:06→21:39)
[2018-08-18] MEDS: ECOTRIN 81 MG PO SCH (10:06)
[2018-08-18] MEDS: ENOXAPARIN SODIUM SQ SCH (10:06)
[2018-08-18] MEDS: Pepcid 20 MG PO SCH (10:06)
[2018-08-18] MEDS: monoPRIL 10 MG PO SCH (10:06)
[2018-08-18] MEDS: NORVASC 5 MG PO SCH (10:07)
[2018-08-18] MEDS: SYNTHROID 100 MCG PO SCH (10:07)
[2018-08-18] MEDS: OCEAN Nasal Spray NS PRN (10:08)
[2018-08-18] MEDS: BACIGUENT 30 GM TP SCH (10:21)
[2018-08-18] MEDS ORDERED: Zofran 4 MG/2 ML VIAL IV PRN (11:31)
[2018-08-18] MEDS: Cymbalta 30 MG Capsule PO SCH (21:39)
[2018-08-18] MEDS: Zocor 10MG PO SCH (21:39)
[2018-08-19] MEDS: DUONEB 0.5-3 MG/3 ml Neb IH SCH ×2 (07:42→20:34)
[2018-08-19] MEDS: Novolin 70/30 SQ SCH ×2 (07:52→16:35)
[2018-08-19] MEDS: Sodium Chloride 0.9% 10 ML FLUSH Syringe IV SCH ×3 (07:59→22:19)
[2018-08-19] MEDS: monoPRIL 10 MG PO SCH (08:46)
[2018-08-19] MEDS: ENOXAPARIN SODIUM SQ SCH (08:46)
[2018-08-19] MEDS: Apresoline 25 MG TABLET PO SCH ×4 (08:47→22:18)
[2018-08-19] MEDS: ECOTRIN 81 MG PO SCH (08:47)
[2018-08-19] MEDS: Pepcid 20 MG PO SCH (08:47)
[2018-08-19] MEDS: NORVASC 5 MG PO SCH (08:47)
[2018-08-19] MEDS: Lasix 40 MG/4 ML IV SCH ×2 (08:47→22:18)
[2018-08-19] MEDS: SYNTHROID 100 MCG PO SCH (08:47)
[2018-08-19] MEDS: BACIGUENT 30 GM TP SCH (08:48)
[2018-08-19] MEDS: NovoLOG Insulin SQ PRN (22:17)
[2018-08-19] MEDS: Cymbalta 30 MG Capsule PO SCH (22:18)
[2018-08-19] MEDS: Zocor 10MG PO SCH (22:19)
[2018-08-20] MEDS: Sodium Chloride 0.9% 10 ML FLUSH Syringe IV SCH ×3 (06:51→23:05)
[2018-08-20] MEDS: DUONEB 0.5-3 MG/3 ml Neb IH SCH ×2 (07:14→17:22)
[2018-08-20] MEDS: Novolin 70/30 SQ SCH ×2 (07:43→16:36)
[2018-08-20] MEDS: Apresoline 25 MG TABLET PO SCH ×4 (10:23→23:04)
[2018-08-20] MEDS: NORVASC 5 MG PO SCH (10:23)
[2018-08-20] MEDS: monoPRIL 10 MG PO SCH (10:24)
[2018-08-20] MEDS: BACIGUENT 30 GM TP SCH ×2 (10:24→10:40)
[2018-08-20] MEDS: SYNTHROID 100 MCG PO SCH (10:24)
[2018-08-20] MEDS: ECOTRIN 81 MG PO SCH (10:24)
[2018-08-20] MEDS: Pepcid 20 MG PO SCH (10:24)
[2018-08-20] MEDS: Lasix 40 MG/4 ML IV SCH ×2 (10:24→23:05)
[2018-08-20] MEDS: OCEAN Nasal Spray NS PRN (10:25)
[2018-08-20] MEDS: ENOXAPARIN SODIUM SQ SCH (10:34)
[2018-08-20] MEDS: NovoLOG Insulin SQ PRN (16:44)
[2018-08-20] MEDS: Cymbalta 30 MG Capsule PO SCH (23:04)
[2018-08-20] MEDS: Zocor 10MG PO SCH (23:05)
[2018-08-21] MEDS: Sodium Chloride 0.9% 10 ML FLUSH Syringe IV SCH (05:37)
[2018-08-21] MEDS: Novolin 70/30 SQ SCH ×2 (09:12→17:18)
--- NOTE | 2018-08-21 09:17 | XRAY ---
Indication: Chest tube removal. Comparison: August 16, 2018. PA/lateral chest demonstrates left chest tube removal without pneumothorax. Increasing moderate left base effusion/atelectasis with stable bilateral hazy interstitial opacities and tiny right effusion. Heart is not enlarged.
[2018-08-21] MEDS: DUONEB 0.5-3 MG/3 ml Neb IH SCH ×2 (09:28→21:25)
[2018-08-21] MEDS: NORVASC 5 MG PO SCH (10:27)
[2018-08-21] MEDS: SYNTHROID 100 MCG PO SCH (10:27)
[2018-08-21] MEDS: monoPRIL 10 MG PO SCH (10:27)
[2018-08-21] MEDS: Apresoline 25 MG TABLET PO SCH ×4 (10:27→22:54)
[2018-08-21] MEDS: Pepcid 20 MG PO SCH (10:27)
[2018-08-21] MEDS: BACIGUENT 30 GM TP SCH (10:28)
[2018-08-21] MEDS: ENOXAPARIN SODIUM SQ SCH (10:28)
[2018-08-21] MEDS: Lasix 40 MG/4 ML IV SCH ×2 (10:28→22:55)
[2018-08-21] MEDS: ECOTRIN 81 MG PO SCH (10:28)
[2018-08-21] MEDS: Cymbalta 30 MG Capsule PO SCH (22:54)
[2018-08-21] MEDS: Zocor 10MG PO SCH (22:55)
[2018-08-22] MEDS: DUONEB 0.5-3 MG/3 ml Neb IH SCH ×2 (07:53→20:24)
--- NOTE | 2018-08-22 08:12 | PCM.NOTE ---
Date and Time: 08/22/18809 Subjective Assessment: doing better, s/p chest tube removal - Review of Systems Constitutional: No Fever, No Chills Eyes: No Symptoms Ears, Nose, & Throat: No Symptoms Respiratory: No Cough, No Short Of Breath Cardiac: No Chest Pain, No Edema, No Syncope Abdominal/Gastrointestinal: No Abdominal Pain, No Nausea, No Vomiting, No Diarrhea Genitourinary Symptoms: No Dysuria Musculoskeletal: No Back Pain, No Neck Pain Skin: No Rash Neurological: No Dizziness, No Focal Weakness, No Sensory Changes Psychological: No Symptoms Endocrine: No Symptoms Hematologic/Lymphatic: No Symptoms Immunological/Allergic: No Symptoms Objective Exam General Appearance: no apparent distress, alert Neurologic Exam: alert, oriented x 3, cooperative, normal mood/affect, nml cerebellar function, sensation nml, No motor deficits Skin Exam: normal color, warm, dry Wound Assessment: Skin/Wound Assessment Wound/Incision Assessment Start: 08/20/18 14: 18 Text: Status: Active Freq: Q8H Protocol: Document 08/22/18 04:00 (Rec: 08/22/18 06:32 [id number]) Wound/Incision Assessment Left Lower Wound Assessment Shift Assessment Wound Type previous chest tube site. Wound Stage Non Pressure Wound Dressing Status Dry & Intact Drainage Amount None Primary Dressing vaseline gauze. Secondary Dressing Gauze Pads Comment foam tape Wound Photo Photo Taken No Eye Exam: PERRL, EOMI, eyes nml inspection Ears, Nose, Throat Exam: normal ENT inspection, pharynx normal, moist mucous membranes Neck Exam: normal inspection, non-tender, supple, full range of motion Respiratory Exam: diminished breath sounds, No respiratory distress Cardiovascular Exam: regular rate/rhythm, normal heart sounds Gastrointestinal/Abdomen Exam: soft, No tenderness, No mass Extremity Exam: normal inspection, normal range of motion Back Exam: normal inspection, normal range of motion, No CVA tenderness, No vertebral tenderness Pelvic Exam: deferred Rectal Exam: deferred OBJECTIVE DATA Vital Signs: Vital Signs - 24 hr Temp Pulse Resp BP Pulse Ox 08/22/18 07:56 74 18 99 08/21/18 21:28 58 L 24 98 08/21/18 20:00 98.2 F 69 20 165/65 100 08/21/18 09:30 98 Oxygen-Last 24 hours O2 Percentage 4 Liters = 36% Pain Assessment - Last Documented Pain Intensity 0 Pain Scale Used 0-10 Pain Scale Intake and Output: Intake & Output 08/19/18 08/20/18 08/21/18 08/22/18 11:59 11:59 11:59 11:59 Intake Total 540 1440 1180 Output Total 896 616 8873 1850 Balance -740 150 -951 -670 Weight 82.5 kg 82.8 kg Lab Results: Accuchecks Date 08/21/18 Date 08/21/18 Time 21:30 Time 16:30 Accucheck Value: 102 Accucheck Value: 181 Accucheck Value: 197 Radiology Exams: Radiology Procedures Category Date Time Status CHEST 2 VIEWS (PA AND LAT) Routine Exams 08/21/18 08:52 Completed Multi-Disciplinary Progress Notes: Multi-Disciplinary Progress Notes 08/21/18 12:49 Nutrition Note by Chula Ortega F/u Note: 1800 ADA diet con't with 50-100% po intake. Adm weight 87 kg; current weight 82.8 kg. no recent labs; blood glucose 96. +fluid balance 180 mls. Con't to recommend adding sodium restriction. goals met most of the time and are ongoing. Will con't to monitor and f/u prn. T.CHANA Ortega Initialized on 08/21/18 12:49 - END OF NOTE Assessment/Plan (1) CHF (congestive heart failure), NYHA class III Current Visit: Yes Status: Chronic Qualifiers: Congestive heart failure type: combined Congestive heart failure chronicity : acute on chronic Qualified Code(s): I50.43 - Acute on chronic combined systolic (congestive) and diastolic (congestive) heart failure Code(s): I50.9 - HEART FAILURE, UNSPECIFIED (2) COPD exacerbation Current Visit: Yes Status: Resolved Code(s): J44.1 - CHRONIC OBSTRUCTIVE PULMONARY DISEASE W (ACUTE) EXACERBATION (3) Type 2 diabetes mellitus Current Visit: Yes Status: Chronic Qualifiers: Diabetes mellitus skilled nursing insulin use: with skilled nursing use Diabetes mellitus complication status: with other specified complication Qualified Code (s): E11.69 - Type 2 diabetes mellitus with other specified complication; 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
[2018-08-22] MEDS: Lasix 40 MG/4 ML IV SCH ×2 (09:27→21:31)
[2018-08-22] MEDS: monoPRIL 10 MG PO SCH (09:27)
[2018-08-22] MEDS: NORVASC 5 MG PO SCH (09:27)
[2018-08-22] MEDS: BACIGUENT 30 GM TP SCH (09:28)
[2018-08-22] MEDS: SYNTHROID 100 MCG PO SCH (09:28)
[2018-08-22] MEDS: Apresoline 25 MG TABLET PO SCH ×4 (09:28→21:31)
[2018-08-22] MEDS: ECOTRIN 81 MG PO SCH (09:28)
[2018-08-22] MEDS: Pepcid 20 MG PO SCH (09:28)
[2018-08-22] MEDS: Novolin 70/30 SQ SCH ×2 (09:29→17:24)
[2018-08-22] MEDS: ENOXAPARIN SODIUM SQ SCH (09:29)
[2018-08-22] MEDS: NovoLOG Insulin SQ PRN ×2 (12:22→17:25)
[2018-08-22] MEDS: Sodium Chloride 0.9% 10 ML FLUSH Syringe IV SCH ×2 (17:25→21:30)
[2018-08-22] MEDS: Zocor 10MG PO SCH (21:31)
[2018-08-22] MEDS: Cymbalta 30 MG Capsule PO SCH (21:31)
--- NOTE | 2018-08-23 07:40 | PCM.NOTE ---
Date and Time: 08/23/18 0739 Subjective Assessment: doing better - Review of Systems Constitutional: No Fever, No Chills Eyes: No Symptoms Ears, Nose, & Throat: No Symptoms Respiratory: No Cough, No Short Of Breath Cardiac: No Chest Pain, No Edema, No Syncope Abdominal/Gastrointestinal: No Abdominal Pain, No Nausea, No Vomiting, No Diarrhea Genitourinary Symptoms: No Dysuria Musculoskeletal: No Back Pain, No Neck Pain Skin: No Rash Neurological: No Dizziness, No Focal Weakness, No Sensory Changes Psychological: No Symptoms Endocrine: No Symptoms Hematologic/Lymphatic: No Symptoms Immunological/Allergic: No Symptoms Objective Exam General Appearance: no apparent distress, alert Neurologic Exam: alert, oriented x 3, cooperative, normal mood/affect, nml cerebellar function, sensation nml, No motor deficits Skin Exam: normal color, warm, dry Wound Assessment: Skin/Wound Assessment Wound/Incision Assessment Start: 08/20/18 14: 18 Text: Status: Active Freq: Q8H Protocol: Document 08/23/18 04:00 AR (Rec: 08/23/18 05:38 AR [id number]) Wound/Incision Assessment Left Lower Wound Assessment Shift Assessment Wound Type previous chest tube site. Wound Stage Non Pressure Wound Dressing Status Dry & Intact Drainage Amount None Primary Dressing vaseline gauze. Secondary Dressing Gauze Pads Comment foam tape Wound Photo Photo Taken No Eye Exam: PERRL, EOMI, eyes nml inspection Ears, Nose, Throat Exam: normal ENT inspection, pharynx normal, moist mucous membranes Neck Exam: normal inspection, non-tender, supple, full range of motion Respiratory Exam: normal breath sounds, lungs clear, No respiratory distress Cardiovascular Exam: regular rate/rhythm, normal heart sounds Gastrointestinal/Abdomen Exam: soft, No tenderness, No mass Extremity Exam: normal inspection, normal range of motion Back Exam: normal inspection, normal range of motion, No CVA tenderness, No vertebral tenderness Pelvic Exam: deferred Rectal Exam: deferred OBJECTIVE DATA Vital Signs: Vital Signs - 24 hr Temp Pulse Resp BP Pulse Ox 08/23/18 07:36 97.8 F 76 20 140/80 96 08/22/18 20:25 84 18 97 08/22/18 20:00 98.4 F 68 20 147/77 97 08/22/18 08:00 98.6 F 69 18 144/60 97 08/22/18 07:56 74 18 99 Oxygen-Last 24 hours O2 Percentage 4 Liters = 36% O2 Percentage 4 Liters = 36% Pain Assessment - Last Documented Pain Intensity 0 Pain Scale Used FLACC Intake and Output: Intake & Output 08/20/18 08/21/18 08/22/18 08/23/18 11:59 11:59 11:59 11:59 Intake Total 540 1440 1180 1040 Output Total 390 2150 1850 2500 Balance 173 -977 -146 -4071 Weight 82.8 kg 83.6 kg Lab Results: Accuchecks Accucheck Value: 142 Accucheck Value: 236 Accucheck Value: 207 Radiology Exams: Radiology Procedures Category Date Time Status CHEST 2 VIEWS (PA AND LAT) Routine Exams 08/21/18 08:52 Completed Assessment/Plan (1) Debilitated patient Current Visit: Yes Status: Acute Assessment & Plan: Chief Complaint Diagnosis DECONDITIONING R/T CHEST TUBE, LARGE PLEURAL EFFUSION, Allergies Allergy/AdvReac Type Severity Reaction Status Date / Time Sulfa (Sulfonamide Allergy Verified 06/20/17 11:33 Antibiotics) Vital Signs (Last 24 hours) Temp Pulse Resp BP Pulse Ox 08/23/18 07:36 97.8 F 76 20 140/80 96 08/22/18 20:25 84 18 97 08/22/18 20:00 98.4 F 68 20 147/77 97 08/22/18 08:00 98.6 F 69 18 144/60 97 08/22/18 07:56 74 18 99 Current Medications Generic Name Dose Route Start Last Admin Trade Name Freq PRN Reason Stop Dose Admin Acetaminophen 650 mg 08/10/18 13:40 Feverall 650 Mg AR 09/04/18 12:59 Q4H PRN PRN PAIN AND/OR FEVER Albuterol/Ipratropium 3 ml 08/18/18 19:00 08/22/18 20:24 Duoneb 0.5-3 Mg/3 Ml Neb IH 09/17/18 18:59 3 ml BIDRT LILA Administration Amlodipine Besylate 2.5 mg 08/11/18 10:00 08/22/18 09:27 Norvasc 5 Mg PO 09/05/18 09:59 2.5 mg DAILY LILA Administration Aspirin 81 mg 08/11/18 10:00 08/22/18 09:28 Ecotrin 81 Mg PO 09/05/18 09:59 81 mg DAILY LILA Administration Bacitracin Zinc 1 gm 08/11/18 14:15 08/22/18 09:28 Baciguent 30 Gm TP 09/10/18 14:14 Not Given DAILY LILA Docusate Sodium 100 mg 08/10/18 13:40 08/17/18 10:21 Colace 100 Mg PO 09/04/18 12:59 100 mg BIDPRN PRN Administration CONSTIPATION Duloxetine HCl 60 mg 08/10/18 22:00 08/22/18 21:31 Cymbalta 30 Mg Capsule PO 09/04/18 21:59 60 mg HS LILA Administration Enoxaparin Sodium 40 mg 08/11/18 10:00 08/22/18 09:29 Enoxaparin Sodium SQ 09/05/18 09:59 40 mg DAILY LILA Administration Famotidine 20 mg 08/11/18 10:00 08/22/18 09:28 Pepcid 20 Mg PO 09/05/18 09:59 20 mg DAILY LILA Administration Fosinopril Sodium 10 mg 08/11/18 10:00 08/22/18 09:27 Monopril 10 Mg PO 09/05/18 09:59 10 mg DAILY LILA Administration Furosemide 40 mg 08/10/18 22:00 08/22/18 21:31 Lasix 40 Mg/4 Ml IV 09/07/18 09:59 40 mg Q12HT LILA Administration Hydralazine HCl 25 mg 08/10/18 17:00 08/22/18 21:31 Apresoline 25 Mg Tablet PO 09/04/18 16:59 25 mg QID LILA Administration Insulin Aspart 0 unit 08/10/18 13:40 08/22/18 17:25 Novolog Insulin SQ 09/04/18 12:59 2 unit UD PRN Administration Accuchek Insulin Human Isoph/Insulin Regular 20 unit 08/20/18 07:30 08/22/18 09:29 Novolin 70/30 SQ 09/19/18 07:29 20 unit 0730 LILA Administration Insulin Human Isoph/Insulin Regular 40 unit 08/19/18 16:30 08/22/18 17:24 Novolin 70/30 SQ 09/18/18 16:29 40 unit 1630 LILA Administration Levothyroxine Sodium 100 mcg 08/11/18 10:00 08/22/18 09:28 Synthroid 100 Mcg PO 09/05/18 09:59 100 mcg DAILY LILA Administration Nystatin 1 gm 08/17/18 00:06 Nystop 30 Gm Cream TOP 09/16/18 00:05 BID PRN PRN REDNESS/IRRITATION Ondansetron HCl 4 mg 08/18/18 11:31 08/18/18 12:41 Zofran 4 Mg/2 Ml Vial IV 09/17/18 11:30 4 mg Q6H PRN PRN Administration NAUSEA/VOMITING Simvastatin 10 mg 08/10/18 22:00 08/22/18 21:31 Zocor 10mg PO 09/04/18 21:59 10 mg HS LILA Administration Sodium Chloride 10 ml 08/14/18 22:00 08/22/18 21:30 Sodium Chloride 0.9% 10 Ml Flush Syringe IV 09/13/18 21:59 10 ml Q8HT LILA Administration Sodium Chloride 2 ml 08/15/18 07:00 08/20/18 10:25 [place] Nasal [place] 09/14/18 09:59 2 ml TID PRN Administration ALLERGIES Discontinued Medications Generic Name Dose Route Start Last Admin Trade Name Freq PRN Reason Stop Dose Admin Albuterol/Ipratropium 3 ml 08/10/18 19:00 08/18/18 07:18 Duoneb 0.5-3 Mg/3 Ml Neb IH 09/04/18 12:59 3 ml Q6HRT LILA Administration Albuterol/Ipratropium Confirm 08/12/18 10:34 Duoneb 0.5-3 Mg/3 Ml Neb Administered 08/12/18 10:35 Dose 3 ml IH .STK-MED ONE Dextrose 50 ml 08/11/18 06:26 08/11/18 06:31 D50w 50 Ml Abboject IV 08/11/18 06:27 50 ml STAT ONE Administration Azithromycin 500 mg in 250 mls @ 250 mls/hr 08/11/18 10:00 08/17/18 11:01 Zithromax 500 Mg/ 250 Ml Nacl Premix IV 09/04/18 13:29 250 mls/hr Q24H10 LILA Administration Ceftriaxone Sodium/Dextrose 2 g in 50 mls @ 100 mls/hr 08/11/18 10:00 10:11 Rocephin 2 Gm-D5w 50ml Bag IV 09/04/18 13:29 100 mls/hr Q24H10 LILA Administration Sodium Chloride 1,000 mls @ 50 mls/hr 08/10/18 13:40 08/12/18 21:13 Sodium Chloride 0.9% 1000 Ml IV 09/04/18 12:59 50 mls/hr .Q20H LILA Administration Insulin Human Isoph/Insulin Regular 50 unit 08/10/18 16:30 08/11/18 07:55 Novolin 70/30 SQ 09/04/18 21:59 Not Given BIDAC LILA Insulin Human Isoph/Insulin Regular 40 unit 08/11/18 11:57 08/19/18 07:52 Novolin 70/30 SQ 09/04/18 21:59 40 unit BIDAC LILA Administration Morphine Sulfate 3 mg 08/10/18 13:40 Morphine Sulfate 4 Mg Inj IV 08/20/18 12:00 Q2H PRN PRN PAIN Nystatin 1 gm 08/10/18 22:00 08/17/18 00:08 Nystop 30 Gm Cream TOP 09/04/18 14:59 Not Given BID LILA Tuberculin PPD 5 unit 08/10/18 13:40 08/11/18 14:52 Aplisol ID 08/10/18 13:41 5 unit ONCE ONE Administration Intake & Output (Last 24 hours) 08/20/18 08/21/18 08/22/18 08/23/18 11:59 11:59 11:59 11:59 Intake Total 540 1440 1180 1040 Output Total 390 2150 1850 2500 Balance 404 -157 -725 -2072 Weight 82.8 kg 83.6 kg Orders (Last 24 hours) Category Date Time Status [facility] Q14D Lab 08/24/18 04:00 Ordered Code(s): R53.81 - OTHER MALAISE (2) CHF (congestive heart failure), NYHA class III Current Visit: Yes Status: Chronic Qualifiers: Congestive heart failure type: combined Congestive heart failure chronicity : acute on chronic Qualified Code(s): I50.43 - Acute on chronic combined systolic (congestive) and diastolic (congestive) heart failure Code(s): I50.9 - HEART FAILURE, UNSPECIFIED (3) COPD exacerbation Current Visit: Yes Status: Resolved Code(s): J44.1 - CHRONIC OBSTRUCTIVE PULMONARY DISEASE W (ACUTE) EXACERBATION (4) Type 2 diabetes mellitus Current Visit: Yes Status: Chronic Qualifiers: Diabetes mellitus medical terminologist insulin use: with medical terminologist use Diabetes mellitus complication status: with other specified complication Qualified Code (s): E11.69 - Type 2 diabetes mellitus with other specified complication; Z79.4 - moth exterminator (current) use of insulin (5) Chest tube in place Current Visit: Yes Status: Resolved Code(s): Z96.89 - PRESENCE OF OTHER SPECIFIED FUNCTIONAL IMPLANTS
[2018-08-23] MEDS: DUONEB 0.5-3 MG/3 ml Neb IH SCH ×2 (08:49→21:14)
[2018-08-23] MEDS: Novolin 70/30 SQ SCH ×2 (09:14→17:17)
[2018-08-23] MEDS: NORVASC 5 MG PO SCH (09:53)
[2018-08-23] MEDS: ENOXAPARIN SODIUM SQ SCH (09:54)
[2018-08-23] MEDS: ECOTRIN 81 MG PO SCH (09:54)
[2018-08-23] MEDS: SYNTHROID 100 MCG PO SCH (09:54)
[2018-08-23] MEDS: monoPRIL 10 MG PO SCH (09:54)
[2018-08-23] MEDS: Lasix 40 MG/4 ML IV SCH ×2 (09:54→21:56)
[2018-08-23] MEDS: Apresoline 25 MG TABLET PO SCH ×4 (09:54→21:56)
[2018-08-23] MEDS: Pepcid 20 MG PO SCH (09:54)
[2018-08-23] MEDS: BACIGUENT 30 GM TP SCH (10:04)
[2018-08-23] MEDS: NovoLOG Insulin SQ PRN ×3 (12:09→21:57)
[2018-08-23] MEDS: Sodium Chloride 0.9% 10 ML FLUSH Syringe IV SCH (17:16)
[2018-08-23] MEDS: Zocor 10MG PO SCH (21:56)
[2018-08-23] MEDS: Cymbalta 30 MG Capsule PO SCH (21:56)
[2018-08-24 05:09] LABS: BLOOD UREA NITROGEN 18 mg/dL (7-17); CHLORIDE 94 mmol/L (98-107); Calcium 8.6 mg/dL (8.4-10.2); Creatinine 1 0.93 mg/dL (0.52-1.04); Glucose 183 mg/dL (74-106); Potassium 3.9 mmol/L (3.5-5.1); SODIUM 141 mmol/L (137-145)
[2018-08-24 05:16] LABS: Carbon Dioxide 40 mmol/L (22-30)
[2018-08-24 05:21] LABS: ANION GAP 10.9 MEQ/L (5-15)
[2018-08-24] MEDS: DUONEB 0.5-3 MG/3 ml Neb IH SCH (07:12)
[2018-08-24 07:51] VITALS: BP 155/67; PULSE 62; O2SAT 98
[2018-08-24] MEDS: Novolin 70/30 SQ SCH (08:14)
[2018-08-24] MEDS: Sodium Chloride 0.9% 10 ML FLUSH Syringe IV SCH ×2 (08:17)
[2018-08-24] MEDS: monoPRIL 10 MG PO SCH (09:05)
[2018-08-24] MEDS: NORVASC 5 MG PO SCH (09:06)
[2018-08-24] MEDS: Apresoline 25 MG TABLET PO SCH (09:06)
[2018-08-24] MEDS: ECOTRIN 81 MG PO SCH (09:06)
[2018-08-24] MEDS: Lasix 40 MG/4 ML IV SCH (09:06)
[2018-08-24] MEDS: BACIGUENT 30 GM TP SCH (09:06)
[2018-08-24] MEDS: SYNTHROID 100 MCG PO SCH (09:06)
[2018-08-24] MEDS: Pepcid 20 MG PO SCH (09:06)
[2018-08-24] MEDS: ENOXAPARIN SODIUM SQ SCH (09:06)
== END 2018-08-24 12:15 | disposition home health service (06) | DRG 292 ==
LOC: MED SURG 13:38
PROVIDERS: ADMIT General Practice; ATTEND General Practice
DX: I50.9 Heart failure, unspecified (principal); J96.11 Chronic respiratory failure with hypoxia; J44.1 Chronic obstructive pulmonary disease with (acute) exacerbation; J90 Pleural effusion, not elsewhere classified; E11.65 Type 2 diabetes mellitus with hyperglycemia; I10 Essential (primary) hypertension; Z96.89 Presence of other specified functional implants
CPT/HCPCS: 36415; 71045; 71046; 80048; 80053; 82962; 94150; 94640; 94760; J0456; J0696; J1650; J1815; J1940; J2405; 97110-GP; A9270-GY

== ENCOUNTER 2019-01-19 15:17 | Inpatient (IN) | payer MEDICARE ==
[2019-01-19] MEDS ORDERED: PROVENTIL 2.5 MG/3 ML NEB IH PRN (16:44)
[2019-01-19] MEDS ORDERED: NON-FORMULARY ITEM (Meclizine Hcl [Meclizine Hcl] 12.5 MG) PO PRN (17:08)
[2019-01-19] MEDS ORDERED: Nitrostat 0.4 MG Tablet SL SCH (17:15)
[2019-01-19] MEDS ORDERED: ANTIVERT 25 MG PO PRN (17:17)
[2019-01-19 17:59] LABS: Hematocrit 32.5 % (35-47); Hemoglobin 9.2 gm/dl (12.0-16.0); Mean Cell Volume 85.8 fl (78-100); Mean Corpuscular Hemoglobin 24.2 pg (26-32); Mean Corpuscular Hgb Concent. 28.3 g/dl (32-36); Platelet Count 176 K/mm3 (150-450); Red Blood Count 3.79 M/mm3 (4.1-5.4); Red Cell Distribution Width 15.6 % (11.5-14.0); White Blood Count 22.1 K/mm3 (4.0-10.5)
[2019-01-19 18:06] LABS: ALBUMIN 3.9 g/dL (3.5-5.0); BILIRUBIN,TOTAL 0.8 mg/dL (0.2-1.3); Calcium 9.3 mg/dL (8.4-10.2); Creatinine 1 1.66 mg/dL (0.52-1.04); Potassium 5.3 mmol/L (3.5-5.1); Total Protein 7.1 g/dL (6.3-8.2)
[2019-01-19] MEDS ORDERED: DUONEB 0.5-3 MG/3 ml Neb IH SCH ×2 (19:00→22:00)
[2019-01-19] MEDS ORDERED: Zocor 10MG PO SCH (22:00)
[2019-01-19] MEDS: BUMEX 1 MG IV SCH (22:17)
[2019-01-19] MEDS: Cymbalta 30 MG Capsule PO SCH (22:18)
[2019-01-19] MEDS: Klor Con 10 MEQ PO SCH (22:19)
[2019-01-19] MEDS: Apresoline 25 MG TABLET PO SCH (22:19)
[2019-01-19] MEDS: Novolin 70/30 SQ SCH (22:21)
[2019-01-19] MEDS: Sodium Chloride 0.9% 10 ML FLUSH Syringe IV SCH (22:21)
[2019-01-19 23:05] LABS: Hematocrit 31.2 % (35-47); Mean Cell Volume 85.2 fl (78-100); Mean Corpuscular Hgb Concent. 28.8 g/dl (32-36); Mean Platelet Volume 10.5 fl (6-9.5); Platelet Count 163 K/mm3 (150-450); Red Blood Count 3.66 M/mm3 (4.1-5.4); Red Cell Distribution Width 15.5 % (11.5-14.0); White Blood Count 19.9 K/mm3 (4.0-10.5)
[2019-01-19 23:10] LABS: Mean Corpuscular Hemoglobin 24.5 pg (26-32)
[2019-01-19 23:35] LABS: Calcium 9.3 mg/dL (8.4-10.2); Creatinine 1 1.85 mg/dL (0.52-1.04); Potassium 5.6 mmol/L (3.5-5.1)
[2019-01-19 23:38] LABS: ANION GAP 11.6 MEQ/L (5-15); TROPONIN 1.45 ng/mL (0.000-0.034)
[2019-01-20] MEDS ORDERED: D50W 50 ml Abboject IV ONE (05:25)
[2019-01-20] MEDS ORDERED: D50W 50ML Vial IV PRN (05:27)
[2019-01-20] MEDS: Sodium Chloride 0.9% 10 ML FLUSH Syringe IV SCH ×3 (05:40→20:00)
[2019-01-20 05:55] LABS: ANION GAP 10.1 MEQ/L (5-15); Calcium 9.1 mg/dL (8.4-10.2); Creatinine 1 1.95 mg/dL (0.52-1.04); Potassium 5.2 mmol/L (3.5-5.1)
[2019-01-20] MEDS ORDERED: D50W 50 ml Abboject IV PRN (06:40)
[2019-01-20 06:41] LABS: A-aADO2 110; ABG HEMOGLOBIN 9.5; ARTERIAL BLD GAS O2 SATURATION 88.8 % (95-100); ARTERIAL BLOOD GAS FIO2 36 %; ARTERIAL BLOOD GAS PO2 52 mmHg (75-100); ARTERIAL BLOOD GAS VENT MODE CPAP; ARTERIAL BLOOD GAS pH 7.33 (7.35-7.45); CARBOXYHEMOGLOBIN 2.2 % THgb (0.0-6.9); HCO3- 40.1 (22-28); HGB O2 SAT 86.8 g/dF (94-100); Methhemoglobin 0.1 % (1.4-1.5); paO2 pAO1 0.32
[2019-01-20 06:42] LABS: ABG SITE LEFT RADIAL; ARTERIAL BLOOD GAS PCO2 76 mmHg (35-45)
[2019-01-20] MEDS: DUONEB 0.5-3 MG/3 ml Neb IH SCH ×3 (06:50→19:43)
--- NOTE | 2019-01-20 08:44 | XRAY ---
Indication: CHF. Comparison: September 08, 2018. Portable chest less inflated with stable mild cardiomegaly and left base infiltrate/atelectasis/effusion. Bony thorax intact again with mild osteopenia and degenerative changes. No new cardiopulmonary abnormalities.
[2019-01-20] MEDS: BUMEX 1 MG IV SCH ×2 (09:09→17:43)
[2019-01-20] MEDS ORDERED: Dextrose 5%-NS IV Solution 1000 ML 1,000 ML IV SCH (09:30)
[2019-01-20] MEDS ORDERED: NON-FORMULARY ITEM (Amlodipine Besylate [Amlodipine Besylate] 2.5 MG) PO SCH (10:00)
[2019-01-20] MEDS ORDERED: monoPRIL 10 MG PO SCH (10:00)
[2019-01-20] MEDS ORDERED: NON-FORMULARY ITEM (Aspirin [Aspirin] 81 MG) PO SCH (10:00)
[2019-01-20] MEDS ORDERED: NON-FORMULARY ITEM (Atorvastatin Calcium [Atorvastatin Calcium] 10 MG) PO SCH (10:00)
[2019-01-20 10:42] LABS: Hematocrit 32.8 % (35-47); Hemoglobin 9.4 gm/dl (12.0-16.0); Mean Corpuscular Hemoglobin 24.9 pg (26-32); Mean Corpuscular Hgb Concent. 28.7 g/dl (32-36); Mean Platelet Volume 11.6 fl (6-9.5); Platelet Count 142 K/mm3 (150-450); Red Blood Count 3.77 M/mm3 (4.1-5.4); Red Cell Distribution Width 15.8 % (11.5-14.0); White Blood Count 16.9 K/mm3 (4.0-10.5)
[2019-01-20] MEDS: NORVASC 5 MG PO SCH (10:48)
[2019-01-20] MEDS: Novolin 70/30 SQ SCH (10:48)
[2019-01-20] MEDS: Apresoline 25 MG TABLET PO SCH ×4 (10:48→20:39)
[2019-01-20] MEDS: Klor Con 10 MEQ PO SCH (10:48)
[2019-01-20] MEDS: ECOTRIN 81 MG PO SCH (10:48)
[2019-01-20] MEDS: SYNTHROID 100 MCG PO SCH (10:48)
[2019-01-20 11:42] LABS: ALBUMIN 3.6 g/dL (3.5-5.0); BILIRUBIN,TOTAL 0.7 mg/dL (0.2-1.3); Total Protein 6.6 g/dL (6.3-8.2)
[2019-01-20 12:12] LABS: Lymphocytes 8 % (24-44); Monocyte 1 % (0.0-12.0); Neutrophils 91 % (36.0-66.0); Total Cells Counted 100
[2019-01-20 12:16] LABS: ANISOCYTOSIS 1+; Platelet Estimate NORMAL (NORMAL); Poikilocytosis 1+; Polychromasia 1+
[2019-01-20] MEDS ORDERED: PHARMACY DOSING REQUEST MC ONE (13:00)
--- NOTE | 2019-01-20 13:00 | CONS ---
CONSULT DATE: 01/19/2019 BRIEF HISTORY: This is a 73 year-old female who was seen because of elevated troponin I and shortness of breath. The patient is currently on a BiPAP. She is currently somewhat lethargic. She was admitted for shortness of breath. She denies any chest pains. EKG showed some bouts of atrial fibrillation. Her heart rate is well controlled. The patient has been admitted to the hospital for intermittent shortness of breath. She has a history of diastolic dysfunction. She has never had myocardial infarction. She is oxygen dependent. Her pulse oximetry showed significant desaturation. CARDIAC RISK FACTORS: Positive for diabetes. Positive for hypertension. She does not smoke. She has hyperlipidemia. CURRENT MEDICATIONS: DuoNeb, amlodipine, aspirin, atorvastatin, Cymbalta, Monopril, furosemide, levothyroxine, hydralazine, insulin, meclizine, nitroglycerin. REVIEW OF SYSTEMS: Unobtainable from the patient but based on previous chart. POCKET ASSEMBLER: No apparent history of stroke. RESPIRATORY: She has intermittent coughing spells. GI: She has history of hiatal hernia. : No urinary symptoms. PERIPHERAL VASCULAR: No history of DVT or claudication. ENDOCRINE: He has history of hypothyroidism on replacement therapy. PAST SURGICAL HISTORY: Colon resection. Breast biopsy. SOCIAL HISTORY: She lives at home. She has no significant alcohol intake. PHYSICAL EXAMINATION: The blood pressure is 112/70, heart rate is about 70, currently on BiPAP. GENERAL: The patient is an elderly female who appears to be chronically ill, somewhat lethargic. HEENT: Unremarkable. NECK: No obvious JVD. CHEST: The breath sounds are diminished bilaterally. CARDIAC: Heart tones are distant. The rhythm is irregular. There is no audible gallop. There is a grade 2/6 mid systolic murmur. ABDOMEN: Soft with normal bowel sounds. EXTREMITIES: There is no significant edema. LAB DATA AND DIAGNOSTIC TESTS: The EKG showed atrial fibrillation. The laboratory data: The CBC shows hemoglobin of 9.4, white blood cell 16.0, PLT 142,000. Troponin I is 1.370. The initial blood gas shows a pO2 of 52 with pCO2 of 76. Creatinine 1.9 with glomerular filtration rate of 26. The liver enzymes are markedly elevated with AST of 1,812 and ALT of 1.088. The proBNP is 9,030. IMPRESSION: In essence the patient is in congestive heart failure. We are going to review an echocardiogram to assess left ventricular systolic function. She has multiple problems including renal failure. Elevated transaminase is probably due to congested liver. I will start the patient on diuretics. The elevated troponin I is probably secondary to demand ischemia from respiratory failure and heart failure. I cannot entirely rule out sepsis. Meanwhile, we will hold the LEONARDO inhibitors. Will continue with IV diuretics. In view of the patient's atrial fibrillation, the patient will need to be anticoagulated. I will follow up with you.
[2019-01-20] MEDS: ENOXAPARIN SODIUM SQ SCH (13:07)
--- NOTE | 2019-01-20 13:09 | ECHO ---
Transthoracic echocardiographic examination and color Doppler was done on 01/20/2019. INDICATION: Elevated troponin I, congestive heart failure. The left ventricle is poorly visualized but appears to demonstrate some mild hypokinesia. Ejection fraction 40%. The right side chambers appear to be mildly dilated. There is some evidence of left ventricular diastolic dysfunction. The right ventricle is systolic pressure is about 22 mm of [place]. IMPRESSION: THIS IS A FAIRLY LIMITED STUDY WHICH PRECLUDES ADEQUATE ASSESSMENT OF INTRACARDIAC ANATOMY AND PHYSIOLOGY.
--- NOTE | 2019-01-20 16:59 | XRAY ---
Indication: Vaginal bleeding. Two-dimensional transabdominal pelvic sonogram performed. Comparison: June 05, 2015. Urinary bladder is empty via indwelling Larson catheter producing poor acoustic window. Also patient body habitus limits exam. Uterus and ovaries are not visualized. There is no suspicious solid/cystic mass or fluid collection. Impression: Nondiagnostic exam as detailed.
[2019-01-20] MEDS: Cymbalta 30 MG Capsule PO SCH (20:00)
[2019-01-21] MEDS: DUONEB 0.5-3 MG/3 ml Neb IH SCH ×4 (01:24→19:13)
[2019-01-21 05:13] LABS: Hematocrit 31.6 % (35-47); Hemoglobin 9.2 gm/dl (12.0-16.0); Mean Cell Volume 85.4 fl (78-100); Mean Corpuscular Hgb Concent. 29.1 g/dl (32-36); Mean Platelet Volume 11.9 fl (6-9.5); Platelet Count 131 K/mm3 (150-450); Red Cell Distribution Width 15.5 % (11.5-14.0); White Blood Count 12.1 K/mm3 (4.0-10.5)
[2019-01-21 05:30] LABS: ALBUMIN 3.2 g/dL (3.5-5.0); BILIRUBIN,TOTAL 0.6 mg/dL (0.2-1.3); Calcium 8.5 mg/dL (8.4-10.2); Creatinine 1 1.39 mg/dL (0.52-1.04); Potassium 4.7 mmol/L (3.5-5.1); Total Protein 6.2 g/dL (6.3-8.2)
[2019-01-21 05:34] LABS: Mean Corpuscular Hemoglobin 24.8 pg (26-32)
[2019-01-21] MEDS: Dextrose 5%-NS IV Solution 1000 ML 1,000 ML IV SCH (05:52)
[2019-01-21] MEDS: Sodium Chloride 0.9% 10 ML FLUSH Syringe IV SCH ×3 (05:58→22:34)
--- NOTE | 2019-01-21 09:00 | PCM.NOTE ---
Date and Time: 01/20/19 0857 late Entry Subjective Assessment: still very short of breath - Review of Systems Constitutional: No Fever, No Chills Eyes: No Symptoms Ears, Nose, & Throat: No Symptoms Respiratory: Cough, Orthopnea, Short Of Breath, Wheezing Cardiac: Edema, Orthopnea, PND, No Chest Pain, No Syncope Abdominal/Gastrointestinal: No Abdominal Pain, No Nausea, No Vomiting, No Diarrhea Genitourinary Symptoms: No Dysuria Musculoskeletal: No Back Pain, No Neck Pain Skin: No Rash Neurological: No Dizziness, No Focal Weakness, No Sensory Changes Psychological: No Symptoms Endocrine: No Symptoms Hematologic/Lymphatic: No Symptoms Immunological/Allergic: No Symptoms Objective Exam General Appearance: no apparent distress, alert Neurologic Exam: alert, oriented x 3, cooperative, normal mood/affect, nml cerebellar function, sensation nml, No motor deficits Skin Exam: normal color, warm, dry Eye Exam: PERRL, EOMI, eyes nml inspection Ears, Nose, Throat Exam: normal ENT inspection, pharynx normal, moist mucous membranes Neck Exam: normal inspection, non-tender, supple, full range of motion Respiratory Exam: normal breath sounds, lungs clear, No respiratory distress Cardiovascular Exam: regular rate/rhythm, normal heart sounds Gastrointestinal/Abdomen Exam: soft, No tenderness, No mass Extremity Exam: normal inspection, normal range of motion Back Exam: normal inspection, normal range of motion, No CVA tenderness, No vertebral tenderness Pelvic Exam: deferred Rectal Exam: deferred OBJECTIVE DATA Vital Signs: Vital Signs - 24 hr Temp Pulse Resp BP Pulse Ox 01/21/19 07:15 98.3 F 83 22 138/63 93 L 01/21/19 06:47 82 22 93 L 01/21/19 04:00 97.9 F 76 16 142/63 95 01/21/19 01:24 22 96 01/20/19 23:59 97.9 F 85 19 138/61 96 01/20/19 21:38 75 18 97 01/20/19 19:28 98.1 F 72 12 126/56 96 01/20/19 16:47 99.0 F 70 22 120/53 98 01/20/19 15:55 99.3 F 64 22 170/73 97 01/20/19 13:22 64 22 97 01/20/19 11:52 99.3 F 64 24 170/73 98 Oxygen-Last 24 hours O2 Percentage 4 Liters = 36% O2 Percentage 4 Liters = 36% O2 Percentage 5 Liters = 40% O2 Percentage 5 Liters = 40% Pain Assessment - Last Documented Pain Intensity 0 Pain Scale Used 0-10 Pain Scale Intake and Output: Intake & Output 01/18/19 01/19/19 01/20/19 01/21/19 11:59 11:59 11:59 11:59 Intake Total 480 1283 Output Total 525 1150 Balance -45 133 Weight 81.1 kg 81.3 kg Lab Results: Accuchecks Date 01/20/19 Date 01/20/19 Time 16:00 Time 11:29 Accucheck Value: 146 Accucheck Value: 194 Accucheck Value: 103 Accucheck Value: 86 Lab Results-Last 24 Hours 01/20/19 01/20/19 01/21/19 Range/Units 05:00 05:00 04:40 WBC 16.9 H 12.1 H (4.0-10.5) K/mm3 RBC 3.77 L 3.70 L (4.1-5.4) M/mm3 Hgb 9.4 L 9.2 L (12.0-16.0) gm/dl Hct 32.8 L 31.6 L (35-47) % MCV 87.0 85.4 (78-100) fl MCH 24.9 L 24.8 L (26-32) pg MCHC 28.7 L 29.1 L (32-36) g/dl RDW 15.8 H 15.5 H (11.5-14.0) % Plt Count 142 L 131 L (150-450) K/mm3 MPV 11.6 H 11.9 H (6-9.5) fl Segmented Neutrophils 91 H (36.0-66.0) % Lymphocytes (Manual) 8 L (24-44) % Monocytes (Manual) 1 (0.0-12.0) % Platelet Estimate NORMAL (NORMAL) RBC Morphology ABNORMAL Polychromasia 1+ Poikilocytosis 1+ Anisocytosis 1+ Sodium (137-145) mmol/L Potassium (3.5-5.1) mmol/L Chloride (98-107) mmol/L Carbon Dioxide (22-30) mmol/L Anion Gap (5-15) MEQ/L BUN (7-17) mg/dL Creatinine (0.52-1.04) mg/dL Estimated GFR ML/MIN Glucose (74-106) mg/dL Calcium (8.4-10.2) mg/dL Total Bilirubin 0.70 (0.2-1.3) mg/dL AST 2403 H (14-36) U/L ALT 1807 H (0-35) U/L Alkaline Phosphatase 151 H (38-126) U/L Troponin I (0.000-0.034) ng/mL NT-Pro-B Natriuret Pep (0-900) pg/mL Serum Total Protein 6.6 (6.3-8.2) g/dL Albumin 3.6 (3.5-5.0) g/dL 01/21/19 01/21/19 Range/Units 04:40 04:40 WBC (4.0-10.5) K/mm3 RBC (4.1-5.4) M/mm3 Hgb (12.0-16.0) gm/dl Hct (35-47) % MCV (78-100) fl MCH (26-32) pg MCHC (32-36) g/dl RDW (11.5-14.0) % Plt Count (150-450) K/mm3 MPV (6-9.5) fl Segmented Neutrophils (36.0-66.0) % Lymphocytes (Manual) (24-44) % Monocytes (Manual) (0.0-12.0) % Platelet Estimate (NORMAL) RBC Morphology Polychromasia Poikilocytosis Anisocytosis Sodium 143 (137-145) mmol/L Potassium 4.7 (3.5-5.1) mmol/L Chloride 100 (98-107) mmol/L Carbon Dioxide 40 H (22-30) mmol/L Anion Gap 8.0 (5-15) MEQ/L BUN 55 H (7-17) mg/dL Creatinine 1.39 H (0.52-1.04) mg/dL Estimated GFR 39.7 ML/MIN Glucose 146 H (74-106) mg/dL Calcium 8.5 (8.4-10.2) mg/dL Total Bilirubin 0.60 (0.2-1.3) mg/dL AST 1409 H (14-36) U/L ALT 1684 H (0-35) U/L Alkaline Phosphatase 129 H (38-126) U/L Troponin I 0.619 H* (0.000-0.034) ng/mL NT-Pro-B Natriuret Pep 4460 H (0-900) pg/mL Serum Total Protein 6.2 L (6.3-8.2) g/dL Albumin 3.2 L (3.5-5.0) g/dL Radiology Exams: Radiology Procedures Category Date Time Status CHEST 1 VIEW (PORTABLE) Routine Exams 01/19/19 17:06 Completed ECHO W/2D AND DOPPLER [US] Routine Exams 01/20/19 08:00 Draft PELVIC [US] Routine Exams 01/20/19 16:32 Completed Multi-Disciplinary Progress Notes: Multi-Disciplinary Progress Notes 01/20/19 13:03 Pharmacy Note by Vin Read PHARMACY TO DOSE LOVENOX FOR A-FIB PATIENT IS 81 KG WITH ESTIMATED CREATININE CLEARANCE OF 15.48 ML/MIN. DOSE IS 1MG/KG SQ Q24HRS, ROUNDED TO 80 MG Initialized on 01/20/19 13:03 - END OF NOTE 01/20/19 11:28 Case Management Note by Mouna Kern REFERRAL FAXED TO [facility]. NO ADDNL NEEDS IDENTIFIED AT PRESENT TIME. PASRR COMPLETE AND ALSO FAXED. Initialized on 01/20/19 11:28 - END OF NOTE 01/20/19 10:49 Case Management Note by Mouna Kern LONG DISCUSSION WITH PT'S [id number], ANGELA, REGARDING NEEDS ON DISCHARGE. ANGELA REPORTS THAT SHE IS PT'S PRIMARY CAREGIVER, SHE IS WITH HER 23/09. ANGELA REPORTS THAT OVER THE LAST WEEK OR SO PT HAS GOTTEN VERY SHORT OF BREATH. REPORTS THAT SHE IS WEAK, SHE IS NOT WEARING HER CPAP AT NIGHT THE WAY SHE SHOULD, REPORTS THAT PT STATES, "IT IS COLD". [id number] REPORTS THAT SHE REFUSES TO WEAR IT. DISCUSSED HOME WITH [facility] VS REHAB STAY AT [facility] ON DISCHARGE. ANGELA REPORTS THAT THEY HAVE DISCUSSED AND FEEL THAT PT WOULD BENEFIT FROM REHAB STAY. REPORTS THAT SHE WAS IN [facility] A COUPLE OF YEARS AGO, AND LIKED IT THERE. REQUESTS REFERRAL TO [facility] ON DISCHARGE FOR SHORT TERM REHAB STAY. Initialized on 01/20/19 10:49 - END OF NOTE Assessment/Plan (1) CHF (congestive heart failure), NYHA class III Current Visit: No Status: Chronic Qualifiers: Congestive heart failure type: combined Congestive heart failure chronicity : acute on chronic Qualified Code(s): I50.43 - Acute on chronic combined systolic (congestive) and diastolic (congestive) heart failure Code(s): I50.9 - HEART FAILURE, UNSPECIFIED (2) Respiratory distress Current Visit: No Status: Acute Code(s): R06.03 - ACUTE RESPIRATORY DISTRESS (3) COPD (chronic obstructive pulmonary disease) Current Visit: Yes Status: Acute Qualifiers: COPD type: COPD with acute exacerbation Qualified Code(s): J44.1 - Chronic obstructive pulmonary disease with (acute) exacerbation (4) Type 2 diabetes mellitus Current Visit: Yes Status: Acute Qualifiers: Diabetes mellitus intermediate accountant insulin use: with halfway use Diabetes mellitus complication status: with hyperglycemia Qualified Code(s): E11.65 - Type 2 diabetes mellitus with hyperglycemia; Z79.4 - skilled nursing (current) use of insulin (5) COPD exacerbation Current Visit: Yes Status: Acute Code(s): J44.1 - CHRONIC OBSTRUCTIVE PULMONARY DISEASE W (ACUTE) EXACERBATION
--- NOTE | 2019-01-21 09:01 | PCM.NOTE ---
Date and Time: 01/21/19 0900 Subjective Assessment: doing better - Review of Systems Constitutional: No Fever, No Chills Eyes: No Symptoms Ears, Nose, & Throat: No Symptoms Respiratory: Cough, Orthopnea, Short Of Breath Cardiac: Edema, No Chest Pain, No Syncope Abdominal/Gastrointestinal: No Abdominal Pain, No Nausea, No Vomiting, No Diarrhea Genitourinary Symptoms: No Dysuria Musculoskeletal: No Back Pain, No Neck Pain Skin: No Rash Neurological: No Dizziness, No Focal Weakness, No Sensory Changes Psychological: No Symptoms Endocrine: No Symptoms Hematologic/Lymphatic: No Symptoms Immunological/Allergic: No Symptoms Objective Exam General Appearance: no apparent distress, alert Neurologic Exam: alert, oriented x 3, cooperative, normal mood/affect, nml cerebellar function, sensation nml, No motor deficits Skin Exam: normal color, warm, dry Eye Exam: PERRL, EOMI, eyes nml inspection Ears, Nose, Throat Exam: normal ENT inspection, pharynx normal, moist mucous membranes Neck Exam: normal inspection, non-tender, supple, full range of motion Respiratory Exam: prolonged expirations, crackles/rales, rhonchi, wheezing, No respiratory distress Cardiovascular Exam: regular rate/rhythm, normal heart sounds Gastrointestinal/Abdomen Exam: soft, No tenderness, No mass Extremity Exam: normal inspection, normal range of motion Back Exam: normal inspection, normal range of motion, No CVA tenderness, No vertebral tenderness Pelvic Exam: deferred Rectal Exam: deferred OBJECTIVE DATA Vital Signs: Vital Signs - 24 hr Temp Pulse Resp BP Pulse Ox 01/21/19 07:15 98.3 F 83 22 138/63 93 L 01/21/19 06:47 82 22 93 L 01/21/19 04:00 97.9 F 76 16 142/63 95 01/21/19 01:24 22 96 01/20/19 23:59 97.9 F 85 19 138/61 96 01/20/19 21:38 75 18 97 01/20/19 19:28 98.1 F 72 12 126/56 96 01/20/19 16:47 99.0 F 70 22 120/53 98 01/20/19 15:55 99.3 F 64 22 170/73 97 01/20/19 13:22 64 22 97 01/20/19 11:52 99.3 F 64 24 170/73 98 Oxygen-Last 24 hours O2 Percentage 4 Liters = 36% O2 Percentage 4 Liters = 36% O2 Percentage 5 Liters = 40% O2 Percentage 5 Liters = 40% Pain Assessment - Last Documented Pain Intensity 0 Pain Scale Used 0-10 Pain Scale Intake and Output: Intake & Output 01/18/19 01/19/19 01/20/19 01/21/19 11:59 11:59 11:59 11:59 Intake Total 480 1283 Output Total 525 1150 Balance -45 133 Weight 81.1 kg 81.3 kg Lab Results: Accuchecks Date 01/20/19 Date 01/20/19 Time 16:00 Time 11:29 Accucheck Value: 146 Accucheck Value: 194 Accucheck Value: 103 Accucheck Value: 86 Lab Results-Last 24 Hours 01/20/19 01/20/19 01/21/19 Range/Units 05:00 05:00 04:40 WBC 16.9 H 12.1 H (4.0-10.5) K/mm3 RBC 3.77 L 3.70 L (4.1-5.4) M/mm3 Hgb 9.4 L 9.2 L (12.0-16.0) gm/dl Hct 32.8 L 31.6 L (35-47) % MCV 87.0 85.4 (78-100) fl MCH 24.9 L 24.8 L (26-32) pg MCHC 28.7 L 29.1 L (32-36) g/dl RDW 15.8 H 15.5 H (11.5-14.0) % Plt Count 142 L 131 L (150-450) K/mm3 MPV 11.6 H 11.9 H (6-9.5) fl Segmented Neutrophils 91 H (36.0-66.0) % Lymphocytes (Manual) 8 L (24-44) % Monocytes (Manual) 1 (0.0-12.0) % Platelet Estimate NORMAL (NORMAL) RBC Morphology ABNORMAL Polychromasia 1+ Poikilocytosis 1+ Anisocytosis 1+ Sodium (137-145) mmol/L Potassium (3.5-5.1) mmol/L Chloride (98-107) mmol/L Carbon Dioxide (22-30) mmol/L Anion Gap (5-15) MEQ/L BUN (7-17) mg/dL Creatinine (0.52-1.04) mg/dL Estimated GFR ML/MIN Glucose (74-106) mg/dL Calcium (8.4-10.2) mg/dL Total Bilirubin 0.70 (0.2-1.3) mg/dL AST 2403 H (14-36) U/L ALT 1807 H (0-35) U/L Alkaline Phosphatase 151 H (38-126) U/L Troponin I (0.000-0.034) ng/mL NT-Pro-B Natriuret Pep (0-900) pg/mL Serum Total Protein 6.6 (6.3-8.2) g/dL Albumin 3.6 (3.5-5.0) g/dL 01/21/19 01/21/19 Range/Units 04:40 04:40 WBC (4.0-10.5) K/mm3 RBC (4.1-5.4) M/mm3 Hgb (12.0-16.0) gm/dl Hct (35-47) % MCV (78-100) fl MCH (26-32) pg MCHC (32-36) g/dl RDW (11.5-14.0) % Plt Count (150-450) K/mm3 MPV (6-9.5) fl Segmented Neutrophils (36.0-66.0) % Lymphocytes (Manual) (24-44) % Monocytes (Manual) (0.0-12.0) % Platelet Estimate (NORMAL) RBC Morphology Polychromasia Poikilocytosis Anisocytosis Sodium 143 (137-145) mmol/L Potassium 4.7 (3.5-5.1) mmol/L Chloride 100 (98-107) mmol/L Carbon Dioxide 40 H (22-30) mmol/L Anion Gap 8.0 (5-15) MEQ/L BUN 55 H (7-17) mg/dL Creatinine 1.39 H (0.52-1.04) mg/dL Estimated GFR 39.7 ML/MIN Glucose 146 H (74-106) mg/dL Calcium 8.5 (8.4-10.2) mg/dL Total Bilirubin 0.60 (0.2-1.3) mg/dL AST 1409 H (14-36) U/L ALT 1684 H (0-35) U/L Alkaline Phosphatase 129 H (38-126) U/L Troponin I 0.619 H* (0.000-0.034) ng/mL NT-Pro-B Natriuret Pep 4460 H (0-900) pg/mL Serum Total Protein 6.2 L (6.3-8.2) g/dL Albumin 3.2 L (3.5-5.0) g/dL Radiology Exams: Radiology Procedures Category Date Time Status CHEST 1 VIEW (PORTABLE) Routine Exams 01/19/19 17:06 Completed ECHO W/2D AND DOPPLER [US] Routine Exams 01/20/19 08:00 Draft PELVIC [US] Routine Exams 01/20/19 16:32 Completed Multi-Disciplinary Progress Notes: Multi-Disciplinary Progress Notes 01/20/19 13:03 Pharmacy Note by Vin Read PHARMACY TO DOSE LOVENOX FOR A-FIB PATIENT IS 81 KG WITH ESTIMATED CREATININE CLEARANCE OF 15.48 ML/MIN. DOSE IS 1MG/KG SQ Q24HRS, ROUNDED TO 80 MG Initialized on 01/20/19 13:03 - END OF NOTE 01/20/19 11:28 Case Management Note by Mouna Kern REFERRAL FAXED TO [facility]. NO ADDNL NEEDS IDENTIFIED AT PRESENT TIME. PASRR COMPLETE AND ALSO FAXED. Initialized on 01/20/19 11:28 - END OF NOTE 01/20/19 10:49 Case Management Note by Mouna Kern LONG DISCUSSION WITH PT'S [id number], ANGELA, REGARDING NEEDS ON DISCHARGE. ANGELA REPORTS THAT SHE IS PT'S PRIMARY CAREGIVER, SHE IS WITH HER 23/09. ANGELA REPORTS THAT OVER THE LAST WEEK OR SO PT HAS GOTTEN VERY SHORT OF BREATH. REPORTS THAT SHE IS WEAK, SHE IS NOT WEARING HER CPAP AT NIGHT THE WAY SHE SHOULD, REPORTS THAT PT STATES, "IT IS COLD". [id number] REPORTS THAT SHE REFUSES TO WEAR IT. DISCUSSED HOME WITH [facility] VS REHAB STAY AT [facility] ON DISCHARGE. ANGELA REPORTS THAT THEY HAVE DISCUSSED AND FEEL THAT PT WOULD BENEFIT FROM REHAB STAY. REPORTS THAT SHE WAS IN [facility] A COUPLE OF YEARS AGO, AND LIKED IT THERE. REQUESTS REFERRAL TO [facility] ON DISCHARGE FOR SHORT TERM REHAB STAY. Initialized on 01/20/19 10:49 - END OF NOTE Assessment/Plan (1) CHF (congestive heart failure), NYHA class III Current Visit: Yes Status: Chronic Qualifiers: Congestive heart failure type: combined Congestive heart failure chronicity : acute on chronic Qualified Code(s): I50.43 - Acute on chronic combined systolic (congestive) and diastolic (congestive) heart failure Assessment & Plan: Chief Complaint Diagnosis CHF Allergies Allergy/AdvReac Type Severity Reaction Status Date / Time Sulfa (Sulfonamide Allergy Severe Anaphylactic Verified 01/19/19 16:20 Antibiotics) Reaction Vital Signs (Last 24 hours) Temp Pulse Resp BP Pulse Ox 01/21/19 07:15 98.3 F 83 22 138/63 93 L 01/21/19 06:47 82 22 93 L 01/21/19 04:00 97.9 F 76 16 142/63 95 01/21/19 01:24 22 96 01/20/19 23:59 97.9 F 85 19 138/61 96 01/20/19 21:38 75 18 97 01/20/19 19:28 98.1 F 72 12 126/56 96 01/20/19 16:47 99.0 F 70 22 120/53 98 01/20/19 15:55 99.3 F 64 22 170/73 97 01/20/19 13:22 64 22 97 01/20/19 11:52 99.3 F 64 24 170/73 98 Home Medications Medication Instructions Recorded Confirmed Last Taken Type Albuterol/Ipratropium 3ml Neb* 3 ml IH QID 01/19/19 01/19/19 01/19/19 History [DUONEB 0.5-3 MG/3 ml Neb] Furosemide 40 mg [Lasix 40 1.5 tab PO BID 01/19/19 01/19/19 01/19/19 History MG] Meclizine HCl 12.5 mg PO Q8HPRN PRN 01/19/19 01/19/19 Unknown History Nitroglycerin 0.4 mg Tablet 0.4 mg SL UD 01/19/19 01/19/19 Unknown History [Nitrostat 0.4 MG Tablet] Potassium Chloride 10 Meq Tab* 10 meq PO BID 01/19/19 01/19/1901/19/19 History [Klor Con 10 MEQ] Current Medications Generic Name Dose Route Start Last Admin Trade Name Freq PRN Reason Stop Dose Admin Albuterol Sulfate 2.5 mg 01/19/19 16:44 01/19/19 17:06 Proventil 2.5 Mg/3 Ml Neb IH 02/18/19 16:43 2.5 mg Q4H PRN PRN Administration SHORTNESS OF BREATH/WHEEZING Albuterol/Ipratropium 3 ml 01/20/19 07:00 01/21/19 06:44 Duoneb 0.5-3 Mg/3 Ml Neb IH 02/19/19 06:59 3 ml Q6HRT LILA Administration Amlodipine Besylate 2.5 mg 01/20/19 10:00 01/20/19 10:48 Norvasc 5 Mg PO 02/19/19 09:59 Not Given DAILY LILA Aspirin 81 mg 01/20/19 10:00 01/20/19 10:48 Ecotrin 81 Mg PO 02/19/19 09:59 Not Given DAILY LILA Bumetanide 1 mg 01/20/19 10:00 01/20/19 17:43 Bumex 1 Mg IV 02/19/19 09:59 1 mg BID DIURETIC LILA Administration Dextrose 50 ml 01/20/19 06:40 D50w 50 Ml Abboject IV 02/19/19 06:39 PRN PRN HYPOGLYCEMIA Duloxetine HCl 60 mg 01/19/19 22:00 01/20/19 20:00 Cymbalta 30 Mg Capsule PO 02/18/19 21:59 60 mg HS LILA Administration Enoxaparin Sodium 80 mg 01/20/19 13:15 01/20/19 13:07 Enoxaparin Sodium SQ 02/19/19 13:14 80 mg DAILY LILA Administration Hydralazine HCl 25 mg 01/19/19 22:00 01/20/19 20:39 Apresoline 25 Mg Tablet PO 02/18/19 21:59 Not Given QID LLIA Dextrose/Sodium Chloride 1,000 mls @ 50 mls/hr 01/20/19 12:55 01/21/19 05:52 Dextrose 5%-Ns Iv Solution 1000 Ml IV 02/19/19 12:54 50 mls/hr .Q20H LILA Administration Insulin Aspart 0 unit 01/20/19 15:48 Novolog Insulin SQ 02/19/19 15:47 UD PRN HYPERGLYCEMIA Levothyroxine Sodium 100 mcg 01/20/19 10:00 01/20/19 10:48 Synthroid 100 Mcg PO 02/19/19 09:59 Not Given DAILY LILA Meclizine HCl 12.5 mg 01/19/19 17:17 Antivert 25 Mg PO 02/18/19 17:16 Q8H PRN PRN DIZZINESS Nitroglycerin 0.4 mg 01/19/19 17:15 Nitrostat 0.4 Mg Tablet SL 02/18/19 17:14 UD LILA Sodium Chloride 10 ml 01/19/19 22:00 01/21/19 05:58 Sodium Chloride 0.9% 10 Ml Flush Syringe IV 02/18/19 21:59 Not Given Q8HT LILA Discontinued Medications Generic Name Dose Route Start Last Admin Trade Name Freq PRN Reason Stop Dose Admin Albuterol/Ipratropium 3 ml 01/19/19 19:00 01/19/19 19:23 Duoneb 0.5-3 Mg/3 Ml Neb IH 02/18/19 18:59 Not Given QIDRT LILA Albuterol/Ipratropium 3 ml 01/19/19 22:00 Duoneb 0.5-3 Mg/3 Ml Neb IH 02/18/19 21:59 QIDRT LILA Dextrose Confirm 01/20/19 05:25 D50w 50 Ml Abboject Administered 01/20/19 05:26 Dose 50 ml IV .STK-MED ONE Dextrose 50 ml 01/20/19 05:27 01/20/19 05:32 D50w 50ml Vial IV 02/19/19 05:26 50 ml PRN PRN Administration HYPOGLYCEMIA Fosinopril Sodium 10 mg 01/20/19 10:00 01/20/19 10:48 Monopril 10 Mg PO 02/19/19 09:59 Not Given DAILY LILA Dextrose/Sodium Chloride 1,000 mls @ 100 mls/hr 01/20/19 09:30 01/20/19 10:00 Dextrose 5%-Ns Iv Solution 1000 Ml IV 02/19/19 09:29 100 mls/hr .Q10H LILA Administration Insulin Human Isoph/Insulin Regular 50 unit 01/19/19 22:00 01/20/19 10:48 Novolin 70/30 SQ 02/18/19 21:59 Not Given BID LILA Non-Formulary Medication 1 each 01/20/19 13:00 01/20/19 13:03 Pharmacy Dosing Request 01/20/19 13:01 1 each NOW ONE Administration Potassium Chloride 10 meq 01/19/19 22:00 01/20/19 10:48 Klor Con 10 Meq PO 02/18/19 21:59 Not Given BID LILA Simvastatin 10 mg 01/19/19 22:00 01/19/19 22:19 Zocor 10mg PO 02/18/19 21:59 10 mg HS LILA Administration Intake & Output (Last 24 hours) 01/18/19 01/19/19 01/20/19 01/21/19 11:59 11:59 11:59 11:59 Intake Total 480 1283 Output Total 525 1150 Balance -45 133 Weight 81.1 kg 81.3 kg Microbiology Results (Last 24 hours) 01/20/19 13:20 Blood Blood Culture Gram Stain - Pending 01/20/19 13:20 Blood Blood Culture - Pending 01/20/19 13:20 Blood Blood Culture Gram Stain - Pending 01/20/19 13:20 Blood Blood Culture - Pending 01/20/19 05:16 Catherized Urine Culture - Pending Laboratory Results (Last 24 hours) 01/21/19 01/21/19 01/21/19 04:40 04:40 04:40 WBC 12.1 H RBC 3.70 L Hgb 9.2 L Hct 31.6 L MCV 85.4 MCH 24.8 L MCHC 29.1 L RDW 15.5 H Plt Count 131 L MPV 11.9 H Segmented Neutrophils Lymphocytes (Manual) Monocytes (Manual) Platelet Estimate RBC Morphology Polychromasia Poikilocytosis Anisocytosis Sodium 143 Potassium 4.7 Chloride 100 Carbon Dioxide 40 H Anion Gap 8.0 BUN 55 H Creatinine 1.39 H Estimated GFR 39.7 Glucose 146 H Calcium 8.5 Total Bilirubin 0.60 AST 1409 H ALT 1684 H Alkaline Phosphatase 129 H Troponin I 0.619 H* NT-Pro-B Natriuret Pep 4460 H Serum Total Protein 6.2 L Albumin 3.2 L 01/20/19 01/20/19 05:00 05:00 WBC 16.9 H RBC 3.77 L Hgb 9.4 L Hct 32.8 L MCV 87.0 MCH 24.9 L MCHC 28.7 L RDW 15.8 H Plt Count 142 L MPV 11.6 H Segmented Neutrophils 91 H Lymphocytes (Manual) 8 L Monocytes (Manual) 1 Platelet Estimate NORMAL RBC Morphology ABNORMAL Polychromasia 1+ Poikilocytosis 1+ Anisocytosis 1+ Sodium Potassium Chloride Carbon Dioxide Anion Gap BUN Creatinine Estimated GFR Glucose Calcium Total Bilirubin 0.70 AST 2403 H ALT 1807 H Alkaline Phosphatase 151 H Troponin I NT-Pro-B Natriuret Pep Serum Total Protein 6.6 Albumin 3.6 Orders (Last 24 hours) Category Date Time Status Consult Cardiology ROUTINE Cons 01/20/19 09:10 Completed PELVIC [US] Routine Exams 01/20/19 16:32 Completed BLOOD CULTURE Urgent Lab 01/20/19 13:20 Received BNP [NT PRO BNP] Routine Lab 01/21/19 04:40 Completed CBC Routine Lab 01/21/19 04:40 Completed CMP Routine Lab 01/21/19 04:40 Completed TROPONIN Stat Lab 01/21/19 04:40 Completed Amlodipine Besylate 5 mg [Norvasc 5 mg] Med 01/20/19 10:00 Active 2.5 mg PO DAILY Aspirin EC 81 mg [Ecotrin 81 mg] Med 01/20/19 10:00 Active 81 mg PO DAILY Bumetanide 1 mg [Bumex 1 mg] Med 01/20/19 10:00 Active 1 mg IV BID DIURETIC D5ns 1000 ml [Dextrose 5%-NS IV Solution 1000 ML] 1,000 Med 01/20/19 09:30 Discontinued ml IV 100 mls/hr D5ns 1000 ml [Dextrose 5%-NS IV Solution 1000 ML] 1,000 Med 01/20/19 12:55 Active ml IV 50 mls/hr Enoxaparin Sodium [Enoxaparin Sodium] Med 01/20/19 13:15 Active 80 mg SQ DAILY Fosinopril Sodium 10 mg [monoPRIL 10 MG] Med 01/20/19 10:00 Discontinued 10 mg PO DAILY Insulin Aspart [NovoLOG Insulin] Med 01/20/19 15:48 Active See Dose Instructions SQ UD PRN Levothyroxine Sodium 100 Mcg [Synthroid 100 Mcg] Med 01/20/19 10:00 Active 100 mcg PO DAILY Pharmacy Dosing Request Med 01/20/19 13:00 Discontinued 1 each NOW ONE Patient Care Notes (Last 24 hours) 01/20/19 15:54 Nursing Note by Marifer Payne Pt taken off BIPAP and switched to 5L nasal cannula for dinner. Initialized on 01/20/19 15:54 - END OF NOTE 01/20/19 15:50 Nursing Note by Marifer Payne Pt is mroe alert this afternoon. Pt oriented to person place and year. Pt is able to stay awake without continuous stimulation moderate vaginal bleeding noted when pt was given a bath linens were changed. Pt turned over for lung sound assessment. Lungs remain clear and very diminished. Pt reports she will try and eat dinner. Dr. Harmon called and notified of vaginal bleeding. NPH order discontinued sliding scale ordered. chest x ray and elevated WBC discussed no antibiotic ordered at this time. Initialized on 01/20/19 15:50 - END OF NOTE 01/20/19 13:03 Pharmacy Note by Vin Read PHARMACY TO DOSE LOVENOX FOR A-FIB PATIENT IS 81 KG WITH ESTIMATED CREATININE CLEARANCE OF 15.48 ML/MIN. DOSE IS 1MG/KG SQ Q24HRS, ROUNDED TO 80 MG Initialized on 01/20/19 13:03 - END OF NOTE 01/20/19 11:28 Case Management Note by Mouna Kern REFERRAL FAXED TO [facility]. NO ADDNL NEEDS IDENTIFIED AT PRESENT TIME. PASRR COMPLETE AND ALSO FAXED. Initialized on 01/20/19 11:28 - END OF NOTE 01/20/19 10:49 Case Management Note by Mouna Kern LONG DISCUSSION WITH PT'S [id number], ANGELA, REGARDING NEEDS ON DISCHARGE. ANGELA REPORTS THAT SHE IS PT'S PRIMARY CAREGIVER, SHE IS WITH HER 23/09. ANGELA REPORTS THAT OVER THE LAST WEEK OR SO PT HAS GOTTEN VERY SHORT OF BREATH. REPORTS THAT SHE IS WEAK, SHE IS NOT WEARING HER CPAP AT NIGHT THE WAY SHE SHOULD, REPORTS THAT PT STATES, "IT IS COLD". [id number] REPORTS THAT SHE REFUSES TO WEAR IT. DISCUSSED HOME WITH [facility] VS REHAB STAY AT [facility] ON DISCHARGE. ANGELA REPORTS THAT THEY HAVE DISCUSSED AND FEEL THAT PT WOULD BENEFIT FROM REHAB STAY. REPORTS THAT SHE WAS IN [facility] A COUPLE OF YEARS AGO, AND LIKED IT THERE. REQUESTS REFERRAL TO [facility] ON DISCHARGE FOR SHORT TERM REHAB STAY. Initialized on 01/20/19 10:49 - END OF NOTE 01/20/19 09:48 Nursing Note by Ade Patel I just spoke with and he will round on patient today. He asked that I print off old consult note from 2017 and put in chart. Initialized on 01/20/19 09:48 - END OF NOTE Code(s): I50.9 - HEART FAILURE, UNSPECIFIED (2) Respiratory distress Current Visit: No Status: Acute Code(s): R06.03 - ACUTE RESPIRATORY DISTRESS (3) COPD (chronic obstructive pulmonary disease) Current Visit: Yes Status: Acute Qualifiers: COPD type: COPD with acute exacerbation Qualified Code(s): J44.1 - Chronic obstructive pulmonary disease with (acute) exacerbation (4) Type 2 diabetes mellitus Current Visit: Yes Status: Acute Qualifiers: Diabetes mellitus mcc insulin use: with termination clerk use Diabetes mellitus complication status: with hyperglycemia Qualified Code(s): E11.65 - Type 2 diabetes mellitus with hyperglycemia; Z79.4 - alf (current) use of insulin (5) COPD exacerbation Current Visit: Yes Status: Acute Code(s): J44.1 - CHRONIC OBSTRUCTIVE PULMONARY DISEASE W (ACUTE) EXACERBATION
[2019-01-21] MEDS: BUMEX 1 MG IV SCH ×2 (09:54→17:28)
[2019-01-21] MEDS: ENOXAPARIN SODIUM SQ SCH (10:05)
[2019-01-21] MEDS: SYNTHROID 100 MCG PO SCH (10:07)
[2019-01-21] MEDS: Apresoline 25 MG TABLET PO SCH ×4 (10:07→22:29)
[2019-01-21] MEDS: ECOTRIN 81 MG PO SCH (10:08)
[2019-01-21] MEDS: NORVASC 5 MG PO SCH (10:08)
[2019-01-21] MEDS: NovoLOG Insulin SQ PRN ×3 (12:25→22:30)
[2019-01-21] MEDS: Cymbalta 30 MG Capsule PO SCH (22:29)
[2019-01-22] MEDS: DUONEB 0.5-3 MG/3 ml Neb IH SCH ×2 (00:24→07:30)
[2019-01-22 07:48] VITALS: BP 192/74; O2SAT 96
[2019-01-22 08:05] VITALS: PULSE 66
[2019-01-22] MEDS: Sodium Chloride 0.9% 10 ML FLUSH Syringe IV SCH (08:08)
[2019-01-22] MEDS: ECOTRIN 81 MG PO SCH (08:53)
[2019-01-22] MEDS: SYNTHROID 100 MCG PO SCH (08:54)
[2019-01-22] MEDS: NORVASC 5 MG PO SCH (08:54)
[2019-01-22] MEDS: Apresoline 25 MG TABLET PO SCH (08:54)
[2019-01-22] MEDS: BUMEX 1 MG IV SCH ×2 (08:55→09:09)
[2019-01-22] MEDS: ENOXAPARIN SODIUM SQ SCH (08:55)
[2019-01-22] MEDS: Dextrose 5%-NS IV Solution 1000 ML 1,000 ML IV SCH (09:06)
[2019-01-22] MEDS ORDERED: BUMEX 1 MG PO SCH (10:00)
--- NOTE | 2019-01-22 11:43 | PCM.DS ---
Discharge Summary Date of Admission: 01/19/19 15:30 Admitting Physician: MIKAEL MEDINA Consults: Consults on Case 01/19/19 18:21 Consult Cardiology ROUTINE 01/19/19 21:39 Nutritional Consult 01/20/19 09:10 Consult Cardiology ROUTINE Primary Care Provider: MIKAEL MEDINA Allergies Allergies Sulfa (Sulfonamide Antibiotics) Allergy (Severe, Verified 01/19/19 16:20) Anaphylactic Reaction swelling, trouble breathing Hospital Summary - Hospital Course Hospital Course: Chief Complaint Diagnosis CHF Allergies Allergy/AdvReac Type Severity Reaction Status Date / Time Sulfa (Sulfonamide Allergy Severe Anaphylactic Verified 01/19/19 16:20 Antibiotics) Reaction Vital Signs (Last 24 hours) Temp Pulse Resp BP Pulse Ox 01/22/19 08:03 66 20 96 01/22/19 07:42 97.9 F 69 16 192/74 96 01/22/19 04:00 98.5 F 78 26 H 152/65 98 01/22/19 00:25 64 25 H 98 01/22/19 00:00 97.8 F 64 25 H 164/72 98 01/21/19 20:00 97.5 F 70 22 156/65 95 01/21/19 19:13 69 22 78 L 01/21/19 16:00 99 F 73 20 147/65 95 01/21/19 13:41 80 24 97 01/21/19 11:50 99 F 74 22 166/73 90 L Home Medications Medication Instructions Recorded Confirmed Last Taken Type Albuterol/Ipratropium 3ml Neb* 3 ml IH QID 01/19/19 01/19/19 01/19/19 History [DUONEB 0.5-3 MG/3 ml Neb] Meclizine HCl 12.5 mg PO Q8HPRN PRN 01/19/19 01/19/19 Unknown History Nitroglycerin 0.4 mg Tablet 0.4 mg SL UD 01/19/19 01/19/19 Unknown History [Nitrostat 0.4 MG Tablet] Potassium Chloride 10 Meq Tab* 10 meq PO BID 01/19/19 01/19/19 01/19/19 History [Klor Con 10 MEQ] Bumetanide 1 mg [Bumex 1 mg] 1 mg PO BID DIURETIC #60 tablet 01/22/19 Unknown Rx Current Medications Discontinued Medications Generic Name Dose Route Start Last Admin Trade Name Freq PRN Reason Stop Dose Admin Albuterol Sulfate 2.5 mg 01/19/19 16:44 01/19/19 17:06 Proventil 2.5 Mg/3 Ml Neb IH 02/18/19 16:43 2.5 mg Q4H PRN PRN Administration SHORTNESS OF BREATH/WHEEZING Albuterol/Ipratropium 3 ml 01/19/19 19:00 01/19/19 19:23 Duoneb 0.5-3 Mg/3 Ml Neb IH 02/18/19 18:59 Not Given QIDRT LILA Albuterol/Ipratropium 3 ml 01/19/19 22:00 Duoneb 0.5-3 Mg/3 Ml Neb IH 02/18/19 21:59 QIDRT LILA Albuterol/Ipratropium 3 ml 01/20/19 07:00 01/22/19 07:30 Duoneb 0.5-3 Mg/3 Ml Neb IH 02/19/19 06:59 3 ml Q6HRT LILA Administration Amlodipine Besylate 2.5 mg 01/20/19 10:00 01/22/19 08:54 Norvasc 5 Mg PO 02/19/19 09:59 2.5 mg DAILY LILA Administration Aspirin 81 mg 01/20/19 10:00 01/22/19 08:53 Ecotrin 81 Mg PO 02/19/19 09:59 81 mg DAILY LILA Administration Bumetanide 1 mg 01/20/19 10:00 01/22/19 09:09 Bumex 1 Mg IV 02/19/19 09:59 Not Given BID DIURETIC LILA Bumetanide 1 mg 01/22/19 10:00 01/22/19 09:30 Bumex 1 Mg PO 02/21/19 09:59 1 mg BID DIURETIC LILA Administration Dextrose Confirm 01/20/19 05:25 D50w 50 Ml Abboject Administered 01/20/19 05:26 Dose 50 ml IV .STK-MED ONE Dextrose 50 ml 01/20/19 05:27 01/20/19 05:32 D50w 50ml Vial IV 02/19/19 05:26 50 ml PRN PRN Administration HYPOGLYCEMIA Dextrose 50 ml 01/20/19 06:40 D50w 50 Ml Abboject IV 02/19/19 06:39 PRN PRN HYPOGLYCEMIA Duloxetine HCl 60 mg 01/19/19 22:00 01/21/19 22:29 Cymbalta 30 Mg Capsule PO 02/18/19 21:59 60 mg HS LILA Administration Enoxaparin Sodium 80 mg 01/20/19 13:15 01/22/19 08:55 Enoxaparin Sodium SQ 02/19/19 13:14 80 mg DAILY LILA Administration Fosinopril Sodium 10 mg 01/20/19 10:00 01/20/19 10:48 Monopril 10 Mg PO 02/19/19 09:59 Not Given DAILY LILA Hydralazine HCl 25 mg 01/19/19 22:00 01/22/19 08:54 Apresoline 25 Mg Tablet PO 02/18/19 21:59 25 mg QID LILA Administration Dextrose/Sodium Chloride 1,000 mls @ 100 mls/hr 01/20/19 09:30 01/20/19 10:00 Dextrose 5%-Ns Iv Solution 1000 Ml IV 02/19/19 09:29 100 mls/hr .Q10H LILA Administration Dextrose/Sodium Chloride 1,000 mls @ 50 mls/hr 01/20/19 12:55 01/22/19 09:06 Dextrose 5%-Ns Iv Solution 1000 Ml IV 02/19/19 12:54 Not Given .Q20H LILA Insulin Aspart 0 unit 01/20/19 15:48 01/21/19 22:30 Novolog Insulin SQ 02/19/19 15:47 2 unit UD PRN Administration HYPERGLYCEMIA Insulin Human Isoph/Insulin Regular 50 unit 01/19/19 22:00 01/20/19 10:48 Novolin 70/30 SQ 02/18/19 21:59 Not Given BID LILA Levothyroxine Sodium 100 mcg 01/20/19 10:00 01/22/19 08:54 Synthroid 100 Mcg PO 02/19/19 09:59 100 mcg DAILY LILA Administration Meclizine HCl 12.5 mg 01/19/19 17:17 Antivert 25 Mg PO 02/18/19 17:16 Q8H PRN PRN DIZZINESS Nitroglycerin 0.4 mg 01/19/19 17:15 Nitrostat 0.4 Mg Tablet SL 02/18/19 17:14 UD LILA Non-Formulary Medication 1 each 01/20/19 13:00 01/20/19 13:03 Pharmacy Dosing Request 01/20/19 13:01 1 each NOW ONE Administration Potassium Chloride 10 meq 01/19/19 22:00 01/20/19 10:48 Klor Con 10 Meq PO 02/18/19 21:59 Not Given BID LILA Simvastatin 10 mg 01/19/19 22:00 01/19/19 22:19 Zocor 10mg PO 02/18/19 21:59 10 mg HS LILA Administration Sodium Chloride 10 ml 01/19/19 22:00 01/22/19 08:08 Sodium Chloride 0.9% 10 Ml Flush Syringe IV 02/18/19 21:59 Not Given Q8HT LILA Intake & Output (Last 24 hours) 01/19/19 01/20/19 01/21/19 01/22/19 11:59 11:59 11:59 11:59 Intake Total 480 1523 1556 Output Total 525 1150 2900 Balance -45 373 -1344 Weight 81.1 kg 81.3 kg 80 kg Microbiology Results (Last 24 hours) 01/20/19 05:16 Catherized Urine Culture - Final NO GROWTH Orders (Last 24 hours) Category Date Time Status Discharge Routine Discharge 01/22/19 Ordered Bumetanide 1 mg [Bumex 1 mg] Med 01/22/19 10:00 Discontinued 1 mg PO BID DIURETIC Patient Care Notes (Last 24 hours) 01/21/19 16:35 Nursing Note by ABISAI LAO PT HAD SMALL BM WITH A SLIGHT AMOUNT OF BRIGHT RED BLOOD, WILL CONTINUE TO MONITOR. Initialized on 01/21/19 16:35 - END OF NOTE - Vitals & Intake/Output Vital Signs: Vital Signs Temperature 97.9 F 01/22/19 07:42 Pulse Rate 66 01/22/19 08:03 Respiratory Rate 20 01/22/19 08:03 Blood Pressure 192/74 01/22/19 07:42 O2 Sat by Pulse Oximetry 96 01/22/19 08:03 Oxygen-Last Documented O2 Percentage 4 Liters = 36% Intake & Output: Intake & Output 01/19/19 01/20/19 01/21/19 01/22/19 11:59 11:59 11:59 11:59 Intake Total 480 1523 1556 Output Total 525 1150 2900 Balance -45 373 -1344 Weight 81.1 kg 81.3 kg 80 kg - Lab Result Diagrams: 01/21/19 04:40 01/21/19 04:40 Lab Results-Last 24 Hrs: Accuchecks Date 01/22/19 Date 01/21/19 Time 07:37 Time 21:00 Accucheck Value: 126 Accucheck Value: 218 Accucheck Value: 209 Micro Results-Entire Visit: Microbiology 01/20/19 05:16 Urine Culture - Final Catherized NO GROWTH Accuchecks Date 01/22/19 Date 01/21/19 Time 07:37 Time 21:00 Accucheck Value: 126 Accucheck Value: 218 Accucheck Value: 209 - Radiology Exams Ordered Rad Exams-Entire Visit: Radiology Procedures Category Date Time Status PELVIC [US] Routine Exams 01/20/19 16:32 Completed - Procedures and Test Procedures and Tests throughout Hospitalization: Therapy Orders & Screens 01/19/19 16:45 Respiratory Therapy Assessment DAILY Comment: 01/19/19 16:46 Oxygen Nasal Cannula 4 lpm Comment: 01/19/19 16:47 Peak Expiratory Flow Rate ONCE Comment: Reason For Exam: 01/19/19 17:08 EKG STAT Comment: Diagnosis: CHF 01/19/19 17:21 RT Screen per Nursing Assess ONCE Comment: Protocol Order Physician Instructions: Greater than 3 points order RT Admission Screen Reason For Exam: Triggered on Admission Diagnosis: CHF Diagnosis: CHF Pneumonia: No Home O2: Yes Asthma: Yes CHF: Yes Home CPAP/BIPAP: No Home Nebs/MDI: Yes Total Points: 17 01/19/19 21:39 EKG STAT Comment: Diagnosis: CHF 01/19/19 21:47 BiPap/CPAP ROUTINE Comment: Diagnosis: CHF Discharge Exam General Appearance: mild distress, alert Neurologic Exam: alert, oriented x 3, cooperative, normal mood/affect, nml cerebellar function, sensation nml, No motor deficits Eye Exam: PERRL, EOMI, eyes nml inspection Ears, Nose, Throat Exam: normal ENT inspection, pharynx normal, moist mucous membranes Neck Exam: normal inspection, non-tender, supple, full range of motion Respiratory Exam: normal breath sounds, lungs clear, No respiratory distress Cardiovascular Exam: regular rate/rhythm, normal heart sounds Gastrointestinal/Abdomen Exam: soft, No tenderness, No mass Pelvic Exam: deferred Rectal Exam: deferred Back Exam: normal inspection, normal range of motion, No CVA tenderness, No vertebral tenderness Extremity Exam: normal inspection, normal range of motion Skin Exam: normal color, warm, dry Final Diagnosis/Problem List - Final Discharge Diagnosis/Problem (1) CHF (congestive heart failure), NYHA class III Status: Chronic Assessment & Plan: Last Vital Signs Temp 97.9 F 01/22/19 07:42 Pulse 66 01/22/19 08:03 Resp 20 01/22/19 08:03 BP 192/74 01/22/19 07:42 Pulse Ox 96 01/22/19 08:03 Allergies Sulfa (Sulfonamide Antibiotics) Allergy (Severe, Verified 01/19/19 16:20) Anaphylactic Reaction swelling, trouble breathing Intake & Output 01/21/19 01/22/19 11:59 11:59 Intake Total 1523 1556 Output Total 1150 2900 Balance 373 -1344 Weight 81.3 kg 80 kg Orders 01/22/19 Discharge Routine Microbiology 01/20/19 05:16 Catherized Urine Culture - Final NO GROWTH Code(s): I50.9 - HEART FAILURE, UNSPECIFIED (2) Respiratory distress Status: Acute Code(s): R06.03 - ACUTE RESPIRATORY DISTRESS (3) COPD (chronic obstructive pulmonary disease) Status: Acute (4) Type 2 diabetes mellitus Status: Acute (5) COPD exacerbation Status: Acute Code(s): J44.1 - CHRONIC OBSTRUCTIVE PULMONARY DISEASE W (ACUTE ) EXACERBATION - Discharge Discharge Date: 01/22/19 Disposition: Skilled Care @ [facility] Condition: Stable Prescriptions: New Bumetanide 1 mg [Bumex 1 mg] 1 mg PO BID DIURETIC #60 tablet Continue Fosinopril Sodium 10 mg [monoPRIL 10 MG] 10 mg PO DAILY Atorvastatin Calcium 10 mg PO DAILY Amlodipine Besylate 2.5 mg PO DAILY Duloxetine HCl 30 mg [Cymbalta 30 MG Capsule] 60 mg PO HS Aspirin 81 mg PO DAILY Levothyroxine Sodium 100 Mcg [Synthroid 100 Mcg] 100 mcg PO DAILY HydrALAzine HCL 25 MG TAB [Apresoline 25 MG TABLET] 25 mg PO QID Insulin NPH/Reg 70/30 [Novolin 70/30] 50 unit SQ BID Potassium Chloride 10 Meq Tab* [Klor Con 10 MEQ] 10 meq PO BID Nitroglycerin 0.4 mg Tablet [Nitrostat 0.4 MG Tablet] 0.4 mg SL UD Albuterol/Ipratropium 3ml Neb* [DUONEB 0.5-3 MG/3 ml Neb] 3 ml IH QID Meclizine HCl 12.5 mg PO Q8HPRN PRN PRN Reason: dizziness Discontinued Furosemide 40 mg [Lasix 40 MG] 1.5 tab PO BID Additional Instructions: [facility] ORDERS: --CBC, CMP ON 01/25/19 --Cardiac Diet --Accuchecks ACHS --O2@4L NC --BiPAP @ NIGHT: 14/08@36% --Larson care --PT/OT eval and treat --SEE ATTACHED MEDICATION LIST FOR CURRENT MEDICATION ORDERS. Follow up with: MIKAEL MEDINA MD [Primary Care Provider] - 1 Week
== END 2019-01-22 10:50 | DRG 292 ==
LOC: INTOOBSV 15:30 → MED SURG 15:30 → OBSVTOIN 15:30
PROVIDERS: ADMIT General Practice; ATTEND General Practice
DX: I50.43 Acute on chronic combined systolic (congestive) and diastolic (congestive) heart failure (principal); J44.1 Chronic obstructive pulmonary disease with (acute) exacerbation; R06.03 Acute respiratory distress; E11.65 Type 2 diabetes mellitus with hyperglycemia; Z79.4 Long term (current) use of insulin; Z79.899 Other long term (current) drug therapy
CPT/HCPCS: 36415; 36600; 71045; 76856; 80048; 80053; 82040; 82247; 82375; 82803; 82962; 83036; 83880; 84075; 84155; 84450; 84460; 84484; 85025; 85027; 87040; 87086; 93005; 93306; 94002; 94003; 94150; 94640; 94660; 94760; 94762; J1650; J7609; A9270-GY

== ENCOUNTER 2019-01-30 14:49 | Inpatient (IN) | payer MEDICARE ==
--- NOTE | 2019-01-30 14:57 | ERPHSYRPT ---
- History of Present Illness Time Seen by Provider: 01/30/19 14:52 Source: EMS, retirement records Exam Limitations: clinical condition Physician History: 73 y/o morbidly obese diabetic white female resident at [facility]. pt has sig h/o chf, htn, chronic resp failure with hypoxia, chronic renal dx. pt sx began earlier today and was placed on 4 liters bipap. pt respiratory and neurologic condition worsening. pt is DNR per retirement paperwork. however, pts family desired pt to be transferred to ED for eval and management Timing/Duration: today Activities at Onset: none Severity of Dyspnea-Max: moderate Possible Cause: frequent episodes Modifying Factors: Improves With: oxygen (no sig improvement) Associated Symptoms: weakness Allergies/Adverse Reactions: Sulfa (Sulfonamide Antibiotics) Allergy (Severe, Verified 01/19/19 16:20) Anaphylactic Reaction swelling, trouble breathing Home Medications: Amlodipine Besylate 2.5 mg PO DAILY 08/05/18 [History] Aspirin 81 mg PO DAILY 08/05/18 [History] Atorvastatin Calcium 10 mg PO DAILY 08/05/18 [History] Duloxetine HCl 30 mg [Cymbalta 30 MG Capsule] 60 mg PO HS 08/05/18 [ History] Fosinopril Sodium 10 mg [monoPRIL 10 MG] 10 mg PO DAILY 08/05/18 [History] HydrALAzine HCL 25 MG TAB [Apresoline 25 MG TABLET] 25 mg PO QID 08/05/18 [History] Insulin NPH/Reg 70/30 [Novolin 70/30] 50 unit SQ BID 08/05/18 [History] Levothyroxine Sodium 100 Mcg [Synthroid 100 Mcg] 100 mcg PO DAILY 08/05/18 [History] Albuterol/Ipratropium 3ml Neb* [DUONEB 0.5-3 MG/3 ml Neb] 3 ml IH QID [History] Meclizine HCl 12.5 mg PO Q8HPRN PRN 01/19/19 [History] Nitroglycerin 0.4 mg Tablet [Nitrostat 0.4 MG Tablet] 0.4 mg SL UD [History] Potassium Chloride 10 Meq Tab* [Klor Con 10 MEQ] 10 meq PO BID 01/19/19 [ History] Hx Tetanus, Diphtheria Vaccination/Date Given: No Hx Influenza Vaccination/Date Given: Yes Hx Pneumococcal Vaccination/Date Given: Yes - Review of Systems Constitutional: Weakness Eyes: No Symptoms Ears, Nose, & Throat: No Symptoms Respiratory: Dyspnea Cardiac: No Symptoms Abdominal/Gastrointestinal: No Symptoms Genitourinary Symptoms: No Symptoms Musculoskeletal: No Symptoms Skin: No Symptoms Neurological: No Symptoms Psychological: No Symptoms Endocrine: No Symptoms Hematologic/Lymphatic: No Symptoms Immunological/Allergic: No Symptoms All Other Systems: Reviewed and Negative - Past Medical History Pertinent Past Medical History: Yes Neurological History: No Pertinent History ENT History: Cataracts, Glaucoma Cardiac History: Congestive Heart Failure, Hypertension Respiratory History: Asthma, CHF, Sleep Apnea Endocrine Medical History: Diabetes Type II Musculoskeletal History: Arthritis GI Medical History: Diverticulitis, Diverticulosis, GERD, Hernia History: No Pertinent History Psycho-Social History: Anxiety, Depression Female Reproductive Disorders: No Pertinent History - Past Surgical History Past Surgical History: Yes Neuro Surgical History: No Pertinent History Cardiac: Cardiac Catheterization Respiratory: Other Gastrointestinal: No Pertinent History Genitourinary: No Pertinent History Musculoskeletal: No Pertinent History Female Surgical History: No Pertinent History, Other Other Surgical History: 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 D and C, chest tube placement LEFT side - Social History Smoking Status: Former smoker Exposure to second hand smoke: No Drug Use: none Patient Lives Alone: No - Nursing Vital Signs Nursing Vital Signs: Initial Vital Signs Pulse Rate 88 01/30/19 14:50 Respiratory Rate 26 H 01/30/19 14:50 Blood Pressure 134/59 01/30/19 14:50 O2 Sat by Pulse Oximetry 98 01/30/19 14:50 Pain Scale Pain Intensity 0 - Physical Exam General Appearance: moderate distress, obese Eye Exam: PERRL/EOMI, eyes nml inspection Neck Exam: normal inspection, non-tender, supple, full range of motion Respiratory Exam: chest tenderness, respiratory distress, airway intact, accessory muscle use, crackles/rales Abdominal/Gastrointestinal Exam: soft, normal bowel sounds, No tenderness Rectal Exam: not done Extremity Exam: non-tender, normal range of motion, normal inspection Skin Exam: diaphoresis Lymphatic Exam: No adenopathy SpO2 Interpretation: hypoxic O2 Delivery: BiPap/CPAP (4 liters; 70% on ems arrival. they changed to nebulizer) - Course Nursing assessment & vital signs reviewed: Yes EKG Interpreted by Me: RATE (88), Right [place] Deviation, Non-specific ST Changes (new), Other (compared to ekg dated 01/19/19. atrial fibrillation/flutter have resolved. ) Ordered Tests: Active Orders 24 hr Category Date Time Status [place] STAT Care 01/30/19 15:02 Active EKG-ER Only STAT Care 01/30/19 15:00 Active Larson [Catheter-[place] Larson] STAT Care 01/30/19 15:02 Active IV Insertion STAT Care 01/30/19 15:00 Active Pulse Oximetry (ED) STAT Care 01/30/19 15:00 Active CHEST 1 VIEW (PORTABLE) Stat Exams 01/30/19 15:01 Taken ABG [ARTERIAL BLOOD GASES] Stat Lab 01/30/19 15:09 Ordered ARTERIAL BLOOD GASES Stat Lab 01/30/19 15:00 Results CBC W DIFF Stat Lab 01/30/19 15:00 Completed CMP Stat Lab 01/30/19 15:00 Completed Lactic Acid Stat Lab 01/30/19 15:00 Results NT PRO BNP Stat Lab 01/30/19 15:00 Completed PROTIME WITH INR Stat Lab 01/30/19 15:00 Completed TROPONIN Q3H Lab 01/30/19 15:00 Completed TROPONIN Q3H Lab 01/30/19 18:15 Ordered TROPONIN Q3H Lab 01/30/19 21:15 Ordered TROPONIN Q3H Lab 01/31/19 00:15 Ordered TROPONIN Q3H Lab 01/31/19 03:15 Ordered BiPap/CPAP STAT RT 01/30/19 15:00 Active Transfer Order Routine Transfer 01/30/19 Ordered Medication Summary Discontinued Medications Generic Name Dose Route Start Last Admin Trade Name Freq PRN Reason Stop Dose Admin Furosemide 40 mg 01/30/19 15:53 01/30/19 16:00 Lasix 40 Mg/4 Ml IV 01/30/19 15:54 40 mg STAT ONE Administration Furosemide Confirm 01/30/19 15:56 Lasix 40 Mg/4 Ml Administered 01/30/19 15:57 Dose 40 mg .ROUTE .STK-MED ONE Methylprednisolone Sodium Succinate 125 mg 01/30/19 15:00 01/30/19 15:21 Solu-Medrol 125 Mg IV 01/30/19 15:01 125 mg STAT ONE Administration Methylprednisolone Sodium Succinate Confirm 01/30/19 15:20 Solu-Medrol 125 Mg Administered 01/30/19 15:21 Dose 125 mg .ROUTE .STK-MED ONE Lab/Rad Data: Laboratory Result Diagrams 01/30/19 15:00 01/30/19 15:00 Laboratory Results 01/30/19 01/30/19 01/30/19 Range/Units 15:00 15:00 15:00 WBC (4.0-10.5) K/mm3 RBC (4.1-5.4) M/mm3 Hgb (12.0-16.0) gm/dl Hct (35-47) % MCV (78-100) fl MCH (26-32) pg MCHC (32-36) g/dl RDW (11.5-14.0) % Plt Count (150-450) K/mm3 MPV (6-9.5) fl Gran % (36.0-66.0) % Eos # (Auto) (0-0.5) Absolute Lymphs (auto) (1.0-4.6) Absolute Monos (auto) (0.0-1.3) Lymphocytes % (24.0-44.0) % Monocytes % (0.0-12.0) % Eosinophils % (0.00-5.0) % Basophils % (0.0-0.4) % Absolute Granulocytes (1.4-6.9) Basophils # (0-0.4) PT 12.6 H (9.95-12.35) SECONDS INR 1.11 (0.8-3.0) Puncture Site pCO2 (35-45) mmHg pO2 (75-100) mmHg Base Excess (-2.0-2.0) O2 Saturation (94-100) g/dF ABG pH (7.35-7.45) ABG HCO3 (22-28) ABG O2 Sat (Measured) (95-100) % Matthias Test A-a Gradient a/A Ratio Hemoglobin Carboxyhemoglobin (0.0-6.9) % THgb Methemoglobin (1.4-1.5) % Potassium 5.6 H (3.5-5.1) Temperature C POC O2 Flow Rate % Vent Mode Inspiratory BiPAP Expiratory BiPAP Sodium 139 (137-145) mmol/L Chloride 92 L (98-107) mmol/L Carbon Dioxide 39 H (22-30) mmol/L Anion Gap 13.3 (5-15) MEQ/L BUN 16 (7-17) mg/dL Creatinine 0.90 (0.52-1.04) mg/dL Estimated GFR > 60.0 ML/MIN Glucose 310 H (74-106) mg/dL Lactic Acid (0.4-2.0) Calcium 8.7 (8.4-10.2) mg/dL Total Bilirubin 0.80 (0.2-1.3) mg/dL AST 39 H (14-36) U/L ALT 93 H (0-35) U/L Alkaline Phosphatase 111 (38-126) U/L Troponin I 0.026 (0.000-0.034) ng/mL NT-Pro-B Natriuret Pep 3730 H (0-900) pg/mL Serum Total Protein 7.4 (6.3-8.2) g/dL Albumin 3.9 (3.5-5.0) g/dL Slides for Path Review 01/30/19 01/30/19 Range/Units 15:00 15:00 WBC 15.0 H (4.0-10.5) K/mm3 RBC 4.18 (4.1-5.4) M/mm3 Hgb 10.3 L (12.0-16.0) gm/dl Hct 36.6 (35-47) % MCV 87.6 (78-100) fl MCH 24.6 L (26-32) pg MCHC 28.1 L (32-36) g/dl RDW 14.9 H (11.5-14.0) % Plt Count 261 (150-450) K/mm3 MPV 12.0 H (6-9.5) fl Gran % 90.4 H (36.0-66.0) % Eos # (Auto) 0.09 (0-0.5) Absolute Lymphs (auto) 0.77 L (1.0-4.6) Absolute Monos (auto) 0.56 (0.0-1.3) Lymphocytes % 5.2 L (24.0-44.0) % Monocytes % 3.7 (0.0-12.0) % Eosinophils % 0.6 (0.00-5.0) % Basophils % 0.1 (0.0-0.4) % Absolute Granulocytes 13.51 H (1.4-6.9) Basophils # 0.02 (0-0.4) PT (9.95-12.35) SECONDS INR (0.8-3.0) Puncture Site RIGHT BRACHIAL pCO2 93 H* (35-45) mmHg pO2 216 H* (75-100) mmHg Base Excess 10.8 H (-2.0-2.0) O2 Saturation 97.6 (94-100) g/dF ABG pH 7.25 L* (7.35-7.45) ABG HCO3 40.8 H* (22-28) ABG O2 Sat (Measured) 99.9 (95-100) % Matthias Test NOT APPLICABLE A-a Gradient 381 a/A Ratio 0.36 Hemoglobin 10.3 Carboxyhemoglobin 2.3 (0.0-6.9) % THgb Methemoglobin 0.1 L (1.4-1.5) % Potassium 5.2 H (3.5-5.1) Temperature 37.0 C POC O2 Flow Rate 100 % Vent Mode BiPAP Inspiratory BiPAP 12 Expiratory BiPAP 6 Sodium (137-145) mmol/L Chloride (98-107) mmol/L Carbon Dioxide (22-30) mmol/L Anion Gap (5-15) MEQ/L BUN (7-17) mg/dL Creatinine (0.52-1.04) mg/dL Estimated GFR ML/MIN Glucose (74-106) mg/dL Lactic Acid 2.3 H (0.4-2.0) Calcium (8.4-10.2) mg/dL Total Bilirubin (0.2-1.3) mg/dL AST (14-36) U/L ALT (0-35) U/L Alkaline Phosphatase (38-126) U/L Troponin I (0.000-0.034) ng/mL NT-Pro-B Natriuret Pep (0-900) pg/mL Serum Total Protein (6.3-8.2) g/dL Albumin (3.5-5.0) g/dL Slides for Path Review YES - Progress Progress: improved Air Movement: fair Progress Note: 01/30/19 15:38 spoke with pts son. he is poa. pt is DNR as paper work dictates. we had him sign DNR form. 01/30/19 16:23 cxr-left pleural effusion increased since 01/19/19 01/30/19 16:[address] barnard. he is covering for dr. stewart. he accepts pt for admission. Blood Culture(s) Obtained: No Antibiotics given: No Discussed with : Renetta Counseled pt/family regarding: lab results, diagnosis, rad results - Departure Departure Disposition: In-patient Admission Clinical Impression: Respiratory distress, Hypoxia, Hypercarbia, Acute respiratory failure with hypoxia and hypercapnia, CHF (congestive heart failure) Condition: Serious Critical Care Time: Yes Critical Care Time(excluding separately billable procedures): Critical 30-74 mins Referrals: ERIKA BARON [LOCATION] - Instructions: Heart Failure
[2019-01-30] MEDS ORDERED: solu-MEDROL 125 MG IV ONE (15:00)
[2019-01-30 15:13] LABS: A-aADO2 381; ABG HEMOGLOBIN 10.3; ABG POTASSIUM 5.2 (3.5-5.1); ARTERIAL BLD GAS O2 SATURATION 99.9 % (95-100); ARTERIAL BLOOD GAS BASE EXCESS 10.8 (-2.0-2.0); ARTERIAL BLOOD GAS FIO2 100 %; ARTERIAL BLOOD GAS PO2 216 mmHg (75-100); ARTERIAL BLOOD GAS VENT MODE BiPAP; CARBOXYHEMOGLOBIN 2.3 % THgb (0.0-6.9); HCO3- 40.8 (22-28); HGB O2 SAT 97.6 g/dF (94-100); Lactic Acid 2.3 (0.4-2.0); Methhemoglobin 0.1 % (1.4-1.5); paO2 pAO1 0.36
[2019-01-30 15:14] LABS: ABG SITE RIGHT BRACHIAL; ARTERIAL BLOOD GAS PCO2 93 mmHg (35-45); ARTERIAL BLOOD GAS pH 7.25 (7.35-7.45)
[2019-01-30] MEDS ORDERED: solu-MEDROL 125 MG ONE (15:20)
[2019-01-30 15:26] LABS: INR 1.11 (0.8-3.0); PROTIME 12.6 SECONDS (9.95-12.35)
[2019-01-30 15:27] LABS: Absolute Neutrophil Ct (ANC) 13.51 (1.4-6.9); BASOPHIL % 0.1 % (0.0-0.4); Basophil (Absolute #) 0.02 (0-0.4); Eosinophil % 0.6 % (0.00-5.0); Eosinophil (Absolute #) 0.09 (0-0.5); Hematocrit 36.6 % (35-47); Hemoglobin 10.3 gm/dl (12.0-16.0); Lymphocyte (Absolute #) 0.77 (1.0-4.6); Lymphocytes % 5.2 % (24.0-44.0); Mean Cell Volume 87.6 fl (78-100); Mean Corpuscular Hemoglobin 24.6 pg (26-32); Mean Corpuscular Hgb Concent. 28.1 g/dl (32-36); Monocyte (Absolute #) 0.56 (0.0-1.3); Monocytes % 3.7 % (0.0-12.0); Neutrophil % 90.4 % (36.0-66.0); Platelet Count 261 K/mm3 (150-450); Red Blood Count 4.18 M/mm3 (4.1-5.4); Red Cell Distribution Width 14.9 % (11.5-14.0)
[2019-01-30 15:40] LABS: ALBUMIN 3.9 g/dL (3.5-5.0); ALKALINE PHOSPHATASE 111 U/L (38-126); ANION GAP 13.3 MEQ/L (5-15); BLOOD UREA NITROGEN 16 mg/dL (7-17); CHLORIDE 92 mmol/L (98-107); Calcium 8.7 mg/dL (8.4-10.2); Carbon Dioxide 39 mmol/L (22-30); Glucose 310 mg/dL (74-106); NT PRO BNP 3730 pg/mL (0-900); Potassium 5.6 mmol/L (3.5-5.1); SGOT/AST 39 U/L (14-36); SGPT/ALT 93 U/L (0-35); SODIUM 139 mmol/L (137-145); Total Protein 7.4 g/dL (6.3-8.2)
[2019-01-30] MEDS ORDERED: Lasix 40 MG/4 ML IV ONE (15:53)
[2019-01-30] MEDS ORDERED: Lasix 40 MG/4 ML ONE (15:56)
[2019-01-30 16:08] LABS: Slide Review 1 YES
[2019-01-30] MEDS ORDERED: Zofran 4 MG/2 ML VIAL IV PRN (17:00)
[2019-01-30] MEDS ORDERED: FEVERALL 650 MG PR PRN (17:00)
--- NOTE | 2019-01-30 17:14 | XRAY ---
Indication: Short of breath. Comparison: January 19, 2019. Portable chest demonstrates stable cardiomegaly with increasing moderate left base infiltrate/atelectasis/effusion and mild pulmonary edema concerning for cardiac decompensation/fluid overload. Superimposed pneumonia not completely excluded.
[2019-01-30] MEDS: Lasix 40 MG/4 ML IV SCH (17:20)
[2019-01-30] MEDS: NovoLOG Insulin SQ PRN ×3 (17:55→23:55)
[2019-01-30] MEDS: Sodium Chloride 0.9% 1000 ML 1,000 ML IV SCH (17:56)
[2019-01-30] MEDS ORDERED: Apresoline 25 MG TABLET PO SCH (22:00)
[2019-01-31] MEDS: Lasix 40 MG/4 ML IV SCH ×2 (00:06→08:02)
[2019-01-31] MEDS: NovoLOG Insulin SQ PRN ×5 (04:17→23:44)
[2019-01-31 04:57] LABS: A-aADO2 229; ABG HEMOGLOBIN 10.8; ARTERIAL BLOOD GAS BASE EXCESS 13.4 (-2.0-2.0); ARTERIAL BLOOD GAS FIO2 70 %; ARTERIAL BLOOD GAS PO2 170 mmHg (75-100); ARTERIAL BLOOD GAS VENT MODE BiPAP; ARTERIAL BLOOD GAS pH 7.33 (7.35-7.45); CARBOXYHEMOGLOBIN 1.5 % THgb (0.0-6.9); HCO3- 42.2 (22-28); HGB O2 SAT 96.7 g/dF (94-100); Methhemoglobin 0.8 % (1.4-1.5); paO2 pAO1 0.43
[2019-01-31 04:59] LABS: ARTERIAL BLOOD GAS PCO2 80 mmHg (35-45)
[2019-01-31 05:00] LABS: ABG POTASSIUM 6.5 (3.5-5.1); ABG SITE RIGHT RADIAL; ALLEN TEST OK? YES
[2019-01-31 06:28] LABS: Absolute Neutrophil Ct (ANC) 11.23 (1.4-6.9); BASOPHIL % 0.1 % (0.0-0.4); Basophil (Absolute #) 0.01 (0-0.4); Eosinophil % 0.2 % (0.00-5.0); Eosinophil (Absolute #) 0.02 (0-0.5); Hematocrit 36.7 % (35-47); Hemoglobin 10.5 gm/dl (12.0-16.0); Lymphocyte (Absolute #) 0.28 (1.0-4.6); Lymphocytes % 2.4 % (24.0-44.0); Mean Cell Volume 85.3 fl (78-100); Mean Corpuscular Hemoglobin 24.4 pg (26-32); Mean Corpuscular Hgb Concent. 28.6 g/dl (32-36); Mean Platelet Volume 11.7 fl (6-9.5); Monocytes % 0.9 % (0.0-12.0); Neutrophil % 96.4 % (36.0-66.0); Platelet Count 258 K/mm3 (150-450); Red Cell Distribution Width 14.9 % (11.5-14.0); White Blood Count 11.6 K/mm3 (4.0-10.5)
[2019-01-31 07:00] LABS: ALBUMIN 3.8 g/dL (3.5-5.0); ANION GAP 12.5 MEQ/L (5-15); BILIRUBIN,TOTAL 0.6 mg/dL (0.2-1.3); Calcium 8.8 mg/dL (8.4-10.2); Creatinine 1 1.94 mg/dL (0.52-1.04); Total Protein 7.4 g/dL (6.3-8.2)
[2019-01-31 07:05] LABS: Potassium 6.6 mmol/L (3.5-5.1)
[2019-01-31 07:55] LABS: Slide Review 1 YES
[2019-01-31] MEDS ORDERED: Kayexylate 15 GM/60 ML PO ONE (08:02)
[2019-01-31] MEDS: NORVASC 5 MG PO SCH (09:58)
[2019-01-31] MEDS: SYNTHROID 100 MCG PO SCH (09:58)
[2019-01-31] MEDS: Apresoline 25 MG TABLET PO SCH ×4 (09:59→20:40)
[2019-01-31] MEDS: ECOTRIN 81 MG PO SCH (09:59)
[2019-01-31] MEDS ORDERED: NON-FORMULARY ITEM (Aspirin [Aspirin] 81 MG) PO SCH (10:00)
[2019-01-31] MEDS ORDERED: NON-FORMULARY ITEM (Atorvastatin Calcium [Atorvastatin Calcium] 10 MG) PO SCH (10:00)
[2019-01-31] MEDS ORDERED: NON-FORMULARY ITEM (Amlodipine Besylate [Amlodipine Besylate] 2.5 MG) PO SCH (10:00)
[2019-01-31] MEDS: Sodium Chloride 0.9% 1000 ML 1,000 ML IV SCH ×2 (10:13→20:19)
[2019-01-31 10:35] LABS: Appearance CLOUDY (CLEAR); Bacteria RARE /HPF (NEGATIVE); Bilirubin NEGATIVE (NEGATIVE); Blood NEGATIVE Ery/ul (0-5); Epithelial Cells MODERATE /HPF (FEW); Glucose NEGATIVE (NEGATIVE); Hyaline Casts >50 /LPF (0-2); Ketones NEGATIVE (NEGATIVE); Leukocyte Esterase TRACE (NEGATIVE); Mucus SLIGHT /HPF (NEGATIVE); Nitrite NEGATIVE (NEGATIVE); Non-Squamous Epithelial Cells RARE /HPF (FEW); Protein,Urine Dip 100 (Negative); Specific Gravity 1.012 (1.005-1.025); Urobilinogen NEGATIVE mg/dL (0-1); WBC 0-2 /HPF (0-5)
[2019-01-31] MEDS: DUONEB 0.5-3 MG/3 ml Neb IH SCH ×4 (11:12→19:24)
[2019-01-31] MEDS ORDERED: Zithromax 500 MG/ 250 ML NaCl Premix 500 MG/250 ML IVPB IV STA (12:02)
[2019-01-31] MEDS ORDERED: ROCEPHIN 1 Gm-D5w 50 ml Bag** 1 G/50 ML IVPB IV ONE (13:00)
[2019-01-31] MEDS ORDERED: TYLENOL 325 MG PO PRN (14:17)
[2019-01-31] MEDS ORDERED: Zocor 10MG ONE (19:59)
[2019-01-31] MEDS ORDERED: Cymbalta 30 MG Capsule ONE (19:59)
[2019-01-31] MEDS ORDERED: Zocor 10MG PO SCH (22:00)
[2019-01-31] MEDS ORDERED: Cymbalta 30 MG Capsule PO SCH (22:00)
[2019-02-01] MEDS: NovoLOG Insulin SQ PRN ×3 (04:20→13:06)
[2019-02-01 05:21] LABS: Hemoglobin 8.9 gm/dl (12.0-16.0); Mean Cell Volume 85.7 fl (78-100); Mean Corpuscular Hemoglobin 25.4 pg (26-32); Mean Corpuscular Hgb Concent. 29.7 g/dl (32-36); Mean Platelet Volume 11.8 fl (6-9.5); Platelet Count 236 K/mm3 (150-450); Red Cell Distribution Width 15.2 % (11.5-14.0)
[2019-02-01 05:32] LABS: ALBUMIN 3.4 g/dL (3.5-5.0); ANION GAP 10.9 MEQ/L (5-15); BILIRUBIN,TOTAL 0.3 mg/dL (0.2-1.3); Calcium 8.1 mg/dL (8.4-10.2); Creatinine 1 1.89 mg/dL (0.52-1.04); Potassium 4.5 mmol/L (3.5-5.1); Total Protein 6.6 g/dL (6.3-8.2)
[2019-02-01] MEDS: Sodium Chloride 0.9% 1000 ML 1,000 ML IV SCH (06:07)
[2019-02-01] MEDS: DUONEB 0.5-3 MG/3 ml Neb IH SCH ×3 (07:32→14:36)
--- NOTE | 2019-02-01 08:39 | HP ---
CHIEF COMPLAINT: Decreased responsiveness, low O2 saturations. HISTORY OF PRESENT ILLNESS: The patient is a 73 year-old white female currently residing in a local fdc. The nurses there found the patient to be essentially unresponsive and with low O2 saturations. They could not get the saturations up. She was sent to the emergency room where she was found to be extremely hypercapnic. She was placed on CPAP mask and this did improve her responsiveness. The patient was here fairly recently approximately a week ago with the same issue. She was previously living at home and has been recently admitted to the fdc. The patient has been refusing to use the CPAP mask and similar issue occurred when she was on her last hospitalization when she refused to use the BiPAP mask. Her carbon dioxide levels miller to very high levels. PAST MEDICAL/SURGICAL HISTORY: Otherwise significant for diabetes mellitus type 2, hyperthyroid, chronic obstructive pulmonary disease. She has had diverticulosis, anxiety and depression. She had breast tumor removed. HOME MEDICATIONS: Amlodipine 2.5 mg a day, aspirin 81 mg, atorvastatin 10 mg a day, Cymbalta 60 mg at night and Monopril 10 mg daily, hydralazine 25 mg q.i.d. She is on 70/30 insulin b.i.d., levothyroxine 100 mcg, [id number] nebulizer treatments, meclizine 12.5 PRN, potassium 10 mEq b.i.d. ALLERGIES: SULFA. SOCIAL HISTORY: She is a former smoker. PHYSICAL EXAMINATION: The patient's vital signs on admission showed her temperature to be afebrile. Her pulse was 88, respiratory rate 26, blood pressure 134/59. O2 98% on supplemental oxygen. HEENT: Normocephalic, atraumatic. Pupils equal round reactive to light. Extraocular movements intact. The patient was wearing a CPAP mask when I saw her initially. We removed it and the patient was awake, alert and able to converse with us when we removed the CPAP mask. Respiratory has been called to place her on a tidal CO2 monitor and continue oxygen saturation monitor. NECK: Supple. CHEST: Clear to auscultation. HEART: Irregular but the rate is controlled. ABDOMEN: Soft. No palpable mass. EXTREMITIES: Without cyanosis, clubbing or significant edema noted. NEUROLOGIC: The patient appears to be somewhat confused but no focal deficits were noted. LAB DATA AND TESTS: From the emergency room: Her white count was 15,000. Her hemoglobin 10.3, PLT count 261,000. Glucose was 310, BUN 16, creatinine 0.9. Her potassium was elevated at 5.6. Liver enzymes were slightly elevated with 39 AST and 93 ALT. ProBNP was elevated at 3,730. Troponin was 0.026. International normalized ratio was 1.11. Her differential showed 90.4% granulocytes. ABG initially showed a pH 7.25 with pCO2 of 93. On supplemental oxygen the pO2 was 216. The patient's EKG showed an abnormal pattern with what appeared to be atrial fibrillation with rate of 88. Her QRS morphology was also somewhat abnormal concerning for coronary artery disease but no acute process appeared to be present. ASSESSMENT: A patient with sleep apnea, hypercapnia, CO2 narcosis. The patient has been treated with CPAP mask and has improved remarkably. The patient appeared to have atrial fibrillation and is currently not any anticoagulant therapy. We will place her on Lovenox for now and her primary care physician will chose her medication when he gets the chance to see her. We will place her on low dose sliding scale coverage with her insulin until we can see how well she is able to eat. Will continue her home medications otherwise. She appears to be somewhat intravascularly dry at this and we will increase her IV fluids but monitor her carefully because she does have a history of heart failure apparently. The patient also has been made SCO which we will honor at this time as well.
[2019-02-01] MEDS: ECOTRIN 81 MG PO SCH (09:31)
[2019-02-01] MEDS: Apresoline 25 MG TABLET PO SCH ×3 (09:31→16:37)
[2019-02-01] MEDS: NORVASC 5 MG PO SCH (09:32)
[2019-02-01] MEDS: SYNTHROID 100 MCG PO SCH (09:32)
[2019-02-01] MEDS ORDERED: Zithromax 500 MG/ 250 ML NaCl Premix 500 MG/250 ML IVPB IV SCH (10:00)
[2019-02-01] MEDS ORDERED: ROCEPHIN 1 Gm-D5w 50 ml Bag** 1 G/50 ML IVPB IV SCH (10:00)
--- NOTE | 2019-02-01 12:58 | PCM.DS ---
Discharge Summary Date of Admission: 01/30/19 16:58 Admitting Physician: JUAN ANTONIO LOVELL Primary Care Provider: CAROL,MIKAEL Allergies Allergies Sulfa (Sulfonamide Antibiotics) Allergy (Severe, Verified 01/19/19 16:20) Anaphylactic Reaction swelling, trouble breathing Hospital Summary - Hospital Course Hospital Course: Chief Complaint Diagnosis resp failure, chf Allergies Allergy/AdvReac Type Severity Reaction Status Date / Time Sulfa (Sulfonamide Allergy Severe Anaphylactic Verified 01/19/19 16:20 Antibiotics) Reaction Vital Signs (Last 24 hours) Temp Pulse Resp BP Pulse Ox 02/01/19 11:52 98.0 F 75 18 138/75 94 L 02/01/19 11:01 81 20 92 L 02/01/19 07:36 66 20 98 02/01/19 07:29 98.4 F 66 18 158/69 96 02/01/19 04:00 98.7 F 61 20 166/72 99 02/01/19 00:00 97.9 F 76 17 154/67 98 01/31/19 20:00 98.1 F 80 15 143/61 97 01/31/19 19:24 79 18 96 01/31/19 17:27 79 18 94 L 01/31/19 16:00 98.2 F 79 18 151/65 93 L 01/31/19 13:39 83 20 97 Current Medications Generic Name Dose Route Start Last Admin Trade Name Freq PRN Reason Stop Dose Admin Acetaminophen 650 mg 01/30/19 17:00 Feverall 650 Mg NE 03/01/19 16:59 Q4H PRN PRN PAIN AND/OR FEVER Acetaminophen 650 mg 01/31/19 14:17 01/31/19 14:25 Tylenol 325 Mg PO 03/02/19 14:16 650 mg Q4H PRN PRN Administration PAIN AND/OR FEVER Albuterol/Ipratropium 3 ml 01/31/19 10:00 02/01/19 10:58 Duoneb 0.5-3 Mg/3 Ml Neb IH 03/02/19 09:59 3 ml QIDRT LILA Administration Amlodipine Besylate 2.5 mg 01/31/19 10:00 02/01/19 09:32 Norvasc 5 Mg PO 03/02/19 09:59 2.5 mg DAILY LILA Administration Aspirin 81 mg 01/31/19 10:00 02/01/19 09:31 Ecotrin 81 Mg PO 03/02/19 09:59 81 mg DAILY LILA Administration Duloxetine HCl 60 mg 01/31/19 22:00 01/31/19 20:40 Cymbalta 30 Mg Capsule PO 03/02/19 21:59 60 mg HS LILA Administration Hydralazine HCl 25 mg 01/31/19 10:00 02/01/19 09:31 Apresoline 25 Mg Tablet PO 03/02/19 09:59 25 mg QID LILA Administration Sodium Chloride 1,000 mls @ 100 mls/hr 01/30/19 17:00 02/01/19 06:07 Sodium Chloride 0.9% 1000 Ml IV 03/01/19 16:59 100 mls/hr .Q10H LILA Administration Azithromycin 500 mg in 250 mls @ 250 mls/hr 02/01/19 10:00 02/01/19 09:25 Zithromax 500 Mg/ 250 Ml Nacl Premix IV 03/03/19 09:59 250 mls/hr Q24H10 LILA Administration Ceftriaxone Sodium/Dextrose 1 g in 50 mls @ 100 mls/hr 02/01/19 10:00 09:25 Rocephin 1 Gm-D5w 50 Ml Bag IV 03/03/19 09:59 100 mls/hr Q24H10 LILA Administration Insulin Aspart 0 unit 01/30/19 17:37 02/01/19 09:34 Novolog Insulin SQ 03/01/19 17:36 3 unit UD PRN Administration HYPERGLYCEMIA Levothyroxine Sodium 100 mcg 01/31/19 10:00 02/01/19 09:32 Synthroid 100 Mcg PO 03/02/19 09:59 100 mcg DAILY LILA Administration Ondansetron HCl 4 mg 01/30/19 17:00 Zofran 4 Mg/2 Ml Vial IV 03/01/19 16:59 Q6H PRN PRN NAUSEA/VOMITING Simvastatin 10 mg 01/31/19 22:00 01/31/19 20:41 Zocor 10mg PO 03/02/19 21:59 10 mg HS LILA Administration Discontinued Medications Generic Name Dose Route Start Last Admin Trade Name Freq PRN Reason Stop Dose Admin Duloxetine HCl Confirm 01/31/19 19:59 Cymbalta 30 Mg Capsule Administered 01/31/19 20:00 Dose 60 mg .ROUTE .STK-MED ONE Furosemide 40 mg 01/30/19 15:53 01/30/19 16:00 Lasix 40 Mg/4 Ml IV 01/30/19 15:54 40 mg STAT ONE Administration Furosemide Confirm 01/30/19 15:56 Lasix 40 Mg/4 Ml Administered 01/30/19 15:57 Dose 40 mg .ROUTE .STK-MED ONE Furosemide 40 mg 01/30/19 17:00 01/31/19 08:02 Lasix 40 Mg/4 Ml IV 03/01/19 16:59 Not Given Q8H LLIA Hydralazine HCl 25 mg 01/30/19 22:00 01/30/19 20:14 Apresoline 25 Mg Tablet PO 03/01/19 21:59 Not Given QID LILA Azithromycin 500 mg in 250 mls @ 250 mls/hr 01/31/19 12:02 01/31/19 12:25 Zithromax 500 Mg/ 250 Ml Nacl Premix IV 01/31/19 13:01 250 mls/hr STAT STA Administration Ceftriaxone Sodium/Dextrose 1 g in 50 mls @ 100 mls/hr 01/31/19 13:00 12:24 Rocephin 1 Gm-D5w 50 Ml Bag IV 01/31/19 13:29 100 mls/hr STAT ONE Administration Methylprednisolone Sodium Succinate 125 mg 01/30/19 15:00 01/30/19 15:21 Solu-Medrol 125 Mg IV 01/30/19 15:01 125 mg STAT ONE Administration Methylprednisolone Sodium Succinate Confirm 01/30/19 15:20 Solu-Medrol 125 Mg Administered 01/30/19 15:21 Dose 125 mg .ROUTE .STK-MED ONE Simvastatin Confirm 01/31/19 19:59 Zocor 10mg Administered 01/31/19 20:00 Dose 10 mg .ROUTE .STK-MED ONE Sodium Polystyrene Sulfonate 60 g 01/31/19 08:02 01/31/19 08:25 Kayexylate 15 Gm/60 Ml PO 12/01/19 08:03 60 g STAT ONE Administration Intake & Output (Last 24 hours) 01/30/19 01/31/19 02/01/19 02/02/19 11:59 11:59 11:59 11:59 Intake Total 919 4333 Output Total 100 550 Balance 819 3783 Weight 82.4 kg 82 kg Microbiology Results (Last 24 hours) 01/30/19 10:32 Catherized Urine Culture - Preliminary NO GROWTH TO DATE 01/31/19 12:50 Blood Blood Culture Gram Stain - Pending 01/31/19 12:50 Blood Blood Culture - Pending 01/31/19 12:40 Blood Blood Culture Gram Stain - Pending 01/31/19 12:40 Blood Blood Culture - Pending Laboratory Results (Last 24 hours) 02/01/19 02/01/19 02/01/19 04:40 04:40 04:40 WBC 18.0 H RBC 3.50 L Hgb 8.9 L Hct 30.0 L MCV 85.7 MCH 25.4 L MCHC 29.7 L RDW 15.2 H Plt Count 236 MPV 11.8 H Sodium 142 Potassium 4.5 D Chloride 96 L Carbon Dioxide 39 H Anion Gap 10.9 BUN 44 H Creatinine 1.89 H Estimated GFR 27.9 Glucose 195 H Calcium 8.1 L Total Bilirubin 0.30 AST 24 ALT 66 H Alkaline Phosphatase 82 Troponin I 0.026 Serum Total Protein 6.6 Albumin 3.4 L Orders (Last 24 hours) Category Date Time Status BLOOD CULTURE Urgent Lab 01/31/19 12:50 Received CBC Routine Lab 02/01/19 04:40 Completed CMP Routine Lab 02/01/19 04:40 Completed TROPONIN Stat Lab 02/01/19 04:40 Completed Acetaminophen 325 mg [Tylenol 325 mg] Med 01/31/19 14:17 Active 650 mg PO Q4H PRN PRN Azithromycin 500 mg/250 ml [Zithromax 500 MG/ 250 ML Med 02/01/19 10:00 Active NaCl Premix] 500 mg in 250 ml IV Q24H10 Azithromycin 500 mg/250 ml [Zithromax 500 MG/ 250 ML Med 01/31/19 12:02 Discontinued NaCl Premix] 500 mg in 250 ml IV STAT Ceftriaxone 1 GM/50 ML PREMIX* [ROCEPHIN 1 Gm-D5w 50 ml Med 02/01/19 10:00 Active Bag] 1 g in 50 ml IV Q24H10 Ceftriaxone 1 GM/50 ML PREMIX* [ROCEPHIN 1 Gm-D5w 50 ml Med 01/31/19 13:00 Discontinued Bag] 1 g in 50 ml IV STAT Duloxetine HCl 30 mg [Cymbalta 30 MG Capsule] Med 01/31/19 19:59 Discontinued 60 mg .ROUTE .STK-MED ONE Duloxetine HCl 30 mg [Cymbalta 30 MG Capsule] Med 01/31/19 22:00 Active 60 mg PO HS Simvastatin 10 mg [Zocor 10MG] Med 01/31/19 19:59 Discontinued 10 mg .ROUTE .STK-MED ONE Simvastatin 10 mg [Zocor 10MG] Med 01/31/19 22:00 Active 10 mg PO HS Oxygen Nasal Cannula 4 lpm RT 01/31/19 13:39 Active Respiratory Therapy Assessment DAILY RT 01/31/19 13:38 Active - Vitals & Intake/Output Vital Signs: Vital Signs Temperature 98.0 F 02/01/19 11:52 Pulse Rate 75 02/01/19 11:52 Respiratory Rate 18 02/01/19 11:52 Blood Pressure 138/75 02/01/19 11:52 O2 Sat by Pulse Oximetry 94 L 02/01/19 11:52 Oxygen-Last Documented O2 Percentage 4 Liters = 36% Intake & Output: Intake & Output 01/30/19 01/31/19 02/01/19 02/02/19 11:59 11:59 11:59 11:59 Intake Total 919 4333 Output Total 100 550 Balance 819 3783 Weight 82.4 kg 82 kg - Lab Result Diagrams: 02/01/19 04:40 02/01/19 04:40 Lab Results-Last 24 Hrs: Accuchecks Date 02/01/19 Date 02/01/19 Date 01/31/19 Date 01/31/19 Time 04:00 Time 00:00 Time 20:00 Time 16:43 Accucheck Value: 195 Accucheck Value: 212 Accucheck Value: 367 Accucheck Value: 352 Accucheck Value: 342 Lab Results-Last 24 Hours 02/01/19 02/01/19 02/01/19 Range/Units 04:40 04:40 04:40 WBC 18.0 H (4.0-10.5) K/mm3 RBC 3.50 L (4.1-5.4) M/mm3 Hgb 8.9 L (12.0-16.0) gm/dl Hct 30.0 L (35-47) % MCV 85.7 (78-100) fl MCH 25.4 L (26-32) pg MCHC 29.7 L (32-36) g/dl RDW 15.2 H (11.5-14.0) % Plt Count 236 (150-450) K/mm3 MPV 11.8 H (6-9.5) fl Sodium 142 (137-145) mmol/L Potassium 4.5 D (3.5-5.1) mmol/L Chloride 96 L (98-107) mmol/L Carbon Dioxide 39 H (22-30) mmol/L Anion Gap 10.9 (5-15) MEQ/L BUN 44 H (7-17) mg/dL Creatinine 1.89 H (0.52-1.04) mg/dL Estimated GFR 27.9 ML/MIN Glucose 195 H (74-106) mg/dL Calcium 8.1 L (8.4-10.2) mg/dL Total Bilirubin 0.30 (0.2-1.3) mg/dL AST 24 (14-36) U/L ALT 66 H (0-35) U/L Alkaline Phosphatase 82 (38-126) U/L Troponin I 0.026 (0.000-0.034) ng/mL Serum Total Protein 6.6 (6.3-8.2) g/dL Albumin 3.4 L (3.5-5.0) g/dL Micro Results-Entire Visit: Microbiology 01/30/19 10:32 Urine Culture - Preliminary Catherized NO GROWTH TO DATE Accuchecks Date 02/01/19 Date 02/01/19 Date 01/31/19 Date 01/31/19 Time 04:00 Time 00:00 Time 20:00 Time 16:43 Accucheck Value: 195 Accucheck Value: 212 Accucheck Value: 367 Accucheck Value: 352 Accucheck Value: 342 - Radiology Exams Ordered Rad Exams-Entire Visit: Radiology Procedures Category Date Time Status CHEST 1 VIEW (PORTABLE) Stat Exams 01/30/19 15:01 Completed - Procedures and Test Procedures and Tests throughout Hospitalization: Therapy Orders & Screens 01/30/19 15:00 BiPap/CPAP ROUTINE Comment: Diagnosis: resp failure, chf 01/30/19 17:00 Respiratory Therapy Consult ROUTINE Comment: Reason For Exam: 01/31/19 13:38 Respiratory Therapy Assessment DAILY Comment: Diagnosis: resp failure, chf 01/31/19 13:39 Oxygen Nasal Cannula 4 lpm Comment: Diagnosis: resp failure, chf Discharge Exam General Appearance: no apparent distress, alert Neurologic Exam: alert, oriented x 3, cooperative, normal mood/affect, nml cerebellar function, sensation nml, No motor deficits Eye Exam: PERRL, EOMI, eyes nml inspection Ears, Nose, Throat Exam: normal ENT inspection, pharynx normal, moist mucous membranes Neck Exam: normal inspection, non-tender, supple, full range of motion Respiratory Exam: normal breath sounds, lungs clear, No respiratory distress Cardiovascular Exam: regular rate/rhythm, normal heart sounds Gastrointestinal/Abdomen Exam: soft, No tenderness, No mass Pelvic Exam: deferred Rectal Exam: deferred Back Exam: normal inspection, normal range of motion, No CVA tenderness, No vertebral tenderness Extremity Exam: normal inspection, normal range of motion Skin Exam: normal color, warm, dry Final Diagnosis/Problem List - Final Discharge Diagnosis/Problem (1) Acute respiratory failure with hypoxia and hypercapnia Current Visit: Yes Status: Acute Assessment & Plan: Last Vital Signs Temp 98.0 F 02/01/19 11:52 Pulse 75 02/01/19 11:52 Resp 18 02/01/19 11:52 BP 138/75 02/01/19 11:52 Pulse Ox 94 L 02/01/19 11:52 Allergies Sulfa (Sulfonamide Antibiotics) Allergy (Severe, Verified 01/19/19 16:20) Anaphylactic Reaction swelling, trouble breathing Active Medications Acetaminophen (Feverall 650 Mg) 650 mg NE Q4H PRN PRN PRN Reason: PAIN AND/OR FEVER Stop: 03/01/19 16:59 Acetaminophen (Tylenol 325 Mg) 650 mg PO Q4H PRN PRN PRN Reason: PAIN AND/OR FEVER Stop: 03/02/19 14:16 Last Admin: 01/31/19 14:25 Dose: 650 mg Albuterol/Ipratropium (Duoneb 0.5-3 Mg/3 Ml Neb) 3 ml IH QIDRT [facility] Stop: 03/02/19 09:59 Last Admin: 02/01/19 10:58 Dose: 3 ml Amlodipine Besylate (Norvasc 5 Mg) 2.5 mg PO DAILY LILA Stop: 03/02/19 09:59 Last Admin: 02/01/19 09:32 Dose: 2.5 mg Aspirin (Ecotrin 81 Mg) 81 mg PO DAILY LILA Stop: 03/02/19 09:59 Last Admin: 02/01/19 09:31 Dose: 81 mg Duloxetine HCl (Cymbalta 30 Mg Capsule) 60 mg PO HS [facility] Stop: 03/02/19 21:59 Last Admin: 01/31/19 20:40 Dose: 60 mg Hydralazine HCl (Apresoline 25 Mg Tablet) 25 mg PO QID [facility] Stop: 03/02/19 09:59 Last Admin: 02/01/19 09:31 Dose: 25 mg Sodium Chloride (Sodium Chloride 0.9% 1000 Ml) 1,000 mls @ 100 mls/hr IV .Q10H [facility] Stop: 03/01/19 16:59 Last Admin: 02/01/19 06:07 Dose: 100 mls/hr Azithromycin (Zithromax 500 Mg/ 250 Ml Nacl Premix) 500 mg in 250 mls @ 250 mls /hr IV Q24H10 [facility] Stop: 03/03/19 09:59 Last Admin: 02/01/19 09:25 Dose: 250 mls/hr Ceftriaxone Sodium/Dextrose (Rocephin 1 Gm-D5w 50 Ml Bag) 1 g in 50 mls @ 100 mls/hr IV Q24H10 [facility] Stop: 03/03/19 09:59 Last Admin: 02/01/19 09:25 Dose: 100 mls/hr Insulin Aspart (Novolog Insulin) 0 unit SQ UD PRN PRN Reason: HYPERGLYCEMIA Stop: 03/01/19 17:36 Last Admin: 02/01/19 09:34 Dose: 3 unit Levothyroxine Sodium (Synthroid 100 Mcg) 100 mcg PO DAILY [facility] Stop: 03/02/19 09:59 Last Admin: 02/01/19 09:32 Dose: 100 mcg Ondansetron HCl (Zofran 4 Mg/2 Ml Vial) 4 mg IV Q6H PRN PRN PRN Reason: NAUSEA/VOMITING Stop: 03/01/19 16:59 Simvastatin (Zocor 10mg) 10 mg PO HS LILA Stop: 03/02/19 21:59 Last Admin: 01/31/19 20:41 Dose: 10 mg Intake & Output 02/01/19 02/02/19 11:59 11:59 Intake Total 4333 Output Total 550 Balance 3783 Weight 82 kg Orders 01/31/19 13:38 Respiratory Therapy Assessment DAILY 01/31/19 13:39 Oxygen Nasal Cannula 4 lpm Lab Tests 02/01/19 02/01/19 02/01/19 04:40 04:40 04:40 WBC 18.0 H RBC 3.50 L Hgb 8.9 L Hct 30.0 L MCV 85.7 MCH 25.4 L MCHC 29.7 L RDW 15.2 H Plt Count 236 MPV 11.8 H Sodium 142 Potassium 4.5 D Chloride 96 L Carbon Dioxide 39 H Anion Gap 10.9 BUN 44 H Creatinine 1.89 H Estimated GFR 27.9 Glucose 195 H Calcium 8.1 L Total Bilirubin 0.30 AST 24 ALT 66 H Alkaline Phosphatase 82 Troponin I 0.026 Serum Total Protein 6.6 Albumin 3.4 L Microbiology 01/30/19 10:32 Catherized Urine Culture - Preliminary NO GROWTH TO DATE Code(s): J96.01 - ACUTE RESPIRATORY FAILURE WITH HYPOXIA; J96.02 - ACUTE RESPIRATORY FAILURE WITH HYPERCAPNIA (2) COPD (chronic obstructive pulmonary disease) Current Visit: No Status: Acute (3) COPD exacerbation Current Visit: No Status: Acute Code(s): J44.1 - CHRONIC OBSTRUCTIVE PULMONARY DISEASE W (ACUTE) EXACERBATION (4) CHF (congestive heart failure), NYHA class III Current Visit: No Status: Chronic Code(s): I50.9 - HEART FAILURE, UNSPECIFIED (5) Sleep apnea in adult Current Visit: No Status: Chronic Code(s): G47.30 - SLEEP APNEA, UNSPECIFIED - Discharge Disposition: Skilled Care @ [facility] Condition: Stable Prescriptions: New Cephalexin Mh 500 mg [Keflex 500 mg] 500 mg PO QID #28 capsule Continue Fosinopril Sodium 10 mg [monoPRIL 10 MG] 10 mg PO DAILY Atorvastatin Calcium 10 mg PO DAILY Amlodipine Besylate 2.5 mg PO DAILY Duloxetine HCl 30 mg [Cymbalta 30 MG Capsule] 60 mg PO HS Aspirin 81 mg PO DAILY Levothyroxine Sodium 100 Mcg [Synthroid 100 Mcg] 100 mcg PO DAILY HydrALAzine HCL 25 MG TAB [Apresoline 25 MG TABLET] 25 mg PO QID Insulin NPH/Reg [Novolin 70/] 50 unit SQ BID Potassium Chloride 10 Meq Tab* [Klor Con 10 MEQ] 10 meq PO BID Nitroglycerin 0.4 mg Tablet [Nitrostat 0.4 MG Tablet] 0.4 mg SL UD Albuterol/Ipratropium 3ml Neb* [DUONEB 0.5-3 MG/3 ml Neb] 3 ml IH QID Meclizine HCl 12.5 mg PO Q8HPRN PRN PRN Reason: dizziness Bumetanide 1 mg [Bumex 1 mg] 1 mg PO BID DIURETIC #60 tablet Follow up with: MIKAEL MEDINA MD [Primary Care Provider] - 1 Week
[2019-02-01 16:36] VITALS: BP 175/72; PULSE 84; O2SAT 94
== END 2019-02-01 17:58 | DRG 189 ==
LOC: ED 14:49 → MED SURG 16:58
PROVIDERS: ADMIT Family Medicine; ATTEND General Practice
DX: J96.02 Acute respiratory failure with hypercapnia (principal); J44.1 Chronic obstructive pulmonary disease with (acute) exacerbation; J96.01 Acute respiratory failure with hypoxia; I50.9 Heart failure, unspecified; G47.30 Sleep apnea, unspecified; Z79.899 Other long term (current) drug therapy; E11.9 Type 2 diabetes mellitus without complications; E05.90 Thyrotoxicosis, unspecified without thyrotoxic crisis or storm; I48.91 Unspecified atrial fibrillation
CPT/HCPCS: 36415; 36600; 51702; 71045; 80053; 81001; 82375; 82803; 82962; 83605; 83880; 84484; 85025; 85027; 85610; 87040; 87086; 93005; 93041; 94002; 94003; 94640; 94760; 94762; 94770; 96374; 96375; 99285; 99291; J0456; J0696; J1940; J2930; A9270-GY

== ENCOUNTER 2019-02-20 13:26 | Emergency (ER) | payer MEDICARE ==
[2019-02-20] MEDS ORDERED: PERCOCET TABLET 5/325MG PO ONE (13:30)
[2019-02-20 13:33] VITALS: BP 148/102; PULSE 60; O2SAT 98
--- NOTE | 2019-02-20 13:36 | ERPHSYRPT ---
- History of Present Illness Time Seen by Provider: 02/20/19 13:29 Source: patient Exam Limitations: no limitations Physician History: Patient is here with left wrist and hand pain. Patient states she had a mechanical fall two days. She states she tried to sit down in her recliner. She states she missed her recliner and fell. She fell on an outstretched left hand. She denies hitting her head or neck. She denies other injuries. Location: left hand, wrist Radiation: into left arm severity: moderate duration: 3 days frequency: constant modifying symptoms: home OTC medication Occurred: days ago Reason for Fall: tripped Injuries/Pain Location: upper extremity Loss of Consciousness: no loss of consciousness Quality: stabbing Severity of Pain-Max: moderate Severity of Pain-Current: moderate Modifying Factors: Improves With: nothing Allergies/Adverse Reactions: Sulfa (Sulfonamide Antibiotics) Allergy (Severe, Verified 01/19/19 16:20) Anaphylactic Reaction swelling, trouble breathing Home Medications: Amlodipine Besylate 2.5 mg PO DAILY 08/05/18 [History] Aspirin 81 mg PO DAILY 08/05/18 [History] Atorvastatin Calcium 10 mg PO DAILY 08/05/18 [History] Duloxetine HCl 30 mg [Cymbalta 30 MG Capsule] 60 mg PO HS 08/05/18 [ History] Fosinopril Sodium 10 mg [monoPRIL 10 MG] 10 mg PO DAILY 08/05/18 [History] HydrALAzine HCL 25 MG TAB [Apresoline 25 MG TABLET] 25 mg PO QID 08/05/18 [History] Insulin NPH/Reg 70/30 [Novolin 70/30] 50 unit SQ BID 08/05/18 [History] Levothyroxine Sodium 100 Mcg [Synthroid 100 Mcg] 100 mcg PO DAILY 08/05/18 [History] Albuterol/Ipratropium 3ml Neb* [DUONEB 0.5-3 MG/3 ml Neb] 3 ml IH QID [History] Meclizine HCl 12.5 mg PO Q8HPRN PRN 01/19/19 [History] Nitroglycerin 0.4 mg Tablet [Nitrostat 0.4 MG Tablet] 0.4 mg SL UD [History] Potassium Chloride 10 Meq Tab* [Klor Con 10 MEQ] 10 meq PO BID 01/19/19 [ History] Hx Tetanus, Diphtheria Vaccination/Date Given: No Hx Influenza Vaccination/Date Given: Yes Hx Pneumococcal Vaccination/Date Given: Yes - Review of Systems Constitutional: No Fever, No Chills Eyes: No Symptoms Ears, Nose, & Throat: No Symptoms Respiratory: No Cough, No Dyspnea Cardiac: No Chest Pain, No Edema, No Syncope Abdominal/Gastrointestinal: No Abdominal Pain, No Nausea, No Vomiting, No Diarrhea Genitourinary Symptoms: No Dysuria Musculoskeletal: Injury, Other (left wrist pain ), No Back Pain, No Neck Pain Skin: No Rash Neurological: No Dizziness, No Focal Weakness, No Sensory Changes Psychological: No Symptoms Endocrine: No Symptoms All Other Systems: Reviewed and Negative - Past Medical History Pertinent Past Medical History: Yes Neurological History: No Pertinent History ENT History: Cataracts, Glaucoma Cardiac History: Arrhythmia, Congestive Heart Failure, Hypertension Respiratory History: Asthma, CHF, Sleep Apnea, Other Endocrine Medical History: Diabetes Type II Musculoskeletal History: Arthritis GI Medical History: Diverticulitis, Diverticulosis, GERD, Hernia History: No Pertinent History Psycho-Social History: Anxiety, Depression Female Reproductive Disorders: No Pertinent History Other Medical History: hypoxia. 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 D and C, chest tube placement LEFT side - Social History Smoking Status: Former smoker Exposure to second hand smoke: No Drug Use: none Patient Lives Alone: No - Nursing Vital Signs Nursing Vital Signs: Initial Vital Signs Temperature 98.2 F 02/20/19 13:28 Pulse Rate 60 02/20/19 13:28 Respiratory Rate 18 02/20/19 13:28 Blood Pressure 148/102 02/20/19 13:28 O2 Sat by Pulse Oximetry 98 02/20/19 13:28 Pain Scale Pain Intensity 8 - [place] Coma Score Best Eye Response ([place]): (4) open spontaneously Best Verbal Response ([place]): (5) oriented Best Motor Response ([place]): (6) obeys commands [place] Total: 15 - Physical Exam General Appearance: no apparent distress, alert Head Injury: no evidence of injury Eye Exam: PERRL/EOMI ENT Exam: airway nml Neck Exam: normal inspection, No tenderness Respiratory/Chest Exam: normal breath sounds, No chest tenderness, No respiratory distress Cardiovascular Exam: normal heart sounds, regular rate/rhythm Gastrointestinal Exam: soft, No tenderness, No distention, No guarding, No ecchymosis Back Exam: normal inspection, No vertebral tenderness Extremity Exam: normal inspection, normal range of motion, pelvis stable, other (Left wrist swelling and pain. Some pain in the left hand. 2+ pulses, limited ROM with pain. no obvious deformity. overlying skin shows no bruising or tenting. ), No deformities Neurologic Exam: alert, oriented x 3, cooperative, sensation nml, No motor deficits Skin Exam: normal color, warm, dry Procedures - Splinting Location of Splint: Left Type of Splint: Orthoglass Short Arm Splint Splint Applied By: ED Physician Pre-Proc Neuro Vasc Exam: normal Post-Proc Neuro Vasc Exam: neurovascular intact Ordered Tests: Active Orders 24 hr Category Date Time Status HAND (MINIMUM 3 VIEWS) Stat Exams 02/20/19 13:43 Taken WRIST (MIN 3 VIEWS) Stat Exams 02/20/19 13:43 Taken Medication Summary Discontinued Medications Generic Name Dose Route Start Last Admin Trade Name Freq PRN Reason Stop Dose Admin Oxycodone/Acetaminophen 2 tab 02/20/19 13:30 02/20/19 13:42 Percocet Tablet 5/325mg PO 02/20/19 13:31 2 tab STAT ONE Administration Oxycodone/Acetaminophen Confirm 02/20/19 13:41 Percocet Tablet 5/325mg Administered 02/20/19 13:42 Dose 2 tab .ROUTE .STK-MED ONE - Progress Progress Note: 02/20/19 13:35 We will obtain XRs of left wrist and hand. We will give oxycodone for pain here. 02/20/19 13:45 XR demonstrates minimally displaced distal radius and ulna styloid fracture - my read. Patient placed in splint. See procedure note for full details. Patient will follow up in ortho clinic on Friday (02/22/2019) between 8am -10am. They will return here sooner for new or changing symptoms. Counseled pt/family regarding: diagnosis - Departure Departure Disposition: Home Clinical Impression: Radius fracture, Ulna fracture Condition: Stable Critical Care Time: No Referrals: MIKAEL MEDINA MD [Primary Care Provider] -
[2019-02-20] MEDS ORDERED: PERCOCET TABLET 5/325MG ONE (13:41)
--- NOTE | 2019-02-20 20:39 | XRAY ---
Indication: Pain following fall 2 days ago. Comparison: None 3 views of the left hand demonstrates nondisplaced distal radius fracture with intra-articular extension and a ulnar styloid tip fracture with soft tissue swelling. Elsewhere osteopenia. Remaining hand is unremarkable. Comment: Fractures not reported. Telephone report given to Dr. Raza in the ER at 2045 hrs. on February 20, 2019.
--- NOTE | 2019-02-20 20:41 | XRAY ---
Indication: Pain following fall 2 days ago. Comparison: None 3 views of the left wrist demonstrates nondisplaced distal radius fracture with intra-articular extension and a ulnar styloid tip fracture with soft tissue swelling. Elsewhere osteopenia and tiny triquetral/hamate cysts. Remaining wrist unremarkable. Comment: Fractures not reported. Telephone report given to Dr. Raza in the ER at 2045 hrs. on February 20, 2019.
== END 2019-02-20 14:59 | disposition home or self-care (01) ==
LOC: ED 13:26
DX: S52.92XA Unspecified fracture of left forearm, initial encounter for closed fracture (principal); S52.612A Displaced fracture of left ulna styloid process, initial encounter for closed fracture; W01.0XXA Fall on same level from slipping, tripping and stumbling without subsequent striking against object, initial encounter; Z79.899 Other long term (current) drug therapy; M25.532 Pain in left wrist; I10 Essential (primary) hypertension; I50.9 Heart failure, unspecified; E11.9 Type 2 diabetes mellitus without complications
CPT/HCPCS: 29126; 73110; 73130; 99283; A4570; A9270-GY

== ENCOUNTER 2019-08-27 15:35 | Inpatient (IN) | payer MEDICARE ==
[2019-08-27 16:13] LABS: VBG BASE EXCESS 12.4 (-2.0-2.0); VBG CARBOXYHEMOGLOBIN 4.2 % T HGB (0.0-6.9); VBG HCO3- 39.9 meq/L (22-28); VBG HEMOGLOBIN 11.7; VBG pH 7.41 (7.32-7.42)
[2019-08-27] MEDS: Sodium Chloride 0.9% 1000 ML 1,000 ML IV SCH (16:13)
[2019-08-27 16:14] LABS: Absolute Neutrophil Ct (ANC) 12.39 (1.4-6.9); BASOPHIL % 0.3 % (0.0-0.4); Basophil (Absolute #) 0.04 (0-0.4); Eosinophil % 0.4 % (0.00-5.0); Eosinophil (Absolute #) 0.05 (0-0.5); Hematocrit 37.9 % (35-47); Hemoglobin 11.2 gm/dl (12.0-16.0); Lymphocyte (Absolute #) 0.75 (1.0-4.6); Lymphocytes % 5.3 % (24.0-44.0); Mean Cell Volume 81.3 fl (78-100); Mean Corpuscular Hgb Concent. 29.6 g/dl (32-36); Mean Platelet Volume 11.5 fl (7.5-11.0); Monocytes % 6.4 % (0.0-12.0); Neutrophil % 87.6 % (36.0-66.0); Platelet Count 310 K/mm3 (150-450); Red Blood Count 4.66 M/mm3 (4.1-5.4); White Blood Count 14.1 K/mm3 (4.0-10.5)
[2019-08-27 16:19] LABS: INR 1.16 (0.8-3.0); PROTIME 13.1 SECONDS (9.95-12.35)
[2019-08-27 16:22] LABS: PTT 32.8 SECONDS (25.3-37.0)
[2019-08-27 16:31] LABS: ALBUMIN 4.1 g/dL (3.5-5.0); ALKALINE PHOSPHATASE 148 U/L (38-126); ANION GAP 13.4 MEQ/L (5-15); BLOOD UREA NITROGEN 22 mg/dL (7-17); CHLORIDE 96 mmol/L (98-107); Calcium 9.4 mg/dL (8.4-10.2); Carbon Dioxide 35 mmol/L (22-30); Creatinine 1 0.68 mg/dL (0.52-1.04); Glucose 330 mg/dL (74-106); MAGNESIUM 2.3 mg/dL (1.6-2.3); NT PRO BNP 5120 pg/mL (0-900); Potassium 4.9 mmol/L (3.5-5.1); SGOT/AST 36 U/L (14-36); SGPT/ALT 79 U/L (0-35); SODIUM 139 mmol/L (137-145); Total Protein 7.7 g/dL (6.3-8.2)
[2019-08-27] MEDS ORDERED: Furosemide 100mg/10 ml Vial IV ONE (16:37)
[2019-08-27] MEDS ORDERED: Furosemide 100mg/10 ml Vial ONE (16:39)
--- NOTE | 2019-08-27 16:40 | XRAY ---
Indication: Short of breath. Comparison: January 30, 2019. Portable chest again demonstrates cardiomegaly and moderate left base infiltrate/atelectasis/effusion. Right lung clear. Bony thorax intact again with mild osteopenia and degenerative changes.
[2019-08-27 17:17] LABS: Appearance CLEAR (CLEAR); Bilirubin NEGATIVE (NEGATIVE); Blood NEGATIVE Ery/ul (0-5); Epithelial Cells RARE /HPF (FEW); Glucose >=500 mg/dL (NEGATIVE); Ketones TRACE (NEGATIVE); Leukocyte Esterase NEGATIVE (NEGATIVE); Mucus SLIGHT /HPF (NEGATIVE); Nitrite NEGATIVE (NEGATIVE); Protein,Urine Dip 100 (Negative); Specific Gravity 1.008 (1.005-1.025); Urobilinogen NEGATIVE mg/dL (0-1); WBC 0-2 /HPF (0-5)
--- NOTE | 2019-08-27 18:21 | ERPHSYRPT ---
- History of Present Illness Time Seen by Provider: 08/27/19 15:45 Patient Subjective Stated Complaint: SOB Triage Nursing Assessment: pt to ED by POV c/o SOB worse today. pt unalbe to talk d/t SOB at this time. Pt son at bedside reports SOB worse today, but has been SOB to an extent for a long time. wears 4 L NC at home at all times. pt was 60% on 4L on arrival to ED. placed on mask at 10 L and sats improved to 98-100%. skin color was pale and dusky on arrival and immediately pink and normal once placed on adequate supplemental O2. lung sounds diminished bilaterally, heart sounds clear. pt unable to lay flat at this time. Physician History: Is a 74-year-old female with a longstanding history of congestive heart failure COPD and sleep apnea as well as cardiac arrhythmias. She has a history of chronic shortness of breath due to her COPD and CHF worse the past 2 weeks. She wears 4 L at home when she arrived on 4 L here she was 60% that was increased to 10 L and she did improve clinically respiratory therapy is very familiar with her and states that in the hospital she often required BiPAP to handle her elevated hypercapnia. Timing/Duration: week(s) (2) Activities at Onset: activity Severity of Dyspnea-Max: moderate Severity of Dyspnea-Current: moderate Possible Cause: chronic episodes Modifying Factors: Improves With: activity Associated Symptoms: cough, chest pain/discomfort, wheezing, weakness Allergies/Adverse Reactions: Sulfa (Sulfonamide Antibiotics) Allergy (Severe, Verified 08/27/19 15:50) Anaphylactic Reaction swelling, trouble breathing Home Medications: Amlodipine Besylate 2.5 mg PO DAILY 08/05/18 [History] Aspirin 81 mg PO DAILY 08/05/18 [History] Atorvastatin Calcium 10 mg PO DAILY 08/05/18 [History] Duloxetine HCl 30 mg [Cymbalta 30 MG Capsule] 60 mg PO HS 08/05/18 [History] Fosinopril Sodium 10 mg [monoPRIL 10 MG] 10 mg PO DAILY 08/05/18 [History] HydrALAzine HCL 25 MG TAB [Apresoline 25 MG TABLET] 25 mg PO QID 08/05/18 [History] Insulin NPH/Reg 70/30 [Novolin 70/30] 50 unit SQ BID 08/05/18 [History] Levothyroxine Sodium 100 Mcg [Synthroid 100 Mcg] 100 mcg PO DAILY 08/05/18 [History] Albuterol/Ipratropium 3ml Neb* [DUONEB 0.5-3 MG/3 ml Neb] 3 ml IH QID 01/19/19 [History] Meclizine HCl 12.5 mg PO Q8HPRN PRN 01/19/19 [History] Nitroglycerin 0.4 mg Tablet [Nitrostat 0.4 MG Tablet] 0.4 mg SL UD 01/19/19 [History] Potassium Chloride 10 Meq Tab* [Klor Con 10 MEQ] 10 meq PO BID 01/19/19 [History] Hx Tetanus, Diphtheria Vaccination/Date Given: Yes Hx Influenza Vaccination/Date Given: Yes Hx Pneumococcal Vaccination/Date Given: Yes Travel Risk - International Travel Have you traveled outside of the country in past 3 weeks: No - Coronavirus Screening Close contact with a COVID-19 positive Pt in past 14-21 Days: No - Review of Systems Constitutional: No Symptoms Eyes: No Symptoms Ears, Nose, & Throat: No Symptoms Respiratory: Dyspnea, Dyspnea on Exertion ([place]), Wheezing Cardiac: Edema Abdominal/Gastrointestinal: No Symptoms Genitourinary Symptoms: No Symptoms Musculoskeletal: No Symptoms Skin: No Symptoms Psychological: Anxiety Endocrine: No Symptoms Hematologic/Lymphatic: No Symptoms Immunological/Allergic: No Symptoms - Past Medical History Pertinent Past Medical History: Yes Neurological History: No Pertinent History ENT History: Cataracts, Glaucoma Cardiac History: Arrhythmia, Congestive Heart Failure, Hypertension Respiratory History: Asthma, CHF, Sleep Apnea, Other Endocrine Medical History: Diabetes Type II Musculoskeletal History: Arthritis GI Medical History: Diverticulitis, Diverticulosis, GERD, Hernia History: No Pertinent History Psycho-Social History: Anxiety, Panic Disorder Female Reproductive Disorders: No Pertinent History Other Medical History: hypoxia. 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 D and C, chest tube placement LEFT side - Social History Smoking Status: Former smoker Exposure to second hand smoke: No Drug Use: none Patient Lives Alone: No - Female History Hx Now: No - Nursing Vital Signs Nursing Vital Signs: Initial Vital Signs Respiratory Rate 24 08/27/19 15:37 O2 Sat by Pulse Oximetry 60 L 08/27/19 15:37 Pain Scale Pain Intensity 0 - Physical Exam General Appearance: severe distress Eye Exam: PERRL/EOMI Ears, Nose, Throat Exam: normal ENT inspection, hearing decreased Neck Exam: normal inspection, non-tender Respiratory Exam: diminished breath sounds (Especially on the left), prolonged expirations, crackles/rales, rhonchi, wheezing Cardiovascular/Chest Exam: regular rate/rhythm Abdominal/Gastrointestinal Exam: soft, normal bowel sounds Extremity Exam: pedal edema Peripheral Pulses Exam: carotid (R): 2+, carotid (L): 2+ Neurologic Exam: alert, oriented x 3, other (No obvious focal or lateralizing signs) Skin Exam: normal color, warm, dry Lymphatic Exam: No adenopathy SpO2 Interpretation: normal, hypoxic SpO2: 98 O2 Delivery: High Flow - Course Nursing assessment & vital signs reviewed: Yes EKG Interpreted by Me: RATE (72), Other (Patient shows what appears to be p redominantly a ventricular rhythm with third-degree AV block.) Rhythm Strip: 3rd degree block - Radiology Exams Chest X-ray Interpretation: Other (Chest x-ray shows cardiomegaly moderate left base infiltrate atelectasis effusion right lung clear bony thorax again intact with mild osteopenia and degenerative changes) Ordered Tests: Active Orders 24 hr Category Date Time Status Metal Bonding Crib Attendant STAT Care 08/27/19 15:57 Active EKG-ER Only STAT Care 08/27/19 15:56 Active IV Insertion STAT Care 08/27/19 15:56 Active CHEST 1 VIEW (PORTABLE) Stat Exams 08/27/19 15:57 Completed BLOOD CULTURE Stat Lab 08/27/19 16:05 Received CBC W DIFF Stat Lab 08/27/19 15:55 Completed CMP Stat Lab 08/27/19 15:55 Completed D-DIMER QUANTITATIVE Stat Lab 08/27/19 15:55 Completed Lactic Acid Stat Lab 08/27/19 15:56 Completed Lactic Acid Stat Lab 08/27/19 18:12 Received MAGNESIUM Stat Lab 08/27/19 15:55 Completed NT PRO BNP Stat Lab 08/27/19 15:55 Completed PROTIME WITH INR Stat Lab 08/27/19 15:55 Completed PTT Stat Lab 08/27/19 15:55 Completed TROPONIN Q3H Lab 08/27/19 15:55 Completed TROPONIN Q3H Lab 08/27/19 19:00 Ordered TROPONIN Q3H Lab 08/27/19 22:00 Ordered TROPONIN Q3H Lab 08/28/19 01:00 Ordered TROPONIN Q3H Lab 08/28/19 04:00 Ordered UA W/RFX UR CULTURE Stat Lab 08/27/19 15:57 Completed VBG [VENOUS BLOOD GAS] Stat Lab 08/27/19 16:08 Completed Medication Summary Generic Name Dose Route Start Last Admin Trade Name Freq PRN Reason Stop Dose Admin Sodium Chloride 1,000 mls @ 50 mls/hr 08/27/19 16:00 08/27/19 16:13 Sodium Chloride 0.9% 1000 Ml IV 09/26/19 15:59 50 mls/hr .Q20H LILA Administration Discontinued Medications Generic Name Dose Route Start Last Admin Trade Name Freq PRN Reason Stop Dose Admin Furosemide 80 mg 08/27/19 16:37 08/27/19 16:42 Furosemide 100mg/10 Ml Vial IV 08/27/19 16:38 80 mg STAT ONE Administration Furosemide Confirm 08/27/19 16:39 Furosemide 100mg/10 Ml Vial Administered 08/27/19 16:40 Dose 100 mg .ROUTE .STK-MED ONE Lab/Rad Data: Laboratory Result Diagrams 08/27/19 15:55 08/27/19 15:55 Laboratory Results 08/27/19 08/27/19 08/27/19 Range/Units 16:08 15:57 15:56 WBC (4.0-10.5) K/mm3 RBC (4.1-5.4) M/mm3 Hgb (12.0-16.0) gm/dl Hct (35-47) % MCV (78-100) fl MCH (26-32) pg MCHC (32-36) g/dl RDW (11.5-14.0) % Plt Count (150-450) K/mm3 MPV (7.5-11.0) fl Gran % (36.0-66.0) % Eos # (Auto) (0-0.5) Absolute Lymphs (auto) (1.0-4.6) Absolute Monos (auto) (0.0-1.3) Lymphocytes % (24.0-44.0) % Monocytes % (0.0-12.0) % Eosinophils % (0.00-5.0) % Basophils % (0.0-0.4) % Absolute Granulocytes (1.4-6.9) Basophils # (0-0.4) PT (9.95-12.35) SECONDS INR (0.8-3.0) APTT (25.3-37.0) SECONDS D-Dimer (215-500) ng/mL pO2/FiO2 Ratio 21.0 % VBG pH 7.41 (7.32-7.42) VBG pCO2 at Pat Temp 63 H* (42-55) mm/Hg VBG pO2 at Pat Temp 76 H (25-40) mm/Hg VBG HCO3 39.9 H* (22-28) meq/L VBG O2 Sat ([place]ack) 97.0 (95-100) VBG Base Excess 12.4 H (-2.0-2.0) VBG Hemoglobin 11.7 VBG Carboxyhemoglobin 4.2 (0.0-6.9) % T HGB POC Potassium 5.0 (3.5-5.1) Sodium (137-145) mmol/L Potassium (3.5-5.1) mmol/L Chloride (98-107) mmol/L Carbon Dioxide (22-30) mmol/L Anion Gap (5-15) MEQ/L BUN (7-17) mg/dL Creatinine (0.52-1.04) mg/dL Estimated GFR ML/MIN Glucose (74-106) mg/dL Lactic Acid 2.0 (0.4-2.0) Calcium (8.4-10.2) mg/dL Magnesium (1.6-2.3) mg/dL Total Bilirubin (0.2-1.3) mg/dL AST (14-36) U/L ALT (0-35) U/L Alkaline Phosphatase (38-126) U/L Troponin I (0.000-0.034) ng/mL NT-Pro-B Natriuret Pep (0-900) pg/mL Serum Total Protein (6.3-8.2) g/dL Albumin (3.5-5.0) g/dL Urine Color YELLOW (YELLOW) Urine Appearance CLEAR (CLEAR) Urine pH 7.0 (5-6) Ur Specific [place] 1.008 (1.005-1.025) Urine Protein 100 (Negative) Urine Ketones TRACE (NEGATIVE) Urine Blood NEGATIVE (0-5) [place]/ul Urine Nitrite NEGATIVE (NEGATIVE) Urine Bilirubin NEGATIVE (NEGATIVE) Urine Urobilinogen NEGATIVE (0-1) mg/dL Ur Leukocyte Esterase NEGATIVE (NEGATIVE) Urine WBC (Auto) 0-2 (0-5) /HPF Urine RBC (Auto) NONE (0-2) /HPF U Hyaline Cast (Auto) 6-10 (0-2) /LPF U Epithel Cells (Auto) RARE (FEW) /HPF Urine Bacteria (Auto) NONE (NEGATIVE) /HPF Urine Mucus (Auto) SLIGHT (NEGATIVE) /HPF Urine Culture Reflexed NO (NO) Urine Glucose >=500 (NEGATIVE) mg/dL Slides for Path Review 08/27/19 08/27/19 08/27/19 Range/Units 15:55 15:55 15:55 WBC (4.0-10.5) K/mm3 RBC (4.1-5.4) M/mm3 Hgb (12.0-16.0) gm/dl Hct (35-47) % MCV (78-100) fl MCH (26-32) pg MCHC (32-36) g/dl RDW (11.5-14.0) % Plt Count (150-450) K/mm3 MPV (7.5-11.0) fl Gran % (36.0-66.0) % Eos # (Auto) (0-0.5) Absolute Lymphs (auto) (1.0-4.6) Absolute Monos (auto) (0.0-1.3) Lymphocytes % (24.0-44.0) % Monocytes % (0.0-12.0) % Eosinophils % (0.00-5.0) % Basophils % (0.0-0.4) % Absolute Granulocytes (1.4-6.9) Basophils # (0-0.4) PT 13.1 H (9.95-12.35) SECONDS INR 1.16 (0.8-3.0) APTT 32.8 (25.3-37.0) SECONDS D-Dimer 1135 H* (215-500) ng/mL pO2/FiO2 Ratio % VBG pH (7.32-7.42) VBG pCO2 at Pat Temp (42-55) mm/Hg VBG pO2 at Pat Temp (25-40) mm/Hg VBG HCO3 (22-28) meq/L VBG O2 Sat (Zack) (95-100) VBG Base Excess (-2.0-2.0) VBG Hemoglobin VBG Carboxyhemoglobin (0.0-6.9) % T HGB POC Potassium (3.5-5.1) Sodium 139 (137-145) mmol/L Potassium 4.9 (3.5-5.1) mmol/L Chloride 96 L (98-107) mmol/L Carbon Dioxide 35 H (22-30) mmol/L Anion Gap 13.4 (5-15) MEQ/L BUN 22 H (7-17) mg/dL Creatinine 0.68 (0.52-1.04) mg/dL Estimated GFR > 60.0 ML/MIN Glucose 330 H (74-106) mg/dL Lactic Acid (0.4-2.0) Calcium 9.4 (8.4-10.2) mg/dL Magnesium 2.3 (1.6-2.3) mg/dL Total Bilirubin 1.20 (0.2-1.3) mg/dL AST 36 (14-36) U/L ALT 79 H (0-35) U/L Alkaline Phosphatase 148 H (38-126) U/L Troponin I 0.016 (0.000-0.034) ng/mL NT-Pro-B Natriuret Pep 5120 H (0-900) pg/mL Serum Total Protein 7.7 (6.3-8.2) g/dL Albumin 4.1 (3.5-5.0) g/dL Urine Color (YELLOW) Urine Appearance (CLEAR) Urine pH (5-6) Ur Specific [place] (1.005-1.025) Urine Protein (Negative) Urine Ketones (NEGATIVE) Urine Blood (0-5) Elver/ul Urine Nitrite (NEGATIVE) Urine Bilirubin (NEGATIVE) Urine Urobilinogen (0-1) mg/dL Ur Leukocyte Esterase (NEGATIVE) Urine WBC (Auto) (0-5) /HPF Urine RBC (Auto) (0-2) /HPF U Hyaline Cast (Auto) (0-2) /LPF U Epithel Cells (Auto) (FEW) /HPF Urine Bacteria (Auto) (NEGATIVE) /HPF Urine Mucus (Auto) (NEGATIVE) /HPF Urine Culture Reflexed (NO) Urine Glucose (NEGATIVE) mg/dL Slides for Path Review 08/27/19 Range/Units 15:55 WBC 14.1 H (4.0-10.5) K/mm3 RBC 4.66 (4.1-5.4) M/mm3 Hgb 11.2 L (12.0-16.0) gm/dl Hct 37.9 (35-47) % MCV 81.3 (78-100) fl MCH 24.0 L (26-32) pg MCHC 29.6 L (32-36) g/dl RDW 16.0 H (11.5-14.0) % Plt Count 310 (150-450) K/mm3 MPV 11.5 H (7.5-11.0) fl Gran % 87.6 H (36.0-66.0) % Eos # (Auto) 0.05 (0-0.5) Absolute Lymphs (auto) 0.75 L (1.0-4.6) Absolute Monos (auto) 0.90 (0.0-1.3) Lymphocytes % 5.3 L (24.0-44.0) % Monocytes % 6.4 (0.0-12.0) % Eosinophils % 0.4 (0.00-5.0) % Basophils % 0.3 (0.0-0.4) % Absolute Granulocytes 12.39 H (1.4-6.9) Basophils # 0.04 (0-0.4) PT (9.95-12.35) SECONDS INR (0.8-3.0) APTT (25.3-37.0) SECONDS D-Dimer (215-500) ng/mL pO2/FiO2 Ratio % VBG pH (7.32-7.42) VBG pCO2 at Pat Temp (42-55) mm/Hg VBG pO2 at Pat Temp (25-40) mm/Hg VBG HCO3 (22-28) meq/L VBG O2 Sat (Zack) (95-100) VBG Base Excess (-2.0-2.0) VBG Hemoglobin VBG Carboxyhemoglobin (0.0-6.9) % T HGB POC Potassium (3.5-5.1) Sodium (137-145) mmol/L Potassium (3.5-5.1) mmol/L Chloride (98-107) mmol/L Carbon Dioxide (22-30) mmol/L Anion Gap (5-15) MEQ/L BUN (7-17) mg/dL Creatinine (0.52-1.04) mg/dL Estimated GFR ML/MIN Glucose (74-106) mg/dL Lactic Acid (0.4-2.0) Calcium (8.4-10.2) mg/dL Magnesium (1.6-2.3) mg/dL Total Bilirubin (0.2-1.3) mg/dL AST (14-36) U/L ALT (0-35) U/L Alkaline Phosphatase (38-126) U/L Troponin I (0.000-0.034) ng/mL NT-Pro-B Natriuret Pep (0-900) pg/mL Serum Total Protein (6.3-8.2) g/dL Albumin (3.5-5.0) g/dL Urine Color (YELLOW) Urine Appearance (CLEAR) Urine pH (5-6) Ur Specific [place] (1.005-1.025) Urine Protein (Negative) Urine Ketones (NEGATIVE) Urine Blood (0-5) Elver/ul Urine Nitrite (NEGATIVE) Urine Bilirubin (NEGATIVE) Urine Urobilinogen (0-1) mg/dL Ur Leukocyte Esterase (NEGATIVE) Urine WBC (Auto) (0-5) /HPF Urine RBC (Auto) (0-2) /HPF U Hyaline Cast (Auto) (0-2) /LPF U Epithel Cells (Auto) (FEW) /HPF Urine Bacteria (Auto) (NEGATIVE) /HPF Urine Mucus (Auto) (NEGATIVE) /HPF Urine Culture Reflexed (NO) Urine Glucose (NEGATIVE) mg/dL Slides for Path Review - Progress Progress: improved Air Movement: poor Blood Culture(s) Obtained: Yes Antibiotics given: No - Departure Departure Disposition: In-patient Admission Clinical Impression: CHF (congestive heart failure), COPD (chronic obstructive pulmonary disease), Sleep apnea in adult Condition: Poor Critical Care Time: Yes Critical Care Time(excluding separately billable procedures): Critical 30-74 mins Referrals: ERIKA BARON [Primary Care Provider] - Instructions: Heart Failure, Chronic Obstructive Pulmonary Disease
[2019-08-27] MEDS: Lasix 40 MG/4 ML IV SCH (22:36)
[2019-08-27] MEDS ORDERED: Cymbalta 30 MG Capsule ONE (23:11)
[2019-08-27] MEDS: Cymbalta 30 MG Capsule PO SCH (23:14)
[2019-08-27] MEDS: Klor Con 10 MEQ PO SCH (23:15)
[2019-08-27] MEDS: Apresoline 25 MG TABLET PO SCH (23:15)
[2019-08-27] MEDS: ENOXAPARIN SODIUM SQ SCH (23:16)
[2019-08-28 04:43] LABS: Hematocrit 36.2 % (35-47); Hemoglobin 10.7 gm/dl (12.0-16.0); Mean Corpuscular Hemoglobin 23.9 pg (26-32); Mean Corpuscular Hgb Concent. 29.6 g/dl (32-36); Mean Platelet Volume 10.6 fl (7.5-11.0); Platelet Count 283 K/mm3 (150-450); Red Blood Count 4.47 M/mm3 (4.1-5.4); Red Cell Distribution Width 15.9 % (11.5-14.0); White Blood Count 11.8 K/mm3 (4.0-10.5)
[2019-08-28 06:01] LABS: ALBUMIN 3.6 g/dL (3.5-5.0); ALKALINE PHOSPHATASE 135 U/L (38-126); ANION GAP 9.6 MEQ/L (5-15); BLOOD UREA NITROGEN 19 mg/dL (7-17); CHLORIDE 97 mmol/L (98-107); Calcium 9.2 mg/dL (8.4-10.2); Carbon Dioxide 37 mmol/L (22-30); Creatinine 1 0.83 mg/dL (0.52-1.04); Glucose 110 mg/dL (74-106); MAGNESIUM 2.1 mg/dL (1.6-2.3); NT PRO BNP 6470 pg/mL (0-900); Potassium 4.7 mmol/L (3.5-5.1); SGOT/AST 26 U/L (14-36); SGPT/ALT 65 U/L (0-35); SODIUM 139 mmol/L (137-145); Total Protein 6.7 g/dL (6.3-8.2)
[2019-08-28] MEDS: Lasix 40 MG/4 ML IV SCH (06:26)
[2019-08-28] MEDS: ENOXAPARIN SODIUM SQ SCH ×2 (06:35→17:47)
[2019-08-28] MEDS: DUONEB 0.5-3 MG/3 ml Neb IH SCH ×4 (07:09→19:35)
[2019-08-28] MEDS: Klor Con 10 MEQ PO SCH ×2 (09:33→22:47)
[2019-08-28] MEDS: Apresoline 25 MG TABLET PO SCH ×4 (09:33→22:47)
[2019-08-28] MEDS ORDERED: NON-FORMULARY ITEM (Meclizine Hcl [Meclizine Hcl] 12.5 MG) PO PRN (09:59)
[2019-08-28] MEDS ORDERED: NON-FORMULARY ITEM (Aspirin [Aspirin] 81 MG) PO SCH (10:00)
[2019-08-28] MEDS ORDERED: NON-FORMULARY ITEM (Amlodipine Besylate [Amlodipine Besylate] 2.5 MG) PO SCH (10:00)
[2019-08-28] MEDS ORDERED: NON-FORMULARY ITEM (Atorvastatin Calcium [Atorvastatin Calcium] 10 MG) PO SCH (10:00)
[2019-08-28] MEDS ORDERED: ANTIVERT 25 MG PO PRN (10:11)
[2019-08-28] MEDS ORDERED: Nitrostat 0.4 MG Tablet SL PRN (10:15)
[2019-08-28] MEDS: monoPRIL 10 MG PO SCH (10:19)
[2019-08-28] MEDS: ECOTRIN 81 MG PO SCH (10:19)
[2019-08-28] MEDS: NORVASC 5 MG PO SCH (10:19)
[2019-08-28] MEDS: KEFLEX 500 MG PO SCH ×2 (10:19→12:05)
[2019-08-28] MEDS: BUMEX 1 MG PO SCH ×2 (10:19→16:09)
[2019-08-28] MEDS: SYNTHROID 100 MCG PO SCH (10:19)
[2019-08-28] MEDS: Novolin 70/30 SQ SCH ×2 (10:20→16:23)
--- NOTE | 2019-08-28 10:44 | PCM.HP ---
History of Present Illness - Chief Complaint Chief Complaint: CHF/COPD Date: 08/28/19 History of Present Illness: is a 74 year old female seen this am following ER admission for chf exacerbation. Patient reports that she was at home and was having difficulty breathing. The shortness of breath had gotten bad enough she was not able to get up to bathroom. She does have a hx of heart failure and takes lasix routinely. She missed her routine meds on . She was seeing Dr Blount but has not seen him recently. Patient denies recent echo. She sees Dr Harmon for primary care who told her that her heart was getting weaker. She is unable to get her compression socks on so she does not normally wear them. She lives with family that does help with meals and medications but she [facility] because she states that is where she has felt the best and the strongest. She has RACHAEL and does not wear a mask at home because the air is so cold it bothers her. She wore the cpap provided to her in the hospital and although she does not like to wear it she tolerated well because it had heated air. Patient reports that she has had a decreased appetite. She reports a fifty pound unintentional weight loss over the past couple of years. - Review of Systems Constitutional: Weakness, Weight Loss, No Fever Eyes: No Symptoms Ears, Nose, & Throat: Nose Congestion, Epistaxis (recently had nose bleeds with elevated bp) Respiratory: Cough (non productive), Short Of Breath, Other (rachael), No Wheezing Cardiac: Edema, No Chest Pain, No Palpitations, No Syncope Abdominal/Gastrointestinal: Constipation, Appetite Changes, Other (hiatal hernia), No Abdominal Pain, No Nausea, No Vomiting, No Diarrhea, No Hematochezia, No Melena Genitourinary Symptoms: No Dysuria, No Frequency, No Incontinence Musculoskeletal: No Symptoms Skin: Cellulitis, No Rash Neurological: Headache (recently had headache with elevated bp) Psychological: Anxiety, No Alcohol Abuse, No Drug Abuse Endocrine: No Symptoms Hematologic/Lymphatic: No Symptoms Medications & Allergies Home Medications: Home Medication List Amlodipine Besylate 2.5 mg PO DAILY 08/05/18 [History Confirmed 08/27/19] Aspirin 81 mg PO DAILY 08/05/18 [History Confirmed 08/27/19] Atorvastatin Calcium 10 mg PO DAILY 08/05/18 [History Confirmed 08/27/19] Duloxetine HCl 30 mg [Cymbalta 30 MG Capsule] 60 mg PO HS 08/05/18 [History Confirmed 08/27/19] Fosinopril Sodium 10 mg [monoPRIL 10 MG] 10 mg PO DAILY 08/05/18 [History Confirmed 08/27/19] HydrALAzine HCL 25 MG TAB [Apresoline 25 MG TABLET] 25 mg PO QID 08/05/18 [History Confirmed 08/27/19] Insulin NPH/Reg 70/30 [Novolin 70/30] 50 unit SQ BID 08/05/18 [History Confirmed 08/27/19] Levothyroxine Sodium 100 Mcg [Synthroid 100 Mcg] 100 mcg PO DAILY 08/05/18 [History Confirmed 08/27/19] Albuterol/Ipratropium 3ml Neb* [DUONEB 0.5-3 MG/3 ml Neb] 3 ml IH QID 01/19/19 [History Confirmed 08/27/19] Meclizine HCl 12.5 mg PO Q8HPRN PRN 01/19/19 [History Confirmed 08/27/19] Nitroglycerin 0.4 mg Tablet [Nitrostat 0.4 MG Tablet] 0.4 mg SL UD 01/19/19 [History Confirmed 08/27/19] Potassium Chloride 10 Meq Tab* [Klor Con 10 MEQ] 10 meq PO BID 01/19/19 [History Confirmed 08/27/19] Bumetanide 1 mg [Bumex 1 mg] 1 mg PO BID DIURETIC #60 tablet 01/22/19 [Rx Confirmed 08/27/19] Cephalexin Mh 500 mg [Keflex 500 mg] 500 mg PO QID #28 capsule 02/01/19 [Rx Confirmed 08/27/19] Allergies/Adverse Reactions: Allergies Allergy/AdvReac Type Severity Reaction Status Date / Time Sulfa (Sulfonamide Allergy Severe Anaphylactic Verified 08/27/19 15:50 Antibiotics) Reaction - Past Medical History Past Medical History: Yes Neurological History: No Pertinent History ENT History: Cataracts, Glaucoma Cardiac History: Arrhythmia, Congestive Heart Failure, Hypertension Respiratory History: Asthma, CHF, COPD, Sleep Apnea, Other Endocrine Medical History: Diabetes Type II Musculoskelatal History: Arthritis GI Medical History: Diverticulitis, Diverticulosis, GERD, Hernia History: No Pertinent History Pyscho-Social History: Anxiety, Panic Disorder Reproductive Disorders: No Pertinent History Comment: hypoxia. 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 D and C, chest tube placement LEFT side - Social History Smoking Status: Never smoker Exposure to second hand smoke: No Alcohol: None Drug Use: none - Physical Exam Vital Signs: Vital Signs - 24 hr Temp Pulse Resp BP Pulse Ox 08/28/19 07:12 99.0 F 70 18 134/94 98 08/28/19 07:11 76 18 98 08/28/19 03:37 98.1 F 68 18 180/70 96 08/28/19 00:00 98.7 F 72 24 180/80 99 08/27/19 20:47 97.6 F 69 21 178/72 100 08/27/19 20:35 70 20 97 08/27/19 18:36 100 08/27/19 18:33 98 08/27/19 18:11 69 21 172/61 98 08/27/19 17:00 73 26 H 166/53 99 08/27/19 16:35 72 28 H 192/71 99 08/27/19 15:37 24 60 L Oxygen-Last 24 hours Oxygen Flowrate (L/min)-RT 7 Oxygen Flowrate (L/min)-RT 7 General Appearance: moderate distress, obese, other (Patient sitting up in chair hunched over working hard to breath on oxygen by NC. Breathless with speaking) Neurologic Exam: alert, oriented x 3, cooperative, normal mood/affect, No disoriented, No confusion Eye Exam: eyes nml inspection, No scleral icterus Ears, Nose, Throat Exam: moist mucous membranes, other (rhinorrhea) Neck Exam: normal inspection Respiratory Exam: respiratory distress, diminished breath sounds, accessory muscle use Cardiovascular Exam: regular rate/rhythm, other (distant heart sounds), No murmur, No friction rub, No gallop Gastrointestinal/Abdomen Exam: soft, normal bowel sounds, No tenderness, No distention, No mass Pelvic Exam: not done Rectal Exam: not done Extremity Exam: pedal edema, swelling, other (bilateral lower extremities with erythema and blistering appearance skin is taut) Skin Exam: warm, dry, pale, No rash, No ecchymosis, No jaundice Results - Labs Lab/Micro Results: Accuchecks Date 08/28/19 Date 08/27/19 Time 07:57 Time 21:00 Accucheck Value: 110 Accucheck Value: 285 Lab Results-Last 24 Hours 08/27/19 08/27/19 08/27/19 Range/Units 15:55 15:55 15:55 WBC 14.1 H (4.0-10.5) K/mm3 RBC 4.66 (4.1-5.4) M/mm3 Hgb 11.2 L (12.0-16.0) gm/dl Hct 37.9 (35-47) % MCV 81.3 (78-100) fl MCH 24.0 L (26-32) pg MCHC 29.6 L (32-36) g/dl RDW 16.0 H (11.5-14.0) % Plt Count 310 (150-450) K/mm3 MPV 11.5 H (7.5-11.0) fl Gran % 87.6 H (36.0-66.0) % Eos # (Auto) 0.05 (0-0.5) Absolute Lymphs (auto) 0.75 L (1.0-4.6) Absolute Monos (auto) 0.90 (0.0-1.3) Lymphocytes % 5.3 L (24.0-44.0) % Monocytes % 6.4 (0.0-12.0) % Eosinophils % 0.4 (0.00-5.0) % Basophils % 0.3 (0.0-0.4) % Absolute Granulocytes 12.39 H (1.4-6.9) Basophils # 0.04 (0-0.4) PT 13.1 H (9.95-12.35) SECONDS INR 1.16 (0.8-3.0) APTT 32.8 (25.3-37.0) SECONDS D-Dimer 1135 H* (215-500) ng/mL pO2/FiO2 Ratio % VBG pH (7.32-7.42) VBG pCO2 at Pat Temp (42-55) mm/Hg VBG pO2 at Pat Temp (25-40) mm/Hg VBG HCO3 (22-28) meq/L VBG O2 Sat (Zack) (95-100) VBG Base Excess (-2.0-2.0) VBG Hemoglobin VBG Carboxyhemoglobin (0.0-6.9) % T HGB POC Potassium (3.5-5.1) Sodium 139 (137-145) mmol/L Potassium 4.9 (3.5-5.1) mmol/L Chloride 96 L (98-107) mmol/L Carbon Dioxide 35 H (22-30) mmol/L Anion Gap 13.4 (5-15) MEQ/L BUN 22 H (7-17) mg/dL Creatinine 0.68 (0.52-1.04) mg/dL Estimated GFR > 60.0 ML/MIN Glucose 330 H (74-106) mg/dL Hemoglobin A1c (4.5-6.0) % Lactic Acid (0.4-2.0) Calcium 9.4 (8.4-10.2) mg/dL Magnesium 2.3 (1.6-2.3) mg/dL Total Bilirubin 1.20 (0.2-1.3) mg/dL AST 36 (14-36) U/L ALT 79 H (0-35) U/L Alkaline Phosphatase 148 H (38-126) U/L Troponin I (0.000-0.034) ng/mL NT-Pro-B Natriuret Pep 5120 H (0-900) pg/mL Serum Total Protein 7.7 (6.3-8.2) g/dL Albumin 4.1 (3.5-5.0) g/dL Urine Color (YELLOW) Urine Appearance (CLEAR) Urine pH (5-6) Ur Specific Robinson (1.005-1.025) Urine Protein (Negative) Urine Ketones (NEGATIVE) Urine Blood (0-5) Elver/ul Urine Nitrite (NEGATIVE) Urine Bilirubin (NEGATIVE) Urine Urobilinogen (0-1) mg/dL Ur Leukocyte Esterase (NEGATIVE) Urine WBC (Auto) (0-5) /HPF Urine RBC (Auto) (0-2) /HPF U Hyaline Cast (Auto) (0-2) /LPF U Epithel Cells (Auto) (FEW) /HPF Urine Bacteria (Auto) (NEGATIVE) /HPF Urine Mucus (Auto) (NEGATIVE) /HPF Urine Culture Reflexed (NO) Urine Glucose (NEGATIVE) mg/dL Slides for Path Review 08/27/19 08/27/19 08/27/19 Range/Units 15:55 15:56 15:57 WBC (4.0-10.5) K/mm3 RBC (4.1-5.4) M/mm3 Hgb (12.0-16.0) gm/dl Hct (35-47) % MCV (78-100) fl MCH (26-32) pg MCHC (32-36) g/dl RDW (11.5-14.0) % Plt Count (150-450) K/mm3 MPV (7.5-11.0) fl Gran % (36.0-66.0) % Eos # (Auto) (0-0.5) Absolute Lymphs (auto) (1.0-4.6) Absolute Monos (auto) (0.0-1.3) Lymphocytes % (24.0-44.0) % Monocytes % (0.0-12.0) % Eosinophils % (0.00-5.0) % Basophils % (0.0-0.4) % Absolute Granulocytes (1.4-6.9) Basophils # (0-0.4) PT (9.95-12.35) SECONDS INR (0.8-3.0) APTT (25.3-37.0) SECONDS D-Dimer (215-500) ng/mL pO2/FiO2 Ratio % VBG pH (7.32-7.42) VBG pCO2 at Pat Temp (42-55) mm/Hg VBG pO2 at Pat Temp (25-40) mm/Hg VBG HCO3 (22-28) meq/L VBG O2 Sat (Zack) (95-100) VBG Base Excess (-2.0-2.0) VBG Hemoglobin VBG Carboxyhemoglobin (0.0-6.9) % T HGB POC Potassium (3.5-5.1) Sodium (137-145) mmol/L Potassium (3.5-5.1) mmol/L Chloride (98-107) mmol/L Carbon Dioxide (22-30) mmol/L Anion Gap (5-15) MEQ/L BUN (7-17) mg/dL Creatinine (0.52-1.04) mg/dL Estimated GFR ML/MIN Glucose (74-106) mg/dL Hemoglobin A1c (4.5-6.0) % Lactic Acid 2.0 (0.4-2.0) Calcium (8.4-10.2) mg/dL Magnesium (1.6-2.3) mg/dL Total Bilirubin (0.2-1.3) mg/dL AST (14-36) U/L ALT (0-35) U/L Alkaline Phosphatase (38-126) U/L Troponin I 0.016 (0.000-0.034) ng/mL NT-Pro-B Natriuret Pep (0-900) pg/mL Serum Total Protein (6.3-8.2) g/dL Albumin (3.5-5.0) g/dL Urine Color YELLOW (YELLOW) Urine Appearance CLEAR (CLEAR) Urine pH 7.0 (5-6) Ur Specific Robinson 1.008 (1.005-1.025) Urine Protein 100 (Negative) Urine Ketones TRACE (NEGATIVE) Urine Blood NEGATIVE (0-5) Elver/ul Urine Nitrite NEGATIVE (NEGATIVE) Urine Bilirubin NEGATIVE (NEGATIVE) Urine Urobilinogen NEGATIVE (0-1) mg/dL Ur Leukocyte Esterase NEGATIVE (NEGATIVE) Urine WBC (Auto) 0-2 (0-5) /HPF Urine RBC (Auto) NONE (0-2) /HPF U Hyaline Cast (Auto) 6-10 (0-2) /LPF U Epithel Cells (Auto) RARE (FEW) /HPF Urine Bacteria (Auto) NONE (NEGATIVE) /HPF Urine Mucus (Auto) SLIGHT (NEGATIVE) /HPF Urine Culture Reflexed NO (NO) Urine Glucose >=500 (NEGATIVE) mg/dL Slides for Path Review 08/27/19 08/27/19 08/27/19 Range/Units 16:08 19:11 22:12 WBC (4.0-10.5) K/mm3 RBC (4.1-5.4) M/mm3 Hgb (12.0-16.0) gm/dl Hct (35-47) % MCV (78-100) fl MCH (26-32) pg MCHC (32-36) g/dl RDW (11.5-14.0) % Plt Count (150-450) K/mm3 MPV (7.5-11.0) fl Gran % (36.0-66.0) % Eos # (Auto) (0-0.5) Absolute Lymphs (auto) (1.0-4.6) Absolute Monos (auto) (0.0-1.3) Lymphocytes % (24.0-44.0) % Monocytes % (0.0-12.0) % Eosinophils % (0.00-5.0) % Basophils % (0.0-0.4) % Absolute Granulocytes (1.4-6.9) Basophils # (0-0.4) PT (9.95-12.35) SECONDS INR (0.8-3.0) APTT (25.3-37.0) SECONDS D-Dimer (215-500) ng/mL pO2/FiO2 Ratio 21.0 % VBG pH 7.41 (7.32-7.42) VBG pCO2 at Pat Temp 63 H* (42-55) mm/Hg VBG pO2 at Pat Temp 76 H (25-40) mm/Hg VBG HCO3 39.9 H* (22-28) meq/L VBG O2 Sat (Zack) 97.0 (95-100) VBG Base Excess 12.4 H (-2.0-2.0) VBG Hemoglobin 11.7 VBG Carboxyhemoglobin 4.2 (0.0-6.9) % T HGB POC Potassium 5.0 (3.5-5.1) Sodium (137-145) mmol/L Potassium (3.5-5.1) mmol/L Chloride (98-107) mmol/L Carbon Dioxide (22-30) mmol/L Anion Gap (5-15) MEQ/L BUN (7-17) mg/dL Creatinine (0.52-1.04) mg/dL Estimated GFR ML/MIN Glucose (74-106) mg/dL Hemoglobin A1c (4.5-6.0) % Lactic Acid (0.4-2.0) Calcium (8.4-10.2) mg/dL Magnesium (1.6-2.3) mg/dL Total Bilirubin (0.2-1.3) mg/dL AST (14-36) U/L ALT (0-35) U/L Alkaline Phosphatase (38-126) U/L Troponin I 0.017 0.018 (0.000-0.034) ng/mL NT-Pro-B Natriuret Pep (0-900) pg/mL Serum Total Protein (6.3-8.2) g/dL Albumin (3.5-5.0) g/dL Urine Color (YELLOW) Urine Appearance (CLEAR) Urine pH (5-6) Ur Specific Robinson (1.005-1.025) Urine Protein (Negative) Urine Ketones (NEGATIVE) Urine Blood (0-5) Elver/ul Urine Nitrite (NEGATIVE) Urine Bilirubin (NEGATIVE) Urine Urobilinogen (0-1) mg/dL Ur Leukocyte Esterase (NEGATIVE) Urine WBC (Auto) (0-5) /HPF Urine RBC (Auto) (0-2) /HPF U Hyaline Cast (Auto) (0-2) /LPF U Epithel Cells (Auto) (FEW) /HPF Urine Bacteria (Auto) (NEGATIVE) /HPF Urine Mucus (Auto) (NEGATIVE) /HPF Urine Culture Reflexed (NO) Urine Glucose (NEGATIVE) mg/dL Slides for Path Review 08/28/19 08/28/19 08/28/19 Range/Units 01:08 04:40 04:40 WBC 11.8 H (4.0-10.5) K/mm3 RBC 4.47 (4.1-5.4) M/mm3 Hgb 10.7 L (12.0-16.0) gm/dl Hct 36.2 (35-47) % MCV 81.0 (78-100) fl MCH 23.9 L (26-32) pg MCHC 29.6 L (32-36) g/dl RDW 15.9 H (11.5-14.0) % Plt Count 283 (150-450) K/mm3 MPV 10.6 (7.5-11.0) fl Gran % (36.0-66.0) % Eos # (Auto) (0-0.5) Absolute Lymphs (auto) (1.0-4.6) Absolute Monos (auto) (0.0-1.3) Lymphocytes % (24.0-44.0) % Monocytes % (0.0-12.0) % Eosinophils % (0.00-5.0) % Basophils % (0.0-0.4) % Absolute Granulocytes (1.4-6.9) Basophils # (0-0.4) PT (9.95-12.35) SECONDS INR (0.8-3.0) APTT (25.3-37.0) SECONDS D-Dimer (215-500) ng/mL pO2/FiO2 Ratio % VBG pH (7.32-7.42) VBG pCO2 at Pat Temp (42-55) mm/Hg VBG pO2 at Pat Temp (25-40) mm/Hg VBG HCO3 (22-28) meq/L VBG O2 Sat (Zack) (95-100) VBG Base Excess (-2.0-2.0) VBG Hemoglobin VBG Carboxyhemoglobin (0.0-6.9) % T HGB POC Potassium (3.5-5.1) Sodium (137-145) mmol/L Potassium (3.5-5.1) mmol/L Chloride (98-107) mmol/L Carbon Dioxide (22-30) mmol/L Anion Gap (5-15) MEQ/L BUN (7-17) mg/dL Creatinine (0.52-1.04) mg/dL Estimated GFR ML/MIN Glucose (74-106) mg/dL Hemoglobin A1c (4.5-6.0) % Lactic Acid (0.4-2.0) Calcium (8.4-10.2) mg/dL Magnesium (1.6-2.3) mg/dL Total Bilirubin (0.2-1.3) mg/dL AST (14-36) U/L ALT (0-35) U/L Alkaline Phosphatase (38-126) U/L Troponin I 0.023 0.028 (0.000-0.034) ng/mL NT-Pro-B Natriuret Pep (0-900) pg/mL Serum Total Protein (6.3-8.2) g/dL Albumin (3.5-5.0) g/dL Urine Color (YELLOW) Urine Appearance (CLEAR) Urine pH (5-6) Ur Specific Robinson (1.005-1.025) Urine Protein (Negative) Urine Ketones (NEGATIVE) Urine Blood (0-5) Elver/ul Urine Nitrite (NEGATIVE) Urine Bilirubin (NEGATIVE) Urine Urobilinogen (0-1) mg/dL Ur Leukocyte Esterase (NEGATIVE) Urine WBC (Auto) (0-5) /HPF Urine RBC (Auto) (0-2) /HPF U Hyaline Cast (Auto) (0-2) /LPF U Epithel Cells (Auto) (FEW) /HPF Urine Bacteria (Auto) (NEGATIVE) /HPF Urine Mucus (Auto) (NEGATIVE) /HPF Urine Culture Reflexed (NO) Urine Glucose (NEGATIVE) mg/dL Slides for Path Review 08/28/19 08/28/19 Range/Units 04:40 08:25 WBC (4.0-10.5) K/mm3 RBC (4.1-5.4) M/mm3 Hgb (12.0-16.0) gm/dl Hct (35-47) % MCV (78-100) fl MCH (26-32) pg MCHC (32-36) g/dl RDW (11.5-14.0) % Plt Count (150-450) K/mm3 MPV (7.5-11.0) fl Gran % (36.0-66.0) % Eos # (Auto) (0-0.5) Absolute Lymphs (auto) (1.0-4.6) Absolute Monos (auto) (0.0-1.3) Lymphocytes % (24.0-44.0) % Monocytes % (0.0-12.0) % Eosinophils % (0.00-5.0) % Basophils % (0.0-0.4) % Absolute Granulocytes (1.4-6.9) Basophils # (0-0.4) PT (9.95-12.35) SECONDS INR (0.8-3.0) APTT (25.3-37.0) SECONDS D-Dimer (215-500) ng/mL pO2/FiO2 Ratio % VBG pH (7.32-7.42) VBG pCO2 at Pat Temp (42-55) mm/Hg VBG pO2 at Pat Temp (25-40) mm/Hg VBG HCO3 (22-28) meq/L VBG O2 Sat (Zack) (95-100) VBG Base Excess (-2.0-2.0) VBG Hemoglobin VBG Carboxyhemoglobin (0.0-6.9) % T HGB POC Potassium (3.5-5.1) Sodium 139 (137-145) mmol/L Potassium 4.7 (3.5-5.1) mmol/L Chloride 97 L (98-107) mmol/L Carbon Dioxide 37 H (22-30) mmol/L Anion Gap 9.6 (5-15) MEQ/L BUN 19 H (7-17) mg/dL Creatinine 0.83 (0.52-1.04) mg/dL Estimated GFR > 60.0 ML/MIN Glucose 110 H (74-106) mg/dL Hemoglobin A1c 8.83 H (4.5-6.0) % Lactic Acid (0.4-2.0) Calcium 9.2 (8.4-10.2) mg/dL Magnesium 2.1 (1.6-2.3) mg/dL Total Bilirubin 1.20 (0.2-1.3) mg/dL AST 26 (14-36) U/L ALT 65 H (0-35) U/L Alkaline Phosphatase 135 H (38-126) U/L Troponin I (0.000-0.034) ng/mL NT-Pro-B Natriuret Pep 6470 H (0-900) pg/mL Serum Total Protein 6.7 (6.3-8.2) g/dL Albumin 3.6 (3.5-5.0) g/dL Urine Color (YELLOW) Urine Appearance (CLEAR) Urine pH (5-6) Ur Specific Robinson (1.005-1.025) Urine Protein (Negative) Urine Ketones (NEGATIVE) Urine Blood (0-5) Elver/ul Urine Nitrite (NEGATIVE) Urine Bilirubin (NEGATIVE) Urine Urobilinogen (0-1) mg/dL Ur Leukocyte Esterase (NEGATIVE) Urine WBC (Auto) (0-5) /HPF Urine RBC (Auto) (0-2) /HPF U Hyaline Cast (Auto) (0-2) /LPF U Epithel Cells (Auto) (FEW) /HPF Urine Bacteria (Auto) (NEGATIVE) /HPF Urine Mucus (Auto) (NEGATIVE) /HPF Urine Culture Reflexed (NO) Urine Glucose (NEGATIVE) mg/dL Slides for Path Review Microbiology 08/27/19 16:05 Blood Culture Gram Stain - Final Blood Accuchecks Date 08/28/19 Date 08/27/19 Time 07:57 Time 21:00 Accucheck Value: 110 Accucheck Value: 285 - Radiology Impressions Radiology Exams & Impressions: Radiology Procedures Category Date Time Status CHEST 1 VIEW (PORTABLE) Stat Exams 08/27/19 15:57 Completed CHEST 1 VIEW (PORTABLE) Stat Exams 08/28/19 08:00 Taken ECHO W/2D AND DOPPLER [US] Routine Exams 08/30/19 08:00 Ordered - Other Procedures and Tests Respiratory Therapy 08/27/19 18:34 Oxygen NASAL CANNULA 4 lpm 08/27/19 20:15 Respiratory Therapy Assessment DAILY 08/27/19 20:34 BiPap/CPAP ROUTINE 08/28/19 07:00 Peak Expiratory Flow Rate ONCE Assessment/Plan (1) CHF (congestive heart failure) Current Visit: Yes Status: Acute Assessment & Plan: Acute on chronic chf exacerbation. Patient was in third degree heart block in ER. Was extremely short of breath and initially sating 60%. She was given lasix and started diuresing which improved her symptoms. Her bnp was elevated. She was unsure when her last echo was. She did miss routine meds on . She has pedal edema. Patient will be admitted to inpatient. Will resume her home dose of bumex and continue to monitor her oxygen saturations. She would like to go to [facility] if possible. She will need an echo. Will get repeat cbc cmp and bnp in am. She may require metolazone prn or consideration for entresto if her ef has significantly worsened. Code(s): I50.9 - HEART FAILURE, UNSPECIFIED (2) Cellulitis Current Visit: Yes Status: Acute Assessment & Plan: Patient has bilateral cellulitis. Keflex was listed as home med unsure if that was what was ordered for tx. Patient was found to have a bacteremia on blood cultures done in ER. She will be started on vanc and zosyn which would tx cellulitis as well. Will stop keflex at this time. Code(s): L03.90 - CELLULITIS, UNSPECIFIED (3) Bacteremia Current Visit: Yes Status: Acute Assessment & Plan: Positive blood cultures from ER. Unsure if contaminant. Will start empirically on vanc and zosyn. Will follow up on final culture results Code(s): R78.81 - BACTEREMIA (4) COPD (chronic obstructive pulmonary disease) Current Visit: Yes Status: Acute Qualifiers: Assessment & Plan: Hx of COPD. Patient is on oxygen. She has diminished breath sounds. Will continue to monitor VS. No wheeze appreciated on exam or productive cough so no steroids will be given at this time. on duonebs (5) Sleep apnea in adult Current Visit: Yes Status: Chronic Assessment & Plan: Patient tolerated cpap machine at this hospital. Will encourage her to wear one at home as well but she is non complaint due to air temp of her home machine Code(s): G47.30 - SLEEP APNEA, UNSPECIFIED (6) Acute respiratory failure with hypoxia and hypercapnia Current Visit: No Status: Acute Assessment & Plan: Patient was sating 60% when she arrived in the ER. BG showed increased CO2. Patient oxygen saturations have since improved. She is currently on oxygen. Will continue to monitor VS. She is still having increased work of breathing and using accessory muscles. Code(s): J96.01 - ACUTE RESPIRATORY FAILURE WITH HYPOXIA; J96.02 - ACUTE RESPIRATORY FAILURE WITH HYPERCAPNIA (7) Type 2 diabetes mellitus Current Visit: No Status: Acute Qualifiers: Diabetes mellitus roasterman insulin use: with roasterman use Diabetes mellitus complication status: with hyperglycemia Qualified Code(s): E11.65 - Type 2 diabetes mellitus with hyperglycemia; Z79.4 - continuous churn buttermaker (current) use of insulin Assessment & Plan: Not well controlled. Patient will have BS ac hs and will continue with routine home medications (8) Elevated d-dimer Current Visit: Yes Status: Acute Assessment & Plan: Patient unable to lay flat for studies so is being treated empically with enoxaparin Code(s): R79.89 - OTHER SPECIFIED ABNORMAL FINDINGS OF BLOOD CHEMISTRY
[2019-08-28] MEDS: Sodium Chloride 0.9% 1000 ML 1,000 ML IV SCH (12:06)
[2019-08-28] MEDS ORDERED: PHARMACY DOSING REQUIRED: VANCOMYCIN IV STA (15:41)
[2019-08-28] MEDS: VANCOMYCIN 1 GRAM/200 ML BAG 1 GM/200 ML PIGGYBACK IV SCH (16:09)
[2019-08-28] MEDS: HUMALOG SQ PRN (16:23)
[2019-08-28] MEDS: Zosyn 3.375 GM Vial 3.375 GM in Sodium Chloride 100ML MINI-BAG PLUS 100 ML IV SCH (17:47)
--- NOTE | 2019-08-28 19:44 | XRAY ---
Indication: Short of breath. History CHF. Comparison: One day earlier Portable chest unchanged again demonstrating cardiomegaly and moderate left base infiltrate/atelectasis/effusion. Right lung remains clear. No new cardiopulmonary abnormalities. Comment: Preliminary interpretation was made by [facility]. No critical discrepancy.
[2019-08-28] MEDS: Cymbalta 30 MG Capsule PO SCH (22:47)
[2019-08-28] MEDS: Zocor 10MG PO SCH (22:47)
[2019-08-29] MEDS: Zosyn 3.375 GM Vial 3.375 GM in Sodium Chloride 100ML MINI-BAG PLUS 100 ML IV SCH ×4 (00:25→17:38)
[2019-08-29 05:56] LABS: Absolute Neutrophil Ct (ANC) 8.82 (1.4-6.9); BASOPHIL % 0.3 % (0.0-0.4); Basophil (Absolute #) 0.03 (0-0.4); Eosinophil % 1.2 % (0.00-5.0); Eosinophil (Absolute #) 0.14 (0-0.5); Hematocrit 34.5 % (35-47); Lymphocyte (Absolute #) 1.19 (1.0-4.6); Lymphocytes % 10.5 % (24.0-44.0); Mean Cell Volume 81.4 fl (78-100); Mean Corpuscular Hemoglobin 23.6 pg (26-32); Mean Platelet Volume 10.6 fl (7.5-11.0); Monocyte (Absolute #) 1.15 (0.0-1.3); Monocytes % 10.2 % (0.0-12.0); Neutrophil % 77.8 % (36.0-66.0); Platelet Count 273 K/mm3 (150-450); Red Blood Count 4.24 M/mm3 (4.1-5.4); Red Cell Distribution Width 16.1 % (11.5-14.0); White Blood Count 11.3 K/mm3 (4.0-10.5)
[2019-08-29 06:31] LABS: ANION GAP 9.3 MEQ/L (5-15); Calcium 8.5 mg/dL (8.4-10.2); Creatinine 1 1.01 mg/dL (0.52-1.04); Potassium 4.3 mmol/L (3.5-5.1)
[2019-08-29] MEDS: ENOXAPARIN SODIUM SQ SCH ×2 (06:37→18:05)
[2019-08-29] MEDS: DUONEB 0.5-3 MG/3 ml Neb IH SCH ×4 (06:42→19:59)
[2019-08-29] MEDS: Novolin 70/30 SQ SCH (07:08)
--- NOTE | 2019-08-29 07:12 | PCM.NOTE ---
Date and Time: 08/29/19710 Subjective Assessment: 74 yr old female seen and examined this am. She reports she is still short of breath. She had a low blood sugar this am and patient states that happens at home as well. She denies chest pain. She reports unsteady or off balance during ambulation even with walker She reports swelling in her legs. She had no other reported concerns at this time. - Review of Systems Constitutional: Weakness Eyes: No Symptoms Ears, Nose, & Throat: Other (Rhinorrhea) Respiratory: Short Of Breath, No Cough, No Wheezing Cardiac: Edema, No Palpitations, No Syncope Abdominal/Gastrointestinal: Constipation, No Abdominal Pain, No Nausea, No Vomiting, No Diarrhea Genitourinary Symptoms: No Symptoms Musculoskeletal: No Symptoms, Other (off balance with ambulation even with walker) Skin: Cellulitis Neurological: No Dizziness, No Headache Psychological: Anxiety Endocrine: No Symptoms Hematologic/Lymphatic: No Symptoms Objective Exam General Appearance: moderate distress, anxiety, obese Neurologic Exam: alert, oriented x 3, cooperative, depressed mood/affect, No confusion Skin Exam: warm, dry, other (Bilateral lower extremity erythema with blister type lesions) Eye Exam: No scleral icterus Ears, Nose, Throat Exam: moist mucous membranes Neck Exam: normal inspection Respiratory Exam: respiratory distress, diminished breath sounds, other (Patient becomes extremely short of breath with speaking), No normal breath sounds Cardiovascular Exam: regular rate/rhythm, normal heart sounds, No murmur, No friction rub, No gallop Gastrointestinal/Abdomen Exam: soft, normal bowel sounds, No tenderness Extremity Exam: pedal edema, swelling, tenderness, other (bilateral lower extremity erythema) Back Exam: normal inspection OBJECTIVE DATA Vital Signs: Vital Signs - 24 hr Temp Pulse Resp BP Pulse Ox 08/29/19 06:42 61 18 95 08/29/19 03:44 98.1 F 72 22 127/57 99 08/28/19 23:12 97.7 F 65 18 133/80 98 08/28/19 19:43 98.1 F 72 20 143/62 99 08/28/19 19:35 64 20 97 08/28/19 15:21 74 18 97 08/28/19 15:16 99.0 F 71 18 172/70 98 08/28/19 11:45 98.5 F 67 18 154/65 100 08/28/19 11:07 70 20 98 08/28/19 07:12 99.0 F 70 18 134/94 98 Pain Assessment - Last Documented Pain Intensity 0 Pain Scale Used [facility] Intake and Output: Intake & Output 08/26/19 08/27/19 08/28/19 08/29/19 11:59 11:59 11:59 11:59 Intake Total 1486 1871 Output Total 1750 1850 Balance -264 21 Weight 69.8 kg Lab Results: Accuchecks Date 08/28/19 Date 08/28/19 Date 08/28/19 Date 08/28/19 Time 21:00 Time 16:23 Time 12:15 Time 07:57 Accucheck Value: 155 Accucheck Value: 227 Accucheck Value: 239 Accucheck Value: 110 Lab Results-Last 24 Hours 08/28/19 08/29/19 08/29/19 Range/Units 08:25 00:27 05:15 WBC 11.3 H (4.0-10.5) K/mm3 RBC 4.24 (4.1-5.4) M/mm3 Hgb 10.0 L (12.0-16.0) gm/dl Hct 34.5 L (35-47) % MCV 81.4 (78-100) fl MCH 23.6 L (26-32) pg MCHC 29.0 L (32-36) g/dl RDW 16.1 H (11.5-14.0) % Plt Count 273 (150-450) K/mm3 MPV 10.6 (7.5-11.0) fl Gran % 77.8 H (36.0-66.0) % Eos # (Auto) 0.14 (0-0.5) Absolute Lymphs (auto) 1.19 (1.0-4.6) Absolute Monos (auto) 1.15 (0.0-1.3) Lymphocytes % 10.5 L (24.0-44.0) % Monocytes % 10.2 (0.0-12.0) % Eosinophils % 1.2 (0.00-5.0) % Basophils % 0.3 (0.0-0.4) % Absolute Granulocytes 8.82 H (1.4-6.9) Basophils # 0.03 (0-0.4) Sodium (137-145) mmol/L Potassium (3.5-5.1) mmol/L Chloride (98-107) mmol/L Carbon Dioxide (22-30) mmol/L Anion Gap (5-15) MEQ/L BUN (7-17) mg/dL Creatinine (0.52-1.04) mg/dL Estimated GFR ML/MIN Glucose 31 L* (74-106) mg/dL Hemoglobin A1c 8.83 H (4.5-6.0) % Calcium (8.4-10.2) mg/dL NT-Pro-B Natriuret Pep (0-900) pg/mL 08/29/19 Range/Units 05:15 WBC (4.0-10.5) K/mm3 RBC (4.1-5.4) M/mm3 Hgb (12.0-16.0) gm/dl Hct (35-47) % MCV (78-100) fl MCH (26-32) pg MCHC (32-36) g/dl RDW (11.5-14.0) % Plt Count (150-450) K/mm3 MPV (7.5-11.0) fl Gran % (36.0-66.0) % Eos # (Auto) (0-0.5) Absolute Lymphs (auto) (1.0-4.6) Absolute Monos (auto) (0.0-1.3) Lymphocytes % (24.0-44.0) % Monocytes % (0.0-12.0) % Eosinophils % (0.00-5.0) % Basophils % (0.0-0.4) % Absolute Granulocytes (1.4-6.9) Basophils # (0-0.4) Sodium 139 (137-145) mmol/L Potassium 4.3 (3.5-5.1) mmol/L Chloride 99 (98-107) mmol/L Carbon Dioxide 34 H (22-30) mmol/L Anion Gap 9.3 (5-15) MEQ/L BUN 24 H (7-17) mg/dL Creatinine 1.01 (0.52-1.04) mg/dL Estimated GFR 57.3 ML/MIN Glucose 75 (74-106) mg/dL Hemoglobin A1c (4.5-6.0) % Calcium 8.5 (8.4-10.2) mg/dL NT-Pro-B Natriuret Pep 3170 H (0-900) pg/mL Radiology Exams: Radiology Procedures Category Date Time Status CHEST 1 VIEW (PORTABLE) Stat Exams 08/27/19 15:57 Completed CHEST 1 VIEW (PORTABLE) Stat Exams 08/28/19 08:00 Completed ECHO W/2D AND DOPPLER [US] Routine Exams 08/30/19 08:00 Ordered Assessment/Plan (1) CHF (congestive heart failure) Current Visit: Yes Status: Acute Assessment & Plan: Patient is on bumex BID. Her bnp has trended down repeat lab for am. Her Cr level is tolerating diuresis. Will consider increasing diuresing if patient is still as short of breath. She has echo ordered for am. Will again consider entresto if EF indicates adding this medication. She will need to follow up with mechanical design engineer of her choice. Has not seen Dr Blount in some time Code(s): I50.9 - HEART FAILURE, UNSPECIFIED (2) Cellulitis Current Visit: Yes Status: Acute Assessment & Plan: Patient is on IV antibiotics for bacteremia. This should cover her cellulitis. Final results still pending. Code(s): L03.90 - CELLULITIS, UNSPECIFIED (3) Bacteremia Current Visit: Yes Status: Acute Assessment & Plan: Patient is on day 2 vanc and zosyn. Cultures still pending. Code(s): R78.81 - BACTEREMIA (4) COPD (chronic obstructive pulmonary disease) Current Visit: Yes Status: Acute Qualifiers: Assessment & Plan: Patient is on duonebs. No wheeze appreciated. Her lungs dont sounds like they are moving much air. Patient will be discharged on routine meds (5) Sleep apnea in adult Current Visit: Yes Status: Chronic Assessment & Plan: Wearing hospital cpap and tolerating well Code(s): G47.30 - SLEEP APNEA, UNSPECIFIED (6) Acute respiratory failure with hypoxia and hypercapnia Current Visit: No Status: Acute Assessment & Plan: Improved since admission is on oxygen and continues to be short of breath but saturating better. Code(s): J96.01 - ACUTE RESPIRATORY FAILURE WITH HYPOXIA; J96.02 - ACUTE RESPIRATORY FAILURE WITH HYPERCAPNIA (7) Type 2 diabetes mellitus Current Visit: No Status: Acute Qualifiers: Diabetes mellitus intermediate insulin use: with assistant terminal manager use Diabetes mellitus complication status: with hyperglycemia Qualified Code(s): E11.65 - Type 2 diabetes mellitus with hyperglycemia; Z79.4 - nursing home (current) use of insulin Assessment & Plan: Not well controlled patient had an episode of hypoglycemia with BS in the high 30s. Patient had previous BS in the 300s. Discussed routine home meds with patient and she reports that she is unsure if she is taking all of her insulin as instructed. She reports she could not afford certain insulin medications. I switched her to long acting vs intermediate acting. She will be on long acting BID dosing and sliding scale. (8) Elevated d-dimer Current Visit: Yes Status: Acute Assessment & Plan: Patient is on therapeutic lovenox as she cant tolerate laying flat for CTA or VQ Code(s): R79.89 - OTHER SPECIFIED ABNORMAL FINDINGS OF BLOOD CHEMISTRY (9) Unsteadiness Current Visit: Yes Status: Acute Assessment & Plan: Patient reports feeling off balance even when ambulating with walker. She is afraid to go home because she is concerned she will fall which she has in the past. She will require PT in hospital and she will require placement for reconditioning if possible Code(s): R26.81 - UNSTEADINESS ON FEET
[2019-08-29] MEDS: Sodium Chloride 0.9% 1000 ML 1,000 ML IV SCH (09:04)
[2019-08-29] MEDS: monoPRIL 10 MG PO SCH (09:05)
[2019-08-29] MEDS: SYNTHROID 100 MCG PO SCH (09:05)
[2019-08-29] MEDS: NORVASC 5 MG PO SCH (09:05)
[2019-08-29] MEDS: BUMEX 1 MG PO SCH ×2 (09:05→16:06)
[2019-08-29] MEDS: Apresoline 25 MG TABLET PO SCH ×4 (09:06→22:13)
[2019-08-29] MEDS: Klor Con 10 MEQ PO SCH ×2 (09:06→22:13)
[2019-08-29] MEDS: ECOTRIN 81 MG PO SCH (09:06)
[2019-08-29] MEDS: VANCOMYCIN 1 GRAM/200 ML BAG 1 GM/200 ML PIGGYBACK IV SCH (15:56)
[2019-08-29] MEDS: HUMALOG SQ PRN (16:51)
[2019-08-29] MEDS: Lantus Insulin SQ SCH (22:13)
[2019-08-29] MEDS: Cymbalta 30 MG Capsule PO SCH (22:13)
[2019-08-29] MEDS: Zocor 10MG PO SCH (22:13)
[2019-08-30] MEDS: Zosyn 3.375 GM Vial 3.375 GM in Sodium Chloride 100ML MINI-BAG PLUS 100 ML IV SCH ×2 (00:26→06:06)
[2019-08-30 05:17] LABS: Hematocrit 32.1 % (35-47); Hemoglobin 9.3 gm/dl (12.0-16.0); Mean Cell Volume 81.7 fl (78-100); Mean Corpuscular Hemoglobin 23.7 pg (26-32); Mean Platelet Volume 11.6 fl (7.5-11.0); Platelet Count 234 K/mm3 (150-450); Red Blood Count 3.93 M/mm3 (4.1-5.4); White Blood Count 9.2 K/mm3 (4.0-10.5)
[2019-08-30 05:43] LABS: ANION GAP 8.4 MEQ/L (5-15); BLOOD UREA NITROGEN 20 mg/dL (7-17); CHLORIDE 100 mmol/L (98-107); Carbon Dioxide 34 mmol/L (22-30); Creatinine 1 0.95 mg/dL (0.52-1.04); Glucose 224 mg/dL (74-106); NT PRO BNP 2290 pg/mL (0-900); Potassium 4.3 mmol/L (3.5-5.1); SODIUM 138 mmol/L (137-145)
[2019-08-30] MEDS: ENOXAPARIN SODIUM SQ SCH (06:06)
[2019-08-30] MEDS: DUONEB 0.5-3 MG/3 ml Neb IH SCH ×2 (06:44→11:05)
[2019-08-30] MEDS: BUMEX 1 MG PO SCH (09:01)
[2019-08-30] MEDS: NORVASC 5 MG PO SCH (09:02)
[2019-08-30] MEDS: ECOTRIN 81 MG PO SCH (09:02)
[2019-08-30] MEDS: Klor Con 10 MEQ PO SCH (09:02)
[2019-08-30] MEDS: Apresoline 25 MG TABLET PO SCH ×2 (09:03→12:04)
[2019-08-30] MEDS: monoPRIL 10 MG PO SCH (09:03)
[2019-08-30] MEDS: SYNTHROID 100 MCG PO SCH (09:04)
[2019-08-30] MEDS: Lantus Insulin SQ SCH (09:08)
[2019-08-30] MEDS ORDERED: Augmentin 875-125 Tablet PO SCH (10:00)
--- NOTE | 2019-08-30 10:34 | DS ---
DISCHARGE DIAGNOSES: 1) CONGESTIVE HEART FAILURE. 2) LEFT BASE PNEUMONIA. 3) FALLING AND WEAKNESS. 4) CHRONIC HYPOXIA. HISTORY: The patient is a 74 year old white female who reports she is having increasing problems with shortness of breath. She presented to the emergency room on 08/27/2019 and was admitted to the hospital with congestive heart failure and was also found to have pneumonia on the chest x-ray. The patient is on 4 liters at home on usual basis. She reports she has been falling and has been in [facility] several times in the past for rehab. PAST MEDICAL/SURGICAL HISTORY: Otherwise significant for diverticulosis, diverticulitis, GERD, hernia, diabetes mellitus type II, sleep apnea, asthma. 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 HOSPITAL COURSE: The patient was admitted to the [facility]. She was given diuretics and antibiotics. The patient improved to the point where she was felt to be ready for discharge to [facility] by her request by the morning of 08/30/2019. She will be discharged on Augmentin 875 mg twice a day for an additional seven days. Her discharge medications will be Albuterol PRN for wheezing, amlodipine 2.5 mg a day, aspirin 81 mg a day, atorvastatin 2 mg a day, Bumex 1 mg b.i.d., duloxetine 60 mg at night, Monopril 10 mg daily, hydralazine 25 mg q.i.d. She is on insulin 50 units b.i.d. of 70/30, levothyroxine 100 mcg daily, meclizine 12.5 mg q.8h PRN dizziness, potassium 10 mEq b.i.d. Again, the patient will be discharged to [facility] rehab with the above medical treatments.
[2019-08-30] MEDS: Sodium Chloride 0.9% 1000 ML 1,000 ML IV SCH (11:50)
[2019-08-30 12:24] VITALS: BP 139/65; PULSE 77; O2SAT 96
[2019-08-31] MEDS ORDERED: TROUGH DRUG LEVELS IJ ONE (15:30)
== END 2019-08-30 14:03 | DRG 291 ==
LOC: ED 15:35 → MED SURG 19:28
PROVIDERS: ADMIT Family Medicine; ATTEND Family Medicine
DX: I11.0 Hypertensive heart disease with heart failure (principal); J18.9 Pneumonia, unspecified organism; J96.02 Acute respiratory failure with hypercapnia; J96.01 Acute respiratory failure with hypoxia; R78.81 Bacteremia; L03.90 Cellulitis, unspecified; I50.9 Heart failure, unspecified; J44.9 Chronic obstructive pulmonary disease, unspecified; R07.9 Chest pain, unspecified; I10 Essential (primary) hypertension; E11.9 Type 2 diabetes mellitus without complications; Z99.81 Dependence on supplemental oxygen; R53.1 Weakness; G47.30 Sleep apnea, unspecified; R26.81 Unsteadiness on feet; R79.89 Other specified abnormal findings of blood chemistry; Z79.899 Other long term (current) drug therapy
CPT/HCPCS: 36000; 36415; 51702; 71045; 80048; 80053; 81001; 82805; 82947; 82962; 83036; 83605; 83735; 83880; 84484; 85025; 85027; 85379; 85610; 85730; 87040; 87077; 93005; 93041; 93306; 94640; 94760; 94762; 96374; 99284; 99291; J1650; J1815; J1817; J1940; A9270-GY; J3370

== ENCOUNTER 2020-03-14 22:58 | Emergency (ER) | payer MEDICARE ==
[2020-03-14 23:42] LABS: Absolute Neutrophil Ct (ANC) 8.81 (1.4-6.9); BASOPHIL % 0.4 % (0.0-0.4); Basophil (Absolute #) 0.04 (0-0.4); Eosinophil % 0.8 % (0.00-5.0); Eosinophil (Absolute #) 0.08 (0-0.5); Hematocrit 39.7 % (35-47); Hemoglobin 12.1 gm/dl (12.0-16.0); Lymphocyte (Absolute #) 1.04 (1.0-4.6); Lymphocytes % 9.8 % (24.0-44.0); Mean Cell Volume 82.4 fl (78-100); Mean Corpuscular Hemoglobin 25.1 pg (26-32); Mean Corpuscular Hgb Concent. 30.5 g/dl (32-36); Mean Platelet Volume 11.3 fl (7.5-11.0); Monocyte (Absolute #) 0.61 (0.0-1.3); Monocytes % 5.8 % (0.0-12.0); Neutrophil % 83.2 % (36.0-66.0); Platelet Count 213 K/mm3 (150-450); Red Blood Count 4.82 M/mm3 (4.1-5.4); Red Cell Distribution Width 15.4 % (11.5-14.0); White Blood Count 10.6 K/mm3 (4.0-10.5)
[2020-03-14 23:46] VITALS: O2SAT 100
[2020-03-14] MEDS ORDERED: Lasix 40 MG/4 ML IV ONE (23:52)
[2020-03-14] MEDS ORDERED: Lasix 40 MG/4 ML ONE (23:53)
[2020-03-14 23:55] LABS: ALBUMIN 4.2 g/dL (3.5-5.0); ANION GAP 9.9 MEQ/L (5-15); BILIRUBIN,TOTAL 0.5 mg/dL (0.2-1.3); Calcium 9.5 mg/dL (8.4-10.2); Creatinine 1 1.07 mg/dL (0.52-1.04); EST GLOMERULAR FILTRATION RATE 53.6 ML/MIN; MAGNESIUM 2.4 mg/dL (1.6-2.3); Potassium 4.8 mmol/L (3.5-5.1); Total Protein 7.4 g/dL (6.3-8.2)
[2020-03-15 00:28] VITALS: BP 168/55; PULSE 57
--- NOTE | 2020-03-15 00:38 | ERPHSYRPT ---
- History of Present Illness Time Seen by Provider: 03/14/20 23:30 Source: patient Exam Limitations: no limitations Patient Subjective Stated Complaint: pt states that she began to feel short of breath for the past 24 hours, pt states that she began to have pain with her h ernia and became short of breath Triage Nursing Assessment: pt came into the er via ambulance; pt is axo x3; c/o SOB; pt has hx CHF; pt wears 4L of O2 all the time and cpap at night; pt is in 3rd degree heart block; bradycardia; lung sounds are diminished in all lobes; clear heart tone; positive radial pulses; strong pedal pulses; pitting edema 1+; redness present to BLE; hypertensive; afebrile; hernia present to upper abd; pt stated that she had nausea and pain to hernia 1 hour prior to arrival; pt states that she took medication and issues resolved after medication Physician History: Patient is a 74-year-old female presents to our ED via EMS for evaluation of shortness of breath. Patient has a history of congestive heart failure. Karen ent states her shortness of breath started approximately 1 day ago. Symptoms have been progressive. No chest pain. Upon arrival to our ED patient was on a nonrebreather. EMS stated that patient requires 4 L of oxygen via nasal cannula daily. Upon EMS arrival patient was hypoxic. Oxygen via nasal cannula was increased to 6 L. O2 sat was only 85%. Patient was started on a nonrebreather mask. Patient uses CPAP at night. No associated nausea or vomiting. No diaphoresis. No syncope. No lightheadedness. EKG was performed. Patient was found to be in third-degree AV block. Patient bradycardic heart rate of 50. Patient's cheese grader is Dr. Quiroz. Patient voices no other complaints or concerns at this time. Timing/Duration: yesterday Severity: moderate Modifying Factors: Improves With: movement Associated Symptoms: denies symptoms Allergies/Adverse Reactions: Sulfa (Sulfonamide Antibiotics) Allergy (Severe, Verified 08/27/19 15:50) Anaphylactic Reaction swelling, trouble breathing Home Medications: Amlodipine Besylate 2.5 mg PO DAILY 08/05/18 [History] Aspirin 81 mg PO DAILY 08/05/18 [History] Atorvastatin Calcium 10 mg PO DAILY 08/05/18 [History] Fosinopril Sodium 10 mg [monoPRIL 10 MG] 10 mg PO DAILY 08/05/18 [History] HydrALAzine HCL 25 MG TAB [Apresoline 25 MG TABLET] 50 mg PO QID 08/05/18 [History] Levothyroxine Sodium 100 Mcg [Synthroid 100 Mcg] 100 mcg PO DAILY 08/05/18 [History] Nitroglycerin 0.4 mg Tablet [Nitrostat 0.4 MG Tablet] 0.4 mg SL UD 01/19/19 [History] Potassium Chloride 10 Meq Tab* [Klor Con 10 MEQ] 10 meq PO BID 01/19/19 [History] Furosemide 20 mg [Lasix 20 mg] 20 mg PO DAILY 03/15/20 [History] Insulin NPH/Reg 70/30 [Novolin 70/30] 30 units SQ HS 03/15/20 [History] Insulin NPH/Reg 70/30 [Novolin 70/30] 50 units SQ AC 03/15/20 [History] Hx Tetanus, Diphtheria Vaccination/Date Given: Yes Hx Influenza Vaccination/Date Given: Yes Hx Pneumococcal Vaccination/Date Given: Yes Travel Risk - International Travel Have you traveled outside of the country in past 3 weeks: No - Coronavirus Screening Are you exhibiting any of the following symptoms?: No Close contact with a COVID-19 positive Pt in past 14-21 Days: No - Review of Systems Constitutional: No Symptoms, No Fever, No Chills Eyes: No Symptoms Ears, Nose, & Throat: No Symptoms Respiratory: No Symptoms, No Cough, No Dyspnea Cardiac: No Symptoms, No Chest Pain, No Edema, No Syncope Abdominal/Gastrointestinal: No Symptoms, No Abdominal Pain, No Nausea, No Vomiting, No Diarrhea Genitourinary Symptoms: No Symptoms, No Dysuria Musculoskeletal: No Symptoms, No Back Pain, No Neck Pain Skin: No Symptoms, No Rash Neurological: No Symptoms, No Dizziness, No Focal Weakness, No Sensory Changes Psychological: No Symptoms Endocrine: No Symptoms Hematologic/Lymphatic: No Symptoms Immunological/Allergic: No Symptoms All Other Systems: Reviewed and Negative - Past Medical History Pertinent Past Medical History: Yes Neurological History: No Pertinent History ENT History: Cataracts, Glaucoma Cardiac History: Arrhythmia, Congestive Heart Failure, Hypertension Respiratory History: Asthma, CHF, COPD, Sleep Apnea, Other Endocrine Medical History: Diabetes Type II Musculoskeletal History: Arthritis GI Medical History: Diverticulitis, Diverticulosis, GERD, Hernia History: No Pertinent History Psycho-Social History: Anxiety, Panic Disorder Female Reproductive Disorders: No Pertinent History Other Medical History: hypoxia. 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 D and C, chest tube placement LEFT side - Social History Smoking Status: Never smoker Exposure to second hand smoke: No Drug Use: none Patient Lives Alone: No - Female History Hx Now: No - Nursing Vital Signs Nursing Vital Signs: Initial Vital Signs Pulse Rate 51 L 03/14/20 23:13 Respiratory Rate 20 03/14/20 23:13 Blood Pressure 171/82 03/14/20 23:13 O2 Sat by Pulse Oximetry 100 03/14/20 23:13 Pain Scale Pain Intensity 0 - Physical Exam General Appearance: no apparent distress, alert Eye Exam: PERRL/EOMI, eyes nml inspection Ears, Nose, Throat Exam: normal ENT inspection, TMs normal, pharynx normal, moist mucous membranes Neck Exam: normal inspection, non-tender, supple, full range of motion Respiratory Exam: normal breath sounds, lungs clear, No respiratory distress Cardiovascular Exam: regular rate/rhythm, normal heart sounds, normal peripheral pulses Gastrointestinal/Abdomen Exam: soft, normal bowel sounds, No tenderness, No mass Back Exam: normal inspection, normal range of motion, No CVA tenderness, No vertebral tenderness Extremity Exam: normal inspection, normal range of motion, pelvis stable, pedal edema, other (1+ pitting edema bilateral lower extremity. Negative Homans' sign bilaterally.), No calf tenderness, No lacerations, No penetrations, No parasthesia, No paralysis, No joint swelling Neurologic Exam: alert, oriented x 3, cooperative, normal mood/affect, nml cerebellar function, nml station & gait, sensation nml, No motor deficits Skin Exam: normal color, warm, dry, No rash Lymphatic Exam: No adenopathy SpO2 Interpretation: normal SpO2: 100 O2 Delivery: Room Air - Course Nursing assessment & vital signs reviewed: Yes EKG Interpreted by Me: RATE (50 third-degree AV block. Bradycardia) - Radiology Exams Chest X-ray Interpretation: Teleradiologist Report (Decreased size of left pleural effusion. Otherwise no acute findings.) Ordered Tests: Active Orders 24 hr Category Date Time Status Hematology Nurse Educator STAT Care 03/14/20 23:02 Active EKG-ER Only STAT Care 03/14/20 23:02 Active IV Insertion STAT Care 03/14/20 23:02 Active Pulse Oximetry (ED) STAT Care 03/14/20 23:02 Active CHEST 1 VIEW (PORTABLE) Stat Exams 03/14/20 23:02 Taken BNP [NT PRO BNP] Stat Lab 03/14/20 23:38 Completed CBC W DIFF Stat Lab 03/14/20 23:38 Completed CMP Stat Lab 03/14/20 23:38 Completed MAGNESIUM Stat Lab 03/14/20 23:38 Completed TROPONIN Q3H Lab 03/14/20 23:38 Completed TROPONIN Q3H Lab 03/15/20 02:15 Ordered TROPONIN Q3H Lab 03/15/20 05:15 Ordered TROPONIN Q3H Lab 03/15/20 08:15 Ordered TROPONIN Q3H Lab 03/15/20 11:15 Ordered Medication Summary Discontinued Medications Generic Name Dose Route Start Last Admin Trade Name Freq PRN Reason Stop Dose Admin Furosemide 80 mg 03/14/20 23:52 03/14/20 23:55 Lasix 40 Mg/4 Ml IV 03/14/20 23:53 80 mg STAT ONE Administration Furosemide Confirm 03/14/20 23:53 Lasix 40 Mg/4 Ml Administered 03/14/20 23:54 Dose 80 mg .ROUTE .STK-MED ONE Lab/Rad Data: Laboratory Result Diagrams 03/14/20 23:38 03/14/20 23:38 Laboratory Results 03/14/20 03/14/20 03/14/20 Range/Units 23:38 23:38 23:38 WBC (4.0-10.5) K/mm3 RBC (4.1-5.4) M/mm3 Hgb (12.0-16.0) gm/dl Hct (35-47) % MCV (78-100) fl MCH (26-32) pg MCHC (32-36) g/dl RDW (11.5-14.0) % Plt Count (150-450) K/mm3 MPV (7.5-11.0) fl Gran % (36.0-66.0) % Eos # (Auto) (0-0.5) Absolute Lymphs (auto) (1.0-4.6) Absolute Monos (auto) (0.0-1.3) Lymphocytes % (24.0-44.0) % Monocytes % (0.0-12.0) % Eosinophils % (0.00-5.0) % Basophils % (0.0-0.4) % Absolute Granulocytes (1.4-6.9) Basophils # (0-0.4) Sodium 139 (137-145) mmol/L Potassium 4.8 (3.5-5.1) mmol/L Chloride 97 L (98-107) mmol/L Carbon Dioxide 37 H (22-30) mmol/L Anion Gap 9.9 (5-15) MEQ/L BUN 28 H (7-17) mg/dL Creatinine 1.07 H (0.52-1.04) mg/dL Estimated GFR 53.6 ML/MIN Glucose 198 H (74-106) mg/dL Calcium 9.5 (8.4-10.2) mg/dL Magnesium 2.4 H (1.6-2.3) mg/dL Total Bilirubin 0.50 (0.2-1.3) mg/dL AST 24 (14-36) U/L ALT 22 (0-35) U/L Alkaline Phosphatase 104 (38-126) U/L Troponin I 0.013 (0.000-0.034) ng/mL NT-Pro-B Natriuret Pep 4150 H (0-900) pg/mL Serum Total Protein 7.4 (6.3-8.2) g/dL Albumin 4.2 (3.5-5.0) g/dL 03/14/20 Range/Units 23:38 WBC 10.6 H (4.0-10.5) K/mm3 RBC 4.82 (4.1-5.4) M/mm3 Hgb 12.1 (12.0-16.0) gm/dl Hct 39.7 (35-47) % MCV 82.4 (78-100) fl MCH 25.1 L (26-32) pg MCHC 30.5 L (32-36) g/dl RDW 15.4 H (11.5-14.0) % Plt Count 213 (150-450) K/mm3 MPV 11.3 H (7.5-11.0) fl Gran % 83.2 H (36.0-66.0) % Eos # (Auto) 0.08 (0-0.5) Absolute Lymphs (auto) 1.04 (1.0-4.6) Absolute Monos (auto) 0.61 (0.0-1.3) Lymphocytes % 9.8 L (24.0-44.0) % Monocytes % 5.8 (0.0-12.0) % Eosinophils % 0.8 (0.00-5.0) % Basophils % 0.4 (0.0-0.4) % Absolute Granulocytes 8.81 H (1.4-6.9) Basophils # 0.04 (0-0.4) Sodium (137-145) mmol/L Potassium (3.5-5.1) mmol/L Chloride (98-107) mmol/L Carbon Dioxide (22-30) mmol/L Anion Gap (5-15) MEQ/L BUN (7-17) mg/dL Creatinine (0.52-1.04) mg/dL Estimated GFR ML/MIN Glucose (74-106) mg/dL Calcium (8.4-10.2) mg/dL Magnesium (1.6-2.3) mg/dL Total Bilirubin (0.2-1.3) mg/dL AST (14-36) U/L ALT (0-35) U/L Alkaline Phosphatase (38-126) U/L Troponin I (0.000-0.034) ng/mL NT-Pro-B Natriuret Pep (0-900) pg/mL Serum Total Protein (6.3-8.2) g/dL Albumin (3.5-5.0) g/dL - Progress Progress: improved Progress Note: 03/15/20 00:42 Patient reassessed. Vital stable. Patient states she continues to feel short of breath. Nonrebreather mask discontinued. Patient started on CPAP. Positive pressure should help recruit alveoli and oxygenation. Pacer pads placed. No indication to place patient at this time. We will continue to monitor. Case discussed with Dr. Jones of [facility] accepts transfer. We attempted to transfer patient to [facility] which is where her cheese grader is on staff. However [facility] declined transfer due to lack of available beds. OFFICE MACHINE INSPECTOR elevated. Patient received 80 mg of Lasix [facility]. Patient understands oh she will be transferred to [facility]. Patient agrees to plan of care. Patient agrees to transfer for further evaluation and treatment of her emergency medical condition. 03/15/20 00:50 Dr. Jones updated on labs and chest x-ray findings. Counseled pt/family regarding: lab results, diagnosis, rad results - Departure Departure Disposition: Transfer Clinical Impression: AV block, 3rd degree, CHF (congestive heart failure), Hypoxia, Shortness of breath, Elevated brain natriuretic peptide (BNP) level, Bradycardia, Pleural effusion Condition: Stable Critical Care Time: No Referrals: ERIKA BARON [Primary Care Provider] - Instructions: Heart Failure
--- NOTE | 2020-03-15 09:02 | XRAY ---
Indication: Short of breath. Comparison: August 28, 2019. Portable chest demonstrates interval clearing left base infiltrate/atelectasis/effusion with mild residual. Remaining heart and right lung unremarkable. Bony thorax intact again with mild osteopenia and degenerative changes. Comment: Preliminary interpretation was made by [facility]. No critical discrepancy.
== END 2020-03-15 01:19 ==
LOC: ED 22:58
DX: R06.02 Shortness of breath (principal); I44.2 Atrioventricular block, complete; I50.9 Heart failure, unspecified; R00.1 Bradycardia, unspecified; R09.02 Hypoxemia; I10 Essential (primary) hypertension; K46.9 Unspecified abdominal hernia without obstruction or gangrene; R79.89 Other specified abnormal findings of blood chemistry; R11.0 Nausea; E11.9 Type 2 diabetes mellitus without complications; Z79.899 Other long term (current) drug therapy; I50.89 Other heart failure
CPT/HCPCS: 36415; 71045; 80053; 83735; 83880; 84484; 85025; 93005; 93041; 94660; 94760; 96374; 99285; J1940

== ENCOUNTER 2022-02-12 08:02 | Observation (INO) | payer MEDICARE ==
[2022-02-12] MEDS ORDERED: solu-MEDROL 125 MG, Sterile H2O 10 ml 2 ML IV ONE ×2 (08:24)
--- NOTE | 2022-02-12 08:25 | ERPHSYRPT ---
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 Patient has a history of oxygen dependent COPD and asthma. She normally wears 3 L of oxygen via nasal cannula. Her oxygen saturation level in the emergency department on 3 L of oxygen via nasal cannula is 98%. She has no pain anywhere. She has a history of hypertension, hypothyroidism, hyperlipidemia, insulin-dependent diabetes, CHF, arrhythmia, gastroesophageal reflux disease as well as anxiety and panic disorder. Timing/Duration: yesterday Activities at Onset: rest Severity of Dyspnea-Max: mild Severity of Dyspnea-Current: mild Possible Cause: occasional episodes Modifying Factors: Improves With: coughing Associated Symptoms: cough, No chest pain/discomfort, No wheezing Allergies/Adverse Reactions: Sulfa (Sulfonamide Antibiotics) Allergy (Severe, Verified 02/12/22 08:06) Anaphylactic Reaction swelling, trouble breathing Home Medications: Amlodipine Besylate 2.5 mg PO DAILY 08/05/18 [History] Aspirin 81 mg PO DAILY 08/05/18 [History] Fosinopril Sodium [monoPRIL] 10 mg PO DAILY 08/05/18 [History] Levothyroxine Sodium 100 Mcg [Synthroid 100 Mcg] 100 mcg PO DAILY 08/05/18 [History] Potassium Chloride Tab* [Klor Con] 10 meq PO DAILY 01/19/19 [History] Atorvastatin Calcium [Lipitor] 1 tab PO DAILY 02/12/22 [History] Insulin NPH Hum/Reg Insulin Hm [Relion Novolin 70-30 Vial] 25 units SQ HS 02/12/22 [History] Hx Tetanus, Diphtheria Vaccination/Date Given: Yes Hx Influenza Vaccination/Date Given: Yes Hx Pneumococcal Vaccination/Date Given: Yes Travel Risk - International Travel Have you traveled outside of the country in past 3 weeks: No - Coronavirus Screening Are you exhibiting any of the following symptoms?: Yes Symptoms: Cough: New Onset, Shortness of Breath Close contact with a COVID-19 positive Pt in past 14-21 Days: No - Review of Systems Constitutional: No Symptoms Eyes: No Symptoms Ears, Nose, & Throat: No Symptoms Respiratory: Cough, Dyspnea (Mild) Cardiac: No Symptoms Abdominal/Gastrointestinal: No Symptoms Genitourinary Symptoms: No Symptoms Musculoskeletal: No Symptoms Skin: No Symptoms Neurological: No Symptoms Psychological: No Symptoms Endocrine: No Symptoms Hematologic/Lymphatic: No Symptoms Immunological/Allergic: No Symptoms All Other Systems: Reviewed and Negative - Past Medical History Pertinent Past Medical History: Yes Neurological History: No Pertinent History ENT History: Cataracts, Glaucoma Cardiac History: Arrhythmia, Congestive Heart Failure, Hypertension Respiratory History: Asthma, CHF, COPD, Sleep Apnea, Other Endocrine Medical History: Diabetes Type II Musculoskeletal History: Arthritis GI Medical History: Diverticulitis, Diverticulosis, GERD, Hernia History: No Pertinent History Psycho-Social History: Anxiety, Panic Disorder Female Reproductive Disorders: No Pertinent History Other Medical History: hypoxia. 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 D and C, chest tube placement LEFT side - Social History Smoking Status: Never smoker Exposure to second hand smoke: No Drug Use: none Patient Lives Alone: No - Nursing Vital Signs Nursing Vital Signs: Initial Vital Signs Temperature 99.2 F 02/12/22 08:03 Pulse Rate 101 H 02/12/22 08:03 Respiratory Rate 22 02/12/22 08:03 Blood Pressure 141/73 02/12/22 08:03 O2 Sat by Pulse Oximetry 99 02/12/22 08:03 Pain Scale Pain Intensity 0 - Physical Exam General Appearance: no apparent distress, alert, obese Eye Exam: PERRL/EOMI, eyes nml inspection Ears, Nose, Throat Exam: hearing grossly normal, normal ENT inspection, normal pharynx Neck Exam: normal inspection, non-tender, supple, full range of motion Respiratory Exam: rhonchi (Mild right side), No chest tenderness, No respiratory distress Cardiovascular/Chest Exam: normal heart sounds, regular rate/rhythm, normal peripheral pulses Abdominal/Gastrointestinal Exam: soft, normal bowel sounds, No tenderness Rectal Exam: not done Extremity Exam: non-tender, normal range of motion, normal inspection Neurologic Exam: alert, oriented x 3, cooperative, 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 The rhythm is ventricular paced complexes) Ordered Tests: Active Orders 24 hr Category Date Time Status EKG-ER Only STAT Care 02/12/22 08:24 Active IV Insertion STAT Care 02/12/22 08:24 Active Pulse Oximetry (ED) STAT Care 02/12/22 08:24 Active CHEST 1 VIEW (PORTABLE) Stat Exams 02/12/22 08:25 Completed CHEST WITH CONTRAST [CT] Stat Exams 02/12/22 09:18 Completed BLOOD CULTURE Stat Lab 02/12/22 08:48 Received CBC W DIFF Stat Lab 02/12/22 08:48 Completed CMP Stat Lab 02/12/22 08:36 Completed D-DIMER QUANTITATIVE Stat Lab 02/12/22 08:36 Completed NT PRO BNP Stat Lab 02/12/22 08:36 Completed TROPONIN Q4H Lab 02/12/22 08:36 Completed TROPONIN Q4H Lab 02/12/22 12:30 Ordered TROPONIN Q4H Lab 02/12/22 16:30 Ordered Medication Summary Generic Name Dose Route Start Last Admin Trade Name Freq PRN Reason Stop Dose Admin Sodium Chloride 500 mls @ 50 mls/hr 02/12/22 09:30 Sodium Chloride 0.9% 500 Ml IV 03/14/22 09:29 .Q10H LILA Discontinued Medications Generic Name Dose Route Start Last Admin Trade Name Freq PRN Reason Stop Dose Admin Methylprednisolone Sodium 0 mg 02/12/22 08:24 02/12/22 08:32 Succinate 125 mg/ Sterile IV 02/12/22 08:25 125 mg Water 2 ml STAT ONE Administration Furosemide 20 mg 02/12/22 09:18 Furosemide 20 Mg/Vial IV 02/12/22 09:19 STAT ONE Ceftriaxone Sodium/Dextrose 1 g in 50 mls @ 100 mls/hr 02/12/22 09:17 02/12/22 10:11 Rocephin 1 Gm-D5w 50 Ml Bag IV 02/12/22 09:46 Infused STAT STA Infusion Ceftriaxone Sodium/Dextrose Confirm 02/12/22 09:27 Rocephin 1 Gm-D5w 50 Ml Bag Administered 02/12/22 09:28 Dose 1 g in 50 mls @ ud IV .STK-MED ONE Methylprednisolone Sodium Succinate Confirm 02/12/22 08:31 Methylprednis Sod Succ 125 Mg/2 Ml Vial Administered 02/12/22 08:32 Dose 125 mg .ROUTE .STK-MED ONE Sterile Water Confirm 02/12/22 08:31 Water For Injection,Sterile 10 Ml Vial Administered 02/12/22 08:32 Dose 10 ml IJ .STK-MED ONE Lab/Rad Data: Laboratory Result Diagrams 02/12/22 08:48 02/12/22 08:36 Laboratory Results 02/12/22 02/12/22 02/12/22 Range/Units 08:48 08:36 08:36 WBC 20.6 H (4.0-10.5) x10^3/uL RBC 4.57 (4.1-5.4) x10^6/uL Hgb 12.3 (12.0-16.0) g/dL Hct 38.4 (35-47) % MCV 84.0 (78-100) fL MCH 26.9 (26-32) pg MCHC 32.0 (32-36) g/dL RDW 12.6 (11.5-14.0) % Plt Count 193 (150-450) x10^3/uL MPV 10.9 (7.5-11.0) fL Gran % 85.7 H (36.0-66.0) % Immature Gran % (Auto) 0.5 H (0.00-0.4) % Nucleat RBC Rel Count 0.0 (0.00-0.1) % Eos # (Auto) 0.02 (0-0.5) x10^3/uL Immature Gran # (Auto) 0.10 H (0.00-0.03) x10^3u/L Absolute Lymphs (auto) 1.38 (1.0-4.6) x10^3/uL Absolute Monos (auto) 1.39 H (0.0-1.3) x10^3/uL Absolute Nucleated RBC 0.00 (0.00-0.01) x10^3u/L Lymphocytes % 6.7 L (24.0-44.0) % Monocytes % 6.8 (0.0-12.0) % Eosinophils % 0.1 (0.00-5.0) % Basophils % 0.2 (0.0-0.4) % Absolute Granulocytes 17.65 H (1.4-6.9) x10^3/uL Basophils # 0.05 (0-0.4) x10^3/uL D-Dimer 0.77 H* (0.0-0.50) mg/L Sodium (137-145) mmol/L Potassium (3.5-5.1) mmol/L Chloride (98-107) mmol/L Carbon Dioxide (22-30) mmol/L Anion Gap (5-15) MEQ/L BUN (7-17) mg/dL Creatinine (0.52-1.04) mg/dL Estimated GFR ML/MIN Glucose (74-106) mg/dL Calcium (8.4-10.2) mg/dL Total Bilirubin (0.2-1.3) mg/dL AST (14-36) U/L ALT (0-35) U/L Alkaline Phosphatase (38-126) U/L Troponin I 0.050 H* (0.000-0.034) ng/mL NT-Pro-B Natriuret Pep (0-900) pg/mL Serum Total Protein (6.3-8.2) g/dL Albumin (3.5-5.0) g/dL 02/12/22 Range/Units 08:36 WBC (4.0-10.5) x10^3/uL RBC (4.1-5.4) x10^6/uL Hgb (12.0-16.0) g/dL Hct (35-47) % MCV (78-100) fL MCH (26-32) pg MCHC (32-36) g/dL RDW (11.5-14.0) % Plt Count (150-450) x10^3/uL MPV (7.5-11.0) fL Gran % (36.0-66.0) % Immature Gran % (Auto) (0.00-0.4) % Nucleat RBC Rel Count (0.00-0.1) % Eos # (Auto) (0-0.5) x10^3/uL Immature Gran # (Auto) (0.00-0.03) x10^3u/L Absolute Lymphs (auto) (1.0-4.6) x10^3/uL Absolute Monos (auto) (0.0-1.3) x10^3/uL Absolute Nucleated RBC (0.00-0.01) x10^3u/L Lymphocytes % (24.0-44.0) % Monocytes % (0.0-12.0) % Eosinophils % (0.00-5.0) % Basophils % (0.0-0.4) % Absolute Granulocytes (1.4-6.9) x10^3/uL Basophils # (0-0.4) x10^3/uL D-Dimer (0.0-0.50) mg/L Sodium 132 L (137-145) mmol/L Potassium 4.0 (3.5-5.1) mmol/L Chloride 97 L (98-107) mmol/L Carbon Dioxide 30 (22-30) mmol/L Anion Gap 9.5 (5-15) MEQ/L BUN 14 (7-17) mg/dL Creatinine 0.79 (0.52-1.04) mg/dL Estimated GFR > 60.0 ML/MIN Glucose 321 H (74-106) mg/dL Calcium 8.9 (8.4-10.2) mg/dL Total Bilirubin 0.90 (0.2-1.3) mg/dL AST 23 (14-36) U/L ALT 18 (0-35) U/L Alkaline Phosphatase 113 (38-126) U/L Troponin I (0.000-0.034) ng/mL NT-Pro-B Natriuret Pep 3370 H (0-900) pg/mL Serum Total Protein 7.3 (6.3-8.2) g/dL Albumin 4.1 (3.5-5.0) g/dL - Progress Progress: improved, re-examined Air Movement: good Progress Note: 02/12/22 11:02 Chest x-ray shows right lung infiltrate. CTA of chest shows right midlung airspace disease without evidence of obvious pulmonary embolus. 02/12/22 11:16 Medical decision making: This patient is fragile. She is oxygen dependent COPD with leukocytosis as well as a right-sided pneumonia. I spoke with Dr. Medina, the patient's primary care provider. We will place her in observation and provide her with intravenous antibiotics, intravenous steroids, intravenous Lasix, nebulizer treatments and repeat labs in the morning. We will also repeat her twelve-lead EKG tomorrow morning and follow serial troponin levels. The patient currently states she has no chest pain. Blood Culture(s) Obtained: Yes Antibiotics given: Yes Discussed with : Daphne Counseled pt/family regarding: lab results, diagnosis, rad results - Departure Departure Disposition: Observation Clinical Impression: Shortness of breath, Pulmonary infiltrate in right lung on chest x-ray, Leukocytosis Condition: Stable Critical Care Time: No Referrals: MIKAEL MEDINA MD [Primary Care Provider] - Follow up/PCP as directed
[2022-02-12] MEDS ORDERED: Sterile H2O 10 ml IJ ONE (08:31)
[2022-02-12] MEDS ORDERED: solu-MEDROL ONE (08:31)
[2022-02-12 08:51] LABS: ALBUMIN 4.1 g/dL (3.5-5.0); ALKALINE PHOSPHATASE 113 U/L (38-126); ANION GAP 9.5 MEQ/L (5-15); BLOOD UREA NITROGEN 14 mg/dL (7-17); CHLORIDE 97 mmol/L (98-107); Calcium 8.9 mg/dL (8.4-10.2); Carbon Dioxide 30 mmol/L (22-30); Creatinine 1 0.79 mg/dL (0.52-1.04); EST GLOMERULAR FILTRATION RATE > 60.0 ML/MIN; Glucose 321 mg/dL (74-106); NT PRO BNP 3370 pg/mL (0-900); SGOT/AST 23 U/L (14-36); SGPT/ALT 18 U/L (0-35); SODIUM 132 mmol/L (137-145); Total Protein 7.3 g/dL (6.3-8.2)
[2022-02-12 09:06] LABS: Absolute Neutrophil Ct (ANC) 17.65 x10^3/uL (1.4-6.9); Basophil (Absolute #) 0.05 x10^3/uL (0-0.4); Eosinophil % 0.1 % (0.00-5.0); Eosinophil (Absolute #) 0.02 x10^3/uL (0-0.5); Hematocrit 38.4 % (35-47); Hemoglobin 12.3 g/dL (12.0-16.0); Lymphocyte (Absolute #) 1.38 x10^3/uL (1.0-4.6); Lymphocytes % 6.7 % (24.0-44.0); Mean Corpuscular Hemoglobin 26.9 pg (26-32); Mean Platelet Volume 10.9 fL (7.5-11.0); Monocyte (Absolute #) 1.39 x10^3/uL (0.0-1.3); Monocytes % 6.8 % (0.0-12.0); Neutrophil % 85.7 % (36.0-66.0); Platelet Count 193 x10^3/uL (150-450); Red Blood Count 4.57 x10^6/uL (4.1-5.4); Red Cell Distribution Width 12.6 % (11.5-14.0); White Blood Count 20.6 x10^3/uL (4.0-10.5)
--- NOTE | 2022-02-12 09:09 | XRAY ---
Indication: Cough and short of breath. Comparison: March 14, 2020 Portable chest now demonstrates subtle right base infiltrate versus atelectasis without consolidation/large effusion. Remaining lungs clear. Heart not enlarged with new left pacemaker. Bony thorax intact again with osteopenia and degenerative changes.
[2022-02-12] MEDS ORDERED: ROCEPHIN 1 Gm-D5w 50 ml Bag** 1 G/50 ML IVPB IV STA (09:17)
[2022-02-12] MEDS ORDERED: Lasix 20 MG/2 ML IV ONE (09:18)
[2022-02-12] MEDS ORDERED: ROCEPHIN 1 Gm-D5w 50 ml Bag** 1 G/50 ML IVPB IV ONE (09:27)
[2022-02-12] MEDS ORDERED: Sodium Chloride 0.9% 500 ML 500 ML IV SCH (09:30)
--- NOTE | 2022-02-12 10:54 | XRAY ---
Indication: Cough and short of breath. Elevated d-dimer. Pulmonary embolus. Multiple contiguous axial images obtained through the chest using 100 cc Isovue 370 contrast and PE protocol. Comparison: None Good opacification of the pulmonary arteries to include the lobar and segmental branches. Mild respiration artifact limits evaluation for pulmonary embolus. No obvious pulmonary embolus. Heart remains enlarged with left dual-lead pacemaker. Aorta is normal in course and caliber. No pathologic mediastinal/hilar lymphadenopathy. New small hiatal hernia. Lungs demonstrates new right middle lobe patchy airspace disease with small focus of peripheral consolidation/organizing. No effusion. Left lung is now clear. Bony thorax intact again with osteopenia and mild degenerative changes throughout the spine. Limited upper abdomen again demonstrates tiny gallstones. Impression: 1. Pulmonary embolus evaluation limited by respiration artifact. No obvious pulmonary embolus. 2. New right middle lobe airspace disease. 3. New small hiatal hernia. 4. Again cardiomegaly with left pacemaker, tiny gallstones, and chronic bony findings.
[2022-02-12] MEDS ORDERED: Sodium Chloride 0.9% 1000 ML 0 ML ONE (11:34)
[2022-02-12] MEDS ORDERED: Lasix 20 MG/2 ML ONE (11:34)
[2022-02-12] MEDS ORDERED: Sodium Chloride 0.9% 500 ML 500 ML IV ONE (11:37)
[2022-02-12 11:43] LABS: INFLUENZA A NEGATIVE (NEGATIVE); INFLUENZA B NEGATIVE (NEGATIVE); RESPIRATORY SYNCTIAL VIRUS NEGATIVE (Negative); SARS-CoV-2 Xpert Express NEGATIVE (NEGATIVE)
[2022-02-12] MEDS ORDERED: TYLENOL 325 MG PO PRN (12:20)
[2022-02-12] MEDS: NACL IV SCH (15:53)
[2022-02-12] MEDS: ZITHROMAX IV SCH (15:53)
[2022-02-12] MEDS: ECOTRIN 81 MG PO SCH (15:59)
[2022-02-12] MEDS: ENOXAPARIN SODIUM SQ SCH (15:59)
[2022-02-12] MEDS: NORVASC 5 MG PO SCH (15:59)
[2022-02-12] MEDS: SYNTHROID 100 MCG PO SCH (16:00)
[2022-02-12] MEDS: MONOPRIL PO SCH (16:00)
[2022-02-12] MEDS: Zocor 10MG PO SCH (16:01)
[2022-02-12] MEDS: Klor Con PO SCH (16:01)
[2022-02-12] MEDS: Lasix 20 MG/2 ML IV SCH (16:25)
[2022-02-12] MEDS ORDERED: Novolin 70/30 SQ SCH (22:00)
[2022-02-12] MEDS: Zofran 4 MG/2 ML VIAL IV PRN (22:12)
[2022-02-12] MEDS: HUMULIN R SQ PRN (23:16)
[2022-02-13] MEDS: Sodium Chloride 0.9% 1000 ML 1,000 ML IV SCH ×2 (00:21→21:57)
[2022-02-13] MEDS: HUMULIN R SQ PRN ×7 (01:49→20:30)
[2022-02-13 02:04] LABS: ANION GAP 11.3 MEQ/L (5-15); Calcium 7.8 mg/dL (8.4-10.2); Creatinine 1 1.19 mg/dL (0.52-1.04); EST GLOMERULAR FILTRATION RATE 47.1 ML/MIN; Potassium 4.5 mmol/L (3.5-5.1)
[2022-02-13 05:24] LABS: Absolute Neutrophil Ct (ANC) 15.75 x10^3/uL (1.4-6.9); Basophil (Absolute #) 0.02 x10^3/uL (0-0.4); Eosinophil (Absolute #) 0 x10^3/uL (0-0.5); Hematocrit 38.1 % (35-47); Hemoglobin 11.3 g/dL (12.0-16.0); Lymphocyte (Absolute #) 0.65 x10^3/uL (1.0-4.6); Lymphocytes % 3.8 % (24.0-44.0); Mean Cell Volume 90.9 fL (78-100); Mean Corpuscular Hgb Concent. 29.7 g/dL (32-36); Monocyte (Absolute #) 0.75 x10^3/uL (0.0-1.3); Monocytes % 4.3 % (0.0-12.0); Neutrophil % 91.2 % (36.0-66.0); Platelet Count 193 x10^3/uL (150-450); Red Blood Count 4.19 x10^6/uL (4.1-5.4); Red Cell Distribution Width 12.8 % (11.5-14.0); White Blood Count 17.3 x10^3/uL (4.0-10.5)
[2022-02-13 06:10] LABS: ALBUMIN 3.3 g/dL (3.5-5.0); ANION GAP 10.8 MEQ/L (5-15); BILIRUBIN,TOTAL 0.3 mg/dL (0.2-1.3); Creatinine 1 1.09 mg/dL (0.52-1.04); EST GLOMERULAR FILTRATION RATE 52.2 ML/MIN; Potassium 4.1 mmol/L (3.5-5.1); Total Protein 5.8 g/dL (6.3-8.2)
[2022-02-13] MEDS: NORVASC 5 MG PO SCH (09:27)
[2022-02-13] MEDS: SYNTHROID 100 MCG PO SCH (09:28)
[2022-02-13] MEDS: Zocor 10MG PO SCH (09:28)
[2022-02-13] MEDS: Klor Con PO SCH (09:28)
[2022-02-13] MEDS: ECOTRIN 81 MG PO SCH (09:28)
[2022-02-13] MEDS: MONOPRIL PO SCH (09:28)
[2022-02-13] MEDS: ENOXAPARIN SODIUM SQ SCH (09:29)
[2022-02-13] MEDS: ROCEPHIN 1 Gm-D5w 50 ml Bag** 1 G/50 ML IVPB IV SCH (09:29)
[2022-02-13] MEDS: NACL IV SCH (09:29)
[2022-02-13] MEDS: ZITHROMAX IV SCH (09:29)
[2022-02-13] MEDS: Lasix 20 MG/2 ML IV SCH ×2 (09:29→16:46)
[2022-02-13] MEDS ORDERED: NON-FORMULARY ITEM (Atorvastatin Calcium 10 MG Tablet) PO SCH (10:00)
[2022-02-13] MEDS ORDERED: NON-FORMULARY ITEM (Amlodipine Besylate [Amlodipine Besylate] 2.5 MG Tablet) PO SCH (10:00)
[2022-02-13] MEDS ORDERED: NON-FORMULARY ITEM (Aspirin [Aspirin] 81 MG Tablet) PO SCH (10:00)
[2022-02-13] MEDS ORDERED: Novolin 70/30 SQ SCH (22:00)
[2022-02-14] MEDS: ENOXAPARIN SODIUM SQ SCH (09:51)
[2022-02-14] MEDS: MONOPRIL PO SCH (09:51)
[2022-02-14] MEDS: NACL IV SCH (09:51)
[2022-02-14] MEDS: ZITHROMAX IV SCH (09:51)
[2022-02-14] MEDS: Klor Con PO SCH (09:52)
[2022-02-14] MEDS: ECOTRIN 81 MG PO SCH (09:52)
[2022-02-14] MEDS: SYNTHROID 100 MCG PO SCH (09:52)
[2022-02-14] MEDS: NORVASC 5 MG PO SCH (09:52)
[2022-02-14] MEDS: Lasix 20 MG/2 ML IV SCH (09:53)
[2022-02-14] MEDS: Zocor 10MG PO SCH (09:53)
[2022-02-14] MEDS: Zofran 4 MG/2 ML VIAL IV PRN (11:00)
[2022-02-14] MEDS: ROCEPHIN 1 Gm-D5w 50 ml Bag** 1 G/50 ML IVPB IV SCH (11:01)
[2022-02-14 11:33] VITALS: BP 151/63; PULSE 103; O2SAT 97
--- NOTE | 2022-02-14 12:37 | PCM.SSS ---
History of Present Illness - Chief Complaint Chief Complaint: Pneumonia, SOB, leukocytosis History of Present Illness: is a 76 year old female.presents to the emergency department via EMS secondary to cough and shortness of air. Patient has a history of oxygen dependent COPD and asthma. She normally wears 3 L of oxygen via nasal cannula. Her oxygen saturation level in the emergency department on 3 L of oxygen via nasal cannula is 98%. She has no pain anywhere. She has a history of hypertension, hypothyroidism, hyperlipidemia, insulin-dependent diabetes, CHF, arrhythmia, gastroesophageal reflux disease as well as anxiety and panic disorder. Timing/Duration: yesterday Activities at Onset: rest Severity of Dyspnea-Max: mild Severity of Dyspnea-Current: mild Possible Cause: occasional episodes Modifying Factors: Improves With: coughing Associated Symptoms: cough, No chest pain/discomfort, No wheezing - Review of Systems Constitutional: Weakness, No Fever, No Chills Eyes: No Symptoms Ears, Nose, & Throat: No Symptoms Respiratory: Cough, Orthopnea, Short Of Breath Cardiac: No Chest Pain, No Edema, No Syncope Abdominal/Gastrointestinal: No Abdominal Pain, No Nausea, No Vomiting, No Diarrhea Genitourinary Symptoms: No Dysuria Musculoskeletal: No Back Pain, No Neck Pain Skin: No Rash Neurological: No Dizziness, No Focal Weakness, No Sensory Changes Psychological: No Symptoms Endocrine: No Symptoms Hematologic/Lymphatic: No Symptoms Immunological/Allergic: No Symptoms Medications & Allergies Home Medications: Home Medication List Amlodipine Besylate 2.5 mg PO DAILY 08/05/18 [History Confirmed 02/12/22] Aspirin 81 mg PO DAILY 08/05/18 [History Confirmed 02/12/22] Fosinopril Sodium [monoPRIL] 10 mg PO DAILY 08/05/18 [History Confirmed 02/12/22] Levothyroxine Sodium 100 Mcg [Synthroid 100 Mcg] 100 mcg PO DAILY 08/05/18 [History Confirmed 02/12/22] Potassium Chloride Tab* [Klor Con] 10 meq PO DAILY 01/19/19 [History Confirmed 02/12/22] Atorvastatin Calcium [Lipitor] 1 tab PO DAILY 02/12/22 [History Confirmed 02/12/22] Insulin NPH Hum/Reg Insulin Hm [Relion Novolin 70-30 Vial] 30 units SQ HS #0 02/14/22 [Rx Confirmed 02/12/22] Nystatin Powder 15 gm [Nystop Powder 15 gm] 15 gm TP BID 30 Days #30 misc 02/14/22 [Rx] Sodium Chloride [Saline Nasal [place]] 30 ml NS DAILY PRN PRN 30 Days #30 inh 02/14/22 [Rx] cephALEXin [Cephalexin] 500 mg PO QID 5 Days #20 tablet 02/14/22 [Rx] Allergies/Adverse Reactions: Allergies Allergy/AdvReac Type Severity Reaction Status Date / Time Sulfa (Sulfonamide Allergy Severe Anaphylactic Verified 02/12/22 08:06 Antibiotics) Reaction - Past Medical History Past Medical History: Yes Neurological History: No Pertinent History ENT History: Cataracts, Glaucoma Cardiac History: Arrhythmia, Congestive Heart Failure, Hypertension Respiratory History: Asthma, CHF, COPD, Sleep Apnea, Other Endocrine Medical History: Diabetes Type II Musculoskelatal History: Arthritis GI Medical History: Diverticulitis, Diverticulosis, GERD, Hernia History: No Pertinent History Pyscho-Social History: Anxiety, Panic Disorder Reproductive Disorders: No Pertinent History Comment: hypoxia. 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 D and C, chest tube placement LEFT side - Social History Smoking Status: Never smoker Exposure to second hand smoke: No Alcohol: None Drug Use: none - Physical Exam Vital Signs: Vital Signs - 24 hr Temp Pulse Resp BP Pulse Ox 02/14/22 11:32 97.8 F 103 H 18 151/63 97 02/14/22 07:23 98.4 F 100 H 18 142/63 98 02/14/22 06:40 98 02/14/22 04:00 97.8 F 94 H 20 115/52 96 02/13/22 23:43 97.7 F 87 22 119/68 97 02/13/22 20:00 97.5 F 99 H 24 129/62 96 02/13/22 19:18 98 02/13/22 15:58 94 L 02/13/22 15:52 97.7 F 95 H 16 115/56 94 L General Appearance: no apparent distress, alert Neurologic Exam: alert, oriented x 3, cooperative, normal mood/affect, nml cerebellar function, nml station & gait, sensation nml, No motor deficits Eye Exam: PERRL/EOMI, eyes nml inspection Ears, Nose, Throat Exam: normal ENT inspection, TMs normal, pharynx normal, moist mucous membranes Neck Exam: normal inspection, non-tender, supple, full range of motion Respiratory Exam: diminished breath sounds, crackles/rales, rhonchi, wheezing, N o respiratory distress Cardiovascular Exam: regular rate/rhythm, normal heart sounds, normal peripheral pulses Gastrointestinal/Abdomen Exam: soft, normal bowel sounds, No tenderness, No mass Back Exam: normal inspection, normal range of motion, No CVA tenderness, No vertebral tenderness Extremity Exam: normal inspection, normal range of motion, pelvis stable Skin Exam: normal color, warm, dry, No rash Lymphatic Exam: No adenopathy Results - Labs Lab/Micro Results: Lab Results-Last 24 Hours 02/13/22 02/13/22 02/13/22 Range/Units 16:29 19:57 Unknown POC Glucometer 281 H 335 H (74 to 106) mg/dL Hemoglobin A1c > 14.00 H (4.5-6.0) % 02/14/22 02/14/22 Range/Units 06:59 10:23 POC Glucometer 77 203 H (74 to 106) mg/dL Hemoglobin A1c (4.5-6.0) % Microbiology 02/12/22 08:48 Blood Culture - Preliminary Blood NO GROWTH TO DATE 02/12/22 08:48 Blood Culture - Preliminary Blood NO GROWTH TO DATE Accuchecks Date 02/14/22 Date 02/14/22 Date 02/13/22 Time 11:25 Time 07:23 Time 16:37 - Radiology Impressions Radiology Exams & Impressions: CT/CHEST WITH CONTRAST Indication: Cough and short of breath. Elevated d-dimer. Pulmonary embolus. Multiple contiguous axial images obtained through the chest using 100 cc Isovue 370 contrast and PE protocol. Comparison: None Good opacification of the pulmonary arteries to include the lobar and segmental branches. Mild respiration artifact limits evaluation for pulmonary embolus. No obvious pulmonary embolus. Heart remains enlarged with left dual-lead pacemaker. Aorta is normal in course and caliber. No pathologic mediastinal/hilar lymphadenopathy. New small hiatal hernia. Lungs demonstrates new right middle lobe patchy airspace disease with small focus of peripheral consolidation/organizing. No effusion. Left lung is now clear. Bony thorax intact again with osteopenia and mild degenerative changes throughout the spine. Limited upper abdomen again demonstrates tiny gallstones. Impression: 1. Pulmonary embolus evaluation limited by respiration artifact. No obvious pulmonary embolus. 2. New right middle lobe airspace disease. 3. New small hiatal hernia. 4. Again cardiomegaly with left pacemaker, tiny gallstones, and chronic bony findings. 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 Diabetes mellit complication status: with hyperglycemia Qualified Code(s): E11.65 - Type 2 diabetes mellitus with hyperglycemia; 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 (5) CHF (congestive heart failure), NYHA class III Current Visit: Yes Status: Chronic Qualifiers: Congestive heart failure type: combined Congestive heart failure chronicity: acute on chronic Qualified Code(s): I50.43 - Acute on chronic combined systolic (congestive) and diastolic (congestive) heart failure Code(s): I50.9 - HEART FAILURE, UNSPECIFIED (6) Pneumonia Current Visit: Yes Status: Acute Qualifiers: Pneumonia type: due to Pneumococcus Laterality: right Lung location: middle lobe of lung Qualified Code(s): J13 - Pneumonia due to Streptococcus pneumoniae Code(s): J18.9 - PNEUMONIA, UNSPECIFIED ORGANISM Hospital Summary - Hospital Course Hospital Course: Chief Complaint Diagnosis Pneumonia, SOB, leukocytosis Allergies Allergy/AdvReac Type Severity Reaction Status Date / Time Sulfa (Sulfonamide Allergy Severe Anaphylactic Verified 02/12/22 08:06 Antibiotics) Reaction Vital Signs (Last 24 hours) Temp Pulse Resp BP Pulse Ox 02/14/22 11:32 97.8 F 103 H 18 151/63 97 02/14/22 07:23 98.4 F 100 H 18 142/63 98 02/14/22 06:40 98 02/14/22 04:00 97.8 F 94 H 20 115/52 96 02/13/22 23:43 97.7 F 87 22 119/68 97 02/13/22 20:00 97.5 F 99 H 24 129/62 96 02/13/22 19:18 98 02/13/22 15:58 94 L 02/13/22 15:52 97.7 F 95 H 16 115/56 94 L Home Medications Medication Instructions Recorded Confirmed Last Taken Type Atorvastatin Calcium [Lipitor] 1 tab PO DAILY 02/12/22 02/12/22 02/11/22 History Insulin NPH Hum/Reg Insulin Hm 30 units SQ HS #0 02/14/22 02/12/22 02/11/22 Rx [Relion Novolin 70-30 Vial] Nystatin Powder 15 gm [Nystop 15 gm TP BID 30 Days #30 misc 02/14/22 Unknown Rx Powder 15 gm] Sodium Chloride [Saline Nasal 30 ml NS DAILY PRN PRN 30 Days #30 02/14/22 Unknown Rx [place]] inh cephALEXin [Cephalexin] 500 mg PO QID 5 Days #20 tablet 02/14/22 Unknown Rx Current Medications Generic Name Dose Route Start Last Admin Trade Name Pashaq PRN Reason Stop Dose Admin Acetaminophen 650 mg 02/12/22 12:20 02/12/22 22:10 Acetaminophen 325 Mg Tablet PO 03/14/22 12:19 650 mg Q4H PRN PRN Administration PAIN, FEVER, HEADACHE Amlodipine Besylate 2.5 mg 02/12/22 15:00 02/14/22 09:52 Amlodipine Besylate 5 Mg Tablet PO 03/14/22 14:59 2.5 mg DAILY LILA Administration Aspirin 81 mg 02/12/22 15:00 02/14/22 09:52 Aspirin 81 Mg Tablet.Ec PO 03/14/22 14:59 81 mg DAILY LILA Administration Enoxaparin Sodium 40 mg 02/12/22 14:00 02/14/22 09:51 Enoxaparin Sodium 40 Mg/0.4 Ml Syringe SQ 03/14/22 13:59 40 mg DAILY LILA Administration Fosinopril Sodium 10 mg 02/12/22 15:00 02/14/22 09:51 Fosinopril Sodium 10 Mg Tablet PO 03/14/22 14:59 10 mg DAILY LILA Administration Furosemide 20 mg 02/12/22 17:00 02/14/22 09:53 Furosemide 20 Mg/Vial IV 03/14/22 16:59 20 mg BID DIURETIC LILA Administration Ceftriaxone Sodium/Dextrose 1 g in 50 mls @ 100 mls/hr 02/13/22 10:00 02/14/22 11:01 Rocephin 1 Gm-D5w 50 Ml Bag IV 02/16/22 09:59 100 mls/hr Q24H10 LILA Administration Sodium Chloride 1,000 mls @ 50 mls/hr 02/12/22 12:20 02/13/22 21:57 Sodium Chloride 0.9% 1000 Ml IV 03/14/22 12:19 50 mls/hr .Q20H LILA Administration Azithromycin 250 mg in 125 mls @ 125 mls/hr 02/12/22 14:00 02/14/22 09:51 Zithromax 500 Mg/ 250 Ml Nacl Premix IV 03/14/22 13:59 125 mls/hr Q24H10 LILA Administration Insulin Human Isoph/Insulin Regular 30 unit 02/13/22 22:00 02/13/22 22:01 Insulin Nph/Reg 70/30 SQ 03/15/22 21:59 30 unit HS LILA Administration Insulin Human Regular 0 unit 02/13/22 02:30 02/13/22 20:30 Insulin Regular, Human 1 Unit SQ 03/15/22 02:29 12 unit UD PRN Administration HYPERGLYCEMIA Levothyroxine Sodium 100 mcg 02/12/22 15:00 02/14/22 09:52 Levothyroxine Sodium 100 Mcg Tablet PO 03/14/22 14:59 100 mcg DAILY LILA Administration Ondansetron HCl 4 mg 02/12/22 12:20 02/14/22 11:00 Ondansetron Hcl 4 Mg/2 Ml Vial IV 03/14/22 12:19 4 mg Q6H PRN PRN Administration NAUSEA/VOMITING Potassium Chloride 10 meq 02/12/22 15:00 02/14/22 09:52 Potassium Chloride Tab 10 Meq Tab PO 03/14/22 14:59 10 meq DAILY LILA Administration Simvastatin 10 mg 02/12/22 15:00 02/14/22 09:53 Simvastatin 10 Mg Tablet PO 03/14/22 14:59 10 mg DAILY LILA Administration Discontinued Medications Generic Name Dose Route Start Last Admin Trade Name Bernarda PRN Reason Stop Dose Admin Methylprednisolone Sodium 0 mg 02/12/22 08:24 02/12/22 08:32 Succinate 125 mg/ Sterile IV 02/12/22 08:25 125 mg Water 2 ml STAT ONE Administration Furosemide 20 mg 02/12/22 09:18 02/12/22 11:35 Furosemide 20 Mg/Vial IV 02/12/22 09:19 20 mg STAT ONE Administration Furosemide Confirm 02/12/22 11:34 Furosemide 20 Mg/Vial Administered 02/12/22 11:35 Dose 20 mg .ROUTE .STK-MED ONE Sodium Chloride 500 mls @ 50 mls/hr 02/12/22 09:30 02/12/22 11:37 Sodium Chloride 0.9% 500 Ml IV 03/14/22 09:29 50 mls/hr .Q10H LILA Administration Ceftriaxone Sodium/Dextrose 1 g in 50 mls @ 100 mls/hr 02/12/22 09:17 02/12/22 10:11 Rocephin 1 Gm-D5w 50 Ml Bag IV 02/12/22 09:46 Infused STAT STA Infusion Ceftriaxone Sodium/Dextrose Confirm 02/12/22 09:27 Rocephin 1 Gm-D5w 50 Ml Bag Administered 02/12/22 09:28 Dose 1 g in 50 mls @ ud IV .STK-MED ONE Sodium Chloride Confirm 02/12/22 11:34 Sodium Chloride 0.9% 1000 Ml Administered 02/12/22 11:35 Dose 1,000 mls @ ud .ROUTE .STK-MED ONE Sodium Chloride Confirm 02/12/22 11:37 Sodium Chloride 0.9% 500 Ml Administered 02/12/22 11:38 Dose 500 mls @ ud IV .STK-MED ONE Insulin Human Isoph/Insulin Regular 25 unit 02/12/22 22:00 02/12/22 22:06 Insulin Nph/Reg 70/30 SQ 01/12/23 21:59 25 unit HS LILA Administration Insulin Human Regular 0 unit 02/12/22 12:20 02/13/22 01:49 Insulin Regular, Human 1 Unit SQ 03/14/22 12:19 15 unit UD PRN Administration HYPERGLYCEMIA Methylprednisolone Sodium Succinate Confirm 02/12/22 08:31 Methylprednis Sod Succ 125 Mg/2 Ml Vial Administered 02/12/22 08:32 Dose 125 mg .ROUTE .STK-MED ONE Sterile Water Confirm 02/12/22 08:31 Water For Injection,Sterile 10 Ml Vial Administered 02/12/22 08:32 Dose 10 ml IJ .STK-MED ONE Intake & Output (Last 24 hours) 02/12/22 02/13/22 02/14/22 02/15/22 11:59 11:59 11:59 11:59 Intake Total 2593 2787 Output Total 900 1250 Balance 1693 1537 Weight 69.6 kg 68.6 kg 72.4 kg Microbiology Results (Last 24 hours) 02/12/22 08:48 Blood Blood Culture Gram Stain - Pending 02/12/22 08:48 Blood Blood Culture - Preliminary NO GROWTH TO DATE 02/12/22 08:48 Blood Blood Culture Gram Stain - Pending 02/12/22 08:48 Blood Blood Culture - Preliminary NO GROWTH TO DATE Laboratory Results (Last 24 hours) 02/14/22 02/14/22 02/13/22 10:23 06:59 Unknown POC Glucometer 203 H 77 Hemoglobin A1c > 14.00 H 02/13/22 02/13/22 19:57 16:29 POC Glucometer 335 H 281 H Hemoglobin A1c Orders (Last 24 hours) Category Date Time Status Discharge Routine Discharge 02/14/22 09:21 Ordered POCT GLUCOSE Stat Lab 02/13/22 16:29 Completed POCT GLUCOSE Stat Lab 02/13/22 19:57 Completed POCT GLUCOSE Stat Lab 02/14/22 06:59 Completed POCT GLUCOSE Stat Lab 02/14/22 10:23 Completed Insulin NPH/Reg 70/30 [Novolin 70/30] Med 02/13/22 22:00 Active 30 unit SQ HS Patient Care Notes (Last 24 hours) 02/14/22 09:56 Case Management Note by Ibeth Jaramillo S/W PATIENT AND SON ABOUT HOME HEALTHCARE REQUESTED BY - THEY BOTH REFUSE. THEY STATE IT IS TOO HARD TO ARRANGE [facility] VISITS WITH THE WORK SCHEDULES THEY DEAL WITH. SON WAS NOTIFIED THAT HGB A1C IS >14. HE VERIFIED UNDERSTANDING AND STATED HE WOULD MONITOR HER BLOOD SUGARS CLOSER. HE WAS INSTRUCTED TO MAKE A LOG OF HER ACCU CHECK RESULTS AND BRING THOSE TO HER FOLLOW UP APT. FOR THE DOCTOR TO REVIEW. HE VERIFIED UNDERSTANDING. NO OTHER NEW NEEDS IDENTIFIED AT THIS TIME. PATIENT TO RETURN HOME WITH THEIR ASSISTANCE AT TIME OF DC Initialized on 02/14/22 09:56 - END OF NOTE 02/14/22 09:48 Nursing Note by Valerie Cortez DR CALLED THIS NURSE AND ORDERS D/C, NEW PRESCRIPTION FOR CEPHALEXIN 500 MG 4 TIMES A DAY FOR 5 DAYS, NYSTATIN POWDER FOR GAULDED ABD FOLDS, AND SALINE NASAL SPRAY TO BE USED IN EACH NARE NEEDED Initialized on 02/14/22 09:48 - END OF NOTE - Vitals & Intake/Output Vital Signs: Vital Signs Temperature 97.8 F 02/14/22 11:32 Pulse Rate 103 H 02/14/22 11:32 Respiratory Rate 18 02/14/22 11:32 Blood Pressure 151/63 02/14/22 11:32 O2 Sat by Pulse Oximetry 97 02/14/22 11:32 Intake & Output: Intake & Output 02/12/22 02/13/22 02/14/22 02/15/22 11:59 11:59 11:59 11:59 Intake Total 2593 2787 Output Total 900 1250 Balance 1693 1537 Weight 69.6 kg 68.6 kg 72.4 kg - Lab Result Diagrams: 02/13/22 05:25 02/13/22 05:25 Lab Results-Last 24 Hrs: Lab Results-Last 24 Hours 02/13/22 02/13/22 02/13/22 Range/Units 16:29 19:57 Unknown POC Glucometer 281 H 335 H (74 to 106) mg/dL Hemoglobin A1c > 14.00 H (4.5-6.0) % 02/14/22 02/14/22 Range/Units 06:59 10:23 POC Glucometer 77 203 H (74 to 106) mg/dL Hemoglobin A1c (4.5-6.0) % Micro Results-Entire Visit: Microbiology 02/12/22 08:48 Blood Culture - Preliminary Blood NO GROWTH TO DATE 02/12/22 08:48 Blood Culture - Preliminary Blood NO GROWTH TO DATE Accuchecks Date 02/14/22 Date 02/14/22 Date 02/13/22 Time 11:25 Time 07:23 Time 16:37 - Procedures and Test Procedures and Tests throughout Hospitalization: Therapy Orders & Screens 02/12/22 12:20 EKG REPEAT IN AM Comment: Oxygen Nasal Cannula 3 lpm Comment: Respiratory Therapy Consult ROUTINE Comment: Reason For Exam: - Discharge Discharge Date: 02/14/22 Disposition: Home, Self-Care Condition: Stable Prescriptions: New cephALEXin [Cephalexin] 500 mg PO QID 5 Days #20 tablet Nystatin Powder 15 gm [Nystop Powder 15 gm] 15 gm TP BID 30 Days #30 misc Sodium Chloride [Saline Nasal [place]] 30 ml NS DAILY PRN PRN 30 Days #30 inh PRN Reason: Sinus Congestion Continue Fosinopril Sodium [monoPRIL] 10 mg PO DAILY Amlodipine Besylate 2.5 mg PO DAILY Aspirin 81 mg PO DAILY Levothyroxine Sodium 100 Mcg [Synthroid 100 Mcg] 100 mcg PO DAILY Potassium Chloride Tab* [Klor Con] 10 meq PO DAILY Atorvastatin Calcium [Lipitor] 1 tab PO DAILY Changed Insulin NPH Hum/Reg Insulin Hm [Relion Novolin 70-30 Vial] 30 units SQ HS #0 Instructions: Pneumonia, Adult (DC), Shortness of Breath (Dyspnea) (DC), Blood Glucose Monitoring Additional Instructions: TAKE 30 UNITS OF YOUR SCHEDULED INSULIN AT BEDTIME, USE YOUR NASAL SPRAY NEEDED FOR NASAL CONGESTION AND TAKE YOUR ANTIBIOTICS 4 TIMES A DAY FOR 5 DAYS Follow up with: MIKAEL MEDINA MD [Primary Care Provider] - 02/21/22 9:30 am (at [place] )
== END 2022-02-14 12:44 | disposition home or self-care (01) ==
LOC: ED 08:02 → MED SURG 12:06
PROVIDERS: ADMIT General Practice; ATTEND General Practice
DX: R91.8 Other nonspecific abnormal finding of lung field (principal); D72.829 Elevated white blood cell count, unspecified; R06.02 Shortness of breath; I11.0 Hypertensive heart disease with heart failure; I50.9 Heart failure, unspecified; E11.65 Type 2 diabetes mellitus with hyperglycemia; J44.9 Chronic obstructive pulmonary disease, unspecified; J18.9 Pneumonia, unspecified organism; E78.5 Hyperlipidemia, unspecified; Z79.4 Long term (current) use of insulin; Z79.899 Other long term (current) drug therapy; Z20.828 Contact with and (suspected) exposure to other viral communicable diseases; Z99.81 Dependence on supplemental oxygen
CPT/HCPCS: 0241U; 36000; 36415; 71045; 71260; 80048; 80053; 82947; 83036; 83880; 84484; 85025; 85379; 87040; 93005; 94760; 94762; 96374; 96375; 99285; G0378; J0456; J0696; J1650; J1815; J1940; J2405; J2930; A9270-GY

== ENCOUNTER 2022-03-26 20:53 | Observation (INO) | payer MEDICARE ==
--- NOTE | 2022-03-26 21:12 | ERPHSYRPT ---
- History of Present Illness Time Seen by Provider: 03/26/22 21:27 Source: patient Exam Limitations: no limitations Patient Subjective Stated Complaint: " I feel weak and I can't hardly make it. I'm short of breath and I have pain where my hernia is ". Triage Nursing Assessment: Pt presents to ER with complaints of shortness of breath and weakness that began over the past "day or two". Pt appears short of breath, pale, Physician History: Patient is a 76-year-old female with a history of CHF and COPD difficulty daniela cuellar presents to our ED for evaluation of a 2-day history of shortness of breath and generalized weakness. Patient requires 3 L nasal cannula 24 hours/day. Patient has been utilizing her oxygen at home as usual however in spite has been experiencing progressive shortness of breath. No associated fever. No trauma. No chest pain. no nausea vomiting or diaphoresis. Upon arrival to our ED patient's breathing was observed to be labored. She advises that she was discharged from our hospital approximately 1 month ago after treatment for pneumonia. Patient symptoms are progressive. Symptoms are moderate in intensity. No specific worsening improving factors. Patient denies lower extremity swelling. No orthopnea. She voices no other complaints or concerns at this time. Portions of this note were created with voice recognition technology. There may be grammatical, spelling, punctuation or sound alike errors Timing/Duration: day(s) (2 days) Activities at Onset: none Severity of Dyspnea-Max: moderate Severity of Dyspnea-Current: mild Possible Cause: occasional episodes Modifying Factors: Improves With: activity (Shortness of breath worse with exertion.) Associated Symptoms: No chest pain/discomfort Allergies/Adverse Reactions: Sulfa (Sulfonamide Antibiotics) Allergy (Severe, Verified 03/26/22 21:08) Anaphylactic Reaction swelling, trouble breathing Home Medications: Amlodipine Besylate 2.5 mg PO DAILY 08/05/18 [History] Aspirin 81 mg PO DAILY 08/05/18 [History] Fosinopril Sodium [monoPRIL] 10 mg PO DAILY 08/05/18 [History] Levothyroxine Sodium 100 Mcg [Synthroid 100 Mcg] 100 mcg PO DAILY 08/05/18 [History] Potassium Chloride Tab* [Klor Con] 10 meq PO DAILY 01/19/19 [History] Atorvastatin Calcium [Lipitor] 1 tab PO DAILY 02/12/22 [History] Hx Tetanus, Diphtheria Vaccination/Date Given: Yes Hx Influenza Vaccination/Date Given: Yes Hx Pneumococcal Vaccination/Date Given: Yes Immunizations Up to Date: Yes Travel Risk - International Travel Have you traveled outside of the country in past 3 weeks: No - Coronavirus Screening Are you exhibiting any of the following symptoms?: Yes Symptoms: Shortness of Breath - Vaccine Status Have you recieved a Covid-19 vaccination: No - Review of Systems All Other Systems: Unable due to condition (Unable due to hard of hearing as well as shortness of breath) - Past Medical History Pertinent Past Medical History: Yes Neurological History: No Pertinent History ENT History: Cataracts, Glaucoma Cardiac History: Arrhythmia, Congestive Heart Failure, Hypertension Respiratory History: Asthma, CHF, COPD, Sleep Apnea, Other Endocrine Medical History: Diabetes Type II Musculoskeletal History: Arthritis GI Medical History: Diverticulitis, Diverticulosis, GERD, Hernia History: No Pertinent History Psycho-Social History: Anxiety, Panic Disorder Female Reproductive Disorders: No Pertinent History Other Medical History: hypoxia. 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 D and C, chest tube placement LEFT side - Social History Smoking Status: Never smoker Exposure to second hand smoke: No Drug Use: none Patient Lives Alone: No - Nursing Vital Signs Nursing Vital Signs: Initial Vital Signs Temperature 97.4 F 03/26/22 20:57 Pulse Rate 111 H 03/26/22 20:57 Respiratory Rate 24 03/26/22 20:57 Blood Pressure 172/89 03/26/22 20:57 O2 Sat by Pulse Oximetry 98 03/26/22 20:57 Pain Scale Pain Intensity 0 - Physical Exam General Appearance: no apparent distress, mild distress (Mild respiratory distress.), alert Eye Exam: PERRL/EOMI, eyes nml inspection Ears, Nose, Throat Exam: normal pharynx, hearing decreased Neck Exam: normal inspection, supple Respiratory Exam: respiratory distress, diminished breath sounds, accessory muscle use Cardiovascular/Chest Exam: normal heart sounds, regular rate/rhythm Abdominal/Gastrointestinal Exam: soft, No tenderness, No distention, No mass Extremity Exam: non-tender, normal range of motion, normal inspection, no calf tenderness, no pedal edema Peripheral Pulses Exam: dorsalis-pedis (R): 2+, dorsalis-pedis (L): 2+ Neurologic Exam: alert, oriented x 3, cooperative, lead oxide mill tender II-XII nml as tested, sensation nml, No motor deficits Skin Exam: normal color, warm, No dry Lymphatic Exam: No adenopathy SpO2 Interpretation: normal SpO2: 98 O2 Delivery: Nasal Cannula (3 L nasal cannula) - Course Nursing assessment & vital signs reviewed: Yes EKG Interpreted by Me: RATE (108 ventricular paced rhythm.), NORMAL AXIS, NORMAL INTERVALS - Radiology Exams Chest X-ray Interpretation: Interpreted by me (Lungs are clear. Normal cardiac si lhouette. Left pacemaker. No acute cardiopulmonary abnormalities) Ordered Tests: Active Orders 24 hr Category Date Time Status Digital Developer STAT Care 03/26/22 21:11 Active EKG-ER Only STAT Care 03/26/22 21:10 Active IV Insertion STAT Care 03/26/22 21:10 Active Oxygen-ED Only Nasal Cannula 3 lpm Care 03/26/22 21:11 Active Pulse Oximetry (ED) STAT Care 03/26/22 21:10 Active CHEST 1 VIEW (PORTABLE) Stat Exams 03/26/22 21:10 Taken BLOOD CULTURE Stat Lab 03/26/22 21:30 Received CBC W DIFF Stat Lab 03/26/22 21:16 Completed CMP Stat Lab 03/26/22 21:16 Completed Lactic Acid Stat Lab 03/26/22 21:21 Completed NT PRO BNP Stat Lab 03/26/22 21:16 Completed TROPONIN Q4H Lab 03/26/22 21:16 Completed TROPONIN Q4H Lab 03/27/22 01:15 Ordered TROPONIN Q4H Lab 03/27/22 05:15 Ordered Respiratory Therapy Assessment DAILY RT 03/26/22 22:33 Completed Medication Summary Discontinued Medications Generic Name Dose Route Start Last Admin Trade Name Freq PRN Reason Stop Dose Admin Albuterol/Ipratropium 3 ml 03/26/22 21:23 03/26/22 22:33 Ipratropium/Albuterol Sulfate 3 Ml Ampul.Neb IH 03/26/22 21:24 3 ml STAT ONE Administration Albuterol/Ipratropium Confirm 03/26/22 22:07 Ipratropium/Albuterol Sulfate 3 Ml Ampul.Neb Administered 03/26/22 22:08 Dose 3 ml IH .STK-MED ONE Methylprednisolone Sodium 0 mg 03/26/22 21:23 03/26/22 21:27 Succinate 125 mg/ Sterile IV 03/26/22 21:24 125 mg Water 2 ml STAT ONE Administration Methylprednisolone Sodium Succinate Confirm 03/26/22 21:25 Methylprednis Sod Succ 125 Mg/2 Ml Vial Administered 03/26/22 21:26 Dose 125 mg .ROUTE .STK-MED ONE Sterile Water Confirm 03/26/22 21:25 Water For Injection,Sterile 10 Ml Vial Administered 03/26/22 21:26 Dose 10 ml IJ .STK-MED ONE Lab/Rad Data: Laboratory Result Diagrams 03/26/22 21:16 03/26/22 21:16 Laboratory Results 03/26/22 03/26/22 03/26/22 Range/Units 22:11 21:30 21:21 WBC (4.0-10.5) x10^3/uL RBC (4.1-5.4) x10^6/uL Hgb (12.0-16.0) g/dL Hct (35-47) % MCV (78-100) fL MCH (26-32) pg MCHC (32-36) g/dL RDW (11.5-14.0) % Plt Count (150-450) x10^3/uL MPV (7.5-11.0) fL Gran % (36.0-66.0) % Immature Gran % (Auto) (0.00-0.4) % Nucleat RBC Rel Count (0.00-0.1) % Eos # (Auto) (0-0.5) x10^3/uL Immature Gran # (Auto) (0.00-0.03) x10^3u/L Absolute Lymphs (auto) (1.0-4.6) x10^3/uL Absolute Monos (auto) (0.0-1.3) x10^3/uL Absolute Nucleated RBC (0.00-0.01) x10^3u/L Lymphocytes % (24.0-44.0) % Monocytes % (0.0-12.0) % Eosinophils % (0.00-5.0) % Basophils % (0.0-0.4) % Absolute Granulocytes (1.4-6.9) x10^3/uL Basophils # (0-0.4) x10^3/uL Sodium (137-145) mmol/L Potassium (3.5-5.1) mmol/L Chloride (98-107) mmol/L Carbon Dioxide (22-30) mmol/L Anion Gap (5-15) MEQ/L BUN (7-17) mg/dL Creatinine (0.52-1.04) mg/dL Estimated GFR ML/MIN Glucose (74-106) mg/dL Lactic Acid 1.2 (0.4-2.0) Calcium (8.4-10.2) mg/dL Total Bilirubin (0.2-1.3) mg/dL AST (14-36) U/L ALT (0-35) U/L Alkaline Phosphatase (38-126) U/L Troponin I (0.000-0.034) ng/mL NT-Pro-B Natriuret Pep (0-900) pg/mL Serum Total Protein (6.3-8.2) g/dL Albumin (3.5-5.0) g/dL Urine Color YELLOW (YELLOW) Urine Appearance CLEAR (CLEAR) Urine pH 6.0 (5-6) Ur Specific [place] 1.020 (1.005-1.025) Urine Protein Cancelled POC Urine Protein Conf 100 A (Negative) Urine Glucose (UA) Cancelled Urine Ketones NEGATIVE (NEGATIVE) Urine Blood Cancelled Urine Nitrite NEGATIVE (NEGATIVE) Urine Bilirubin NEGATIVE (NEGATIVE) Urine Urobilinogen 0.2 (0-1) mg/dL Ur Leukocyte Esterase Cancelled Urine Leukocytes NEGATIVE (NEGATIVE) U Hyaline Cast (Auto) NONE SEEN (0-2) /LPF Urine RBC TRACE-INTACT A (0-5) Elver/ul Urine Microscopic RBC 0-2 (0-5) /HPF Urine Microscopic WBC 3-5 (0-5) /HPF Ur Epithelial Cells None Seen (None Seen) /HPF Urine Bacteria None Seen (None Seen) /HPF Ur Culture Indicated? NO Urine Culture Reflexed Cancelled Urine Glucose 500 A (NEGATIVE) mg/dL Influenza Type A Ag NEGATIVE (NEGATIVE) Influenza Type B Ag NEGATIVE (NEGATIVE) RSV (PCR) NEGATIVE (Negative) SARS-CoV-2 (PCR) NEGATIVE (NEGATIVE) 03/26/22 03/26/22 03/26/22 Range/Units 21:16 21:16 21:16 WBC 11.1 H (4.0-10.5) x10^3/uL RBC 4.53 (4.1-5.4) x10^6/uL Hgb 12.0 (12.0-16.0) g/dL Hct 39.6 (35-47) % MCV 87.4 (78-100) fL MCH 26.5 (26-32) pg MCHC 30.3 L (32-36) g/dL RDW 12.9 (11.5-14.0) % Plt Count 196 (150-450) x10^3/uL MPV 10.9 (7.5-11.0) fL Gran % 81.4 H (36.0-66.0) % Immature Gran % (Auto) 0.6 H (0.00-0.4) % Nucleat RBC Rel Count 0.0 (0.00-0.1) % Eos # (Auto) 0.10 (0-0.5) x10^3/uL Immature Gran # (Auto) 0.07 H (0.00-0.03) x10^3u/L Absolute Lymphs (auto) 1.39 (1.0-4.6) x10^3/uL Absolute Monos (auto) 0.48 (0.0-1.3) x10^3/uL Absolute Nucleated RBC 0.00 (0.00-0.01) x10^3u/L Lymphocytes % 12.6 L (24.0-44.0) % Monocytes % 4.3 (0.0-12.0) % Eosinophils % 0.9 (0.00-5.0) % Basophils % 0.2 (0.0-0.4) % Absolute Granulocytes 9.01 H (1.4-6.9) x10^3/uL Basophils # 0.02 (0-0.4) x10^3/uL Sodium 136 L (137-145) mmol/L Potassium 4.2 (3.5-5.1) mmol/L Chloride 96 L (98-107) mmol/L Carbon Dioxide 36 H (22-30) mmol/L Anion Gap 7.3 (5-15) MEQ/L BUN 17 (7-17) mg/dL Creatinine 0.66 (0.52-1.04) mg/dL Estimated GFR > 60.0 ML/MIN Glucose 416 H (74-106) mg/dL Lactic Acid (0.4-2.0) Calcium 8.9 (8.4-10.2) mg/dL Total Bilirubin 0.40 (0.2-1.3) mg/dL AST 16 (14-36) U/L ALT 13 (0-35) U/L Alkaline Phosphatase 100 (38-126) U/L Troponin I 0.026 (0.000-0.034) ng/mL NT-Pro-B Natriuret Pep 2430 H (0-900) pg/mL Serum Total Protein 6.5 (6.3-8.2) g/dL Albumin 3.9 (3.5-5.0) g/dL Urine Color (YELLOW) Urine Appearance (CLEAR) Urine pH (5-6) Ur Specific [place] (1.005-1.025) Urine Protein POC Urine Protein Conf (Negative) Urine Glucose (UA) Urine Ketones (NEGATIVE) Urine Blood Urine Nitrite (NEGATIVE) Urine Bilirubin (NEGATIVE) Urine Urobilinogen (0-1) mg/dL Ur Leukocyte Esterase Urine Leukocytes (NEGATIVE) U Hyaline Cast (Auto) (0-2) /LPF Urine RBC (0-5) Elver/ul Urine Microscopic RBC (0-5) /HPF Urine Microscopic WBC (0-5) /HPF Ur Epithelial Cells (None Seen) /HPF Urine Bacteria (None Seen) /HPF Ur Culture Indicated? Urine Culture Reflexed Urine Glucose (NEGATIVE) mg/dL Influenza Type A Ag (NEGATIVE) Influenza Type B Ag (NEGATIVE) RSV (PCR) (Negative) SARS-CoV-2 (PCR) (NEGATIVE) - Progress Progress: improved Air Movement: poor Progress Note: Patient is 76-year-old female presents to emergency department for evaluation of shortness of breath. Patient has a history of COPD. Patient requires 3 L nasal cannula 24 hours a day. Physical exam reveals respiratory distress. Diminished breath sounds. Patient's presentation is acute. Complexity of presentation is moderate. Patient likely experiencing an exacerbation of a chronic illness. Exacerbation is moderate to severe intensity in light of patient's respiratory distress. Work-up chills chest x-ray which is essentially nonremarkable. Blood culture, CBC, CMP, COVID-19 testing which was negative. Lactic acid level was negative. BNP elevated. Initial troponin negative. Patient has a mild leukocytosis. Hyperglycemia observed on her chemistry. Urine positive for proteinuria. Results of testing used for medical decision making. Treatment entailed a dose of Lasix due to elevated BNP. Patient received albuterol nebulizer treatment Solu-Medrol and antibiotics. Patient was treated for a pneumonia in the past 30 days therefore we treated her with higher level antibiotics. Patient received vancomycin and Zosyn in our ED. Patient given 4 units regular insulin to treat her hyperglycemia. Patient received a dose of Solu-Medrol which has the potential to spike her sugar. We will reassess patient's blood sugar level in the next [address] Medina our patient's primary care doctor who advised to contact his service doctor. Case discussed with Dr. Brown who accepts admission to observation. Plan of care discussed with patient. She agrees to admission to [facility] for further evaluation and treatment. Level of EM service provided was moderate. Complexity of problem addressed was moderate. Amount and complexity of data reviewed and analyzed was moderate. Risk of complication and/or risk of morbidity/mortality of patient management was moderate. No critical care time. 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 However patient is hard of hearing therefore communication was somewhat limited Patient currently resting with 3 L of oxygen which is her baseline oxygen use at home. Patient is a full code. Patient appears to be responding to care well. Patient's work of breathing has resolved. Patient now breathing comfortably. No active shortness of breath. Amount of time for final disposition and consultation approximately 15 minutes. Patient's presentation was acute exacerbation of a chronic illness. Portions of this note were created with voice recognition technology. There may be grammatical, spelling, punctuation or sound alike errors 03/26/22 23:31 03/26/22 23:39 Blood Culture(s) Obtained: Yes Antibiotics given: Yes Discussed with : Georgie Will see patient in: hospital (observation) Counseled pt/family regarding: lab results, diagnosis, rad results - Departure Departure Disposition: Observation Clinical Impression: Hard of hearing, Shortness of breath, Respiratory distress, COPD exacerbation, Leukocytosis, Hyperglycemia, Elevated brain natriuretic peptide (BNP) level, Proteinuria, Glucosuria Condition: Stable Critical Care Time: No Referrals: MIKAEL MEDINA MD [Primary Care Provider] - Follow up/PCP as directed Instructions: Chronic Obstructive Pulmonary Disease
[2022-03-26 21:19] LABS: Absolute Neutrophil Ct (ANC) 9.01 x10^3/uL (1.4-6.9); BASOPHIL % 0.2 % (0.0-0.4); Basophil (Absolute #) 0.02 x10^3/uL (0-0.4); Eosinophil % 0.9 % (0.00-5.0); Hematocrit 39.6 % (35-47); IMMATURE GRAN # 0.07 x10^3u/L (0.00-0.03); IMMATURE GRAN % 0.6 % (0.00-0.4); Lymphocyte (Absolute #) 1.39 x10^3/uL (1.0-4.6); Lymphocytes % 12.6 % (24.0-44.0); Mean Cell Volume 87.4 fL (78-100); Mean Corpuscular Hemoglobin 26.5 pg (26-32); Mean Corpuscular Hgb Concent. 30.3 g/dL (32-36); Mean Platelet Volume 10.9 fL (7.5-11.0); Monocyte (Absolute #) 0.48 x10^3/uL (0.0-1.3); Monocytes % 4.3 % (0.0-12.0); Neutrophil % 81.4 % (36.0-66.0); Platelet Count 196 x10^3/uL (150-450); Red Blood Count 4.53 x10^6/uL (4.1-5.4); Red Cell Distribution Width 12.9 % (11.5-14.0); White Blood Count 11.1 x10^3/uL (4.0-10.5)
[2022-03-26] MEDS ORDERED: solu-MEDROL 125 MG, Sterile H2O 10 ml 2 ML IV ONE ×2 (21:23)
[2022-03-26] MEDS ORDERED: DUONEB 0.5-3 MG/3 ml Neb IH ONE ×2 (21:23→22:07)
[2022-03-26] MEDS ORDERED: solu-MEDROL ONE (21:25)
[2022-03-26] MEDS ORDERED: Sterile H2O 10 ml IJ ONE (21:25)
[2022-03-26 21:41] LABS: ALBUMIN 3.9 g/dL (3.5-5.0); ALKALINE PHOSPHATASE 100 U/L (38-126); ANION GAP 7.3 MEQ/L (5-15); BLOOD UREA NITROGEN 17 mg/dL (7-17); CHLORIDE 96 mmol/L (98-107); Calcium 8.9 mg/dL (8.4-10.2); Carbon Dioxide 36 mmol/L (22-30); Creatinine 1 0.66 mg/dL (0.52-1.04); EST GLOMERULAR FILTRATION RATE > 60.0 ML/MIN; Glucose 416 mg/dL (74-106); NT PRO BNP 2430 pg/mL (0-900); Potassium 4.2 mmol/L (3.5-5.1); SGOT/AST 16 U/L (14-36); SGPT/ALT 13 U/L (0-35); SODIUM 136 mmol/L (137-145); Total Protein 6.5 g/dL (6.3-8.2)
[2022-03-26 22:26] LABS: Appearance CLEAR (CLEAR); Bilirubin NEGATIVE (NEGATIVE); Glucose 500 mg/dL (NEGATIVE); Ketones NEGATIVE (NEGATIVE); Nitrite NEGATIVE (NEGATIVE); Protein,Urine Dip 100 (Negative); RBC TRACE-INTACT Ery/ul (0-5); Urobilinogen 0.2 mg/dL (0-1)
[2022-03-26 22:29] LABS: Bacteria None Seen /HPF (None Seen); Epithelial Cells None Seen /HPF (None Seen); Hyaline Casts NONE SEEN /LPF (0-2); RBC 0-2 /HPF (0-5)
[2022-03-26 22:30] LABS: Urine Cultured Indicated? NO
[2022-03-26 22:38] LABS: INFLUENZA A NEGATIVE (NEGATIVE); INFLUENZA B NEGATIVE (NEGATIVE); RESPIRATORY SYNCTIAL VIRUS NEGATIVE (Negative); SARS-CoV-2 Xpert Express NEGATIVE (NEGATIVE)
[2022-03-26] MEDS ORDERED: VANCOMYCIN 1 GRAM/200 ML BAG 1 GM/200 ML PIGGYBACK IV ONE ×2 (23:04→23:47)
[2022-03-26] MEDS ORDERED: PIPERACILLIN/TAZOBACTAM 3.375 GM in Sodium Chloride 100ML MINI-BAG PLUS 100 ML IV ONE (23:05)
[2022-03-26] MEDS ORDERED: PIPERACILLIN/TAZOBACTAM IV ONE (23:09)
[2022-03-26] MEDS ORDERED: Sodium Chloride 0.9% 0 ML ONE (23:10)
[2022-03-26] MEDS ORDERED: Sodium Chloride 100ML MINI-BAG PLUS 100 ML IV ONE (23:11)
[2022-03-26] MEDS ORDERED: Lasix 20 MG/2 ML IV STA (23:29)
[2022-03-26] MEDS ORDERED: HUMULIN R SQ ONE (23:38)
[2022-03-26] MEDS ORDERED: Lasix 20 MG/2 ML ONE (23:39)
[2022-03-26] MEDS ORDERED: HUMULIN R ONE (23:55)
[2022-03-27] MEDS ORDERED: VANCOMYCIN 1 GRAM/200 ML BAG 1 GM/200 ML PIGGYBACK IV SCH (00:34)
[2022-03-27] MEDS ORDERED: PROVENTIL 2.5 MG/3 ML NEB IH PRN (01:11)
[2022-03-27] MEDS: PIPERACILLIN/TAZOBACTAM 3.375 GM in Sodium Chloride 100ML MINI-BAG PLUS 100 ML IV SCH ×5 (02:29→23:38)
[2022-03-27] MEDS: solu-MEDROL 60 MG, Sterile H2O 10 ml 2 ML IV SCH ×8 (02:30→17:04)
[2022-03-27] MEDS ORDERED: PROVENTIL 2.5 MG/3 ML NEB IH SCH (03:00)
[2022-03-27 05:12] LABS: Hematocrit 39.4 % (35-47); Hemoglobin 12.3 g/dL (12.0-16.0); Mean Cell Volume 85.3 fL (78-100); Mean Corpuscular Hemoglobin 26.6 pg (26-32); Mean Corpuscular Hgb Concent. 31.2 g/dL (32-36); Mean Platelet Volume 10.6 fL (7.5-11.0); Platelet Count 195 x10^3/uL (150-450); Red Blood Count 4.62 x10^6/uL (4.1-5.4); Red Cell Distribution Width 12.8 % (11.5-14.0); White Blood Count 10.8 x10^3/uL (4.0-10.5)
[2022-03-27] MEDS ORDERED: Sodium Chloride 100ML MINI-BAG PLUS 100 ML IV ONE (05:57)
[2022-03-27] MEDS ORDERED: Sterile H2O 10 ml IJ ONE (05:59)
[2022-03-27] MEDS ORDERED: PIPERACILLIN/TAZOBACTAM IV ONE (06:02)
[2022-03-27] MEDS ORDERED: solu-MEDROL ONE (06:02)
--- NOTE | 2022-03-27 07:09 | PCM.HP ---
History of Present Illness - Chief Complaint Chief Complaint: shortness of breath for 2-3 days History of Present Illness: is a 76 year old female.with a history of CHF and COPD difficulty hearing presents to our ED for evaluation of a 2-day history of shortness of breath and generalized weakness. Patient requires 3 L nasal cannula 24 hours/day. Patient has been utilizing her oxygen at home as usual however in spite has been experiencing progressive shortness of breath. No associated fever. No trauma. No chest pain. no nausea vomiting or diaphoresis. Upon arrival to our ED patient's breathing was observed to be labored. She advises that she was discharged from our hospital approximately 1 month ago after treatment for pneumonia. Patient symptoms are progressive. Symptoms are moderate in intensity. No specific worsening improving factors. Patient denies lower extremity swelling. No orthopnea. - Review of Systems Constitutional: No Fever, No Chills Eyes: No Symptoms Ears, Nose, & Throat: No Symptoms Respiratory: Orthopnea, Wheezing, No Cough Cardiac: Orthopnea, PND, No Chest Pain, No Edema, No Syncope Abdominal/Gastrointestinal: No Abdominal Pain, No Nausea, No Vomiting, No Diarrhea Genitourinary Symptoms: No Dysuria Musculoskeletal: No Back Pain, No Neck Pain Skin: No Rash Neurological: No Dizziness, No Focal Weakness, No Sensory Changes Psychological: No Symptoms Endocrine: No Symptoms Hematologic/Lymphatic: No Symptoms Immunological/Allergic: No Symptoms Medications & Allergies Home Medications: Home Medication List Amlodipine Besylate 2.5 mg PO DAILY 08/05/18 [History Confirmed 03/26/22] Aspirin 81 mg PO DAILY 08/05/18 [History Confirmed 03/26/22] Fosinopril Sodium [monoPRIL] 10 mg PO DAILY 08/05/18 [History Confirmed 03/26/22] Levothyroxine Sodium 100 Mcg [Synthroid 100 Mcg] 100 mcg PO DAILY 08/05/18 [History Confirmed 03/26/22] Potassium Chloride Tab* [Klor Con] 10 meq PO DAILY 01/19/19 [History Confirmed 03/26/22] Atorvastatin Calcium [Lipitor] 1 tab PO DAILY 02/12/22 [History Confirmed 03/26/22] Insulin NPH Hum/Reg Insulin Hm [Relion Novolin 70-30 Vial] 30 units SQ HS #0 02/14/22 [Rx Confirmed 03/26/22] Allergies/Adverse Reactions: Allergies Allergy/AdvReac Type Severity Reaction Status Date / Time Sulfa (Sulfonamide Allergy Severe Anaphylactic Verified 03/26/22 21:08 Antibiotics) Reaction - Past Medical History Past Medical History: Yes Neurological History: No Pertinent History ENT History: Cataracts, Glaucoma Cardiac History: Arrhythmia, Congestive Heart Failure, Hypertension Respiratory History: Asthma, CHF, COPD, Sleep Apnea, Other Endocrine Medical History: Diabetes Type II Musculoskelatal History: Arthritis GI Medical History: Diverticulitis, Diverticulosis, GERD, Hernia History: No Pertinent History Pyscho-Social History: Anxiety, Panic Disorder Reproductive Disorders: No Pertinent History Comment: hypoxia. 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 D and C, chest tube placement LEFT side - Social History Smoking Status: Never smoker Exposure to second hand smoke: No Alcohol: None Drug Use: none - Physical Exam Vital Signs: Vital Signs - 24 hr Temp Pulse Resp BP Pulse Ox 03/27/22 04:00 97.5 F 93 H 23 136/63 99 03/27/22 01:18 109 H 18 98 03/27/22 00:37 97.4 F 99 H 178/88 98 03/27/22 00:34 96 03/26/22 23:40 98 03/26/22 23:00 99 H 12 178/88 99 03/26/22 22:33 94 H 20 99 03/26/22 22:00 100 H 20 157/91 99 03/26/22 21:12 99 03/26/22 21:00 100 H 22 97 03/26/22 20:57 97.4 F 111 H 24 172/89 98 General Appearance: no apparent distress, alert Neurologic Exam: alert, oriented x 3, cooperative, normal mood/affect, nml cerebellar function, nml station & gait, sensation nml, No motor deficits Eye Exam: PERRL/EOMI, eyes nml inspection Ears, Nose, Throat Exam: normal ENT inspection, TMs normal, pharynx normal, moist mucous membranes Neck Exam: normal inspection, non-tender, supple, full range of motion Respiratory Exam: diminished breath sounds, accessory muscle use, crackles/rales, rhonchi, wheezing, No chest tenderness, No respiratory distress Cardiovascular Exam: tachycardia, capillary refill <2 sec, edema Gastrointestinal/Abdomen Exam: soft, normal bowel sounds, No tenderness, No mass Back Exam: normal inspection, normal range of motion, No CVA tenderness, No vertebral tenderness Extremity Exam: normal inspection, normal range of motion, pelvis stable Skin Exam: normal color, warm, dry, No rash Wound Assessment: Skin/Wound Assessment Wound/Incision Assessment Start: 03/27/22 00:56 Text: Status: Active Freq: Q6H Protocol: Document 03/27/22 00:56 (Rec: 03/27/22 01:46 [id number]) Wound/Incision Assessment Left Other Wound Assessment Admission Wound Type excoriation Wound Stage Non Pressure Wound Wound Bed Greatest Portion Red (Granulation) Surrounding Tissue Hagaman Wound Photo Photo Taken No Lymphatic Exam: No adenopathy Results - Labs Lab/Micro Results: Lab Results-Last 24 Hours 03/26/22 03/26/22 03/26/22 Range/Units 21:16 21:16 21:16 WBC 11.1 H (4.0-10.5) x10^3/uL RBC 4.53 (4.1-5.4) x10^6/uL Hgb 12.0 (12.0-16.0) g/dL Hct 39.6 (35-47) % MCV 87.4 (78-100) fL MCH 26.5 (26-32) pg MCHC 30.3 L (32-36) g/dL RDW 12.9 (11.5-14.0) % Plt Count 196 (150-450) x10^3/uL MPV 10.9 (7.5-11.0) fL Gran % 81.4 H (36.0-66.0) % Immature Gran % (Auto) 0.6 H (0.00-0.4) % Nucleat RBC Rel Count 0.0 (0.00-0.1) % Eos # (Auto) 0.10 (0-0.5) x10^3/uL Immature Gran # (Auto) 0.07 H (0.00-0.03) x10^3u/L Absolute Lymphs (auto) 1.39 (1.0-4.6) x10^3/uL Absolute Monos (auto) 0.48 (0.0-1.3) x10^3/uL Absolute Nucleated RBC 0.00 (0.00-0.01) x10^3u/L Lymphocytes % 12.6 L (24.0-44.0) % Monocytes % 4.3 (0.0-12.0) % Eosinophils % 0.9 (0.00-5.0) % Basophils % 0.2 (0.0-0.4) % Absolute Granulocytes 9.01 H (1.4-6.9) x10^3/uL Basophils # 0.02 (0-0.4) x10^3/uL Sodium 136 L (137-145) mmol/L Potassium 4.2 (3.5-5.1) mmol/L Chloride 96 L (98-107) mmol/L Carbon Dioxide 36 H (22-30) mmol/L Anion Gap 7.3 (5-15) MEQ/L BUN 17 (7-17) mg/dL Creatinine 0.66 (0.52-1.04) mg/dL Estimated GFR > 60.0 ML/MIN Glucose 416 H (74-106) mg/dL POC Glucometer (74 to 106) mg/dL Lactic Acid (0.4-2.0) Calcium 8.9 (8.4-10.2) mg/dL Total Bilirubin 0.40 (0.2-1.3) mg/dL AST 16 (14-36) U/L ALT 13 (0-35) U/L Alkaline Phosphatase 100 (38-126) U/L Troponin (0.00-0.03) ng/mL Troponin I 0.026 (0.000-0.034) ng/mL NT-Pro-B Natriuret Pep 2430 H (0-900) pg/mL Serum Total Protein 6.5 (6.3-8.2) g/dL Albumin 3.9 (3.5-5.0) g/dL Urine Color (YELLOW) Urine Appearance (CLEAR) Urine pH (5-6) Ur Specific [place] (1.005-1.025) Urine Protein POC Urine Protein Conf (Negative) Urine Glucose (UA) Urine Ketones (NEGATIVE) Urine Blood Urine Nitrite (NEGATIVE) Urine Bilirubin (NEGATIVE) Urine Urobilinogen (0-1) mg/dL Ur Leukocyte Esterase Urine Leukocytes (NEGATIVE) U Hyaline Cast (Auto) (0-2) /LPF Urine RBC (0-5) Elver/ul Urine Microscopic RBC (0-5) /HPF Urine Microscopic WBC (0-5) /HPF Ur Epithelial Cells (None Seen) /HPF Urine Bacteria (None Seen) /HPF Ur Culture Indicated? Urine Culture Reflexed Urine Glucose (NEGATIVE) mg/dL Influenza Type A Ag (NEGATIVE) Influenza Type B Ag (NEGATIVE) RSV (PCR) (Negative) SARS-CoV-2 (PCR) (NEGATIVE) 03/26/22 03/26/22 03/26/22 Range/Units 21:21 21:30 22:11 WBC (4.0-10.5) x10^3/uL RBC (4.1-5.4) x10^6/uL Hgb (12.0-16.0) g/dL Hct (35-47) % MCV (78-100) fL MCH (26-32) pg MCHC (32-36) g/dL RDW (11.5-14.0) % Plt Count (150-450) x10^3/uL MPV (7.5-11.0) fL Gran % (36.0-66.0) % Immature Gran % (Auto) (0.00-0.4) % Nucleat RBC Rel Count (0.00-0.1) % Eos # (Auto) (0-0.5) x10^3/uL Immature Gran # (Auto) (0.00-0.03) x10^3u/L Absolute Lymphs (auto) (1.0-4.6) x10^3/uL Absolute Monos (auto) (0.0-1.3) x10^3/uL Absolute Nucleated RBC (0.00-0.01) x10^3u/L Lymphocytes % (24.0-44.0) % Monocytes % (0.0-12.0) % Eosinophils % (0.00-5.0) % Basophils % (0.0-0.4) % Absolute Granulocytes (1.4-6.9) x10^3/uL Basophils # (0-0.4) x10^3/uL Sodium (137-145) mmol/L Potassium (3.5-5.1) mmol/L Chloride (98-107) mmol/L Carbon Dioxide (22-30) mmol/L Anion Gap (5-15) MEQ/L BUN (7-17) mg/dL Creatinine (0.52-1.04) mg/dL Estimated GFR ML/MIN Glucose (74-106) mg/dL POC Glucometer (74 to 106) mg/dL Lactic Acid 1.2 (0.4-2.0) Calcium (8.4-10.2) mg/dL Total Bilirubin (0.2-1.3) mg/dL AST (14-36) U/L ALT (0-35) U/L Alkaline Phosphatase (38-126) U/L Troponin (0.00-0.03) ng/mL Troponin I (0.000-0.034) ng/mL NT-Pro-B Natriuret Pep (0-900) pg/mL Serum Total Protein (6.3-8.2) g/dL Albumin (3.5-5.0) g/dL Urine Color YELLOW (YELLOW) Urine Appearance CLEAR (CLEAR) Urine pH 6.0 (5-6) Ur Specific [place] 1.020 (1.005-1.025) Urine Protein Cancelled POC Urine Protein Conf 100 A (Negative) Urine Glucose (UA) Cancelled Urine Ketones NEGATIVE (NEGATIVE) Urine Blood Cancelled Urine Nitrite NEGATIVE (NEGATIVE) Urine Bilirubin NEGATIVE (NEGATIVE) Urine Urobilinogen 0.2 (0-1) mg/dL Ur Leukocyte Esterase Cancelled Urine Leukocytes NEGATIVE (NEGATIVE) U Hyaline Cast (Auto) NONE SEEN (0-2) /LPF Urine RBC TRACE-INTACT A (0-5) Elver/ul Urine Microscopic RBC 0-2 (0-5) /HPF Urine Microscopic WBC 3-5 (0-5) /HPF Ur Epithelial Cells None Seen (None Seen) /HPF Urine Bacteria None Seen (None Seen) /HPF Ur Culture Indicated? NO Urine Culture Reflexed Cancelled Urine Glucose 500 A (NEGATIVE) mg/dL Influenza Type A Ag NEGATIVE (NEGATIVE) Influenza Type B Ag NEGATIVE (NEGATIVE) RSV (PCR) NEGATIVE (Negative) SARS-CoV-2 (PCR) NEGATIVE (NEGATIVE) 03/26/22 03/27/22 03/27/22 Range/Units 23:57 00:26 02:45 WBC (4.0-10.5) x10^3/uL RBC (4.1-5.4) x10^6/uL Hgb (12.0-16.0) g/dL Hct (35-47) % MCV (78-100) fL MCH (26-32) pg MCHC (32-36) g/dL RDW (11.5-14.0) % Plt Count (150-450) x10^3/uL MPV (7.5-11.0) fL Gran % (36.0-66.0) % Immature Gran % (Auto) (0.00-0.4) % Nucleat RBC Rel Count (0.00-0.1) % Eos # (Auto) (0-0.5) x10^3/uL Immature Gran # (Auto) (0.00-0.03) x10^3u/L Absolute Lymphs (auto) (1.0-4.6) x10^3/uL Absolute Monos (auto) (0.0-1.3) x10^3/uL Absolute Nucleated RBC (0.00-0.01) x10^3u/L Lymphocytes % (24.0-44.0) % Monocytes % (0.0-12.0) % Eosinophils % (0.00-5.0) % Basophils % (0.0-0.4) % Absolute Granulocytes (1.4-6.9) x10^3/uL Basophils # (0-0.4) x10^3/uL Sodium (137-145) mmol/L Potassium (3.5-5.1) mmol/L Chloride (98-107) mmol/L Carbon Dioxide (22-30) mmol/L Anion Gap (5-15) MEQ/L BUN (7-17) mg/dL Creatinine (0.52-1.04) mg/dL Estimated GFR ML/MIN Glucose (74-106) mg/dL POC Glucometer 332 H 287 H (74 to 106) mg/dL Lactic Acid (0.4-2.0) Calcium (8.4-10.2) mg/dL Total Bilirubin (0.2-1.3) mg/dL AST (14-36) U/L ALT (0-35) U/L Alkaline Phosphatase (38-126) U/L Troponin 0.00 (0.00-0.03) ng/mL Troponin I (0.000-0.034) ng/mL NT-Pro-B Natriuret Pep (0-900) pg/mL Serum Total Protein (6.3-8.2) g/dL Albumin (3.5-5.0) g/dL Urine Color (YELLOW) Urine Appearance (CLEAR) Urine pH (5-6) Ur Specific [place] (1.005-1.025) Urine Protein POC Urine Protein Conf (Negative) Urine Glucose (UA) Urine Ketones (NEGATIVE) Urine Blood Urine Nitrite (NEGATIVE) Urine Bilirubin (NEGATIVE) Urine Urobilinogen (0-1) mg/dL Ur Leukocyte Esterase Urine Leukocytes (NEGATIVE) U Hyaline Cast (Auto) (0-2) /LPF Urine RBC (0-5) Elver/ul Urine Microscopic RBC (0-5) /HPF Urine Microscopic WBC (0-5) /HPF Ur Epithelial Cells (None Seen) /HPF Urine Bacteria (None Seen) /HPF Ur Culture Indicated? Urine Culture Reflexed Urine Glucose (NEGATIVE) mg/dL Influenza Type A Ag (NEGATIVE) Influenza Type B Ag (NEGATIVE) RSV (PCR) (Negative) SARS-CoV-2 (PCR) (NEGATIVE) 03/27/22 03/27/22 03/27/22 Range/Units 05:00 05:00 06:54 WBC 10.8 H (4.0-10.5) x10^3/uL RBC 4.62 (4.1-5.4) x10^6/uL Hgb 12.3 (12.0-16.0) g/dL Hct 39.4 (35-47) % MCV 85.3 (78-100) fL MCH 26.6 (26-32) pg MCHC 31.2 L (32-36) g/dL RDW 12.8 (11.5-14.0) % Plt Count 195 (150-450) x10^3/uL MPV 10.6 (7.5-11.0) fL Gran % (36.0-66.0) % Immature Gran % (Auto) (0.00-0.4) % Nucleat RBC Rel Count (0.00-0.1) % Eos # (Auto) (0-0.5) x10^3/uL Immature Gran # (Auto) (0.00-0.03) x10^3u/L Absolute Lymphs (auto) (1.0-4.6) x10^3/uL Absolute Monos (auto) (0.0-1.3) x10^3/uL Absolute Nucleated RBC (0.00-0.01) x10^3u/L Lymphocytes % (24.0-44.0) % Monocytes % (0.0-12.0) % Eosinophils % (0.00-5.0) % Basophils % (0.0-0.4) % Absolute Granulocytes (1.4-6.9) x10^3/uL Basophils # (0-0.4) x10^3/uL Sodium (137-145) mmol/L Potassium (3.5-5.1) mmol/L Chloride (98-107) mmol/L Carbon Dioxide (22-30) mmol/L Anion Gap (5-15) MEQ/L BUN (7-17) mg/dL Creatinine (0.52-1.04) mg/dL Estimated GFR ML/MIN Glucose (74-106) mg/dL POC Glucometer 299 H (74 to 106) mg/dL Lactic Acid (0.4-2.0) Calcium (8.4-10.2) mg/dL Total Bilirubin (0.2-1.3) mg/dL AST (14-36) U/L ALT (0-35) U/L Alkaline Phosphatase (38-126) U/L Troponin 0.03 (0.00-0.03) ng/mL Troponin I (0.000-0.034) ng/mL NT-Pro-B Natriuret Pep (0-900) pg/mL Serum Total Protein (6.3-8.2) g/dL Albumin (3.5-5.0) g/dL Urine Color (YELLOW) Urine Appearance (CLEAR) Urine pH (5-6) Ur Specific [place] (1.005-1.025) Urine Protein POC Urine Protein Conf (Negative) Urine Glucose (UA) Urine Ketones (NEGATIVE) Urine Blood Urine Nitrite (NEGATIVE) Urine Bilirubin (NEGATIVE) Urine Urobilinogen (0-1) mg/dL Ur Leukocyte Esterase Urine Leukocytes (NEGATIVE) U Hyaline Cast (Auto) (0-2) /LPF Urine RBC (0-5) Elver/ul Urine Microscopic RBC (0-5) /HPF Urine Microscopic WBC (0-5) /HPF Ur Epithelial Cells (None Seen) /HPF Urine Bacteria (None Seen) /HPF Ur Culture Indicated? Urine Culture Reflexed Urine Glucose (NEGATIVE) mg/dL Influenza Type A Ag (NEGATIVE) Influenza Type B Ag (NEGATIVE) RSV (PCR) (Negative) SARS-CoV-2 (PCR) (NEGATIVE) Accuchecks Date 03/27/22 Time 11:58 - Radiology Impressions Radiology Exams & Impressions: Radiology Procedures Category Date Time Status CHEST 1 VIEW (PORTABLE) Stat Exams 03/26/22 21:10 Taken - Other Procedures and Tests Respiratory Therapy 03/27/22 01:12 Oxygen Nasal Cannula 3 lpm Respiratory Therapy Assessment DAILY Assessment/Plan (1) CHF (congestive heart failure), NYHA class III Current Visit: Yes Status: Acute Qualifiers: Congestive heart failure type: combined Congestive heart failure chr onicity: acute on chronic Qualified Code(s): I50.43 - Acute on chronic combined systolic (congestive) and diastolic (congestive) heart failure Assessment & Plan: Chief Complaint Diagnosis COPD Allergies Allergy/AdvReac Type Severity Reaction Status Date / Time Sulfa (Sulfonamide Allergy Severe Anaphylactic Verified 03/26/22 21:08 Antibiotics) Reaction Vital Signs (Last 24 hours) Temp Pulse Resp BP Pulse Ox 03/27/22 04:00 97.5 F 93 H 23 136/63 99 03/27/22 01:18 109 H 18 98 03/27/22 00:37 97.4 F 99 H 178/88 98 03/27/22 00:34 96 03/26/22 23:40 98 03/26/22 23:00 99 H 12 178/88 99 03/26/22 22:33 94 H 20 99 03/26/22 22:00 100 H 20 157/91 99 03/26/22 21:12 99 03/26/22 21:00 100 H 22 97 03/26/22 20:57 97.4 F 111 H 24 172/89 98 Current Medications Generic Name Dose Route Start Last Admin Trade Name Freq PRN Reason Stop Dose Admin Albuterol Sulfate 2.5 mg 03/27/22 01:11 Albuterol Sulfate 2.5 Mg/3 Ml [facility] 04/26/22 01:10 Q4H PRN PRN SHORTNESS OF BREATH/WHEEZING Methylprednisolone Sodium 0 mg 03/27/22 00:34 03/27/22 06:16 Succinate 60 mg/ Sterile Water IV 04/26/22 00:33 60 mg 2 ml Q6HT LILA Administration Vancomycin HCl 1 gm in 200 mls @ 125 mls/hr 03/27/22 00:34 03/27/22 02:29 Vancomycin 1 Gram/200 Ml Bag IV 04/26/22 00:33 Not Given Q24H LILA Piperacillin Sod/Tazobactam 100 mls @ 200 mls/hr 03/27/22 00:34 03/27/22 06:16 Sod 3.375 gm/ Sodium Chloride IV 03/30/22 00:33 200 mls/hr Q6HT LILA Administration Discontinued Medications Generic Name Dose Route Start Last Admin Trade Name Freq PRN Reason Stop Dose Admin Albuterol Sulfate 2.5 mg 03/27/22 03:00 Albuterol Sulfate 2.5 Mg/3 Ml [facility] 04/26/22 02:59 Q4HRT [facility] Albuterol/Ipratropium 3 ml 03/26/22 21:23 03/26/22 22:33 Ipratropium/Albuterol Sulfate 3 Ml [facility] 03/26/22 21:24 3 ml STAT ONE Administration Albuterol/Ipratropium Confirm 03/26/22 22:07 Ipratropium/Albuterol Sulfate 3 Ml Ampul.[facility] Administered 03/26/22 22:08 Dose 3 ml .STK-MED ONE Methylprednisolone Sodium 0 mg 03/26/22 21:23 03/26/22 21:27 Succinate 125 mg/ Sterile IV 03/26/22 21:24 125 mg Water 2 ml STAT ONE Administration Furosemide 20 mg 03/26/22 23:29 03/26/22 23:40 Furosemide 20 Mg/Vial IV 03/26/22 23:30 20 mg ONCE STA Administration Furosemide Confirm 03/26/22 23:39 Furosemide 20 Mg/Vial Administered 03/26/22 23:40 Dose 20 mg .ROUTE .STK-MED ONE Vancomycin HCl 1 gm in 200 mls @ 125 mls/hr 03/26/22 23:04 03/26/22 23:50 Vancomycin 1 Gram/200 Ml Bag IV 03/27/22 00:39 125 mls/hr STAT ONE 125 mls/hr Administration Piperacillin Sod/Tazobactam 100 mls @ 200 mls/hr 03/26/22 23:05 03/26/22 23:12 Sod 3.375 gm/ Sodium Chloride IV 03/26/22 23:34 200 mls/hr STAT ONE Administration Sodium Chloride Confirm 03/26/22 23:10 Sodium Chloride 0.9% Administered 03/26/22 23:11 Dose 100 mls @ ud .ROUTE .STK-MED ONE Sodium Chloride Confirm 03/26/22 23:11 Sodium Chloride 100ml Mini-Bag Plus Administered 03/26/22 23:12 Dose 100 mls @ ud IV .STK-MED ONE Vancomycin HCl Confirm 03/26/22 23:47 Vancomycin 1 Gram/200 Ml Bag Administered 03/26/22 23:48 Dose 1 gm in 200 mls @ ud IV .STK-MED ONE Sodium Chloride Confirm 03/27/22 05:57 Sodium Chloride 100ml Mini-Bag Plus Administered 03/27/22 05:58 Dose 100 mls @ ud IV .STK-MED ONE Insulin Human Regular 4 unit 03/26/22 23:38 03/26/22 23:57 Insulin Regular, Human 1 Unit SQ 03/26/22 23:39 4 unit STAT ONE Administration Insulin Human Regular Confirm 03/26/22 23:55 Insulin Regular, Human 1 Unit Administered 03/26/22 23:56 Dose 4 unit .ROUTE .STK-MED ONE Methylprednisolone Sodium Succinate Confirm 03/26/22 21:25 Methylprednis Sod Succ 125 Mg/2 Ml Vial Administered 03/26/22 21:26 Dose 125 mg .ROUTE .STK-MED ONE Methylprednisolone Sodium Succinate Confirm 03/27/22 06:02 Methylprednis Sod Succ 125 Mg/2 Ml Vial Administered 03/27/22 06:03 Dose 125 mg .ROUTE .STK-MED ONE Piperacillin Sod/Tazobactam Sod Confirm 03/26/22 23:09 Piperacillin/Tazobactam Sodium 3.375 Gm Vial Administered 03/26/22 23:10 Dose 3.375 gm IV .STK-MED ONE Piperacillin Sod/Tazobactam Sod Confirm 03/27/22 06:02 Piperacillin/Tazobactam Sodium 3.375 Gm Vial Administered 03/27/22 06:03 Dose 3.375 gm IV .STK-MED ONE Sterile Water Confirm 03/26/22 21:25 Water For Injection,Sterile 10 Ml Vial Administered 03/26/22 21:26 Dose 10 ml IJ .STK-MED ONE Sterile Water Confirm 03/27/22 05:59 Water For Injection,Sterile 10 Ml Vial Administered 03/27/22 06:00 Dose 10 ml IJ .STK-MED ONE Intake & Output (Last 24 hours) 03/24/22 03/25/22 03/26/22 03/27/22 11:59 11:59 11:59 11:59 Intake Total 240 Output Total 900 Balance -660 Weight 66.3 kg Microbiology Results (Last 24 hours) 03/26/22 21:30 Blood Blood Culture Gram Stain - Pending 03/26/22 21:30 Blood Blood Culture - Pending 03/26/22 21:05 Blood Blood Culture Gram Stain - Pending 03/26/22 21:05 Blood Blood Culture - Pending Laboratory Results (Last 24 hours) 03/27/22 03/27/22 03/27/22 06:54 05:00 05:00 WBC 10.8 H RBC 4.62 Hgb 12.3 Hct 39.4 MCV 85.3 MCH 26.6 MCHC 31.2 L RDW 12.8 Plt Count 195 MPV 10.6 Gran % Immature Gran % (Auto) Nucleat RBC Rel Count Eos # (Auto) Immature Gran # (Auto) Absolute Lymphs (auto) Absolute Monos (auto) Absolute Nucleated RBC Lymphocytes % Monocytes % Eosinophils % Basophils % Absolute Granulocytes Basophils # Sodium Potassium Chloride Carbon Dioxide Anion Gap BUN Creatinine Estimated GFR Glucose POC Glucometer 299 H Lactic Acid Calcium Total Bilirubin AST ALT Alkaline Phosphatase Troponin 0.03 Troponin I NT-Pro-B Natriuret Pep Serum Total Protein Albumin Urine Color Urine Appearance Urine pH Ur Specific [place] Urine Protein POC Urine Protein Conf Urine Glucose (UA) Urine Ketones Urine Blood Urine Nitrite Urine Bilirubin Urine Urobilinogen Ur Leukocyte Esterase Urine Leukocytes U Hyaline Cast (Auto) Urine RBC Urine Microscopic RBC Urine Microscopic WBC Ur Epithelial Cells Urine Bacteria Ur Culture Indicated? Urine Culture Reflexed Urine Glucose Influenza Type A Ag Influenza Type B Ag RSV (PCR) SARS-CoV-2 (PCR) 03/27/22 03/27/22 03/26/22 02:45 00:26 23:57 WBC RBC Hgb Hct MCV MCH MCHC RDW Plt Count MPV Gran % Immature Gran % (Auto) Nucleat RBC Rel Count Eos # (Auto) Immature Gran # (Auto) Absolute Lymphs (auto) Absolute Monos (auto) Absolute Nucleated RBC Lymphocytes % Monocytes % Eosinophils % Basophils % Absolute Granulocytes Basophils # Sodium Potassium Chloride Carbon Dioxide Anion Gap BUN Creatinine Estimated GFR Glucose POC Glucometer 287 H 332 H Lactic Acid Calcium Total Bilirubin AST ALT Alkaline Phosphatase Troponin 0.00 Troponin I NT-Pro-B Natriuret Pep Serum Total Protein Albumin Urine Color Urine Appearance Urine pH Ur Specific [place] Urine Protein POC Urine Protein Conf Urine Glucose (UA) Urine Ketones Urine Blood Urine Nitrite Urine Bilirubin Urine Urobilinogen Ur Leukocyte Esterase Urine Leukocytes U Hyaline Cast (Auto) Urine RBC Urine Microscopic RBC Urine Microscopic WBC Ur Epithelial Cells Urine Bacteria Ur Culture Indicated? Urine Culture Reflexed Urine Glucose Influenza Type A Ag Influenza Type B Ag RSV (PCR) SARS-CoV-2 (PCR) 03/26/22 03/26/22 03/26/22 22:11 21:30 21:21 WBC RBC Hgb Hct MCV MCH MCHC RDW Plt Count MPV Gran % Immature Gran % (Auto) Nucleat RBC Rel Count Eos # (Auto) Immature Gran # (Auto) Absolute Lymphs (auto) Absolute Monos (auto) Absolute Nucleated RBC Lymphocytes % Monocytes % Eosinophils % Basophils % Absolute Granulocytes Basophils # Sodium Potassium Chloride Carbon Dioxide Anion Gap BUN Creatinine Estimated GFR Glucose POC Glucometer Lactic Acid 1.2 Calcium Total Bilirubin AST ALT Alkaline Phosphatase Troponin Troponin I NT-Pro-B Natriuret Pep Serum Total Protein Albumin Urine Color YELLOW Urine Appearance CLEAR Urine pH 6.0 Ur Specific [place] 1.020 Urine Protein Cancelled POC Urine Protein Conf 100 A Urine Glucose (UA) Cancelled Urine Ketones NEGATIVE Urine Blood Cancelled Urine Nitrite NEGATIVE Urine Bilirubin NEGATIVE Urine Urobilinogen 0.2 Ur Leukocyte Esterase Cancelled Urine Leukocytes NEGATIVE U Hyaline Cast (Auto) NONE SEEN Urine RBC TRACE-INTACT A Urine Microscopic RBC 0-2 Urine Microscopic WBC 3-5 Ur Epithelial Cells None Seen Urine Bacteria None Seen Ur Culture Indicated? NO Urine Culture Reflexed Cancelled Urine Glucose 500 A Influenza Type A Ag NEGATIVE Influenza Type B Ag NEGATIVE RSV (PCR) NEGATIVE SARS-CoV-2 (PCR) NEGATIVE 03/26/22 03/26/22 03/26/22 21:16 21:16 21:16 WBC 11.1 H RBC 4.53 Hgb 12.0 Hct 39.6 MCV 87.4 MCH 26.5 MCHC 30.3 L RDW 12.9 Plt Count 196 MPV 10.9 Gran % 81.4 H Immature Gran % (Auto) 0.6 H Nucleat RBC Rel Count 0.0 Eos # (Auto) 0.10 Immature Gran # (Auto) 0.07 H Absolute Lymphs (auto) 1.39 Absolute Monos (auto) 0.48 Absolute Nucleated RBC 0.00 Lymphocytes % 12.6 L Monocytes % 4.3 Eosinophils % 0.9 Basophils % 0.2 Absolute Granulocytes 9.01 H Basophils # 0.02 Sodium 136 L Potassium 4.2 Chloride 96 L Carbon Dioxide 36 H Anion Gap 7.3 BUN 17 Creatinine 0.66 Estimated GFR > 60.0 Glucose 416 H POC Glucometer Lactic Acid Calcium 8.9 Total Bilirubin 0.40 AST 16 ALT 13 Alkaline Phosphatase 100 Troponin Troponin I 0.026 NT-Pro-B Natriuret Pep 2430 H Serum Total Protein 6.5 Albumin 3.9 Urine Color Urine Appearance Urine pH Ur Specific [place] Urine Protein POC Urine Protein Conf Urine Glucose (UA) Urine Ketones Urine Blood Urine Nitrite Urine Bilirubin Urine Urobilinogen Ur Leukocyte Esterase Urine Leukocytes U Hyaline Cast (Auto) Urine RBC Urine Microscopic RBC Urine Microscopic WBC Ur Epithelial Cells Urine Bacteria Ur Culture Indicated? Urine Culture Reflexed Urine Glucose Influenza Type A Ag Influenza Type B Ag RSV (PCR) SARS-CoV-2 (PCR) Orders (Last 24 hours) Category Date Time Status Bedrest ROUTINE Activity 03/27/22 00:34 Active Radio Announcer STAT Care 03/26/22 21:11 Completed Code Status Order ROUTINE Care 03/27/22 00:34 Active EKG-ER Only STAT Care 03/26/22 21:10 Completed [facility] [Catheter-[place] [facility]] STAT Care 03/27/22 00:00 Completed IV Care Q6H Care 03/27/22 00:34 Active IV Insertion STAT Care 03/26/22 21:10 Completed Oxygen-ED Only Nasal Cannula 3 lpm Care 03/26/22 21:11 Completed POCT Glucose Check ACHS Care 03/27/22 01:[address] in Observation ROUTINE Care 03/27/22 00:34 Active Pulse Oximetry (ED) STAT Care 03/26/22 21:10 Completed Marija Arita ROUTINE Care 03/27/22 00:34 Active Telemetry q4h Care 03/27/22 00:34 Active Weight,Daily 0600 Care 03/27/22 00:34 Active Consistent Carbohydrate Diet 1800 Calorie Diet 03/27/22 Breakfast Active CHEST 1 VIEW (PORTABLE) Stat Exams 03/26/22 21:10 Taken BLOOD CULTURE Stat Lab 03/26/22 21:30 Received CBC AM.LAB Lab 03/27/22 05:00 Completed CBC W DIFF Stat Lab 03/26/22 21:16 Completed CMP AM.LAB Lab 03/27/22 05:00 Received CMP Stat Lab 03/26/22 21:16 Completed COVID/FLU/RSV Panel Stat Lab 03/26/22 21:30 Completed Lactic Acid Stat Lab 03/26/22 21:21 Completed NT PRO BNP Stat Lab 03/26/22 21:16 Completed POCT GLUCOSE Stat Lab 03/26/22 23:57 Completed POCT GLUCOSE Stat Lab 03/27/22 00:26 Completed POCT GLUCOSE Stat Lab 03/27/22 06:54 Completed TROPONIN Q4H Lab 03/26/22 21:16 Completed Albuterol 2.5 mg/3 ml Neb [Proventil 2.5 mg/3 ml Neb Med 03/27/22 01:11 Ordered ] 2.5 mg IH Q4H PRN PRN Albuterol 2.5 mg/3 ml Neb [Proventil 2.5 mg/3 ml Neb Med 03/27/22 03:00 Discontinued ] 2.5 mg IH Q4HRT Albuterol/Ipratropium 3ml Neb* [DUONEB 0.5-3 MG/3 ml Med 03/26/22 22:07 Discontinued Neb] 3 ml IH .STK-MED ONE Albuterol/Ipratropium 3ml Neb* [DUONEB 0.5-3 MG/3 ml Med 03/26/22 21:23 Discontinued Neb] 3 ml IH STAT ONE Furosemide 20 mg/2 ml [Lasix 20 MG/2 ML] Med 03/26/22 23:39 Discontinued 20 mg .ROUTE .STK-MED ONE Furosemide 20 mg/2 ml [Lasix 20 MG/2 ML] Med 03/26/22 23:29 Discontinued 20 mg IV ONCE STA Insulin Regular, Human [Humulin R] Med 03/26/22 23:55 Discontinued 4 unit .ROUTE .STK-MED ONE Insulin Regular, Human [Humulin R] Med 03/26/22 23:38 Discontinued 4 unit SQ STAT ONE Methylprednis Sod Succ 125 mg* [solu-MEDROL] Med 03/26/22 21:25 Discontinued 125 mg .ROUTE .STK-MED ONE Methylprednis Sod Succ 125 mg* [solu-MEDROL] Med 03/27/22 06:02 Discontinued 125 mg .ROUTE .STK-MED ONE Methylprednis Sod Succ 125 mg* [solu-MEDROL] 125 mg Med 03/26/22 21:23 Discontinued Water For Injection,Sterile [Sterile H2O 10 ml] 2 ml IV STAT Methylprednis Sod Succ 125 mg* [solu-MEDROL] 60 mg Med 03/27/22 00:34 Ordered Water For Injection,Sterile [Sterile H2O 10 ml] 2 ml IV Q6HT NaCl 0.9% 100 ml Mini-Bag Plus [Sodium Chloride 100ML Med 03/26/22 23:11 Discontinued MINI-BAG PLUS] 100 ml IV UD NaCl 0.9% 100 ml Mini-Bag Plus [Sodium Chloride 100ML Med 03/27/22 05:57 Discontinued MINI-BAG PLUS] 100 ml IV UD NaCl 0.9% [Sodium Chloride 0.9%] 100 ml Med 03/26/22 23:10 Discontinued .ROUTE UD Piperacillin/Tazobactam 3.375G [Piperacillin/Tazobactam Med 03/26/22 23:09 Discontinued ] 3.375 gm IV .STK-MED ONE Piperacillin/Tazobactam 3.375G [Piperacillin/Tazobactam Med 03/27/22 06:02 Discontinued ] 3.375 gm IV .STK-MED ONE Piperacillin/Tazobactam 3.375G [Piperacillin/Tazobactam Med 03/27/22 00:34 Ordered ] 3.375 gm NaCl 0.9% 100 ml Mini-Bag Plus [Sodium Chloride 100ML MINI-BAG PLUS] 100 ml IV Q6HT Piperacillin/Tazobactam 3.375G [Piperacillin/Tazobactam Med 03/26/22 23:05 Discontinued ] 3.375 gm NaCl 0.9% 100 ml Mini-Bag Plus [Sodium Chloride 100ML MINI-BAG PLUS] 100 ml IV STAT Vancomycin/Water For Inj (Peg) [Vancomycin 1 Gram/200 Med 03/27/22 00:34 Ordered ml Bag] 1 gm in 200 ml IV Q24H Vancomycin/Water For Inj (Peg) [Vancomycin 1 Gram/200 Med 03/26/22 23:04 Discontinued ml Bag] 1 gm in 200 ml IV STAT Vancomycin/Water For Inj (Peg) [Vancomycin 1 Gram/200 Med 03/26/22 23:47 Discontinued ml Bag] 1 gm in 200 ml IV UD Water For Injection,Sterile [Sterile H2O 10 ml] Med 03/26/22 21:25 Discontinued 10 ml IJ .STK-MED ONE Water For Injection,Sterile [Sterile H2O 10 ml] Med 03/27/22 05:59 Discontinued 10 ml IJ .STK-MED ONE Oxygen Nasal Cannula 3 lpm RT 03/27/22 01:12 Active Pulse Oximetry CONTINUOUS RT 03/27/22 00:34 Active Respiratory Therapy Assessment DAILY RT 03/26/22 22:33 Completed Respiratory Therapy Assessment DAILY RT 03/27/22 01:12 Active Code(s): I50.9 - HEART FAILURE, UNSPECIFIED (2) COPD exacerbation Current Visit: Yes Status: Acute Code(s): J44.1 - CHRONIC OBSTRUCTIVE PULMONARY DISEASE W (ACUTE) EXACERBATION (3) Elevated brain natriuretic peptide (BNP) level Current Visit: Yes Status: Acute Code(s): R79.89 - OTHER SPECIFIED ABNORMAL FINDINGS OF BLOOD CHEMISTRY (4) Type 2 diabetes mellitus Current Visit: No Status: Acute Qualifiers: Diabetes mellitus penitentiary insulin use: with penitentiary use Diabetes mellitus complication status: with hyperglycemia Qualified Code(s): E11.65 - Type 2 diabetes mellitus with hyperglycemia; Z79.4 - manager intermediate (current) use of insulin
--- NOTE | 2022-03-27 08:37 | XRAY ---
Indication: Short of breath. Comparison: February 21, 2022 Portable chest unchanged again inflated and clear. Heart not enlarged again with left pacemaker. Bony thorax intact again with osteopenia and mild degenerative changes. No new/acute findings.
[2022-03-27] MEDS ORDERED: HUMALOG SQ PRN (08:54)
[2022-03-27] MEDS: NYSTOP POWDER 15 GM TP SCH ×2 (09:57→21:01)
[2022-03-27] MEDS: Klor Con PO SCH (09:58)
[2022-03-27] MEDS: Zocor 10MG PO SCH (09:58)
[2022-03-27] MEDS: MONOPRIL PO SCH (09:59)
[2022-03-27] MEDS: SYNTHROID 100 MCG PO SCH (09:59)
[2022-03-27] MEDS ORDERED: NON-FORMULARY ITEM (Atorvastatin Calcium 10 MG Tablet) PO SCH (10:00)
[2022-03-27] MEDS ORDERED: NON-FORMULARY ITEM (Aspirin [Aspirin] 81 MG Tablet) PO SCH (10:00)
[2022-03-27] MEDS: NORVASC 5 MG PO SCH (10:00)
[2022-03-27] MEDS ORDERED: NON-FORMULARY ITEM (Amlodipine Besylate [Amlodipine Besylate] 2.5 MG Tablet) PO SCH (10:00)
[2022-03-27] MEDS: ECOTRIN 81 MG PO SCH (10:02)
[2022-03-27] MEDS: HUMALOG SQ PRN ×6 (11:19→21:00)
[2022-03-27] MEDS ORDERED: Novolin 70/30 SQ SCH (22:00)
[2022-03-28] MEDS: PIPERACILLIN/TAZOBACTAM 3.375 GM in Sodium Chloride 100ML MINI-BAG PLUS 100 ML IV SCH (05:35)
[2022-03-28] MEDS: solu-MEDROL 60 MG, Sterile H2O 10 ml 2 ML IV SCH ×2 (05:35)
[2022-03-28 06:59] VITALS: PULSE 77
[2022-03-28] MEDS: HUMALOG SQ PRN ×2 (07:28→11:43)
[2022-03-28] MEDS: MONOPRIL PO SCH (08:35)
[2022-03-28] MEDS: NORVASC 5 MG PO SCH (08:35)
[2022-03-28] MEDS: Zocor 10MG PO SCH (08:35)
[2022-03-28] MEDS: SYNTHROID 100 MCG PO SCH (08:35)
[2022-03-28] MEDS: NYSTOP POWDER 15 GM TP SCH (08:36)
[2022-03-28] MEDS: ECOTRIN 81 MG PO SCH (08:36)
[2022-03-28] MEDS: Klor Con PO SCH (08:36)
[2022-03-28] MEDS ORDERED: ZOFRAN ODT 4 MG PO PRN (08:44)
[2022-03-28] MEDS ORDERED: TYLENOL 325 MG PO PRN (09:04)
[2022-03-28] MEDS ORDERED: Docusate Sodium 100 MG PO SCH (10:00)
[2022-03-28 11:48] VITALS: BP 115/56; O2SAT 100
--- NOTE | 2022-03-28 12:25 | PCM.DS ---
Discharge Summary Date of Admission: 03/27/22 00:07 Admitting Physician: MIKAEL MEDINA Primary Care Provider: MIKAEL MEDINA Allergies Allergies Sulfa (Sulfonamide Antibiotics) Allergy (Severe, Verified 03/26/22 21:08) Anaphylactic Reaction swelling, trouble breathing Hospital Summary - Hospital Course Hospital Course: Chief Complaint Diagnosis shortness of breath for 2-3 days Allergies Allergy/AdvReac Type Severity Reaction Status Date / Time Sulfa (Sulfonamide Allergy Severe Anaphylactic Verified 03/26/22 21:08 Antibiotics) Reaction Vital Signs (Last 24 hours) Temp Pulse Resp BP Pulse Ox 03/28/22 11:47 97.3 F 77 18 115/56 100 03/28/22 06:56 77 16 97 03/28/22 06:33 97.3 F 65 16 138/64 99 03/28/22 04:00 97.1 F 67 16 148/65 99 03/27/22 23:45 97.3 F 78 23 123/59 97 03/27/22 19:53 97.3 F 78 23 123/59 97 03/27/22 18:15 76 20 99 03/27/22 15:55 96.6 F 71 18 137/64 96 Home Medications Medication Instructions Recorded Confirmed Last Taken Type Insulin NPH Hum/Reg Insulin Hm 50 units SQ HS 03/27/22 03/27/22 03/26/22 History [Relion Novolin 70-30 Vial] Nystatin Powder 15 gm [Nystop 60 gm TP BID 03/27/22 03/27/22 03/26/22 History Powder 15 gm] Acetaminophen 325 mg [Tylenol 650 mg PO Q4H PRN PRN tablet 03/28/22 Unknown Rx 325 mg] Albuterol 2.5 mg/3 ml Neb 2.5 mg IH Q4H PRN PRN 03/28/22 Unknown Rx [Proventil 2.5 mg/3 ml Neb] Cephalexin Mh 500 mg [Keflex 500 500 mg PO Q6H 7 Days #28 cap 03/28/22 Unknown Rx mg] Docusate Sodium 100 mg 100 mg PO BID cap 03/28/22 Unknown Rx [Docusate Sodium 100 MG] Ondansetron ODT 4 MG [Zofran 4 mg PO Q6H PRN PRN tablet 03/28/22 Unknown Rx Odt 4 mg] Current Medications Generic Name Dose Route Start Last Admin Trade Name Freq PRN Reason Stop Dose Admin Acetaminophen 650 mg 03/28/22 09:04 Acetaminophen 325 Mg Tablet PO 04/27/22 09:03 Q4H PRN PRN PAIN AND/OR FEVER Albuterol Sulfate 2.5 mg 03/27/22 01:11 Albuterol Sulfate 2.5 Mg/3 Ml Neb IH 04/26/22 01:10 Q4H PRN PRN SHORTNESS OF BREATH/WHEEZING Amlodipine Besylate 2.5 mg 03/27/22 10:00 03/28/22 08:35 Amlodipine Besylate 5 Mg Tablet PO 04/26/22 09:59 2.5 mg DAILY LILA Administration Aspirin 81 mg 03/27/22 10:00 03/28/22 08:36 Aspirin 81 Mg Tablet.Ec PO 04/26/22 09:59 81 mg DAILY LILA Administration Methylprednisolone Sodium 0 mg 03/27/22 18:00 03/28/22 05:35 Succinate 60 mg/ Sterile Water IV 04/26/22 17:59 60 mg 2 ml Q12H LILA Administration Docusate Sodium 100 mg 03/28/22 10:00 03/28/22 09:25 Docusate Sodium 100 Mg Capsule PO 04/27/22 09:59 Not Given BID LILA Fosinopril Sodium 10 mg 03/27/22 10:00 03/28/22 08:35 Fosinopril Sodium 10 Mg Tablet PO 04/26/22 09:59 10 mg DAILY LILA Administration Piperacillin Sod/Tazobactam 100 mls @ 200 mls/hr 03/27/22 00:34 03/28/22 05:35 Sod 3.375 gm/ Sodium Chloride IV 03/30/22 00:33 200 mls/hr Q6HT LILA Administration Insulin Human Isoph/Insulin Regular 50 unit 03/27/22 22:00 03/27/22 21:01 Insulin Nph/Reg 70/30 SQ 04/26/22 21:59 50 unit HS LILA Administration Insulin Human Lispro 0 unit 03/27/22 11:14 03/28/22 11:43 Insulin Lispro 1 Unit SQ 04/26/22 11:13 9 unit UD PRN Administration HYPERGLYCEMIA Levothyroxine Sodium 100 mcg 03/27/22 10:00 03/28/22 08:35 Levothyroxine Sodium 100 Mcg Tablet PO 04/26/22 09:59 100 mcg DAILY LILA Administration Nystatin 0 gm 03/27/22 10:00 03/28/22 08:36 Nystatin 15 Gm Powder TP 04/26/22 09:59 1 gm BID LILA Administration Ondansetron HCl 4 mg 03/28/22 08:44 Zofran 4 Mg/Udtablet Orally Disintegrating PO 04/27/22 08:43 Q6H PRN PRN NAUSEA/VOMITING Potassium Chloride 10 meq 03/27/22 10:00 03/28/22 08:36 Potassium Chloride Tab 10 Meq Tab PO 04/26/22 09:59 10 meq DAILY LILA Administration Simvastatin 10 mg 03/27/22 10:00 03/28/22 08:35 Simvastatin 10 Mg Tablet PO 04/26/22 09:59 10 mg DAILY LILA Administration Discontinued Medications Generic Name Dose Route Start Last Admin Trade Name Freq PRN Reason Stop Dose Admin Albuterol Sulfate 2.5 mg 03/27/22 03:00 Albuterol Sulfate 2.5 Mg/3 Ml Neb 04/26/22 02:59 Q4HRT LILA Albuterol/Ipratropium 3 ml 03/26/22 21:23 03/26/22 22:33 Ipratropium/Albuterol Sulfate 3 Ml Ampul.Neb 03/26/22 21:24 3 ml STAT ONE Administration Albuterol/Ipratropium Confirm 03/26/22 22:07 Ipratropium/Albuterol Sulfate 3 Ml Ampul.Neb Administered 03/26/22 22:08 Dose 3 ml IH .STK-MED ONE Methylprednisolone Sodium 0 mg 03/26/22 21:23 03/26/22 21:27 Succinate 125 mg/ Sterile IV 03/26/22 21:24 125 mg Water 2 ml STAT ONE Administration Methylprednisolone Sodium 0 mg 03/27/22 00:34 03/27/22 12:48 Succinate 60 mg/ Sterile Water IV 04/26/22 00:33 Not Given 2 ml Q6HT LILA Furosemide 20 mg 03/26/22 23:29 03/26/22 23:40 Furosemide 20 Mg/Vial IV 03/26/22 23:30 20 mg ONCE STA Administration Furosemide Confirm 03/26/22 23:39 Furosemide 20 Mg/Vial Administered 03/26/22 23:40 Dose 20 mg .ROUTE .STK-MED ONE Vancomycin HCl 1 gm in 200 mls @ 125 mls/hr 03/26/22 23:04 03/26/22 23:50 Vancomycin 1 Gram/200 Ml Bag IV 03/27/22 00:39 125 mls/hr STAT ONE 125 mls/hr Administration Piperacillin Sod/Tazobactam 100 mls @ 200 mls/hr 03/26/22 23:05 03/26/22 23:12 Sod 3.375 gm/ Sodium Chloride IV 03/26/22 23:34 200 mls/hr STAT ONE Administration Sodium Chloride Confirm 03/26/22 23:10 Sodium Chloride 0.9% Administered 03/26/22 23:11 Dose 100 mls @ ud .ROUTE .STK-MED ONE Sodium Chloride Confirm 03/26/22 23:11 Sodium Chloride 100ml Mini-Bag Plus Administered 03/26/22 23:12 Dose 100 mls @ ud IV .STK-MED ONE Vancomycin HCl Confirm 03/26/22 23:47 Vancomycin 1 Gram/200 Ml Bag Administered 03/26/22 23:48 Dose 1 gm in 200 mls @ ud IV .STK-MED ONE Vancomycin HCl 1 gm in 200 mls @ 125 mls/hr 03/27/22 00:34 03/27/22 02:29 Vancomycin 1 Gram/200 Ml Bag IV 04/26/22 00:33 Not Given Q24H LILA Sodium Chloride Confirm 03/27/22 05:57 Sodium Chloride 100ml Mini-Bag Plus Administered 03/27/22 05:58 Dose 100 mls @ ud IV .STK-MED ONE Insulin Human Lispro 0 unit 03/27/22 08:54 03/27/22 09:05 Insulin Lispro 1 Unit SQ 04/26/22 08:53 4 unit UD PRN Administration HYPERGLYCEMIA Insulin Human Regular 4 unit 03/26/22 23:38 03/26/22 23:57 Insulin Regular, Human 1 Unit SQ 03/26/22 23:39 4 unit STAT ONE Administration Insulin Human Regular Confirm 03/26/22 23:55 Insulin Regular, Human 1 Unit Administered 03/26/22 23:56 Dose 4 unit .ROUTE .STK-MED ONE Methylprednisolone Sodium Succinate Confirm 03/26/22 21:25 Methylprednis Sod Succ 125 Mg/2 Ml Vial Administered 03/26/22 21:26 Dose 125 mg .ROUTE .STK-MED ONE Methylprednisolone Sodium Succinate Confirm 03/27/22 06:02 Methylprednis Sod Succ 125 Mg/2 Ml Vial Administered 03/27/22 06:03 Dose 125 mg .ROUTE .STK-MED ONE Piperacillin Sod/Tazobactam Sod Confirm 03/26/22 23:09 Piperacillin/Tazobactam Sodium 3.375 Gm Vial Administered 03/26/22 23:10 Dose 3.375 gm IV .STK-MED ONE Piperacillin Sod/Tazobactam Sod Confirm 03/27/22 06:02 Piperacillin/Tazobactam Sodium 3.375 Gm Vial Administered 03/27/22 06:03 Dose 3.375 gm IV .STK-MED ONE Sterile Water Confirm 03/26/22 21:25 Water For Injection,Sterile 10 Ml Vial Administered 03/26/22 21:26 Dose 10 ml IJ .STK-MED ONE Sterile Water Confirm 03/27/22 05:59 Water For Injection,Sterile 10 Ml Vial Administered 03/27/22 06:00 Dose 10 ml IJ .STK-MED ONE Intake & Output (Last 24 hours) 03/26/22 03/27/22 03/28/22 03/29/22 11:59 11:59 11:59 11:59 Intake Total 480 1880 240 Output Total 900 1300 Balance -420 580 240 Weight 66.3 kg Microbiology Results (Last 24 hours) 03/26/22 21:30 Blood Blood Culture Gram Stain - Pending 03/26/22 21:30 Blood Blood Culture - Preliminary NO GROWTH TO DATE 03/26/22 21:05 Blood Blood Culture Gram Stain - Pending 03/26/22 21:05 Blood Blood Culture - Preliminary NO GROWTH TO DATE Laboratory Results (Last 24 hours) 03/28/22 03/28/22 03/27/22 11:16 05:58 20:23 POC Glucometer 367 H 234 H 236 H 03/27/22 03/27/22 03/27/22 16:34 15:30 13:28 POC Glucometer 349 H 403 H 492 H 03/27/22 12:30 POC Glucometer 531 H* Orders (Last 24 hours) Category Date Time Status Discharge Routine Discharge 03/28/22 Ordered POCT GLUCOSE Stat Lab 03/27/22 12:30 Completed POCT GLUCOSE Stat Lab 03/27/22 13:28 Completed POCT GLUCOSE Stat Lab 03/27/22 15:30 Completed POCT GLUCOSE Stat Lab 03/27/22 16:34 Completed POCT GLUCOSE Stat Lab 03/27/22 20:23 Completed POCT GLUCOSE Stat Lab 03/28/22 05:58 Completed POCT GLUCOSE Stat Lab 03/28/22 11:16 Completed Acetaminophen 325 mg [Tylenol 325 mg] Med 03/28/22 09:04 Active 650 mg PO Q4H PRN PRN Docusate Sodium 100 mg [Docusate Sodium 100 MG] Med 03/28/22 10:00 Active 100 mg PO BID Insulin NPH/Reg 70/30 [Novolin 70/30] Med 03/27/22 22:00 Active 50 unit SQ HS Methylprednis Sod Succ 125 mg* [solu-MEDROL] 60 mg Med 03/27/22 18:00 Active Water For Injection,Sterile [Sterile H2O 10 ml] 2 ml IV Q12H Ondansetron ODT 4 MG [Zofran Odt 4 mg] Med 03/28/22 08:44 Active 4 mg PO Q6H PRN PRN Patient Care Notes (Last 24 hours) 03/28/22 11:00 (created 03/28/22 12:08) Case Management Note by Ibeth Jaramillo S/W PATIENT THIS AM- SHE WAS NOTIFIED THAT [facility] ACCEPTED HER AND SHE WILL TRANSITION THERE TODAY. PATIENT VERIFIED UNDERSTANDING AND IS AGREEABLE. SHE STATED SHE WOULD NOTIFY HER SON. Initialized on 03/28/22 12:08 - END OF NOTE 03/28/22 09:49 Nursing Note by Masha Meneses dr updated by phone, orders given to transfer to [facility]. Initialized on 03/28/22 09:49 - END OF NOTE 03/28/22 08:29 Case Management Note by Ibeth Jaramillo [facility] PATIENT AND WILL BE READY FOR PATIENT TODAY Initialized on 03/28/22 08:29 - END OF NOTE - Vitals & Intake/Output Vital Signs: Vital Signs Temperature 97.3 F 03/28/22 11:47 Pulse Rate 77 03/28/22 11:47 Respiratory Rate 18 03/28/22 11:47 Blood Pressure 115/56 03/28/22 11:47 O2 Sat by Pulse Oximetry 100 03/28/22 11:47 Intake & Output: Intake & Output 03/26/22 03/27/22 03/28/22 03/29/22 11:59 11:59 11:59 11:59 Intake Total 480 1880 240 Output Total 900 1300 Balance -420 580 240 Weight 66.3 kg - Lab Result Diagrams: 03/27/22 05:00 03/26/22 21:16 Lab Results-Last 24 Hrs: Lab Results-Last 24 Hours 03/27/22 03/27/22 03/27/22 Range/Units 12:30 13:28 15:30 POC Glucometer 531 H* 492 H 403 H (50 to 500) mg/dL 03/27/22 03/27/22 03/28/22 Range/Units 16:34 20:23 05:58 POC Glucometer 349 H 236 H 234 H (50 to 500) mg/dL 03/28/22 Range/Units 11:16 POC Glucometer 367 H (50 to 500) mg/dL Micro Results-Entire Visit: Microbiology 03/26/22 21:30 Blood Culture - Preliminary Blood NO GROWTH TO DATE 03/26/22 21:05 Blood Culture - Preliminary Blood NO GROWTH TO DATE Accuchecks Date 03/28/22 Date 03/28/22 Date 03/28/22 Date 03/27/22 Date 03/27/22 - Radiology Exams Ordered Rad Exams-Entire Visit: Radiology Procedures Category Date Time Status CHEST 1 VIEW (PORTABLE) Stat Exams 03/26/22 21:10 Completed - Procedures and Test Procedures and Tests throughout Hospitalization: Therapy Orders & Screens 03/26/22 22:33 Respiratory Therapy Assessment DAILY Comment: 03/27/22 01:12 Oxygen Nasal Cannula 3 lpm Comment: Diagnosis: COPD Respiratory Therapy Assessment DAILY Comment: Diagnosis: COPD Discharge Exam General Appearance: no apparent distress, alert Neurologic Exam: alert, oriented x 3, cooperative, normal mood/affect, nml cerebellar function, sensation nml, No motor deficits Eye Exam: PERRL, EOMI, eyes nml inspection Ears, Nose, Throat Exam: normal ENT inspection, pharynx normal, moist mucous membranes Neck Exam: normal inspection, non-tender, supple, full range of motion Respiratory Exam: normal breath sounds, lungs clear, No respiratory distress Cardiovascular Exam: regular rate/rhythm, normal heart sounds Gastrointestinal/Abdomen Exam: soft, No tenderness, No mass Pelvic Exam: deferred Rectal Exam: deferred Back Exam: normal inspection, normal range of motion, No CVA tenderness, No vertebral tenderness Extremity Exam: normal inspection, normal range of motion Skin Exam: normal color, warm, dry Wound Assessment: Skin/Wound Assessment Wound/Incision Assessment Start: 03/27/22 00:56 Text: Status: Active Freq: Q6H Protocol: Document 03/28/22 07:37 MILLIE (Rec: 03/28/22 07:37 MILLIE [id number]) Wound/Incision Assessment Left Other Wound Assessment Shift Assessment Wound Type excoriation Wound Stage Non Pressure Wound Wound Bed Greatest Portion Red (Granulation) Surrounding Tissue [place] Wound Photo Photo Taken No Final Diagnosis/Problem List - Final Discharge Diagnosis/Problem (1) CHF (congestive heart failure), NYHA class III Current Visit: Yes Status: Acute Assessment & Plan: Chief Complaint Diagnosis shortness of breath for 2-3 days Allergies Allergy/AdvReac Type Severity Reaction Status Date / Time Sulfa (Sulfonamide Allergy Severe Anaphylactic Verified 03/26/22 21:08 Antibiotics) Reaction Vital Signs (Last 24 hours) Temp Pulse Resp BP Pulse Ox 03/28/22 11:47 97.3 F 77 18 115/56 100 03/28/22 06:56 77 16 97 03/28/22 06:33 97.3 F 65 16 138/64 99 03/28/22 04:00 97.1 F 67 16 148/65 99 03/27/22 23:45 97.3 F 78 23 123/59 97 03/27/22 19:53 97.3 F 78 23 123/59 97 03/27/22 18:15 76 20 99 03/27/22 15:55 96.6 F 71 18 137/64 96 Home Medications Medication Instructions Recorded Confirmed Last Taken Type Insulin NPH Hum/Reg Insulin Hm 50 units SQ HS 03/27/22 03/27/22 03/26/22 History [Relion Novolin 70-30 Vial] Nystatin Powder 15 gm [Nystop 60 gm TP BID 03/27/22 03/27/22 03/26/22 History Powder 15 gm] Acetaminophen 325 mg [Tylenol 650 mg PO Q4H PRN PRN tablet 03/28/22 Unknown Rx 325 mg] Albuterol 2.5 mg/3 ml Neb 2.5 mg IH Q4H PRN PRN 03/28/22 Unknown Rx [Proventil 2.5 mg/3 ml Neb] Cephalexin Mh 500 mg [Keflex 500 500 mg PO Q6H 7 Days #28 cap 03/28/22 Unknown Rx mg] Docusate Sodium 100 mg 100 mg PO BID cap 03/28/22 Unknown Rx [Docusate Sodium 100 MG] Ondansetron ODT 4 MG [Zofran 4 mg PO Q6H PRN PRN tablet 03/28/22 Unknown Rx Odt 4 mg] Current Medications Generic Name Dose Route Start Last Admin Trade Name Freq PRN Reason Stop Dose Admin Acetaminophen 650 mg 03/28/22 09:04 Acetaminophen 325 Mg Tablet PO 04/27/22 09:03 Q4H PRN PRN PAIN AND/OR FEVER Albuterol Sulfate 2.5 mg 03/27/22 01:11 Albuterol Sulfate 2.5 Mg/3 Ml Neb 04/26/22 01:10 Q4H PRN PRN SHORTNESS OF BREATH/WHEEZING Amlodipine Besylate 2.5 mg 03/27/22 10:00 03/28/22 08:35 Amlodipine Besylate 5 Mg Tablet PO 04/26/22 09:59 2.5 mg DAILY LILA Administration Aspirin 81 mg 03/27/22 10:00 03/28/22 08:36 Aspirin 81 Mg Tablet.Ec PO 04/26/22 09:59 81 mg DAILY LILA Administration Methylprednisolone Sodium 0 mg 03/27/22 18:00 03/28/22 05:35 Succinate 60 mg/ Sterile Water IV 04/26/22 17:59 60 mg 2 ml Q12H LILA Administration Docusate Sodium 100 mg 03/28/22 10:00 03/28/22 09:25 Docusate Sodium 100 Mg Capsule PO 04/27/22 09:59 Not Given BID LILA Fosinopril Sodium 10 mg 03/27/22 10:00 03/28/22 08:35 Fosinopril Sodium 10 Mg Tablet PO 04/26/22 09:59 10 mg DAILY LILA Administration Piperacillin Sod/Tazobactam 100 mls @ 200 mls/hr 03/27/22 00:34 03/28/22 05:35 Sod 3.375 gm/ Sodium Chloride IV 03/30/22 00:33 200 mls/hr Q6HT LILA Administration Insulin Human Isoph/Insulin Regular 50 unit 03/27/22 22:00 03/27/22 21:01 Insulin Nph/Reg 70/30 SQ 04/26/22 21:59 50 unit HS LILA Administration Insulin Human Lispro 0 unit 03/27/22 11:14 03/28/22 11:43 Insulin Lispro 1 Unit SQ 04/26/22 11:13 9 unit UD PRN Administration HYPERGLYCEMIA Levothyroxine Sodium 100 mcg 03/27/22 10:00 03/28/22 08:35 Levothyroxine Sodium 100 Mcg Tablet PO 04/26/22 09:59 100 mcg DAILY LILA Administration Nystatin 0 gm 03/27/22 10:00 03/28/22 08:36 Nystatin 15 Gm Powder TP 04/26/22 09:59 1 gm BID LILA Administration Ondansetron HCl 4 mg 03/28/22 08:44 Zofran 4 Mg/Udtablet Orally Disintegrating PO 04/27/22 08:43 Q6H PRN PRN NAUSEA/VOMITING Potassium Chloride 10 meq 03/27/22 10:00 03/28/22 08:36 Potassium Chloride Tab 10 Meq Tab PO 04/26/22 09:59 10 meq DAILY LILA Administration Simvastatin 10 mg 03/27/22 10:00 03/28/22 08:35 Simvastatin 10 Mg Tablet PO 04/26/22 09:59 10 mg DAILY LILA Administration Discontinued Medications Generic Name Dose Route Start Last Admin Trade Name Freq PRN Reason Stop Dose Admin Albuterol Sulfate 2.5 mg 03/27/22 03:00 Albuterol Sulfate 2.5 Mg/3 Ml Neb 04/26/22 02:59 Q4HRT [facility] Albuterol/Ipratropium 3 ml 03/26/22 21:23 03/26/22 22:33 Ipratropium/Albuterol Sulfate 3 Ml Ampul.Neb 03/26/22 21:24 3 ml STAT ONE Administration Albuterol/Ipratropium Confirm 03/26/22 22:07 Ipratropium/Albuterol Sulfate 3 Ml Ampul.Neb Administered 03/26/22 22:08 Dose 3 ml IH .STK-MED ONE Methylprednisolone Sodium 0 mg 03/26/22 21:23 03/26/22 21:27 Succinate 125 mg/ Sterile IV 03/26/22 21:24 125 mg Water 2 ml STAT ONE Administration Methylprednisolone Sodium 0 mg 03/27/22 00:34 03/27/22 12:48 Succinate 60 mg/ Sterile Water IV 04/26/22 00:33 Not Given 2 ml Q6HT LILA Furosemide 20 mg 03/26/22 23:29 03/26/22 23:40 Furosemide 20 Mg/Vial IV 03/26/22 23:30 20 mg ONCE STA Administration Furosemide Confirm 03/26/22 23:39 Furosemide 20 Mg/Vial Administered 03/26/22 23:40 Dose 20 mg .ROUTE .STK-MED ONE Vancomycin HCl 1 gm in 200 mls @ 125 mls/hr 03/26/22 23:04 03/26/22 23:50 Vancomycin 1 Gram/200 Ml Bag IV 03/27/22 00:39 125 mls/hr STAT ONE 125 mls/hr Administration Piperacillin Sod/Tazobactam 100 mls @ 200 mls/hr 03/26/22 23:05 03/26/22 23:12 Sod 3.375 gm/ Sodium Chloride IV 03/26/22 23:34 200 mls/hr STAT ONE Administration Sodium Chloride Confirm 03/26/22 23:10 Sodium Chloride 0.9% Administered 03/26/22 23:11 Dose 100 mls @ ud .ROUTE .STK-MED ONE Sodium Chloride Confirm 03/26/22 23:11 Sodium Chloride 100ml Mini-Bag Plus Administered 03/26/22 23:12 Dose 100 mls @ ud IV .STK-MED ONE Vancomycin HCl Confirm 03/26/22 23:47 Vancomycin 1 Gram/200 Ml Bag Administered 03/26/22 23:48 Dose 1 gm in 200 mls @ ud IV .STK-MED ONE Vancomycin HCl 1 gm in 200 mls @ 125 mls/hr 03/27/22 00:34 03/27/22 02:29 Vancomycin 1 Gram/200 Ml Bag IV 04/26/22 00:33 Not Given Q24H LILA Sodium Chloride Confirm 03/27/22 05:57 Sodium Chloride 100ml Mini-Bag Plus Administered 03/27/22 05:58 Dose 100 mls @ ud IV .STK-MED ONE Insulin Human Lispro 0 unit 03/27/22 08:54 03/27/22 09:05 Insulin Lispro 1 Unit SQ 04/26/22 08:53 4 unit UD PRN Administration HYPERGLYCEMIA Insulin Human Regular 4 unit 03/26/22 23:38 03/26/22 23:57 Insulin Regular, Human 1 Unit SQ 03/26/22 23:39 4 unit STAT ONE Administration Insulin Human Regular Confirm 03/26/22 23:55 Insulin Regular, Human 1 Unit Administered 03/26/22 23:56 Dose 4 unit .ROUTE .STK-MED ONE Methylprednisolone Sodium Succinate Confirm 03/26/22 21:25 Methylprednis Sod Succ 125 Mg/2 Ml Vial Administered 03/26/22 21:26 Dose 125 mg .ROUTE .STK-MED ONE Methylprednisolone Sodium Succinate Confirm 03/27/22 06:02 Methylprednis Sod Succ 125 Mg/2 Ml Vial Administered 03/27/22 06:03 Dose 125 mg .ROUTE .STK-MED ONE Piperacillin Sod/Tazobactam Sod Confirm 03/26/22 23:09 Piperacillin/Tazobactam Sodium 3.375 Gm Vial Administered 03/26/22 23:10 Dose 3.375 gm IV .STK-MED ONE Piperacillin Sod/Tazobactam Sod Confirm 03/27/22 06:02 Piperacillin/Tazobactam Sodium 3.375 Gm Vial Administered 03/27/22 06:03 Dose 3.375 gm IV .STK-MED ONE Sterile Water Confirm 03/26/22 21:25 Water For Injection,Sterile 10 Ml Vial Administered 03/26/22 21:26 Dose 10 ml IJ .STK-MED ONE Sterile Water Confirm 03/27/22 05:59 Water For Injection,Sterile 10 Ml Vial Administered 03/27/22 06:00 Dose 10 ml IJ .STK-MED ONE Intake & Output (Last 24 hours) 03/26/22 03/27/22 03/28/22 03/29/22 11:59 11:59 11:59 11:59 Intake Total 480 1880 240 Output Total 900 1300 Balance -420 580 240 Weight 66.3 kg Microbiology Results (Last 24 hours) 03/26/22 21:30 Blood Blood Culture Gram Stain - Pending 03/26/22 21:30 Blood Blood Culture - Preliminary NO GROWTH TO DATE 03/26/22 21:05 Blood Blood Culture Gram Stain - Pending 03/26/22 21:05 Blood Blood Culture - Preliminary NO GROWTH TO DATE Laboratory Results (Last 24 hours) 03/28/22 03/28/22 03/27/22 11:16 05:58 20:23 POC Glucometer 367 H 234 H 236 H 03/27/22 03/27/22 03/27/22 16:34 15:30 13:28 POC Glucometer 349 H 403 H 492 H 03/27/22 12:30 POC Glucometer 531 H* Orders (Last 24 hours) Category Date Time Status Discharge Routine Discharge 03/28/22 Ordered POCT GLUCOSE Stat Lab 03/27/22 12:30 Completed POCT GLUCOSE Stat Lab 03/27/22 13:28 Completed POCT GLUCOSE Stat Lab 03/27/22 15:30 Completed POCT GLUCOSE Stat Lab 03/27/22 16:34 Completed POCT GLUCOSE Stat Lab 03/27/22 20:23 Completed POCT GLUCOSE Stat Lab 03/28/22 05:58 Completed POCT GLUCOSE Stat Lab 03/28/22 11:16 Completed Acetaminophen 325 mg [Tylenol 325 mg] Med 03/28/22 09:04 Active 650 mg PO Q4H PRN PRN Docusate Sodium 100 mg [Docusate Sodium 100 MG] Med 03/28/22 10:00 Active 100 mg PO BID Insulin NPH/Reg 70/30 [Novolin 70/30] Med 03/27/22 22:00 Active 50 unit SQ HS Methylprednis Sod Succ 125 mg* [solu-MEDROL] 60 mg Med 03/27/22 18:00 Active Water For Injection,Sterile [Sterile H2O 10 ml] 2 ml IV Q12H Ondansetron ODT 4 MG [Zofran Odt 4 mg] Med 03/28/22 08:44 Active 4 mg PO Q6H PRN PRN Patient Care Notes (Last 24 hours) 03/28/22 11:00 (created 03/28/22 12:08) Case Management Note by Ibeth Jaramillo S/W PATIENT THIS AM- SHE WAS NOTIFIED THAT [facility] HAS ACCEPTED HER AND SHE WILL TRANSITION THERE TODAY. PATIENT VERIFIED UNDERSTANDING AND IS AGREEABLE. SHE STATED SHE WOULD NOTIFY HER SON. Initialized on 03/28/22 12:08 - END OF NOTE 03/28/22 09:49 Nursing Note by Masha Meneses dr updated by phone, orders given to transfer to [facility]. Initialized on 03/28/22 09:49 - END OF NOTE 03/28/22 08:29 Case Management Note by Ibeth Jaramillo [facility] PATIENT AND WILL BE READY FOR PATIENT TODAY Initialized on 03/28/22 08:29 - END OF NOTE Code(s): I50.9 - HEART FAILURE, UNSPECIFIED (2) COPD exacerbation Current Visit: Yes Status: Acute Code(s): J44.1 - CHRONIC OBSTRUCTIVE PULMONARY DISEASE W (ACUTE) EXACERBATION (3) Elevated brain natriuretic peptide (BNP) level Current Visit: Yes Status: Acute Code(s): R79.89 - OTHER SPECIFIED ABNORMAL FINDINGS OF BLOOD CHEMISTRY (4) Type 2 diabetes mellitus Current Visit: No Status: Acute - Discharge Discharge Date: 03/28/22 Disposition: DC TO ANY "OTHER" [facility] Condition: Stable Prescriptions: New Cephalexin Mh 500 mg [Keflex 500 mg] 500 mg PO Q6H 7 Days #28 cap Albuterol 2.5 mg/3 ml Neb [Proventil 2.5 mg/3 ml Neb] 2.5 mg IH Q4H PRN PRN PRN Reason: Shortness Of Breath/Wheezing Acetaminophen 325 mg [Tylenol 325 mg] 650 mg PO Q4H PRN PRN tablet PRN Reason: Pain And/Or Fever Ondansetron ODT 4 MG [Zofran Odt 4 mg] 4 mg PO Q6H PRN PRN tablet PRN Reason: Nausea/Vomiting Docusate Sodium 100 mg [Docusate Sodium 100 MG] 100 mg PO BID cap Continue Fosinopril Sodium [monoPRIL] 10 mg PO DAILY Amlodipine Besylate 2.5 mg PO DAILY Aspirin 81 mg PO DAILY Levothyroxine Sodium 100 Mcg [Synthroid 100 Mcg] 100 mcg PO DAILY Potassium Chloride Tab* [Klor Con] 10 meq PO DAILY Atorvastatin Calcium [Lipitor] 10 mg PO DAILY Insulin NPH Hum/Reg Insulin Hm [Relion Novolin 70-30 Vial] 50 units SQ HS Nystatin Powder 15 gm [Nystop Powder 15 gm] 60 gm TP BID Additional Instructions: ENVIVE [facility] ORDERS: -PT/OT EVAL AND TREAT -O2 @ 3L NC AT ALL TIMES -JOVEL CATHETER CARE PER PROTOCOL -ACCUCHECKS ACHS -DIABETIC DIET -SEE ATTACHED MEDICATION LIST FOR MEDICATION ORDERS. Follow up with: MIKAEL MEDINA MD [Primary Care Provider] -
== END 2022-03-28 12:16 ==
LOC: ED 20:53 → MED SURG 03-27 00:07
PROVIDERS: ADMIT General Practice; ATTEND General Practice
DX: I50.9 Heart failure, unspecified (principal); J44.1 Chronic obstructive pulmonary disease with (acute) exacerbation; R79.89 Other specified abnormal findings of blood chemistry; E11.9 Type 2 diabetes mellitus without complications; T14.8XXA Other injury of unspecified body region, initial encounter; I51.9 Heart disease, unspecified; Z79.899 Other long term (current) drug therapy; Z20.828 Contact with and (suspected) exposure to other viral communicable diseases; Z99.81 Dependence on supplemental oxygen; Z79.4 Long term (current) use of insulin
CPT/HCPCS: 0241U; 36000; 36415; 51702; 71045; 80053; 81015; 82947; 83605; 83880; 84484; 85025; 85027; 87040; 93005; 93041; 94640; 94760; 94762; 96365; 96367; 96372; 96374; 96375; 99285; G0378; J1815; J1817; J1940; J2930; A9270-GY; J3370

== ENCOUNTER 2022-04-24 11:13 | Emergency (ER) | payer MEDICARE ==
[2022-04-24] MEDS ORDERED: BABY ASPIRIN 81 MG CHEW ONE (11:30)
[2022-04-24] MEDS ORDERED: Sterile H2O 10 ml IJ ONE (11:30)
[2022-04-24] MEDS ORDERED: solu-MEDROL ONE (11:31)
[2022-04-24] MEDS: solu-MEDROL 125 MG, Sterile H2O 10 ml 2 ML IV ONE ×2 (11:33)
[2022-04-24] MEDS: BABY ASPIRIN 81 MG CHEW PO ONE (11:35)
[2022-04-24] MEDS ORDERED: DUONEB 0.5-3 MG/3 ml Neb IH ONE (11:36)
[2022-04-24] MEDS: DUONEB 0.5-3 MG/3 ml Neb IH ONE (11:39)
--- NOTE | 2022-04-24 11:46 | XRAY ---
Indication: Short of breath. CHF. Comparison: March 26, 2022 Portable chest remains inflated and clear. Heart not enlarged again with left pacemaker. No new/acute cardiopulmonary abnormalities.
[2022-04-24 11:47] LABS: BASOPHIL % 0.2 % (0.0-0.4); Basophil (Absolute #) 0.02 x10^3/uL (0-0.4); Eosinophil % 0.7 % (0.00-5.0); Eosinophil (Absolute #) 0.07 x10^3/uL (0-0.5); Hematocrit 36.4 % (35-47); Hemoglobin 11.1 g/dL (12.0-16.0); IMMATURE GRAN # 0.04 x10^3u/L (0.00-0.03); IMMATURE GRAN % 0.4 % (0.00-0.4); Lymphocyte (Absolute #) 0.88 x10^3/uL (1.0-4.6); Lymphocytes % 8.8 % (24.0-44.0); Mean Cell Volume 88.3 fL (78-100); Mean Corpuscular Hemoglobin 26.9 pg (26-32); Mean Corpuscular Hgb Concent. 30.5 g/dL (32-36); Mean Platelet Volume 10.7 fL (7.5-11.0); Monocyte (Absolute #) 0.62 x10^3/uL (0.0-1.3); Monocytes % 6.2 % (0.0-12.0); Neutrophil % 83.7 % (36.0-66.0); Platelet Count 192 x10^3/uL (150-450); Red Blood Count 4.12 x10^6/uL (4.1-5.4); Red Cell Distribution Width 13.9 % (11.5-14.0)
--- NOTE | 2022-04-24 12:06 | ERPHSYRPT ---
- History of Present Illness Time Seen by Provider: 04/24/22 11:15 Source: patient Exam Limitations: no limitations Patient Subjective Stated Complaint: PT states "I am having a hard time breathing.". Invive stated "She was blue so we put her on a non rebreather then we saw that her oxygen tubeing was kinked.". EMS stated "She had kleenex in her nose so we took that out and her oxygen came up nicely." Triage Nursing Assessment: PT presented alert and oriented X 3, skin wpd. Pt able to speak in clear full sentences pt slightly tachyneic and diminished in all lung krishnamurthy. Physician History: As above, patient had difficulty breathing at [facility]. However sounds like patient had Kleenex up her nose and kink in her oxygen tube. No falls or other trauma. Patient's O2 improved with removal of Kleenex and nose and removal of oxygen Dirk. Patient now states that she feels at her baseline. Lung sounds clear. No falls or other trauma. Patient does have a history of many chronic illnesses including CHF, COPD. Timing/Duration: today Severity: moderate Associated Symptoms: shortness of breath Allergies/Adverse Reactions: Sulfa (Sulfonamide Antibiotics) Allergy (Severe, Verified 03/26/22 21:08) Anaphylactic Reaction swelling, trouble breathing Home Medications: Amlodipine Besylate 2.5 mg PO DAILY 08/05/18 [History] Aspirin 81 mg PO DAILY 08/05/18 [History] Fosinopril Sodium [monoPRIL] 10 mg PO DAILY 08/05/18 [History] Levothyroxine Sodium 100 Mcg [Synthroid 100 Mcg] 100 mcg PO DAILY 08/05/18 [History] Potassium Chloride Tab* [Klor Con] 10 meq PO DAILY 01/19/19 [History] Atorvastatin Calcium [Lipitor] 10 mg PO DAILY 02/12/22 [History] Insulin NPH Hum/Reg Insulin Hm [Relion Novolin 70-30 Vial] 50 units SQ HS 03/27/22 [History] Nystatin Powder 15 gm [Nystop Powder 15 gm] 60 gm TP BID 03/27/22 [History] Hx Tetanus, Diphtheria Vaccination/Date Given: Yes Hx Influenza Vaccination/Date Given: Yes Hx Pneumococcal Vaccination/Date Given: Yes Immunizations Up to Date: Yes Travel Risk - International Travel Have you traveled outside of the country in past 3 weeks: No - Coronavirus Screening Are you exhibiting any of the following symptoms?: Yes Symptoms: Shortness of Breath - Vaccine Status Have you recieved a Covid-19 vaccination: No - Review of Systems Constitutional: No Fever, No Chills Eyes: No Symptoms Ears, Nose, & Throat: No Symptoms Respiratory: Dyspnea, No Cough Cardiac: No Chest Pain, No Edema, No Syncope Abdominal/Gastrointestinal: No Abdominal Pain, No Nausea, No Vomiting, No Diarrhea Genitourinary Symptoms: No Dysuria Musculoskeletal: No Back Pain, No Neck Pain Skin: No Rash Neurological: No Dizziness, No Focal Weakness, No Sensory Changes Psychological: No Symptoms Endocrine: No Symptoms All Other Systems: Reviewed and Negative - Past Medical History Pertinent Past Medical History: Yes Neurological History: No Pertinent History ENT History: Cataracts, Glaucoma Cardiac History: Arrhythmia, Congestive Heart Failure, Hypertension Respiratory History: Asthma, CHF, COPD, Sleep Apnea, Other Endocrine Medical History: Diabetes Type II Musculoskeletal History: Arthritis GI Medical History: Diverticulitis, Diverticulosis, GERD, Hernia History: No Pertinent History Psycho-Social History: Anxiety, Panic Disorder Female Reproductive Disorders: No Pertinent History Other Medical History: hypoxia. 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 D and C, chest tube placement LEFT side - Social History Smoking Status: Never smoker Exposure to second hand smoke: No Drug Use: none Patient Lives Alone: No - Nursing Vital Signs Nursing Vital Signs: Initial Vital Signs Temperature 97.2 F 04/24/22 11:15 Pulse Rate 101 H 04/24/22 11:15 Respiratory Rate 20 04/24/22 11:15 Blood Pressure 113/93 04/24/22 11:15 O2 Sat by Pulse Oximetry 92 L 04/24/22 11:15 Pain Scale Pain Intensity 0 - Physical Exam General Appearance: no apparent distress, alert Eye Exam: PERRL/EOMI, eyes nml inspection Ears, Nose, Throat Exam: normal ENT inspection, TMs normal, pharynx normal, moist mucous membranes Neck Exam: normal inspection, non-tender, supple, full range of motion Respiratory Exam: wheezing, other (Mild end expiratory wheezing), No respiratory distress Cardiovascular Exam: regular rate/rhythm, normal heart sounds, normal peripheral pulses Gastrointestinal/Abdomen Exam: soft, normal bowel sounds, No tenderness, No mass Back Exam: normal inspection, normal range of motion, No CVA tenderness, No vertebral tenderness Extremity Exam: normal inspection, normal range of motion, pelvis stable Neurologic Exam: alert, oriented x 3, cooperative, normal mood/affect, nml cerebellar function, nml station & gait, sensation nml, No motor deficits Skin Exam: normal color, warm, dry, No rash Lymphatic Exam: No adenopathy SpO2: 93 - Course Nursing assessment & vital signs reviewed: Yes EKG Interpreted by Me: Sinus Rhythm Ordered Tests: Active Orders 24 hr Category Date Time Status EKG-ER Only STAT Care 04/24/22 11:27 Completed IV Insertion STAT Care 04/24/22 11:27 Completed CHEST 1 VIEW (PORTABLE) Stat Exams 04/24/22 11:27 Completed CBC W DIFF Stat Lab 04/24/22 11:43 Completed CMP Stat Lab 04/24/22 11:43 Completed NT PRO BNPII Stat Lab 04/24/22 11:43 Completed TROPONIN Q4H Lab 04/24/22 11:43 Completed Respiratory Therapy Assessment DAILY RT 04/24/22 11:42 Completed Medication Summary Discontinued Medications Generic Name Dose Route Start Last Admin Trade Name Pashaq PRN Reason Stop Dose Admin Albuterol/Ipratropium 3 ml 04/24/22 11:27 04/24/22 11:39 Ipratropium/Albuterol Sulfate 3 Ml Ampul.Neb IH 04/24/22 11:28 3 ml STAT ONE Administration Albuterol/Ipratropium Confirm 04/24/22 11:36 Ipratropium/Albuterol Sulfate 3 Ml Ampul.Neb Administered 04/24/22 11:37 Dose 3 ml IH .STK-MED ONE Aspirin 324 mg 04/24/22 11:27 04/24/22 11:35 Aspirin 81 Mg Tab.Chew PO 04/24/22 11:28 324 mg STAT ONE Administration Aspirin Confirm 04/24/22 11:30 Aspirin 81 Mg Tab.Chew Administered 04/24/22 11:31 Dose 324 mg .ROUTE .STK-MED ONE Methylprednisolone Sodium 0 mg 04/24/22 11:27 04/24/22 11:33 Succinate 125 mg/ Sterile IV 04/24/22 11:28 125 mg Water 2 ml STAT ONE Administration Methylprednisolone Sodium Succinate Confirm 04/24/22 11:31 Methylprednis Sod Succ 125 Mg/2 Ml Vial Administered 04/24/22 11:32 Dose 125 mg .ROUTE .STK-MED ONE Sterile Water Confirm 04/24/22 11:30 Water For Injection,Sterile 10 Ml Vial Administered 04/24/22 11:31 Dose 10 ml IJ .STK-MED ONE Lab/Rad Data: Laboratory Result Diagrams 04/24/22 11:43 04/24/22 11:43 Laboratory Results 04/24/22 04/24/22 04/24/22 Range/Units 11:43 11:43 11:43 WBC 10.0 (4.0-10.5) x10^3/uL RBC 4.12 (4.1-5.4) x10^6/uL Hgb 11.1 L (12.0-16.0) g/dL Hct 36.4 (35-47) % MCV 88.3 (78-100) fL MCH 26.9 (26-32) pg MCHC 30.5 L (32-36) g/dL RDW 13.9 (11.5-14.0) % Plt Count 192 (150-450) x10^3/uL MPV 10.7 (7.5-11.0) fL Gran % 83.7 H (36.0-66.0) % Immature Gran % (Auto) 0.4 (0.00-0.4) % Nucleat RBC Rel Count 0.0 (0.00-0.1) % Eos # (Auto) 0.07 (0-0.5) x10^3/uL Immature Gran # (Auto) 0.04 H (0.00-0.03) x10^3u/L Absolute Lymphs (auto) 0.88 L (1.0-4.6) x10^3/uL Absolute Monos (auto) 0.62 (0.0-1.3) x10^3/uL Absolute Nucleated RBC 0.00 (0.00-0.01) x10^3u/L Lymphocytes % 8.8 L (24.0-44.0) % Monocytes % 6.2 (0.0-12.0) % Eosinophils % 0.7 (0.00-5.0) % Basophils % 0.2 (0.0-0.4) % Absolute Granulocytes 8.40 H (1.4-6.9) x10^3/uL Basophils # 0.02 (0-0.4) x10^3/uL Sodium 140 (137-145) mmol/L Potassium 4.5 (3.5-5.1) mmol/L Chloride 98 (98-107) mmol/L Carbon Dioxide 36 H (22-30) mmol/L Anion Gap 10.5 (5-15) MEQ/L BUN 14 (7-17) mg/dL Creatinine 0.63 (0.52-1.04) mg/dL Estimated GFR > 60.0 ML/MIN Glucose 234 H (74-106) mg/dL Calcium 8.1 L (8.4-10.2) mg/dL Total Bilirubin 0.20 (0.2-1.3) mg/dL AST 22 (14-36) U/L ALT 19 (0-35) U/L Alkaline Phosphatase 102 (38-126) U/L Troponin I 0.023 (0.000-0.034) ng/mL NT-Pro-B Natriuret Pep 2110 (<300) pg/mL Serum Total Protein 6.2 L (6.3-8.2) g/dL Albumin 3.4 L (3.5-5.0) g/dL - Progress Progress: improved Progress Note: 04/24/22 12:05 differential diagnosis includes: PNA, STEMI, NSTEMI, other infection, musculoskeletal pain, pneumothorax - We'll obtain basic labs, fluids, EKG, troponin, chest x-ray - I feel comfortable with one time negative troponin given symptoms have improved and started greater then 6 hours ago. - EKG shows no ST changes - my read. See full read below. - O2 saturations consistently greater than 95%. - CXR shows no pneumonia, pneumothorax - my read 04/24/22 14:39 Labs and imaging returned negative. Patient feels improved here. No further episodes of hypoxia. Plan for discharge home. Patient states her understanding will follow-up as described. Counseled pt/family regarding: lab results, diagnosis, need for follow-up, rad results - Departure Departure Disposition: Home Clinical Impression: Shortness of breath Condition: Stable Critical Care Time: No Referrals: ENVIVE,ENVIVE [Primary Care Provider] - Follow up/PCP as directed Instructions: Shortness of Breath (Dyspnea) (DC)
[2022-04-24 12:16] LABS: ALBUMIN 3.4 g/dL (3.5-5.0); ALKALINE PHOSPHATASE 102 U/L (38-126); BLOOD UREA NITROGEN 14 mg/dL (7-17); CHLORIDE 98 mmol/L (98-107); Calcium 8.1 mg/dL (8.4-10.2); Creatinine 1 0.63 mg/dL (0.52-1.04); EST GLOMERULAR FILTRATION RATE > 60.0 ML/MIN; Glucose 234 mg/dL (74-106); NT PRO BNPII 2110 pg/mL (<300); Potassium 4.5 mmol/L (3.5-5.1); SGOT/AST 22 U/L (14-36); SGPT/ALT 19 U/L (0-35); SODIUM 140 mmol/L (137-145); Total Protein 6.2 g/dL (6.3-8.2)
[2022-04-24 12:17] LABS: Carbon Dioxide 36 mmol/L (22-30)
[2022-04-24 12:18] LABS: ANION GAP 10.5 MEQ/L (5-15)
[2022-04-24 13:00] VITALS: BP 103/83; PULSE 84
[2022-04-24 14:40] VITALS: O2SAT 93
== END 2022-04-24 13:22 | disposition home or self-care (01) ==
LOC: ED 11:13
DX: R06.02 Shortness of breath (principal); I11.0 Hypertensive heart disease with heart failure; I50.9 Heart failure, unspecified; E11.9 Type 2 diabetes mellitus without complications; Z79.4 Long term (current) use of insulin; Z79.899 Other long term (current) drug therapy; Z28.310 Unvaccinated for COVID-19
CPT/HCPCS: 36000; 36415; 71045; 80053; 83880; 84484; 85025; 93005; 94640; 96374; 99284; J2930; A9270-GY